=== PATIENT | male | born 1940 | race Caucasian/White ===

== ENCOUNTER → 2019-03-27 | Outpatient (CLI) | payer MEDICARE, SELFPAY ==
[2019-03-06 09:19] VITALS: BMI 30.2
--- NOTE | 2019-03-27 12:40 | STRESSREP_ITS ---
Stress Test Report Exercise myocardial perfusion stress test. 78-year-old man with a history of coronary artery disease and previous pericarditis. Medications: Aspirin, amlodipine, metoprolol, isosorbide. Stress protocol: Resting EKG demonstrates sinus bradycardia with a rate of 48 bpm normal intervals are noted resting blood pressures 142/78mmhg. The patient exercised according to regular Gideon protocol for a total duration of 6 minutes. The maximum heart rate attained was 146 bpm which was 102% of maximum corrected heart rate and maximum workload was 7 metabolic equivalents. The patient maintained sinus rhythm throughout the recording. At rest there were no ST or T wave changes noted suggest ischemia at peak exercise nonspecific ST-T wave c hanges were noted with no meet the criteria for ischemia. The resting blood pressure 142/78 with a peak blood pressure 168/84 mmHg. No clinical angina was noted. Myocardial perfusion protocol. 14.3 mCi of technetium 99m sestamibi was injected at rest. The patient exercised according to regular Gideon protocol peak exercise 44.4 mCi of technetium 99 sestamibi was injected stress images were obtained stress and rest images were reconstructed and compared in the short axis vertical and horizontal long axis. Gated images were also obtained . Perfusion SPECT analysis. Review of the stress images demonstrate normal uptake of tracer noted in all areas of the myocardium ;the rest images similar demonstrate normal uptake of tracer noted in all areas of myocardium. No areas of reversibility no suggest ischemia. Gated SPECT analysis: The gated ejection fraction is 66%. Conclusion: Normal exercise myocardial perfusion stress test at a moderate workload. Normal ejection fraction.
== END | disposition home or self-care (01) ==
PROVIDERS: Family Provider Family Medicine; PCP Family Medicine; Referring Provider Internal Medicine Cardiovascular Disease; Visit Provider Internal Medicine Cardiovascular Disease
DX: I25.10 Atherosclerotic heart disease of native coronary artery without angina pectoris (principal); E78.5 Hyperlipidemia, unspecified
CPT/HCPCS: 78452; 93017; A9500; A4216

== ENCOUNTER → 2019-08-07 08:48 | Outpatient (CLI) | payer MEDICARE, SELFPAY ==
[2019-03-06 09:19] VITALS: BMI 30.2
--- NOTE | 2019-08-07 09:39 | ADU_ITS ---
Reason For Study: Rt groin pain/abnormal ultrasound Right Velocities Left Velocities Ext. Iliac Artery, dist = 108.9 cm./sec. Ext Iliac Artery, dist = 92.3 cm./sec. Common Femoral Artery, dist = 81.4 cm./sec. Common Femoral Artery, mid = 65.8 cm./sec. Supf Femoral Artery, prox = 111 cm./sec. Supf. Femoral Artery, prox = 60.9 cm./sec. Supf Femoral Artery, mid = 79.6 cm./sec. Supf. Femoral Artery, mid = 83 cm./sec. Supf Femoral Artery, dist. = 70.5 cm./sec. Supf. Femoral Artery, dist = 63.4 cm./sec. Profunda Femoral Artery = 88.8 cm./sec. Profunda Femoral Artery = 45 cm./sec. Interpretation Summary Mild calcific plaque with shadowing right common femoral artery. Velocities suggest less than 50% stenosis right common femoral artery Proximal right superficial femoral artery and profundofemoral arteries are patent Minimal calcific plaque left common femoral artery with maintained flow within the common femoral artery and superficial femoral artery. Irregular plaque within the proximal left profundofemoral artery with slightly diminished velocity. Ordering Physician: Richar Dunbar Referring Physician: MD Oliver Mims Performed By: Dori Beltran RVCj
== END ==
PROVIDERS: Family Provider Family Medicine; PCP Family Medicine; Referring Provider Surgery; Visit Provider Surgery
DX: R93.89 Abnormal findings on diagnostic imaging of other specified body structures (principal)
CPT/HCPCS: 93925

== ENCOUNTER 2020-07-16 20:06 | Emergency (ER) | payer MEDICARE, OTHER, SELFPAY ==
[2020-03-05 15:03] VITALS: BMI 30.2
[2020-07-16 20:07] VITALS: BP 132/70; PULSE 54; RESP 15; TEMP 36.4; O2SAT 94; BMI 27.6
[2020-07-16 20:13] VITALS: O2SAT 95
--- NOTE | 2020-07-16 20:20 | CT_ITS ---
STUDY: CT CERVICAL SPINE WITHOUT CONTRAST REASON FOR EXAM: Male, 79 years old. FELL FROM TREADMILL. No LOC. Lt shoulder pain RADIATION DOSAGE (If Supplied By Facility): CTDIvol = ( 23.08 ) mGy, DLP = ( 448.19 ) mGycm TECHNIQUE: High resolution transaxial imaging was performed without contrast material. Sagittal and coronal images were reconstructed. Individualized dose optimization techniques were used for this CT. COMPARISON: None FINDINGS: Normal craniovertebral junction. Normal anterior atlantoaxial articulation. Normal odontoid process. Normal cervical lordosis. Normal vertebral bodies and posterior osseous elements. C2-3: Normal endplates. Normal disc height and morphology. Right degenerative facet hypertrophy. Normal central canal and intervertebral neuroforamina. C3-4: Normal endplates. Normal disc height and morphology. Normal central canal. Facet hypertrophy and uncovertebral spurring narrowing the left intervertebral neural foramen. C4-5: Spurring at the endplates. Normal disc height and morphology. Normal central canal. Facet hypertrophy narrowing the intervertebral neuroforamina. C5-6: Spurring at the endplates. Narrowed disc height. Mild posterior spurring protruding into the central canal. Uncovertebral spurring narrowing the intervertebral neuroforamina, left more than right. C6-7: Mild spurring at the endplates. Narrowed disc height. Normal central canal and intervertebral neuroforamina. C7-T1: Normal endplates. Normal disc height and morphology. Normal central canal and intervertebral neuroforamina. Normal visualized soft tissue structures. CT/Spine Cervical without Contras IMPRESSION: Degenerative changes of the cervical spine. Electronically Signed: Eldon Nichols DO at 21:32 EDT Tel [phone], Service support ,
--- NOTE | 2020-07-16 20:20 | CT_ITS ---
STUDY: CT BRAIN WITHOUT CONTRAST REASON FOR EXAM: Male, 79 years old. FELL FROM TREADMILL. No LOC. Lt shoulder pain RADIATION DOSAGE (If Supplied By Facility): CTDIvol = ( 44.99 ) mGy, DLP = ( 796.11 ) mGycm TECHNIQUE: Transaxial CT imaging of the brain was performed without administration of intravenous contrast material. Individualized dose optimization techniques were used for this CT. COMPARISON: No relevant priors. FINDINGS: Normal soft tissue structures. Normal calvarium. Normal size ventricles and extra-axial spaces for the patient''s age. Normal white matter tracts of the cerebral hemispheres. Normal basal ganglia and thalami. Normal brainstem. Normal cerebellum. There is no intracranial hemorrhage. There are no findings of an acute ischemic infarction. Normal visualized paranasal sinuses. CT/Brain/Head without Contrast IMPRESSION: Normal unenhanced CT scan of the brain. Electronically Signed: Eldon Nichols DO at 21:26 EDT Tel [phone], Service support ,
--- NOTE | 2020-07-16 20:21 | RAD_ITS ---
STUDY: X-RAY - LEFT SHOULDER REASON FOR EXAM: Male, 79 years old. LEFT SHOULDER PAIN AFTER FALLING OFF TREADMILL. TECHNIQUE: 2 view(s) of the shoulder. COMPARISON: None. FINDINGS: Normal glenohumeral articulation. Normal acromioclavicular joint. Degenerative hypertrophy of the acromion. Impacted fracture at the surgical neck of the humerus with avulsion of the greater tuberosity. The soft tissue structures are unremarkable. Normal visualized pulmonary apex. RAD/Shoulder min 2 Views IMPRESSION: Impacted fracture at the surgical neck of the humerus with avulsion of the greater tuberosity. Electronically Signed: Eldon Nichols DO at 21:54 EDT Tel [phone], Service support ,
--- NOTE | 2020-07-16 20:21 | RAD_ITS ---
STUDY: X-RAY - LEFT HUMERUS REASON FOR EXAM: Male, 79 years old. LEFT SHOULDER PAIN AFTER FALLING OFF TREADMILL. TECHNIQUE: 4 view(s) of the humerus. COMPARISON: None. FINDINGS: Impacted fracture at the surgical neck of the humerus with avulsion of the greater tuberosity. There is no demonstrated fracture or osseous destructive process. There is no demonstrated soft tissue abnormality. RAD/Humerus min 2 Views IMPRESSION: Impacted fracture at the surgical neck of the humerus with avulsion of the greater tuberosity. Electronically Signed: Eldon Nichols DO at 21:53 EDT Tel [phone], Service support ,
--- NOTE | 2020-07-16 20:24 | ED.VIS.FALL ---
History of Present Illness Chief Complaint: Fall Informant: Patient Occurred: Today Mechanism/Context: Trip Narrative: Patient is a 79-year-old male presenting after mechanical fall. Patient was walking on his treadmill at home when he look to the side when he was trying to get a piece of candy out of his pocket which caused him to lose his balance and fall. He landed on his left side. He did hit his head. He does not think he lost consciousness. He is complaining of significant pain of his left shoulder. He denies associated numbness or tingling. He does take a daily aspirin but is not on any other anticoagulation. He also has some mild pain of his left hip. Patient received 30 mg of IV Toradol in route via EMS. Patient denies any other complaints at this time. Past Medical History - Allergies and Home Meds Allergies/Adverse Reactions: Allergies morphine Adverse Reaction (Verified 07/16/20 20:06) Other HALLUCINATIONS Primary Care Physician: Oliver Mims MD [Primary Care Provider] - Benjamín Davey MD [STAFF PHYSICIAN] - Past Medical History: - - Hypertension, hyperlipidemia, BPH, gastritis, glaucoma Surgical History: appendectomy, - - eye Smoking Status: Former smoker Review of Systems General: Denies: Chills, Fever, Sweats Eyes: Denies: Visual changes - bilaterally, Diplopia ENT: Denies: Rhinorrhea, Sore throat Cardiovascular: Denies: Chest pain, Palpitations Respiratory: Denies: Dyspnea, Cough, Dyspnea on exertion Gastrointestinal: Denies: Abdominal pain, Nausea, Vomiting, Diarrhea, Melena, Hematochezia Genitourinary: Denies: Dysuria, Hematuria, Frequency Musculoskeletal: Reports: Extremity Pain - Left shoulder, left hip. Denies: Back pain, Swelling Skin: Denies: Rash, Wounds Neurological: Denies: Headache, Weakness, Numbness Physical Exam Vital Signs/Narrative: Vital Signs Temp Pulse Resp BP Pulse Ox 07/16/20 20:13 95 07/16/20 20:07 97.5 F L 54 L 15 132/70 H 94 Inital Vital Signs reviewed: Yes General: Well nourished, Well developed Head: Normocephalic, Atraumatic Eyes: Perrl, EOMI ENT: TM's clear, No hemotympanum or drainage, No trauma. Negative for: Hemotympanum, Nasal trauma, Nasal septal hematoma Neck: Nontender, Full ROM. Negative for: Spinal Tenderness, Paraspinal Tenderness Cardiovascular: Regular rate, Regular rhythm, No murmurs Respiratory: No distress, CTA bilaterally, Chest nontender Abdomen: Soft, Nontender, Nondistended, Normal bowel sounds. Negative for: Guarding, Rebound tenderness Back: Nontender Extremeties: No obvious deformity but tenderness to palpation of the left shoulder and proximal humerus. No pain or deformity of the left elbow. Normal range of motion of the elbow and distal arm. Mild tenderness palpation of the left hip. Pelvis is stable. No pain with range of motion of the left hip. Extremities are equal length with no deformities. Skin: Normal color, No rash, - - 1 cm superficial abrasion to the hypothenar eminence of the right hand, no active bleeding. Neurological: Alert, Oriented x3, Cranial nerves II-XII grossly intact, Normal Strength, Normal Sensation Psychological: Normal affect Diagnostic/Tx/Re-eval Clinical Impression(s) from Imaging Studies Brain CT 07/16/20 20:20 IMPRESSION: Normal unenhanced CT scan of the brain. Electronically Signed: Eldon Nichols DO at 21:26 EDT Tel [phone], Service support , Cervical Spine CT 07/16/20 20:20 IMPRESSION: Degenerative changes of the cervical spine. Electronically Signed: Eldon Nichols DO at 21:32 EDT Tel [phone], Service support , Humerus X-Ray 07/16/20 20:21 IMPRESSION: Impacted fracture at the surgical neck of the humerus with avulsion of the greater tuberosity. Electronically Signed: Eldon Nichols DO at 21:53 EDT Tel [phone], Service support , Shoulder X-Ray 07/16/20 20:21 IMPRESSION: Impacted fracture at the surgical neck of the humerus with avulsion of the greater tuberosity. Electronically Signed: Eldon Nichols DO at 21:54 EDT Tel [phone], Service support , Hip/Pelvis X-Ray 07/16/20 21:10 IMPRESSION: No acute bony injury of the pelvis and hip. Electronically Signed: Eldon Nichols DO at 21:51 EDT Tel [phone], Service support , - Medical Decision Making Patient evaluated for pain injury after mechanical fall. He fell off his treadmill. He appears nontoxic but very uncomfortable secondary to pain. Patient was given Toradol in route and because of the amount of pain he is and he is given IV morphine. Patient states he had confusion associate with morphine but I think given his acute pain he will tolerate it better this time. Patient is amenable to this. Patient is given 4 of IV morphine and does not have any altered mental status. Given that he did hit his head and is on aspirin did obtain a head CT and as he has a distracting injury with his left shoulder I also obtained CT of the C-spine. These do not show any acute process. Patient is found to have an impacted surgical neck fracture of the humerus with avulsion of the greater tuberosity. He is neurovascular intact distally. He does have decreased range of motion of his shoulder but is not clear if this is just due to pain or if there is a deficit in one of his rotator cuff muscles. Patient is discharged home with Percocet and Colace for pain control. He is counseled on the side effects of constipation associated with Percocet which is why he is discharged home with Colace. He is placed in a sling in the ER. He is instructed to follow-up with orthopedics and given referral for on-call, Dr. Davey. I also discussed plan of care with his over the phone who is agreeable. She will come pick him up. Patient is amenable to discharge home and feels that he will be safe at home and has enough assistance with his . Patient is counseled on signs and symptoms requiring return to the emergency room. Patient verbalizes agreement and understand this plan. Patient discharged home in stable and improved condition. ED Disposition - Plan for ED Patient: Disposition: Home or Assisted Living Diagnosis: Fracture of surgical neck of left humerus Instructions: ED Mechanical Fall, ED Fracture Upper Extremity Prescriptions: Docusate Sodium [Colace] 100 mg PO BID #20 cap Prescription Printed Oxycodone HCl/Acetaminophen [Percocet 5/325] 1 tab PO Q6H PRN PRN 3 Days #12 tab PRN Reason: Pain Score 6-10 Prescription Printed Referrals: Oliver Mims MD [Primary Care Provider] - Benjamín Davey MD [STAFF PHYSICIAN] - Additional Instructions: Wear sling for comfort. Please call orthopedist tomorrow to set up a follow-up appointment for early next week. Take a stool softener with the pain medication to prevent constipation. You may also take ibuprofen in addition to the pain medication prescribed today. No other injuries are found today. Your tetanus was updated.
[2020-07-16] MEDS: Morphine 4 MG/ML Syringe IV (20:39)
[2020-07-16] MEDS: Ondansetron 4 MG/2 ML Vial IV (20:39)
--- NOTE | 2020-07-16 21:10 | RAD_ITS ---
STUDY: X-RAY - PELVIS AND LEFT HIP REASON FOR EXAM: Male, 79 years old. FALL OFF TREADMILL. LEFT HIP PAIN. TECHNIQUE: 3 views of the pelvis and hip. COMPARISON: None. FINDINGS: There is a non-specific bowel gas pattern. Normal visualized soft tissue structures. Degenerative vertebral changes about the visualized lumbar levels. Normal bilateral iliac wings, sacroiliac joints and visualized sacrum. Normal bilateral superior and inferior pubic rami. Normal pubic symphysis. Normal bilateral ischial tuberosities. Normal visualized femoral head. Normal acetabulum. Normal hip joint. RAD/HIP, UNI W/ Pelvis 2-3 Views IMPRESSION: No acute bony injury of the pelvis and hip. Electronically Signed: Eldon Nichols DO at 21:51 EDT Tel [phone], Service support ,
[2020-07-16 22:11] VITALS: BP 111/69; PULSE 85; RESP 16; O2SAT 98
[2020-07-16] MEDS: Diphth,Pertuss(Acell),Tet Vac 0.5 ML Vial IM (22:28)
[2020-07-16] MEDS: oxyCODONE 5 MG Tablet PO (22:28)
== END 2020-07-16 23:02 | disposition home or self-care (01) ==
PROVIDERS: Emergency Provider Emergency Medicine; PCP Family Medicine
DX: S42.212A Unspecified displaced fracture of surgical neck of left humerus, initial encounter for closed fracture (principal); E78.5 Hyperlipidemia, unspecified; I10 Essential (primary) hypertension; Z79.82 Long term (current) use of aspirin; Z79.899 Other long term (current) drug therapy; W18.30XA Fall on same level, unspecified, initial encounter; Y93.A1 Activity, exercise machines primarily for cardiorespiratory conditioning; Y92.009 Unspecified place in unspecified non-institutional (private) residence as the place of occurrence of the external cause; Y99.8 Other external cause status
CPT/HCPCS: 70450; 72125; 73030; 73060; 73502; 90471; 90715; 96374; 96375; 99284; J2405

== ENCOUNTER → 2020-07-23 11:16 | Outpatient (CLI) | payer MEDICARE, OTHER, SELFPAY ==
[2020-07-16 20:07] VITALS: BMI 27.6
--- NOTE | 2020-07-23 11:34 | VDUE_ITS ---
Reason For Study: Pain, Edema Left Proximal Left jugular vein is spontaneous, widely patent, phasic, with no intraluminal echogenicity noted. Left subclavian vein is spontaneous, widely patent, phasic, with no intraluminal echogenicity noted. Left Arm Left axillary vein is spontaneous, patent, phasic, competent, compressible and demonstrates augmentation. Left brachial vein is compressible. Left cephalic vein is compressible. Left basilic vein is compressible. Left Lower Arm Left radial vein is compressible. Left ulnar vein is compressible. Patient Safety Prelim to Ceferino. Technically difficult and limited exam due to rotator cuff tear, pt unable to move arm. Interpretation Summary Deep veins of the left upper extremity are patent and compressible segmentally. There is no evidence of deep vein thrombosis. The superficial veins of the left upper extremity, the basilic and cephalic veins, are patent and compressible. There is no evidence of left upper extremity superficial thrombophlebitis involving the veins imaged. Ordering Physician: Dexter De La Vega Referring Physician: MD Felicita Oliver Performed By: Dori Beltran RVT and Student ?
== END ==
PROVIDERS: PCP Family Medicine; Referring Provider Physician Assistant Surgical; Visit Provider Physician Assistant Surgical
DX: M79.622 Pain in left upper arm (principal); R60.0 Localized edema
CPT/HCPCS: 93971

== ENCOUNTER 2020-08-05 09:22 | Inpatient (IN) | payer MEDICARE, OTHER, SELFPAY ==
--- NOTE | 2020-07-31 09:33 | EKG12_ITS ---
Test Reason : PREOP Blood Pressure : / mmHG Vent. Rate : 051 BPM Atrial Rate : 051 BPM P-R Int : 152 ms QRS Dur : 080 ms QT Int : 426 ms P-R-T Axes : 047 050 056 degrees QTc Int : 392 ms Sinus bradycardia Otherwise normal ECG Confirmed by EDGAR FRIEND, WAQAS ([id number]), editor managing newspaper ROCAEL STAFFORD ([id number]) on 08/03/2020 1:26:27 PM Referred By: LIAT Confirmed By:WAQAS HERNÁNDEZ MD
[2020-07-31 10:26] LABS: Absolute Lymphocyte Count 1.55 X10^3/uL (0.83-4.51); Absolute Neutrophil Count 4.4 X10^3/uL (2.0-7.7); Basophil# 0.03 X10^3/uL; Basophil% 0.4 % (0-1); Eosinophil# 0.06 X10^3/uL; Eosinophils% 0.9 % (0-5); Hematocrit 35.9 % (40-54); Hemoglobin 11.5 g/dL (13.0-16.5); Lymphocyte # 1.55 X10^3/ul (4.0); Lymphocyte % 22.7 % (19-41); Mean Corpuscular Hgb 33.3 pg (27.0-32.0); Mean Corpuscular Volume 104.1 fL (80-94); Mean Platelet Vol. 9.2 fl (6.2-12.0); Monocyte# 0.73 X10^3/uL; Monocyte% 10.7 % (0-10); NRBC Flagged by Analyzer 0 % (0-5); Neutrophil # 4.43 X10^3/uL (2.7-7.7); Neutrophil % 64.9 % (47-70); Platelet Count 293 K/mm3 (150-450); RBC Distribution Width CV 13.8 % (11.6-14.6); RBC Distribution Width SD 52.6 fl (35.1-43.9); Red Blood Count 3.45 M/mm3 (4.6-6.2); White Blood Count 6.8 K/mm3 (4.4-11.0)
[2020-07-31 11:00] LABS: AST(SGOT) 16 U/L (15-37); Alanine Aminotransfer ALT/SGPT 22 U/L (16-61); Alkaline Phosphatase 79 U/L (45-117); Bilirubin, Direct 0.23 mg/dL (0.00-0.30); Globulin 3.6 g/dL (2.2-4.2); Magnesium 2.2 mg/dL (1.6-2.6); Protein, Total 6.6 g/dL (6.4-8.2)
[2020-07-31 11:42] LABS: Anion Gap 3 (5-15); BUN 15 mg/dL (7-18); BUN/Creat Ratio 20.7 RATIO (10-20); Calcium,Total 8.6 mg/dL (8.5-10.1); Chloride 104 mmol/L (98-107); Creatinine, Serum 0.73 mg/dL (0.70-1.30); EST Glomerular Filtration Rate 111 mL/min (>60); Est Glom Filt Rate - Afr Amer 134 mL/min (>60); Glucose 102 mg/dL (74-106); Potassium 4.3 mmol/L (3.5-5.1); Sodium Level 137 mmol/L (136-145)
[2020-08-05] VITALS (11 sets, daily range): BP systolic 99–114; BP diastolic 55–67; PULSE 45–73; RESP 16–17; TEMP 35.3–36.5; O2SAT 93–99; BMI 27.3
[2020-08-05] MEDS: Gabapentin 600 MG Tablet PO (09:54)
[2020-08-05] MEDS: Acetaminophen 500 MG Tablet 1000 MG PO ×3 (09:55→22:20)
[2020-08-05] MEDS: Celecoxib 200 MG Capsule 400 MG PO (09:55)
[2020-08-05] MEDS: Lactated Ringers 1,000 ML 999 ML IV ×2 (09:58→13:19)
[2020-08-05 10:26] LABS: Bedside Glucose 133 mg/dL (70-110)
[2020-08-05] MEDS: Cefazolin 2 GM in 0.9% Normal Saline 100 ML IV (10:28)
[2020-08-05] MEDS: dexAMETHasone 10 MG/ML Vial IV (10:45)
--- NOTE | 2020-08-05 12:24 | OP.PCM_ITS ---
Report of Operation Date of Procedure: 08/05/20 Pre-Operative Diagnosis: Left three-part proximal humerus fracture Post-Operative Diagnosis: Left three-part proximal humerus fracture Surgery/Procedure Performed:: Left reverse total shoulder replacement Description of Surgical Findings:: Stable shoulder. Well reduced tuberosities. corporate travel expert: Babatunde Aguiar Type of Anesthesia:: General Anesthesiologist: Armond Abreu Special Medications: 2 g Ancef, 1 g TXA at incision, 1 g TXA closure, 10 mg Decadron, joint cocktail (5 mg Duramorph, 30 mL of 0.5% Ropivicaine, 1000 units of epinephrine, 30 mg of Toradol). IV vancomycin Specimen's removed: Bony cuts Estimated Blood Loss (mL): 250 Fluids Replaced: 1300 mL crystalloid Description of Procedure: Components used 1. [place] reunion glenoid baseplate 2. Teddy reunion 36 mm, 2mm Glenosphere 3. [place] reunion 36mm, 6mm humeral liner 4. Teddy reunion reverse TSA humeral adapter tray 4mm 5. Teddy reunion humeral fracture stem 11 mm size Brief history/Operative indications: 79 yo m with history of l shoulder pain and proximal humerus fracture. Patient failed conservative measures as mentioned in the H&P. After discussion of risk and benefits of reverse total shoulder replacement including but not limited to blood loss, DVTs, PEs, nerve vessel damage, infection, general risk of anesthesia including loss of life, instability and stiffness patient demonstrating understanding wish to proceed was able to sign informed consent. Medical clearance was obtained. Procedure: On the date of the procedure, patient's L upper extremity was marked in the preoperative area. Patient was taken back to the operating room where they were placed on the table in the supine position. Anesthesia assumed control of the C-spine and airway, then administered anesthetic. All bony prominences were identified well-padded, the head was secured and the patient was placed in the beachchair position at about 35? inclination. Anesthesia remained in control of the C-spine airway throughout the remainder of the procedure. Patient was then appropriately fastened to the table and the L upper extremity was prepped in a sterile fashion. The surgeons then scrubbed. Upon reentering the room, the L upper extremity was draped in a sterile fashion and the incision was marked out. Timeout was called, everyone agreed upon the side, the site, the procedure to be performed, patient identity and antibiotics given. Incision was taken down through skin and subcutaneous tissue, fat down to fascia. The stripe of the deltopectoral interval and cephalic vein were identified and blunt dissection was used to retract the deltoid. The cephalic vein was retracted laterally. Clavipectoral fascia was then incised and a cobra retractor was placed in the wound. The proximal one third of the pectoralis major insertion was released. Biceps tendon was released. Proximally we followed the biceps tendon after transecting it into the rotator interval. The rotator interval was split and the arm was externally rotated. A lesser tuberosity fragment was identified and tagged subscapularis tendon was released. We released down the anterior portion of the humeral head and a resendiz elevator was used to release the inferior portion of the humeral head. The arm was externally rotated and the shoulder was dislocated. The humeral head fragment was removed from the wound using a towel clip. The greater tuberosity fragment was also identified and tagged using #2 FiberWire. Once his humeral head was retracted out of the way and the glenoid was exposed. After exposing the glenoid, the labrum and the remaining proximal biceps were debrided. At this time we are able to view the entire outer edge of the glenoid. A central pin was placed we sequentially reamed over this central pin to 28mm. Once this was completed the central screw was measured and found to be. The glenoid baseplate was screwed into place. Wound was closely irrigated out with normal saline we then drilled sequentially for 2 screws. Screws were placed superiorly and inferiorly and tightened down the screws. Once the screws were appropriately tightened into place the glenoid baseplate was compressed against the exposed subchondral bone. A 36mm glenosphere was impacted into place engaging the Lina[place] taper. Attention was then turned towards the humerus. The humerus was again externally rotated exposing the proximal portion of the humerus. Central canal finder was then used to open up the canal. We reamed to a 13mm reamer. We then trialed with an 11 mm fracture stem. We trialed the 6mm liner, with the 4mm humeral baseplate. We obtained an adequate reduction at this time with a nice stable shoulder. Good internal rotation to the gluteus, forward elevation to 140?, external rotation to 20?. The final stem was then cemented into place distally with allowing for proximal ingrowth at the bony contact areas. Once this was done the trunnion was cleaned and the head component was impacted into place. Once the final components were assembled and impacted into place. Shoulder was then reduced and found to be stable with good range of motion. Tuberosities were repaired using #5 FiberWire & #2 FiberWire. These were repaired through the holes in the prosthesis and predrilled holes in the bone.. The wound was with chlorhexidine solution then copiously irrigated out with a 1 L normal saline lavage. The deltopectoral fascia was then closed using #1 Vicryl skin was closed using 2-0 Vicryl interrupted sutures and final skin closure was done with 3-0 Monocryl. Steri-Strips are placed for final skin closure. Sterile dressing was placed patient was then placed in a sling and awakened by anesthesia. Patient was then transferred to the PACU for recovery. Postoperative plan: Patient will be admitted to the hospital overnight. They will get physical therapy starting in 2 weeks with normal postoperative regimen. Patient will be placed on 325 mg aspirin daily for DVT prophylaxis. The first postoperative appointment will be in 2 weeks for wound check and initiation of phase 1 physical therapy. - Complications No intraoperative complications - Admit VTE Documentation VTE Present on Admission: No VTE Mechan Device Prophylaxis: SCD's, Thigh High EMMANUEL Hose VTE Pharm Prophylaxis ordered?: Yes
--- NOTE | 2020-08-05 13:20 | RAD_ITS ---
STUDY: X-RAY - LEFT SHOULDER REASON FOR EXAM: Male, 79 years old. Post op left shoulder TECHNIQUE: 3 view(s) of the shoulder. COMPARISON: Comparison is made with prior examination dated 07/16/2020. FINDINGS: The patient is status post left total shoulder replacement. There is good alignment. RAD/Shoulder min 2 Views IMPRESSION: Status post left total shoulder replacement. There is good alignment. Electronically Signed: Dimitri Anaya, at 13:49 EST , Service support ,
[2020-08-05] MEDS: Lactated Ringers 1,000 ML 125 ML IV ×2 (13:38→18:39)
--- NOTE | 2020-08-05 15:05 | PN_ITS ---
<Paco Webb - Last Filed: 08/05/20 15:05> Reason for Visit: Medical management Subjective: This is a 79 year old male with pmhx of CAD with no prior stents, HTN, HLD, esophagitis, obesity who underwent a left reverse total shoulder per Dr. Davey today. At this time he is still groggy from waking up from sedation. Currently complains of no shortness of breath or cough, fever or chill, nausea or vomiting. He denies any pain. He has numbness from a nerve block in his left hand. He is otherwise doing well. Vitals/I&O's: Vital Signs Temp Pulse Resp BP Pulse Ox 96.8 F L 51 L 16 102/58 L 97 08/05/20 14:13 08/05/20 14:13 08/05/20 14:13 08/05/20 14:13 08/05/20 14:13 Oxygen Delivery Method Room Air Weight: 201 lb 15.095 oz Body Mass Index (BMI) 27.3 Intake and Output for Last 24 Hours 08/03/20 08/04/20 08/05/20 23:59 23:59 23:59 Intake Total 2965.5 / 2965.5 Balance 2965.5 / 2965.5 General: Alert, Oriented x3, Cooperative HEENT: Atraumatic, PERRLA, EOMI, Normocephalic Neck: Supple, No JVD, Negative Carotid Bruits Lungs: Clear to auscultation, Normal air movement Cardiovascular: Regular rate, No murmurs Abdomen: Bowel Sounds Present, Soft, Non Tender Extremities: No edema, Capillary Refill Less than 3 Seconds Skin: No rashes, No breakdown Musculoskeletal: No Tenderness to Palpation of Joints or Extremities, - - Distal pulse and motor function intact, sensation still impaired due to nerve block. Neurological: Cranial nerves II-XII grossly intact Psych/Mental Status: Normal Affect, Appropriate, Alert and oriented to time, place, person, mood and affect Microbiology Past 72 Hours 08/04/20 13:25 Interface Orders SARS-CoV-2 Antigen (Rapid) - Final Laboratory Results 08/05/20 09:46: POC Glucose 133 H Current Medications Acetaminophen (Acetaminophen 500 Mg Tablet) 1,000 mg PO Q8 CHEPE Amlodipine Besylate (Amlodipine 2.5 Mg Tablet) 2.5 mg PO DAILY [facility] Aspirin (Aspirin 325 Mg Tablet) 325 mg PO DAILY@0800 [facility] Atorvastatin Calcium (Atorvastatin Calcium 80 Mg Tablet) 80 mg PO QHS [facility] Docusate Sodium (Docusate Sodium 100 Mg Capsule) 100 mg PO BID PRN PRN Reason: Constipation Dorzolamide/Timolol (Dorzolamide Hcl/Timolol 10 Ml Bottle) 1 drop OPHTHALMIC BID [facility] Doxazosin Mesylate (Doxazosin 4 Mg Tablet) 4 mg PO DAILY [facility] Enteral Nutritional Formula (Ensure Surgery 237 Ml Liquid) 237 ml PO TIDCM [facility] Last Admin: 08/05/20 14:27 Dose: Not Given Documented by: Famotidine (Famotidine 20 Mg Tablet) 20 mg PO DAILY [facility] Finasteride (Finasteride 5 Mg Tablet) 5 mg PO DAILY [facility] Lactated Ringer's () 1,000 mls @ 999 mls/hr IV .Q1H1M [facility] Stop: 08/05/20 15:15 Last Infusion: 08/05/20 13:18 Dose: Infused Documented by: Lactated Ringer's () 1,000 mls @ 999 mls/hr IV .Q1H1M [facility] Stop: 08/05/20 15:15 Last Infusion: 08/05/20 13:38 Dose: Infused Documented by: Vancomycin HCl 1,500 mg/ (Sodium Chloride) 530 mls @ 250 mls/hr IV PREOP ONE Stop: 08/05/20 16:22 Last Infusion: 08/05/20 13:37 Dose: Infused Documented by: Lactated Ringer's () 1,000 mls @ 125 mls/hr IV .Q8H [facility] Last Admin: 08/05/20 13:38 Dose: 125 mls/hr Documented by: Cefazolin Sodium () 1 gm in 50 mls @ 150 mls/hr IV Q8H [facility] Stop: 08/06/20 02:49 Insulin Human Lispro (Insulin Lispro 100 Unit/Ml Insuln.Pen) 1 - 6 unit SC Q4H PRN PRN; Protocol PRN Reason: BG>/= 180, SEE PROTOCOL Stop: 08/05/20 20:15 Isosorbide Mononitrate (Isosorbide Mononitrate 30 Mg Tablet) 30 mg PO DAILY [facility] Ketorolac Tromethamine (Ketorolac 15 Mg/Ml Vial) 15 mg IV Q6H PRN PRN PRN Reason: Pain Score 1-5 Stop: 08/07/20 07:22 Meloxicam (Meloxicam 7.5 Mg Tablet) 7.5 mg PO BID [facility] Metoprolol Succinate (Metoprolol(Xl)Succ 25 Mg Tablet) 25 mg PO DAILY [facility] Nitroglycerin (Nitroglycerin (Inpatient Use) 0.4 Mg Tab.Subl) 0.4 mg SUBLINGUAL .Q5-15M PRN PRN Reason: chest pain Ondansetron HCl (Ondansetron 4 Mg/2 Ml Vial) 4 mg IV Q8H PRN PRN PRN Reason: NAUSEA Oxycodone HCl (Oxycodone 5 Mg Tablet) 5 - 10 mg PO Q4H PRN PRN PRN Reason: Pain Score 4-10 Promethazine HCl (Promethazine 25 Mg/Ml Syringe) 12.5 mg IM Q6H PRN PRN; Protocol PRN Reason: NAUSEA/VOMITING Psyllium Hydrophilic Mucilloid (Psyllium 1 Packet) 1 packet PO DAILY [facility] Senna/Docusate Sodium (Senna/Docusate Sodium 1 Tablet) 2 tablet PO BID CHEPE Sodium Chloride (0.9% Saline Lock 10 Ml Syringe) 10 - 40 ml IV UD PRN PRN Reason: SALINE FLUSH STROKE Vital Signs/Narrative: Vital Signs Temp Pulse Resp BP Pulse Ox 08/05/20 14:13 96.8 F L 51 L 16 102/58 L 97 08/05/20 14:00 56 L 16 101/62 95 08/05/20 13:45 46 L 16 100/60 94 08/05/20 13:30 45 L 16 103/61 93 08/05/20 13:15 50 L 16 99/59 L 95 08/05/20 13:08 95.5 F L 54 L 16 111/63 96 Medical Necessity - Tobacco Use Smoking Status: Former smoker Tobacco Use: Non-smoker Assessment/Plan All Active Problems (Last Reviewed 03/05/20 @ 15:[address] Luther Sanchez MD) Hypotension (Resolved) Near syncope (Resolved) 1. Left reverse total shoulder postop day #0-care [address] Dr[address] Davey. Received perioperative vancomycin and cefazolin. 2. History of CAD-follows Dr. Sanchez -last stress test was March 2019 and was negative for inducible ischemia. Continue Imdur, aspirin, atorvastatin, metoprolol 3. Hypertension-stable continue home meds 4. Hyperlipidemia-continue atorvastatin 5. History of esophagitis-he is not currently on PPI or H2 senia. 6. Recent macrocytic anemia 07/31/20 - check CBC in AM. 7. BPH-Proscar DVT prophylaxis: Per orthopedics. Thank you for the opportunity to participate in the care of this patient. This patient was seen by Paco Webb PA-C under the supervision of Doctor Penny. <Renata Francis - Last Filed: 08/05/20 19:00> Vitals/I&O's: Vital Signs Temp Pulse Resp BP Pulse Ox 97.4 F L 57 L 16 111/57 L 98 08/05/20 16:39 08/05/20 16:39 08/05/20 16:39 08/05/20 16:39 08/05/20 16:39 Oxygen Delivery Method Room Air Weight: 201 lb 15.095 oz Body Mass Index (BMI) 27.3 Intake and Output for Last 24 Hours 08/03/20 08/04/20 08/05/20 23:59 23:59 23:59 Intake Total 2965.5 / 2965.5 Balance 2965.5 / 2965.5 Microbiology Past 72 Hours 08/04/20 13:25 Interface Orders SARS-CoV-2 Antigen (Rapid) - Final Laboratory Results 08/05/20 09:46: POC Glucose 133 H Current Medications Acetaminophen (Acetaminophen 500 Mg Tablet) 1,000 mg PO Q8 [facility] Last Admin: 08/05/20 16:52 Dose: 1,000 mg Documented by: Amlodipine Besylate (Amlodipine 2.5 Mg Tablet) 2.5 mg PO DAILY [facility] Aspirin (Aspirin 325 Mg Tablet) 325 mg PO DAILY@0800 [facility] Atorvastatin Calcium (Atorvastatin Calcium 80 Mg Tablet) 80 mg PO QHS [facility] Docusate Sodium (Docusate Sodium 100 Mg Capsule) 100 mg PO BID PRN PRN Reason: Constipation Dorzolamide/Timolol (Dorzolamide Hcl/Timolol 10 Ml Bottle) 1 drop OPHTHALMIC BID [facility] Last Admin: 08/05/20 15:52 Dose: Not Given Documented by: Doxazosin Mesylate (Doxazosin 4 Mg Tablet) 4 mg PO DAILY [facility] Last Admin: 08/05/20 16:50 Dose: Not Given Documented by: Enteral Nutritional Formula (Ensure Surgery 237 Ml Liquid) 237 ml PO TIDCM [facility] Last Admin: 08/05/20 17:10 Dose: 237 ml Documented by: Famotidine (Famotidine 20 Mg Tablet) 20 mg PO DAILY [facility] Last Admin: 08/05/20 16:52 Dose: 20 mg Documented by: Finasteride (Finasteride 5 Mg Tablet) 5 mg PO DAILY [facility] Last Admin: 08/05/20 16:52 Dose: 5 mg Documented by: Lactated Ringer's () 1,000 mls @ 125 mls/hr IV .Q8H [facility] Last Admin: 08/05/20 13:38 Dose: 125 mls/hr Documented by: Cefazolin Sodium () 1 gm in 50 mls @ 150 mls/hr IV Q8H [facility] Stop: 08/06/20 02:49 Insulin Human Lispro (Insulin Lispro 100 Unit/Ml Insuln.Pen) 1 - 6 unit SC Q4H PRN PRN; Protocol PRN Reason: BG>/= 180, SEE PROTOCOL Stop: 08/05/20 20:15 Isosorbide Mononitrate (Isosorbide Mononitrate 30 Mg Tablet) 30 mg PO DAILY [facility] Ketorolac Tromethamine (Ketorolac 15 Mg/Ml Vial) 15 mg IV Q6H PRN PRN PRN Reason: Pain Score 1-5 Stop: 08/07/20 07:22 Meloxicam (Meloxicam 7.5 Mg Tablet) 7.5 mg PO BID [facility] Metoprolol Succinate (Metoprolol(Xl)Succ 25 Mg Tablet) 25 mg PO DAILY [facility] Nitroglycerin (Nitroglycerin (Inpatient Use) 0.4 Mg Tab.Subl) 0.4 mg SUBLINGUAL .Q5-15M PRN PRN Reason: chest pain Ondansetron HCl (Ondansetron 4 Mg/2 Ml Vial) 4 mg IV Q8H PRN PRN PRN Reason: NAUSEA Oxycodone HCl (Oxycodone 5 Mg Tablet) 5 - 10 mg PO Q4H PRN PRN PRN Reason: Pain Score 4-10 Promethazine HCl (Promethazine 25 Mg/Ml Syringe) 12.5 mg IM Q6H PRN PRN; Protocol PRN Reason: NAUSEA/VOMITING Psyllium Hydrophilic Mucilloid (Psyllium 1 Packet) 1 packet PO DAILY [facility] Last Admin: 08/05/20 15:52 Dose: Not Given Documented by: Senna/Docusate Sodium (Senna/Docusate Sodium 1 Tablet) 2 tablet PO BID [facility] Last Admin: 08/05/20 16:50 Dose: Not Given Documented by: Sodium Chloride (0.9% Saline Lock 10 Ml Syringe) 10 - 40 ml IV UD PRN PRN Reason: SALINE FLUSH Last Admin: 08/05/20 16:52 Dose: 10 ml Documented by: STROKE Vital Signs/Narrative: Vital Signs Temp Pulse Resp BP Pulse Ox 08/05/20 16:39 97.4 F L 57 L 16 111/57 L 98 08/05/20 14:41 97.0 F L 52 L 16 110/58 L 96 Assessment/Plan Patient seen by Paco Webb PA-C under my supervision Patient seen and examined. He was admitted for left reverse total shoulder replacement due to left proximal humeral fracture. He had surgery on 08/05/2020 and hospitalist service was consulted for medical management. He was seen in bed. He had no complaints and felt well. Review of stems otherwise negative. Pain was well controlled. Review of systems was otherwise negative. He had been on 6L of oxygen post op, but was weaned off, and was on room air at time of review. O/E: Vital Signs Temp Pulse Resp BP Pulse Ox 97.7 F L 73 16 103/55 L 97 08/05/20 18:41 08/05/20 18:41 08/05/20 18:41 08/05/20 18:41 08/05/20 18:41 General: Alert, Oriented x3, Cooperative HEENT: Atraumatic, PERRLA, EOMI, Normocephalic Neck: Supple, No JVD, Negative Carotid Bruits Lungs: Clear to auscultation, Normal air movement Cardiovascular: Regular rate, No murmurs Abdomen: Bowel Sounds Present, Soft, Non Tender Extremities: No edema, Capillary Refill Less than 3 Seconds Skin: No rashes, No breakdown Musculoskeletal: No Tenderness to Palpation of Joints or Extremities, LUE in sling. able to wiggle fingers. Neurological: Cranial nerves II-XII grossly intact Psych/Mental Status: Normal Affect, Appropriate, Alert and oriented to time, place, person, mood and affect Plan is to continue pain management as per orthopedics. Incentive spirometry. PT/OT on board. Fall precautions. Continue atorvastatin for hyperlipidemia and amlodipine and metoprolol for hypertension. On Imdur, aspirin as well as statin and metoprolol for CAD. DVT prophylaxis as per orthopedics. Rest as per Paco Webb PA-C's notes which I have reviewed and endorsed. Thank you for the courtesy of the consult. Please do not hesitate to contact hospitalist service with any questions or concerns. Inpatient E&M: 21730 Subs Hosp L2
--- NOTE | 2020-08-05 15:57 | PCM.PN.BLA ---
Progress Note I have re-examined the patient. There are no clinical changes since date of exam. STROKE Vital Signs/Narrative: Vital Signs Temp Pulse Resp BP Pulse Ox 08/05/20 14:41 97.0 F L 52 L 16 110/58 L 96 08/05/20 14:13 96.8 F L 51 L 16 102/58 L 97 08/05/20 14:00 56 L 16 101/62 95 08/05/20 13:45 46 L 16 100/60 94 08/05/20 13:30 45 L 16 103/61 93 08/05/20 13:15 50 L 16 99/59 L 95 08/05/20 13:08 95.5 F L 54 L 16 111/63 96
[2020-08-05] MEDS: Finasteride 5 MG Tablet PO (16:52)
[2020-08-05] MEDS: 0.9% Saline Lock 10 ML Syringe IV (16:52)
[2020-08-05] MEDS: Famotidine 20 MG Tablet PO (16:52)
[2020-08-05] MEDS: Ensure Surgery 237 ML LIQUID PO (17:10)
[2020-08-05] MEDS: Cefazolin 1 GM/50 ML BAG IV (18:39)
[2020-08-05] MEDS: Dorzolamide HCL/Timolol 10 ml Bottle 1 DRP OPHTHALMIC (22:18)
[2020-08-05] MEDS: Atorvastatin Calcium 80 MG Tablet PO (22:20)
[2020-08-05] MEDS: Senna/Docusate Sodium 1 Tablet 2 TABLET PO (22:20)
[2020-08-06] MEDS: Cefazolin 1 GM/50 ML BAG IV (02:09)
[2020-08-06 02:11] VITALS: BP 119/57; PULSE 58; RESP 17; TEMP 36.9; O2SAT 98
[2020-08-06] MEDS: oxyCODONE 5 MG Tablet PO ×2 (02:34→06:46)
[2020-08-06 06:01] VITALS: BP 118/63; PULSE 56; RESP 18; TEMP 37; O2SAT 97
[2020-08-06 06:02] LABS: Hematocrit 32.3 % (40-54); Hemoglobin 10.6 g/dL (13.0-16.5); Mean Corp Hgb Conc 32.8 g/dL (32-36); Mean Corpuscular Hgb 33.8 pg (27.0-32.0); Mean Corpuscular Volume 102.9 fL (80-94); Mean Platelet Vol. 9.4 fl (6.2-12.0); Platelet Count 240 K/mm3 (150-450); RBC Distribution Width CV 13.6 % (11.6-14.6); RBC Distribution Width SD 51.4 fl (35.1-43.9); Red Blood Count 3.14 M/mm3 (4.6-6.2); White Blood Count 10.8 K/mm3 (4.4-11.0)
[2020-08-06] MEDS: Acetaminophen 500 MG Tablet 1000 MG PO (06:08)
[2020-08-06 06:41] LABS: Anion Gap 6 (5-15); BUN 14 mg/dL (7-18); BUN/Creat Ratio 20.6 RATIO (10-20); Calcium,Total 8.3 mg/dL (8.5-10.1); Chloride 104 mmol/L (98-107); Creatinine, Serum 0.68 mg/dL (0.70-1.30); EST Glomerular Filtration Rate 120 mL/min (>60); Est Glom Filt Rate - Afr Amer 145 mL/min (>60); Estimated Creatinine Clearance 66.82 ml/min; Glucose 118 mg/dL (74-106); Potassium 4.4 mmol/L (3.5-5.1); Sodium Level 136 mmol/L (136-145)
--- NOTE | 2020-08-06 07:32 | PCM.PN.HOSP ---
Reason for Visit: Perioperative management. Coronary artery disease, hypertension, dyslipidemia. Heart rate and blood pressure controlled. Physical exam General: Alert, Oriented x3, Cooperative HEENT: Atraumatic, PERRLA, EOMI, Normocephalic Oral: No Gingival or Mucosal Lesions/ Ulcerations Neck: Supple, No JVD, Negative Carotid Bruits Lungs: Air entry diminished in bilateral lung bases. No crepitation/rhonchi Cardiovascular: Regular rate, Regular Rhythm, Normal S1, Normal S2, No murmurs Abdomen: Bowel Sounds Present, Soft, Non Tender, Non-Distended : No renal angle tenderness. No suprapubic tenderness. Extremities: Left upper extremity in sling. Distal pulses brachial and radial and ulnar artery are palpable. Neurovascular intact. No pedal edema. Skin: No rashes, No breakdown Musculoskeletal: Reverse left shoulder replacement. No Tenderness to Palpation of other joints or Extremities Neurological: Cranial nerves II-XII grossly intact, Deep Tendon Reflexes 2+/4 and Symmetrical, Neuro grossly intact Psych/Mental Status: Normal Affect, Appropriate. Vitals/I&O's: Vital Signs Temp Pulse Resp BP Pulse Ox 98.6 F 56 L 18 118/63 97 08/06/20 06:01 08/06/20 06:01 08/06/20 06:01 08/06/20 06:01 08/06/20 06:01 Oxygen Delivery Method Room Air Weight: 201 lb 15.095 oz Body Mass Index (BMI) 27.3 Intake and Output for Last 24 Hours 08/04/20 08/05/20 08/06/20 23:59 23:59 23:59 Intake Total 3892.58 / 4342.58 1695.83 / 1695.83 Output Total 800 / 800 Balance 3892.58 / 4342.58 895.83 / 895.83 Microbiology Past 72 Hours 08/04/20 13:25 Interface Orders SARS-CoV-2 Antigen (Rapid) - Final Laboratory Results 08/05/20 09:46: POC Glucose 133 H 08/06/20 05:50: WBC 10.8, RBC 3.14 L, Hgb 10.6 L, Hct 32.3 L, MCV 102.9 H, MCH 33.8 H, MCHC 32.8, RDW Std Deviation 51.4 H, RDW Coeff of Chele 13.6, Plt Count 240, MPV 9.4 08/06/20 05:50: Sodium 136, Potassium 4.4, Chloride 104, Carbon Dioxide 26.0, Anion Gap 6, BUN 14, Creatinine 0.68 L, Estim Creat Clear Calc 66.82, Est GFR (MDRD) Af Amer 145, Est GFR (MDRD) Non-Af 120, BUN/Creatinine Ratio 20.6 H, Glucose 118 H, Calcium 8.3 L Current Medications Acetaminophen (Acetaminophen 500 Mg Tablet) 1,000 mg PO Q8 [facility] Last Admin: 08/06/20 06:08 Dose: 1,000 mg Documented by: Amlodipine Besylate (Amlodipine 2.5 Mg Tablet) 2.5 mg PO DAILY [facility] Aspirin (Aspirin 325 Mg Tablet) 325 mg PO DAILY@0800 [facility] Atorvastatin Calcium (Atorvastatin Calcium 80 Mg Tablet) 80 mg PO QHS [facility] Last Admin: 08/05/20 22:20 Dose: 80 mg Documented by: Docusate Sodium (Docusate Sodium 100 Mg Capsule) 100 mg PO BID PRN PRN Reason: Constipation Dorzolamide/Timolol (Dorzolamide Hcl/Timolol 10 Ml Bottle) 1 drop OPHTHALMIC BID [facility] Last Admin: 08/05/20 22:18 Dose: 1 drop Documented by: Doxazosin Mesylate (Doxazosin 4 Mg Tablet) 4 mg PO DAILY [facility] Last Admin: 08/05/20 16:50 Dose: Not Given Documented by: Enteral Nutritional Formula (Ensure Surgery 237 Ml Liquid) 237 ml PO TIDCM [facility] Last Admin: 08/05/20 17:10 Dose: 237 ml Documented by: Famotidine (Famotidine 20 Mg Tablet) 20 mg PO DAILY [facility] Last Admin: 08/05/20 16:52 Dose: 20 mg Documented by: Finasteride (Finasteride 5 Mg Tablet) 5 mg PO DAILY [facility] Last Admin: 08/05/20 16:52 Dose: 5 mg Documented by: Isosorbide Mononitrate (Isosorbide Mononitrate 30 Mg Tablet) 30 mg PO DAILY [facility] Ketorolac Tromethamine (Ketorolac 15 Mg/Ml Vial) 15 mg IV Q6H PRN PRN PRN Reason: Pain Score 1-5 Stop: 08/07/20 07:22 Meloxicam (Meloxicam 7.5 Mg Tablet) 7.5 mg PO BID [facility] Metoprolol Succinate (Metoprolol(Xl)Succ 25 Mg Tablet) 25 mg PO DAILY [facility] Nitroglycerin (Nitroglycerin (Inpatient Use) 0.4 Mg Tab.Subl) 0.4 mg SUBLINGUAL .Q5-15M PRN PRN Reason: chest pain Ondansetron HCl (Ondansetron 4 Mg/2 Ml Vial) 4 mg IV Q8H PRN PRN PRN Reason: NAUSEA Oxycodone HCl (Oxycodone 5 Mg Tablet) 5 - 10 mg PO Q4H PRN PRN PRN Reason: Pain Score 4-10 Last Admin: 08/06/20 06:46 Dose: 10 mg Documented by: Promethazine HCl (Promethazine 25 Mg/Ml Syringe) 12.5 mg IM Q6H PRN PRN; Protocol PRN Reason: NAUSEA/VOMITING Psyllium Hydrophilic Mucilloid (Psyllium 1 Packet) 1 packet PO DAILY [facility] Last Admin: 08/05/20 15:52 Dose: Not Given Documented by: Senna/Docusate Sodium (Senna/Docusate Sodium 1 Tablet) 2 tablet PO BID [facility] Last Admin: 08/05/20 22:20 Dose: 2 tablet Documented by: Sodium Chloride (0.9% Saline Lock 10 Ml Syringe) 10 - 40 ml IV UD PRN PRN Reason: SALINE FLUSH Last Admin: 08/05/20 16:52 Dose: 10 ml Documented by: STROKE Vital Signs/Narrative: Vital Signs Temp Pulse Resp BP Pulse Ox 08/06/20 06:01 98.6 F 56 L 18 118/63 97 Medical Necessity - Tobacco Use Smoking Status: Former smoker Tobacco Use: Non-smoker Assessment/Plan All Active Problems (Last Reviewed 03/05/20 @ 15:[address] Luther Sanchez MD) Hypotension (Resolved) Near syncope (Resolved) 71-year-old gentleman with history of hypertension, coronary artery disease, dyslipidemia had left reverse total shoulder replacement on 08/05/2020. 1. Left reverse total shoulder postop day postop day [address] Dr. Davey. Patient had IV cefazolin in the morning. Had intraoperative vancomycin. I 2. History of CAD-follows Dr. Sanchez -last stress test was March 2019 and was negative for inducible ischemia. Continue Imdur, aspirin, atorvastatin, metoprolol 3. Hypertension-stable continue home meds 4. Hyperlipidemia-continue atorvastatin 5. History of esophagitis-he is not currently on PPI or H2 senia. 6. Recent macrocytic anemia 07/31/20 H&H no major drop. . MCV 102.9. Follow-up PCP for further evaluation of macrocytic anemia. 7. BPH-Proscar DVT prophylaxis: Per orthopedics. Patient is medically stable for discharge. Inpatient E&M: 18213 Subs Hosp L2
--- NOTE | 2020-08-06 08:45 | PN.ORTHO_ITS ---
Subjective: The patient was sitting in bed upon examination. Patient denies any chest pain, shortness of breath, dizziness, lightheadedness, nausea or vomiting, or calf pain. Pain is controlled on medications. No adverse overnight events. Overall patient is doing well. He does have some numbness that is improving into the left thumb. His pain is been well controlled. I did have to make adjustments to patient's pain medications as oxycodone in the past has made him very constipated. He has tolerated tramadol better. Meloxicam also cause significa nt stomach irritation and this was discontinued. Objective: Vital signs stable, afebrile Dressing is clean, dry, intact Ultra-sling fitting appropriately Sensation intact to axillary, radial, median, and ulnar distribution Motor intact with patient able to make okay sign, cross fingers, and thumbs up - Physical Exam Vitals/I&O's: Vital Signs Temp Pulse Resp BP Pulse Ox 98.6 F 56 L 18 118/63 97 08/06/20 06:01 08/06/20 06:01 08/06/20 06:01 08/06/20 06:01 08/06/20 06:01 Oxygen Delivery Method Room Air Weight: 91.6 kg Body Mass Index (BMI) 27.3 Intake and Output for Last 24 Hours 08/04/20 08/05/20 08/06/20 23:59 23:59 23:59 Intake Total 3892.58 / 4342.58 1695.83 / 1695.83 Output Total 800 / 800 Balance 3892.58 / 4342.58 895.83 / 895.83 General: Alert, Oriented x3, Cooperative, No apparent distress Microbiology Past 72 Hours 08/04/20 13:25 Interface Orders SARS-CoV-2 Antigen (Rapid) - Final Laboratory Results 08/05/20 09:46: POC Glucose 133 H 08/06/20 05:50: WBC 10.8, RBC 3.14 L, Hgb 10.6 L, Hct 32.3 L, MCV 102.9 H, MCH 33.8 H, MCHC 32.8, RDW Std Deviation 51.4 H, RDW Coeff of Chele 13.6, Plt Count 240, MPV 9.4 08/06/20 05:50: Sodium 136, Potassium 4.4, Chloride 104, Carbon Dioxide 26.0, Anion Gap 6, BUN 14, Creatinine 0.68 L, Estim Creat Clear Calc 66.82, Est GFR (MDRD) Af Amer 145, Est GFR (MDRD) Non-Af 120, BUN/Creatinine Ratio 20.6 H, Glucose 118 H, Calcium 8.3 L Current Medications Acetaminophen (Acetaminophen 500 Mg Tablet) 1,000 mg PO Q8 [facility] Last Admin: 08/06/20 06:08 Dose: 1,000 mg Documented by: Amlodipine Besylate (Amlodipine 2.5 Mg Tablet) 2.5 mg PO DAILY [facility] Aspirin (Aspirin 325 Mg Tablet) 325 mg PO DAILY@0800 [facility] Atorvastatin Calcium (Atorvastatin Calcium 80 Mg Tablet) 80 mg PO QHS [facility] Last Admin: 08/05/20 22:20 Dose: 80 mg Documented by: Docusate Sodium (Docusate Sodium 100 Mg Capsule) 100 mg PO BID PRN PRN Reason: Constipation Dorzolamide/Timolol (Dorzolamide Hcl/Timolol 10 Ml Bottle) 1 drop OPHTHALMIC BID [facility] Last Admin: 08/05/20 22:18 Dose: 1 drop Documented by: Doxazosin Mesylate (Doxazosin 4 Mg Tablet) 4 mg PO DAILY [facility] Last Admin: 08/05/20 16:50 Dose: Not Given Documented by: Enteral Nutritional Formula (Ensure Surgery 237 Ml Liquid) 237 ml PO TIDCM [facility] Last Admin: 08/05/20 17:10 Dose: 237 ml Documented by: Famotidine (Famotidine 20 Mg Tablet) 20 mg PO DAILY [facility] Last Admin: 08/05/20 16:52 Dose: 20 mg Documented by: Finasteride (Finasteride 5 Mg Tablet) 5 mg PO DAILY [facility] Last Admin: 08/05/20 16:52 Dose: 5 mg Documented by: Isosorbide Mononitrate (Isosorbide Mononitrate 30 Mg Tablet) 30 mg PO DAILY [facility] Ketorolac Tromethamine (Ketorolac 15 Mg/Ml Vial) 15 mg IV Q6H PRN PRN PRN Reason: Pain Score 1-5 Stop: 08/07/20 07:22 Meloxicam (Meloxicam 7.5 Mg Tablet) 7.5 mg PO BID [facility] Metoprolol Succinate (Metoprolol(Xl)Succ 25 Mg Tablet) 25 mg PO DAILY [facility] Nitroglycerin (Nitroglycerin (Inpatient Use) 0.4 Mg Tab.Subl) 0.4 mg SUBLINGUAL .Q5-15M PRN PRN Reason: chest pain Ondansetron HCl (Ondansetron 4 Mg/2 Ml Vial) 4 mg IV Q8H PRN PRN PRN Reason: NAUSEA Oxycodone HCl (Oxycodone 5 Mg Tablet) 5 - 10 mg PO Q4H PRN PRN PRN Reason: Pain Score 4-10 Last Admin: 08/06/20 06:46 Dose: 10 mg Documented by: Promethazine HCl (Promethazine 25 Mg/Ml Syringe) 12.5 mg IM Q6H PRN PRN; Protocol PRN Reason: NAUSEA/VOMITING Psyllium Hydrophilic Mucilloid (Psyllium 1 Packet) 1 packet PO DAILY [facility] Last Admin: 08/05/20 15:52 Dose: Not Given Documented by: Senna/Docusate Sodium (Senna/Docusate Sodium 1 Tablet) 2 tablet PO BID [facility] Last Admin: 08/05/20 22:20 Dose: 2 tablet Documented by: Sodium Chloride (0.9% Saline Lock 10 Ml Syringe) 10 - 40 ml IV UD PRN PRN Reason: SALINE FLUSH Last Admin: 08/05/20 16:52 Dose: 10 ml Documented by: Medical Necessity - Tobacco Use Smoking Status: Former smoker Tobacco Use: Non-smoker Assessment/Plan All Active Problems (Last Reviewed 03/05/20 @ 15:[address] Luther Sanchez MD) Hypotension (Resolved) Near syncope (Resolved) 1. S/P left reverse total shoulder arthroplasty POD #1 2. Continue Pain Medications: Tylenol and tramadol. Oxycodone was discontinued as this is caused him to have severe constipation and we did discontinued the me loxicam as this is called to stomach irritation in the past 3. DVT Prophylaxis: Aspirin 325 mg once daily for 2 weeks postoperatively 4. PT/OT: Continue with UltraSling at all times except for range of motion exercises of the hand/wrist/elbow and pendulum exercises 3 times daily. Will begin formal physical therapy after 2-week postoperative visit with x-rays. No range of motion of the left shoulder. 5. H & H: 10.6/32.3, asymptomatic. Postoperative anemia secondary to acute blood loss from surgery without any complications intraoperatively 6. Encouraged Incentive Spirometry 7. Disposition: Orthopedically stable, plan will be for discharge home today. Patient does have outpatient physical therapy established. Prescriptions will be E scribed to [facility] [place] in [facility]. Patient will follow-up per postop instructions. I have reviewed the [place] Automated Rx Reporting System (OARRS) report for this patient for refill pattern and other prescriber involvement as part of the appropriate surveillance for the provision of acute and chronic controlled medications. The report was requested and reviewed on the date of this entry and was considered in the prescribing process.
--- NOTE | 2020-08-06 08:54 | PCM.DC.ORTHO ---
Discharge Diet: No Restrictions Discharge Activity: May Not Drive May shower in (days): 1 - Dressing must be intact to skin. Turn dressing away from water Ice area for (Minutes): 20 - Every 1-2 hours while awake Weight Bearing Status: No weight bearing - Left upper extremity Call your doctor if your incision/area has: Continuous Slow Oozing, Sudden Increased Bleeding, Increased Pain/ Swelling, Increased Redness, Foul Smelling Discharge Call your doctor if you observe: Fever of 101 or Higher, Coldness, Increased Pain, Numbness or Tingling, Change in Color Remove Dressing in (days):: 4 - Okay to remove dressing on August 10, 2020 Additional Instructions: Once dressing has been removed on August 10, 2020, only use gentle soap and water over the incision. As the Steri-Strips fall off that is okay. Do not place any ointments, Neosporin, alcohol pads over the incision for 6 weeks postoperatively. Do not submerge the incision underwater for 6 weeks postoperatively. Follow orthopedic postop instructions Allergies/Adverse Reactions: Allergies morphine Adverse Reaction (Verified 08/05/20 10:02) hallucinations HALLUCINATIONS Medications to take at Discharge Doxazosin Mesylate [Cardura Xl] 4 mg PO DAILY 01/16/15 dorzolamide 22.3 mg-timolol 6.8 mg/mL eye drops 1 drp OPHTHALMIC BID 03/04/19 finasteride 5 mg tablet 5 mg PO DAILY 03/04/19 nitroglycerin 0.4 mg sublingual tablet 0.4 mg SUBLINGUAL Q5-15M PRN #25 tab 03/05/20 Amlodipine Besylate 2.5 mg PO DAILY 07/30/20 Atorvastatin Calcium [Lipitor] 80 mg PO QHS 07/30/20 Docusate Sodium [Colace] 100 mg PO BID PRN 07/30/20 Isosorbide Mononitrate [Isosorbide Mononitrate ER] 30 mg PO DAILY 07/30/20 Metoprolol Succinate [Toprol Xl] 25 mg PO DAILY 07/30/20 Psyllium [Metamucil] 1 packet PO DAILY 07/30/20 Acetaminophen [Tylenol] 1,000 mg PO Q8 #100 tab 08/06/20 Aspirin 325 mg PO DAILY@0800 #14 tab 08/06/20 Famotidine [Pepcid] 20 mg PO DAILY #14 tab 08/06/20 traMADol [Ultram] 50 - 100 mg PO Q6H PRN PRN #48 tablet 08/06/20 The following prescriptions were given: Aspirin 325 mg PO DAILY@0800 #14 tab Transmission Status: Pending to [facility] Famotidine [Pepcid] 20 mg PO DAILY #14 tab Transmission Status: Pending to [facility] Acetaminophen [Tylenol] 1,000 mg PO Q8 #100 tab Transmission Status: Pending to [facility] traMADol [Ultram] 50 - 100 mg PO Q6H PRN PRN #48 tablet PRN Reason: Pain Score 4-10 Transmission Status: Sent to [facility] Primary Care Physician: Oliver Mmis MD [Primary Care Provider] - Test Results: Test results from this visit will be discussed in further detail at your follow-up appointment, if applicable. Please Follow Up With: Dexter De La Vega PA-C When: 08/19/20 @ 9:15 am Please Follow Up With: [facility] When: 08/19/20 @ 10:00 am with Deejay
[2020-08-06] MEDS: amLODIPine 2.5 MG Tablet PO (09:03)
[2020-08-06] MEDS: Isosorbide Mononitrate 30 MG Tablet PO (09:03)
[2020-08-06] MEDS: Senna/Docusate Sodium 1 Tablet 2 TABLET PO (09:03)
[2020-08-06] MEDS: Psyllium 1 PACKET PO (09:03)
[2020-08-06] MEDS: Aspirin 325 MG Tablet PO (09:03)
[2020-08-06] MEDS: Doxazosin 4 MG Tablet PO (09:03)
[2020-08-06 09:04] VITALS: PULSE 62
[2020-08-06] MEDS: Metoprolol(XL)Succ 25 MG Tablet PO (09:04)
[2020-08-06] MEDS: Famotidine 20 MG Tablet PO (09:04)
[2020-08-06] MEDS: Dorzolamide HCL/Timolol 10 ml Bottle 1 DRP OPHTHALMIC (09:04)
[2020-08-06 09:05] VITALS: BP 110/56; PULSE 62; RESP 16; TEMP 36.9; O2SAT 97
[2020-08-06] MEDS: Finasteride 5 MG Tablet PO (09:09)
--- NOTE | 2020-08-06 10:20 | CASEMGMT ---
RN KRISSY Face to Face with patient for initial transition planning/care coordination assessment. RN CM introduced self and role at [facility]. Patient lying in bed, alert and oriented. Patient willing to participate in assessment and is able to answer all questions appropriately. Care providers, pharmacy, and demographics verified. Patient wishes to discharge home, denies need for home health at this time. Patient states he has no further needs or concerns at this time. CM to follow for discharge planning needs that may arise. PCP: Felicita Specialists: Daniel, filer helper; win Davey Preferred Pharmacy: [facility] Insurance: [facility] Prescription Benefit: yes Living Will/HPOA: yes, Delicia Chatman LNOK: Living Arrangements: Patient lives with in a condo with 1 step to enter the home. Patient states he was independent prior to surgery. Transportation: DME/HHC: Patient states he has raised toilet and grab bar at home. Disposition Plan: Patient to discharge home with family support and follow-up plans in place. Dori HAMPTON, RN, CM
== END 2020-08-06 12:43 | disposition home or self-care (01) | DRG 483 ==
LOC: ACINP 09:24 → MS3 09:37
PROVIDERS: Anesthesiology; Admitting Provider Specialist; PCP Family Medicine; Referring Provider Specialist; Visit Provider Specialist
PROC: 0RRK00Z Replacement of Left Shoulder Joint with Reverse Ball and Socket Synthetic Substitute, Open Approach (ICD-10-PCS; CPT 23472; principal; 2020-08-05 11:00)
DX: S42.232A 3-part fracture of surgical neck of left humerus, initial encounter for closed fracture (principal); I25.10 Atherosclerotic heart disease of native coronary artery without angina pectoris; I10 Essential (primary) hypertension; Z87.891 Personal history of nicotine dependence; E66.9 Obesity, unspecified; Z68.27 Body mass index [BMI] 27.0-27.9, adult; E78.5 Hyperlipidemia, unspecified; K20.90 Esophagitis, unspecified without bleeding; D53.9 Nutritional anemia, unspecified; N40.0 Benign prostatic hyperplasia without lower urinary tract symptoms; Z79.899 Other long term (current) drug therapy; W18.30XA Fall on same level, unspecified, initial encounter; Y93.A1 Activity, exercise machines primarily for cardiorespiratory conditioning; Y92.009 Unspecified place in unspecified non-institutional (private) residence as the place of occurrence of the external cause; Y99.8 Other external cause status
CPT/HCPCS: 36415; 73030; 80048; 80076; 82962; 83735; 85025; 85027; 87077; 87081; 87426; 93005; 97166; 99251; C1713; C1776; C9803; J7040; J7120; A4216; G0463; J2405

== ENCOUNTER 2020-08-06 23:07 | Emergency (ER) | payer MEDICARE, OTHER, SELFPAY ==
[2020-08-05 14:41] VITALS: BMI 27.3
[2020-08-06 23:09] VITALS: BP 105/62; PULSE 50; RESP 18; TEMP 36.6; O2SAT 96; BMI 29.2
--- NOTE | 2020-08-06 23:10 | ED.VIS.GEN ---
History of Present Illness Chief Complaint: Lower Extremity Injury Informant: Patient Narrative: 79-year-old male postop day #1 for left total shoulder replacement done by Dr. Davey. He states that he was feeling lightheaded when he was walking around. He states he felt like he was going to fall but his caught him and he sat on the bathroom floor for a while. He states he went to the bathroom and sat on the toilet for about 45 minutes and his legs went numb and he could not stand up. He does not describe vertiginous dizziness. He states it felt like the lightheadedness he had when he initially fell and hurt his shoulder a couple of weeks ago. He states that he was not informed of why he was lightheaded. He denies chest pain, palpitations, shortness of breath. He is not had a fever. - Past Medical History (1) Essential (primary) hypertension Status: Chronic (2) Hyperlipidemia Status: Chronic Past Medical History - Allergies and Home Meds Allergies/Adverse Reactions: Allergies morphine Adverse Reaction (Verified 08/06/20 23:12) hallucinations HALLUCINATIONS Primary Care Physician: Oliver Mims MD [Primary Care Provider] - Prior records reviewed: Yes Past Medical History: - - Reviewed in problem list Surgical History: appendectomy, - - eye Lives: Spouse/ Significant Other Smoking Status: Former smoker Alcohol: None Drugs: None Review of Systems General: Reports: - - Lightheadedness. Denies: Chills, Fever, Sweats Eyes: Denies: Visual changes - bilaterally, Diplopia ENT: Denies: Rhinorrhea, Sore throat Cardiovascular: Denies: Chest pain, Palpitations Respiratory: Denies: Dyspnea, Cough, Dyspnea on exertion Gastrointestinal: Denies: Abdominal pain, Nausea, Vomiting, Diarrhea, Melena, Hematochezia Genitourinary: Denies: Dysuria, Hematuria, Frequency Musculoskeletal: Reports: - - Left shoulder pain status post total shoulder replacement. Skin: Reports: Wounds - Surgical dressing is clean dry and intact Neurological: Reports: Parasthesia - Bilateral lower extremities Psych: Denies: Depression, Anxiety Physical Exam Inital Vital Signs reviewed: Yes General: Well nourished, No Acute Distress Head: Normocephalic, Atraumatic Eyes: Perrl, EOMI. Negative for: Pale conjunctiva ENT: Moist mucous membranes, No rhinorrhea Cardiovascular: Regular rate, Regular rhythm Respiratory: No distress, CTA bilaterally Back: Negative for: Nontender, Normal Inspection Extremities: Tenderness - Tenderness to palpation of left shoulder status post left total shoulder replacement. Dressing is clean, dry, intact. Lower extremities sensation is intact. Motor is 5/5. Brisk lower extremity reflexes. Pedal pulses 2+ Skin: - - Left shoulder surgical dressing is clean, dry, intact. Negative for: No rash, Cyanosis, Diaphoresis Neurological: Alert, Oriented x3, Cranial nerves II-XII grossly intact Psychological: Normal affect, Normal Mood Diagnostic/Tx/Re-eval Clinical Impression(s) from Imaging Studies Chest X-Ray 08/06/20 23:50 IMPRESSION: Subtle bilateral atelectasis versus infiltrate. Electronically Signed: Alexa Allen MD at 0:30 EST , Service support , Laboratory Data 08/06/20 08/06/20 08/06/20 23:30 23:30 23:30 WBC 10.0 RBC 2.95 L Hgb 10.1 L Hct 30.5 L MCV 103.4 H MCH 34.2 H MCHC 33.1 RDW Std Deviation 52.5 H RDW Coeff of Chele 13.9 Plt Count 247 MPV 9.8 Immature Gran % (Auto) 0.300 Neut % (Auto) 65.2 Lymph % (Auto) 21.6 Esmeralda % (Auto) 12.3 H Eos % (Auto) 0.3 Baso % (Auto) 0.3 Absolute Neuts (auto) 6.5 Absolute Lymphs (auto) 2.15 Nucleated RBC % 0 Sodium 135 L Potassium 4.0 Chloride 102 Carbon Dioxide 29.0 Anion Gap 4 L BUN 20 H Creatinine 0.87 Estim Creat Clear Calc 76.81 Est GFR (MDRD) Af Amer 109 Est GFR (MDRD) Non-Af 90 BUN/Creatinine Ratio 23.1 H Glucose 110 H Calcium 7.9 L Magnesium 2.1 Total Bilirubin 0.60 AST 12 L ALT 19 Alkaline Phosphatase 77 Troponin I < 0.015 Total Protein 5.8 L Albumin 2.7 L Globulin 3.1 Albumin/Globulin Ratio 0.9 TSH 4.29 H Free T4 1.34 Free T3 pg/dL 2.5 - Rhythm Strip Rhythm Strip: Sinus Rhythm Rate: 50 - EKG Initial EKG Interpretation: No Acute Injury Pattern, Sinus Bradycardia - Medical Decision Making Patient presents with symptoms of lightheadedness. He is postop day 1 of left total shoulder replacement. His EKG shows sinus bradycardia 51 bpm. Patient's hemoglobin is slightly lower than it was prior to surgery but likely this is due to surgery. He states he has not had any black or bloody stools. He states he has hemorrhoids but they have not been bleeding. Patient's CMP shows that he is slightly dehydrated but his renal function is normal. He did have positive orthostatics at the bedside. He was ordered a liter of fluid. Troponin is negative. Chest x-ray shows infiltrates versus atelectasis however the patient has no respiratory symptoms, his respiratory rate is normal, his oxygen is normal. I do not believe he has pneumonia. Patient's TSH was elevated however his free T3 and T4 were normal. Did attempt to obtain a urinalysis however the patient was unable to give 1 and does not want to give 1. He states he wants to go home at this point. He did receive a half a liter of fluid. Prior to leaving he was ambulated in the man and felt well. I believe that his leg numbness was due to sitting on the toilet for 45 minutes because his reflexes, strength, sensation is all intact now. I feel the patient is safe to go home at this point. He was given return precautions. Impression: 1. Orthostatic hypotension 2. Dehydration 3. Elevated TSH ED Disposition - Plan for ED Patient: Disposition: Home or Assisted Living Instructions: ED Hypotension Orthostatic, Dehydration Referrals: Oliver Mims MD [Primary Care Provider] -
--- NOTE | 2020-08-06 23:20 | EKG12_ITS ---
Test Reason : DYSRHYTHMIA Blood Pressure : / mmHG Vent. Rate : 051 BPM Atrial Rate : 051 BPM P-R Int : 156 ms QRS Dur : 092 ms QT Int : 466 ms P-R-T Axes : 041 016 029 degrees QTc Int : 429 ms Sinus bradycardia Otherwise normal ECG Confirmed by MILLA FRIEND, CHING ([id number]), art editor PATT WILKINS ([id number]) on 08/07/2020 10:56:23 AM Referred By: DOMONIQUE Confirmed By:CHING LOYOLA MD
[2020-08-06 23:42] LABS: Absolute Lymphocyte Count 2.15 X10^3/uL (0.83-4.51); Absolute Neutrophil Count 6.5 X10^3/uL (2.0-7.7); Basophil# 0.03 X10^3/uL; Basophil% 0.3 % (0-1); Eosinophil# 0.03 X10^3/uL; Eosinophils% 0.3 % (0-5); Hematocrit 30.5 % (40-54); Hemoglobin 10.1 g/dL (13.0-16.5); Lymphocyte # 2.15 X10^3/ul (4.0); Lymphocyte % 21.6 % (19-41); Mean Corp Hgb Conc 33.1 g/dL (32-36); Mean Corpuscular Hgb 34.2 pg (27.0-32.0); Mean Corpuscular Volume 103.4 fL (80-94); Mean Platelet Vol. 9.8 fl (6.2-12.0); Monocyte# 1.22 X10^3/uL; Monocyte% 12.3 % (0-10); NRBC Flagged by Analyzer 0 % (0-5); Neutrophil # 6.49 X10^3/uL (2.7-7.7); Neutrophil % 65.2 % (47-70); Platelet Count 247 K/mm3 (150-450); RBC Distribution Width CV 13.9 % (11.6-14.6); RBC Distribution Width SD 52.5 fl (35.1-43.9); Red Blood Count 2.95 M/mm3 (4.6-6.2)
--- NOTE | 2020-08-06 23:50 | RAD_ITS ---
STUDY: X-RAY CHEST REASON FOR EXAM: Male, 79 years old. WEAKNESS TECHNIQUE: Single AP portable view of the chest. COMPARISON: 01/16/2015. FINDINGS: Subtle densities within the lung bases suggestive of atelectasis versus subtle infiltrates. There is no demonstrated pleural abnormality. Normal size heart. Normal mediastinum and parth. Normal visualized pulmonary arteries. Normal visualized aortic arch and descending thoracic aorta. Normal visualized thoracic spine. Postoperative changes with prosthesis of the left shoulder. There is no demonstrated abnormality of the visualized soft tissue structures of the upper abdomen. RAD/Chest 1 View (Portable) IMPRESSION: Subtle bilateral atelectasis versus infiltrate. Electronically Signed: Alexa Allen MD at 0:30 EST , Service support ,
[2020-08-07] VITALS: BP 100/61; BP 106/62; BP 83/54; PULSE 52; PULSE 53; PULSE 62
[2020-08-07 00:07] LABS: ALB/GLOB Ratio 0.9 RATIO (0.9-2.4); AST(SGOT) 12 U/L (15-37); Alanine Aminotransfer ALT/SGPT 19 U/L (16-61); Albumin, Serum 2.7 g/dL (3.2-5.0); Alkaline Phosphatase 77 U/L (45-117); Anion Gap 4 (5-15); BUN 20 mg/dL (7-18); BUN/Creat Ratio 23.1 RATIO (10-20); Calcium,Total 7.9 mg/dL (8.5-10.1); Chloride 102 mmol/L (98-107); Creatinine, Serum 0.87 mg/dL (0.70-1.30); EST Glomerular Filtration Rate 90 mL/min (>60); Est Glom Filt Rate - Afr Amer 109 mL/min (>60); Estimated Creatinine Clearance 76.81 ml/min; Globulin 3.1 g/dL (2.2-4.2); Glucose 110 mg/dL (74-106); Magnesium 2.1 mg/dL (1.6-2.6); Protein, Total 5.8 g/dL (6.4-8.2); Sodium Level 135 mmol/L (136-145); Thyroid Stim Hormone (TSH) 4.29 uIU/mL (0.358-3.74)
[2020-08-07] MEDS: 0.9% Normal Saline 1,000 ML 999 ML IV (00:32)
[2020-08-07 00:57] LABS: Free T3 2.5 pg/mL (2.18-3.98); T4 Free Direct 1.34 ng/dL (0.76-1.46)
[2020-08-07 01:32] VITALS: PULSE 58; RESP 18; O2SAT 96
[2020-08-07 02:00] VITALS: BP 113/63; PULSE 60; RESP 17; O2SAT 97
== END 2020-08-07 02:25 | disposition home or self-care (01) ==
PROVIDERS: Emergency Provider Student in an Organized Health Care Education/Training Program; PCP Family Medicine
DX: I95.1 Orthostatic hypotension (principal); E86.0 Dehydration; R94.6 Abnormal results of thyroid function studies; I10 Essential (primary) hypertension; E78.5 Hyperlipidemia, unspecified; Z79.82 Long term (current) use of aspirin
CPT/HCPCS: 71045; 80053; 83735; 84439; 84443; 84481; 84484; 85025; 93005; 99285; J7030; A4216

== ENCOUNTER 2021-02-15 10:50 | Inpatient (IN) | payer MEDICARE, OTHER, SELFPAY ==
[2021-02-15] VITALS (8 sets, daily range): BP systolic 120–148; BP diastolic 59–77; PULSE 50–61; RESP 16–18; TEMP 36.3–36.8; O2SAT 94–100; BMI 28.0; BMI 27.1
--- NOTE | 2021-02-15 10:57 | RAD_ITS ---
STUDY: X-RAY CHEST REASON FOR EXAM: Male, 80 years old. weakness TECHNIQUE: Single AP portable view of the chest. COMPARISON: 08/06/2020 FINDINGS: The lungs are clear and expanded. There is no demonstrated pleural abnormality. Normal size heart. Normal mediastinum and parth. Normal visualized pulmonary arteries. Normal visualized aortic arch and descending thoracic aorta. There is demineralization of the osseous structures. Normal visualized ribs, clavicles, and shoulders. There is no demonstrated abnormality of the visualized soft tissue structures of the upper abdomen. RAD/Chest 1 View (Portable) IMPRESSION: No evidence of acute cardiopulmonary process. Electronically Signed: Zack Hay DO at 12:24 EDT , Service support ,
--- NOTE | 2021-02-15 10:57 | CT_ITS ---
STUDY: CTA HEAD AND NECK WITH CONTRAST REASON FOR EXAM: Male, 80 years old. headache RADIATION DOSAGE (If Supplied By Facility): CTDIvol = ( 33.67 ) mGy, DLP = ( 1602.41 ) mGycm TECHNIQUE: CT angiography was performed with a multi-detector CT scanner. Data acquisition was obtained from the skull base through the vertex following intravenous administration of 100 ML ISOVUE 370. MIP images were reconstructed from the axial data set. Post-processing of the angiographic images was performed, with multiplanar reformation and 3D reconstruction. Individualized dose optimization techniques were used for this CT. COMPARISON: No relevant priors. FINDINGS: Normal bilateral petrous carotid arteries. There is calcified plaque formation of the right cavernous carotid artery, without a cross-sectional luminal stenosis. There is calcified plaque formation of the left cavernous carotid artery, without a cross-sectional luminal stenosis. Normal right A1 segments of the anterior cerebral artery. Normal left A1 segments of the anterior cerebral artery. Normal intact anterior communicating artery (ACOM). Normal bilateral A2 segments of the anterior cerebral arteries. Normal right M1 and M2 segments of the middle cerebral arteries, with a normal M1 bifurcation. Normal left M1 and M2 segments of the middle cerebral arteries, with a normal M1 bifurcation. Normal right posterior communicating artery (PCOM). Normal left posterior communicating artery (PCOM). Delineated left V4 segment of the vertebral artery is present. O basilar artery is small in appearance without occlusion. The visualized bilateral superior cerebellar (SCA) arteries are normal. Normal bilateral P1, P2 and visualized P3 segments of the posterior cerebral arteries. There is no demonstrated aneurysm of the [place]. There is no demonstrated abnormality of the visualized brain. AORTIC ARCH: Normal visualized aortic arch. Normal origins of the brachiocephalic, left common carotid, and left subclavian arteries. RIGHT CAROTID ARTERIES: Normal right common carotid artery (CCA). There is mild atherosclerotic plaque formation with minimal narrowing of the right carotid bulb. Normal origin of the right internal carotid (ICA) artery without a hemodynamically significant stenosis. Normal visualized cervical portion of the right internal carotid artery. Normal origin of the right external carotid artery (ECA). LEFT CAROTID ARTERIES: Normal left common carotid artery (CCA). Normal left common carotid bulb. Normal origin of the left internal carotid (ICA) artery without a hemodynamically significant stenosis. Normal visualized cervical portion of the left internal carotid artery. Normal origin of the left external carotid artery (ECA). VERTEBRAL ARTERIES: Bilateral vertebral arteries are patent. The left V4 segment is diminutive. IMPRESSION: Mild atherosclerotic changes as above with no evidence of significant steno-occlusive disease or aneurysm. Electronically Signed: Zack Hay DO at 12:17 EDT , Service support , STUDY: CT BRAIN WITHOUT CONTRAST REASON FOR EXAM: Male, 80 years old. headache RADIATION DOSAGE (If Supplied By Facility): CTDIvol = ( 44 ) mGy, DLP = ( 829 ) mGycm TECHNIQUE: Transaxial CT imaging of the brain was performed without administration of intravenous contrast material. Individualized dose optimization techniques were used for this CT. COMPARISON: No relevant priors. FINDINGS: Normal soft tissue structures. Normal calvarium. There is mild cerebral atrophy with widening of the extra-axial spaces and ventricular dilatation. There are areas of decreased attenuation within the white matter tracts of the supratentorial brain, consistent with microvascular disease changes. Normal basal ganglia and thalami. Normal brainstem. Normal cerebellum. There is no intracranial hemorrhage. There are no findings of an acute ischemic infarction. Normal visualized paranasal sinuses. CT/CTA Head AND Neck W/ Contrast IMPRESSION: No evidence of acute intracranial bleed, mass or ischemia. Electronically Signed: Zack Hay DO at 12:16 EDT , Service support ,
--- NOTE | 2021-02-15 10:59 | EKG12_ITS ---
Test Reason : NEURO Blood Pressure : / mmHG Vent. Rate : 052 BPM Atrial Rate : 052 BPM P-R Int : 164 ms QRS Dur : 094 ms QT Int : 444 ms P-R-T Axes : 000 052 049 degrees QTc Int : 412 ms Sinus bradycardia Otherwise normal ECG Confirmed by EDGAR FRIEND, WAQAS ([id number]), editor & co founder PATT WILKINS ([id number]) on 02/17/2021 12:53:03 PM Referred By: CL Confirmed By:WAQAS HERNÁNDEZ MD
--- NOTE | 2021-02-15 11:01 | EDS_ITS ---
HPI History of Present Illness Chief Complaint: Neuro S/Sx Informant: patient Narrative Narrative: 80-year-old male presents with concern for pain in his right occipital scalp. States it radiates down the right side of his neck. States it is aching in nature. States it began approximately 10 days ago. Noticed that he had drooping of his left eyelid at the same time. Patient has no other symptoms including chest pain, shortness of breath, fever, chills, nausea, vomiting, abdominal pain, head injury. Patient spoke with his primary care physician who felt he might be having symptoms of stroke and sent him to the emergency department. [facility] Medical History (Updated 02/15/21 @ 12:[address] Quinton Marcus, DO) BPH (benign prostatic hyperplasia) Esophagitis Essential (primary) hypertension Gastritis Glaucoma Hemorrhoids Hyperlipidemia Obesity Home Medications doxazosin 4 mg PO DAILY 01/16/15 [History Last Taken Unknown] dorzolamide 22.3 mg-timolol 6.8 mg/mL eye drops 1 drp OPHTHALMIC BID 03/04/19 [History Last Taken Unknown] finasteride 5 mg tablet 5 mg PO DAILY 03/04/19 [History Last Taken Unknown] nitroglycerin 0.4 mg sublingual tablet 0.4 mg SUBLINGUAL Q5-15M PRN #25 tab 03/05/20 [Rx Last Taken Unknown] docusate sodium 100 mg PO BID PRN 07/30/20 [History Last Taken Unknown] metoprolol succinate 25 mg PO DAILY 07/30/20 [History Last Taken 08/05/20 06:00] psyllium husk (aspartame) 1 packet PO DAILY 07/30/20 [History Last Taken Unknown] acetaminophen 1,000 mg PO Q8 #100 tab 08/06/20 [Rx Last Taken Unknown] aspirin 325 mg PO DAILY@0800 #14 tab 08/06/20 [Rx Last Taken Unknown] famotidine 20 mg PO DAILY #14 tab 08/06/20 [Rx Last Taken Unknown] tramadol 50 - 100 mg PO Q6H PRN PRN #48 tab 08/06/20 [Rx Last Taken Unknown] atorvastatin 80 mg tablet 80 mg PO QHS #90 tab 09/17/20 [Rx Last Taken Unknown] isosorbide mononitrate 30 mg tablet,extended release 24 hr 30 mg PO DAILY #90 tab 12/03/20 [Rx Last Taken Unknown] amlodipine 2.5 mg PO DAILY 02/15/21 [History Last Taken Unknown] Allergy/AdvReac Type Severity Reaction Status Date / Time morphine AdvReac hallucinati Verified 02/15/21 11:03 ons Surgical History (Updated 02/15/21 @ 11:02 by Randal Ayala) History of appendectomy History of cataract surgery History of eye surgery History of herniorrhaphy Hx of total shoulder replacement Social History Smoking Status: Former smoker ROS ROS ED Constitutional Constitutional ED: Denies chills, fever(s) or sweats Eyes Eyes: Denies blurry vision, change in vision or diplopia ENT ENT ED: Denies rhinorrhea or sore throat Cardiovascular Cardiovascular: Denies chest pain, orthopnea, palpitations or racing heartbeat Respiratory/Chest Respiratory/Chest: Denies cough, dyspnea, dyspnea on exertion, orthopnea or sputum Gastrointestinal Gastrointestinal: Denies abdominal pain, constipation, diarrhea, melena, nausea or vomiting Genitourinary Genitourinary ED: Denies dysuria, hematuria or urinary frequency Musculoskeletal Musculoskeletal: Denies arthralgias, myalgias or neck pain Integumentary Denies rash Neurologic Neurologic: Reports headache(s) and other Details: right eyelid droop ; Denies paresthesias or weakness Psychiatric Psychiatric: Denies anxiety or depression Hematologic/Lymphatic Hematologic/Lymphatic: Denies easy bleeding or easy bruising Allergic/Immunologic Allergic/Immunologic ED: Denies mouth swelling or tongue swelling EXAM Physical Exam Const Vital Signs: 02/15/21 10:51 Temperature 97.6 F L Temperature Source Temporal Pulse Rate 61 Respiratory Rate 16 Blood Pressure 148/77 H Blood Pressure Mean 100 Pulse Ox 94 Oxygen Delivery Method Room Air Positive well nourished and well developed General Appearance ED: well developed HEENT Reports moist mucous membranes HEENT Narrative: Tenderness to palpation of the right occipital scalp radiating into the right posterior scalene. No overlying skin changes. normocephalic and atraumatic Eyes PERRL and EOMs intact bilaterally Neck no lymphadenopathy, supple and no JVD Chest Wall inspection of chest normal Resp normal respiratory effort and clear to auscultation bilaterally Cardio regular rate, S1 normal heart sound, S2 normal heart sound and no murmurs Peripheral Pulses: pulses 2+ throughout GI soft to palpation, non-tender and non-distended Back/Spine no CVA tenderness and no thoracic nor lumbar tenderness Extremity normal to inspection General Extremety ED: Negative for edema or tenderness General Extremity: Negative for edema Neuro oriented x3, CN's II-XII intact bilaterally and no sensory deficits noted Neuro Narrative: Slight drooping of the right eyelid. Otherwise neurologically intact. Sensorium / Orientation: alert Motor Exam: strength 5/5 throughout Psych mental status grossly normal Skin no rashes or lesions noted MDM MDM MDM Narrative Medical decision making narrative: Patient appears well and nontoxic. Vital signs within normal limits. Patient does have slight drooping to the right eyelid. No other focal neurologic deficit. CTA of the head and neck negative for acute pathology. Chest x-ray interpreted by myself shows no acute cardiac abnormality. Radiology concurs. Patient given aspirin and will be admitted for MRI and other neurologic evaluation. Stable at time of admission. Lab Data Attestation: I reviewed the patient's lab results. Labs: Laboratory Results - last 24 hr 02/15/21 02/15/21 02/15/21 10:54 11:00 11:00 WBC 6.0 RBC 4.08 L Hgb 13.8 Hct 41.4 MCV 101.5 H MCH 33.8 H MCHC 33.3 RDW Std Deviation 50.9 H RDW Coeff of Chele 13.5 Plt Count 209 MPV 9.4 Immature Gran % (Auto) 0.200 Neut % (Auto) 47.0 Lymph % (Auto) 36.2 Real % (Auto) 13.7 H Eos % (Auto) 2.2 Baso % (Auto) 0.7 Absolute Neuts (auto) 2.8 Absolute Lymphs (auto) 2.16 Nucleated RBC % 0 Sodium 138 Potassium 4.1 Chloride 104 Carbon Dioxide 29.0 Anion Gap 5 BUN 12 Creatinine 0.76 Estim Creat Clear Calc 65.74 Est GFR (MDRD) Af Amer 126 Est GFR (MDRD) Non-Af 104 BUN/Creatinine Ratio 15.7 Glucose 95 Calcium 8.6 Total Bilirubin 0.70 AST 29 ALT 39 Alkaline Phosphatase 76 Troponin I < 0.015 Total Protein 7.5 Albumin 3.8 Globulin 3.7 Albumin/Globulin Ratio 1.0 Urine Color Urine Clarity Urine pH Ur Specific [place] Urine Protein Urine Glucose (UA) Urine Ketones Urine Occult Blood Urine Nitrite Urine Bilirubin Urine Urobilinogen Ur Leukocyte Esterase Urine RBC Urine WBC Ur Squamous Epith Cells Urine Bacteria Urine Mucus POC Glucose 100 02/15/21 12:07 WBC RBC Hgb Hct MCV MCH MCHC RDW Std Deviation RDW Coeff of Chele Plt Count MPV Immature Gran % (Auto) Neut % (Auto) Lymph % (Auto) Real % (Auto) Eos % (Auto) Baso % (Auto) Absolute Neuts (auto) Absolute Lymphs (auto) Nucleated RBC % Sodium Potassium Chloride Carbon Dioxide Anion Gap BUN Creatinine Estim Creat Clear Calc Est GFR (MDRD) Af Amer Est GFR (MDRD) Non-Af BUN/Creatinine Ratio Glucose Calcium Total Bilirubin AST ALT Alkaline Phosphatase Troponin I Total Protein Albumin Globulin Albumin/Globulin Ratio Urine Color Yellow Urine Clarity Clear Urine pH 7.0 Ur Specific [place] 1.005 Urine Protein Negative Urine Glucose (UA) Normal Urine Ketones Negative Urine Occult Blood Negative Urine Nitrite Negative Urine Bilirubin Negative Urine Urobilinogen Normal Ur Leukocyte Esterase Negative Urine RBC 0 SEEN Urine WBC 0 SEEN Ur Squamous Epith Cells 0 SEEN Urine Bacteria 0 SEEN Urine Mucus 0 SEEN POC Glucose Radiography Chest X-Ray - ED: 1 View, Read by ED Physician, Read by Radiologist and Normal Diagnostic Testing: Radiology Impression Chest X-Ray 02/15/21 10:57 IMPRESSION: No evidence of acute cardiopulmonary process. Electronically Signed: Zack Hay DO at 12:24 EDT , Service support , Head/Neck CTA 02/15/21 10:57 IMPRESSION: No evidence of acute intracranial bleed, mass or ischemia. Electronically Signed: Zack Hay DO at 12:16 EDT , Service support , Discharge Plan Triage Chief Complaint: Neuro S/Sx ED Provider: Quinton Marcus Dx/Rx/DC Orders Clinical Impression: Headache, Drooping eyelid Prescriptions: No Action finasteride [Proscar] 5 mg tablet 5 mg PO DAILY RF: 0 dorzolamide-timolol [Cosopt] 22.3-6.8 mg/mL drops 1 drp OPHTHALMIC BID RF: 0 nitroglycerin 0.4 mg tablet, sublingual 0.4 mg SUBLINGUAL Q5-15M PRN (Reason: chest pain) Qty: 25 RF: 4 doxazosin 4 MG tablet extended release 24hr 4 mg PO DAILY RF: 0 docusate sodium 100 MG capsule 100 mg PO BID PRN (Reason: Constipation) RF: 0 metoprolol succinate 25 MG tablet extended release 24 hr 25 mg PO DAILY RF: 0 psyllium husk (aspartame) 1 PACKET packet 1 packet PO DAILY RF: 0 aspirin 325 MG tablet 325 mg PO DAILY@0800 Qty: 14 RF: 0 tramadol 50 MG tablet 50 - 100 mg PO Q6H PRN PRN (Reason: Pain Score 4-10) Qty: 48 RF: 0 acetaminophen 500 MG tablet 1,000 mg PO Q8 Qty: 100 RF: 0 famotidine 20 MG tablet 20 mg PO DAILY Qty: 14 RF: 0 amlodipine 2.5 mg tablet 2.5 mg PO DAILY RF: 0 atorvastatin 80 mg tablet 80 mg PO QHS Qty: 90 RF: 3 isosorbide mononitrate 30 mg tablet extended release 24 hr 30 mg PO DAILY Qty: 90 RF: 4 Primary Care Provider: Oliver Mims Referrals: Oliver Mims MD [Primary Care Provider] - Disposition Disposition: Acute Care Hospital [facility]
[2021-02-15 11:06] LABS: Absolute Lymphocyte Count 2.16 X10^3/uL (0.83-4.51); Absolute Neutrophil Count 2.8 X10^3/uL (2.0-7.7); Basophil# 0.04 X10^3/uL; Basophil% 0.7 % (0-1); Eosinophil# 0.13 X10^3/uL; Eosinophils% 2.2 % (0-5); Hematocrit 41.4 % (40-54); Hemoglobin 13.8 g/dL (13.0-16.5); Lymphocyte # 2.16 X10^3/ul (0.83-4.51); Lymphocyte % 36.2 % (19-41); Mean Corp Hgb Conc 33.3 g/dL (32-36); Mean Corpuscular Hgb 33.8 pg (27.0-32.0); Mean Corpuscular Volume 101.5 fL (80-94); Mean Platelet Vol. 9.4 fl (6.2-12.0); Monocyte# 0.82 X10^3/uL; Monocyte% 13.7 % (0-10); NRBC Flagged by Analyzer 0 % (0-5); Neutrophil # 2.81 X10^3/uL (2.7-7.7); Platelet Count 209 K/mm3 (150-450); RBC Distribution Width CV 13.5 % (11.6-14.6); RBC Distribution Width SD 50.9 fl (35.1-43.9); Red Blood Count 4.08 M/mm3 (4.6-6.2)
[2021-02-15 11:16] LABS: Bedside Glucose 100 mg/dL (70-110)
[2021-02-15 11:27] LABS: AST(SGOT) 29 U/L (15-37); Alanine Aminotransfer ALT/SGPT 39 U/L (16-61); Albumin, Serum 3.8 g/dL (3.2-5.0); Alkaline Phosphatase 76 U/L (45-117); Anion Gap 5 (5-15); BUN 12 mg/dL (7-18); BUN/Creat Ratio 15.7 RATIO (10-20); Calcium,Total 8.6 mg/dL (8.5-10.1); Chloride 104 mmol/L (98-107); Creatinine, Serum 0.76 mg/dL (0.70-1.30); EST Glomerular Filtration Rate 104 mL/min (>60); Est Glom Filt Rate - Afr Amer 126 mL/min (>60); Estimated Creatinine Clearance 65.74 ml/min; Globulin 3.7 g/dL (2.2-4.2); Glucose 95 mg/dL (74-106); Potassium 4.1 mmol/L (3.5-5.1); Protein, Total 7.5 g/dL (6.4-8.2); Sodium Level 138 mmol/L (136-145)
[2021-02-15 12:12] LABS: Bacteria 0 SEEN /hpf (None Seen); Mucous, Urine 0 SEEN /hpf (<or=2+); Red Blood Cells-Urine 0 SEEN /hpf (0-5); Squamous Epithelial Cells - UA 0 SEEN /hpf (0-5); White Blood Cells 0 SEEN /hpf (0-5)
[2021-02-15 12:14] LABS: Color, Urine Yellow (Yellow); Glucose, Dipstick Normal (Normal); Ketone-Dipstick Negative (Negative); Leukocyte Esterase-Dipstick Negative /ul (Negative); Nitrite-Dipstick Negative (Negative); Occult Blood-Urine Negative /ul (Negative); Protein-Dipstick Negative (Negative); Specific Gravity, Urine 1.005 (1.002-1.030); Urine Bilirubin Dipstick Negative (Negative); Urine Clarity Clear (Clear); Urine Urobilinogen Normal (Normal)
--- NOTE | 2021-02-15 12:42 | HP.PCM.HOS_ITS ---
[facility] - General General Date of Admission: 02/15/21 Date of Service: 02/15/21 Chief Complaint: Right eyelid droop [facility] Narrative ZINA SALDIVAR, is a 80 M with past medical history is again for essential hypertension, dyslipidemia who presents with right eyelid droop. Per patient symptoms started almost a week and half prior to his admission. Patient did not notice any focal weakness nor numbness. He however did experience intermittent dysphagia. Patient spouse were at [place] when friends noticed significant droop involving the right eyelid. Patient subsequently presented to the emergency department. Initial evaluation was unremarkable subsequently admitted to a monitored bed for further management. On further questioning patient denied any diurnal change changes with regards to his right eyelid droop as well as intermittent dysphagia. [facility] Medical History (Updated 02/15/21 @ 12:[address] Quinton Marcus, ) BPH (benign prostatic hyperplasia) Esophagitis Essential (primary) hypertension Gastritis Glaucoma Hemorrhoids Hyperlipidemia Obesity Home Medications doxazosin 4 mg PO DAILY 01/16/15 [History Last Taken Unknown] dorzolamide 22.3 mg-timolol 6.8 mg/mL eye drops 1 drp OPHTHALMIC BID 03/04/19 [History Last Taken Unknown] finasteride 5 mg tablet 5 mg PO DAILY 03/04/19 [History Last Taken Unknown] nitroglycerin 0.4 mg sublingual tablet 0.4 mg SUBLINGUAL Q5-15M PRN #25 tab 03/05/20 [Rx Last Taken Unknown] docusate sodium 100 mg PO BID PRN 07/30/20 [History Last Taken Unknown] metoprolol succinate 25 mg PO DAILY 07/30/20 [History Last Taken 08/05/20 06:00] psyllium husk (aspartame) 1 packet PO DAILY 07/30/20 [History Last Taken Unknown] acetaminophen 1,000 mg PO Q8 #100 tab 08/06/20 [Rx Last Taken Unknown] aspirin 325 mg PO DAILY@0800 #14 tab 08/06/20 [Rx Last Taken Unknown] famotidine 20 mg PO DAILY #14 tab 08/06/20 [Rx Last Taken Unknown] tramadol 50 - 100 mg PO Q6H PRN PRN #48 tab 08/06/20 [Rx Last Taken Unknown] atorvastatin 80 mg tablet 80 mg PO QHS #90 tab 09/17/20 [Rx Last Taken Unknown] isosorbide mononitrate 30 mg tablet,extended release 24 hr 30 mg PO DAILY #90 tab 12/03/20 [Rx Last Taken Unknown] amlodipine 2.5 mg PO DAILY 02/15/21 [History Last Taken Unknown] Allergy/AdvReac Type Severity Reaction Status Date / Time morphine AdvReac hallucinati Verified 02/15/21 11:03 ons Family History Father No problems noted. Surgical History History of appendectomy History of cataract surgery History of eye surgery History of herniorrhaphy Hx of total shoulder replacement Social History Smoking Status: Former smoker ROS ROS Narrative GENERAL: denies fever, chills, night sweats, HEENT: dysphagia RESPIRATORY: denies cough, sputum production, CARDIAC: denies chest pain, palpitations, orthopnea, GASTROINTESTINAL: denies abdominal pain, nausea, GENITOURINARY: denies dysuria, urgency, frequency, EXTREMITY: denies swelling MUSCULOSKELETAL: denies current joint pain or tenderness NEUROLOGIC: denies focal numbness, weakness, tingling HEMATOLOGIC: denies easy bruising and/or hemorrhage INTEGUMENT: denies rashes PSYCHIATRIC: denies suicidal or homicidal ideation Vital Signs Vital Signs Vital Signs: 02/15/21 10:51 Temperature 97.6 F L Temperature Source Temporal Pulse Rate 61 Respiratory Rate 16 Blood Pressure 148/77 H Blood Pressure Mean 100 Pulse Ox 94 Oxygen Delivery Method Room Air Weight Weight: 94 kg Body Mass Index (BMI) 28.0 Lab / Micro Data Result Diagrams: 02/15/21 11:00 02/15/21 11:00 Labs: Laboratory Results - last 24 hr 02/15/21 02/15/21 02/15/21 10:54 11:00 11:00 WBC 6.0 RBC 4.08 L Hgb 13.8 Hct 41.4 MCV 101.5 H MCH 33.8 H MCHC 33.3 RDW Std Deviation 50.9 H RDW Coeff of Chele 13.5 Plt Count 209 MPV 9.4 Immature Gran % (Auto) 0.200 Neut % (Auto) 47.0 Lymph % (Auto) 36.2 [place] % (Auto) 13.7 H Eos % (Auto) 2.2 Baso % (Auto) 0.7 Absolute Neuts (auto) 2.8 Absolute Lymphs (auto) 2.16 Nucleated RBC % 0 Sodium 138 Potassium 4.1 Chloride 104 Carbon Dioxide 29.0 Anion Gap 5 BUN 12 Creatinine 0.76 Estim Creat Clear Calc 65.74 Est GFR (MDRD) Af Amer 126 Est GFR (MDRD) Non-Af 104 BUN/Creatinine Ratio 15.7 Glucose 95 Calcium 8.6 Total Bilirubin 0.70 AST 29 ALT 39 Alkaline Phosphatase 76 Troponin I < 0.015 Total Protein 7.5 Albumin 3.8 Globulin 3.7 Albumin/Globulin Ratio 1.0 Urine Color Urine Clarity Urine pH Ur Specific [place] Urine Protein Urine Glucose (UA) Urine Ketones Urine Occult Blood Urine Nitrite Urine Bilirubin Urine Urobilinogen Ur Leukocyte Esterase Urine RBC Urine WBC Ur Squamous Epith Cells Urine Bacteria Urine Mucus POC Glucose 100 02/15/21 12:07 WBC RBC Hgb Hct MCV MCH MCHC RDW Std Deviation RDW Coeff of Chele Plt Count MPV Immature Gran % (Auto) Neut % (Auto) Lymph % (Auto) [place] % (Auto) Eos % (Auto) Baso % (Auto) Absolute Neuts (auto) Absolute Lymphs (auto) Nucleated RBC % Sodium Potassium Chloride Carbon Dioxide Anion Gap BUN Creatinine Estim Creat Clear Calc Est GFR (MDRD) Af Amer Est GFR (MDRD) Non-Af BUN/Creatinine Ratio Glucose Calcium Total Bilirubin AST ALT Alkaline Phosphatase Troponin I Total Protein Albumin Globulin Albumin/Globulin Ratio Urine Color Yellow Urine Clarity Clear Urine pH 7.0 Ur Specific [place] 1.005 Urine Protein Negative Urine Glucose (UA) Normal Urine Ketones Negative Urine Occult Blood Negative Urine Nitrite Negative Urine Bilirubin Negative Urine Urobilinogen Normal Ur Leukocyte Esterase Negative Urine RBC 0 SEEN Urine WBC 0 SEEN Ur Squamous Epith Cells 0 SEEN Urine Bacteria 0 SEEN Urine Mucus 0 SEEN POC Glucose Radiology Impression Chest X-Ray 02/15/21 10:57 IMPRESSION: No evidence of acute cardiopulmonary process. Electronically Signed: Zack Hay DO at 12:24 EDT , Service support , Head/Neck CTA 02/15/21 10:57 IMPRESSION: No evidence of acute intracranial bleed, mass or ischemia. Electronically Signed: Zack Hay DO at 12:16 EDT , Service support , Assessment & Plan Assessment/Plan (1) Drooping eyelid: (2) Essential (primary) hypertension: (3) Hyperlipidemia: PLAN: Patient is a 80-year-old gentleman presenting with intermittent right eyelid droop and dysphagia 1. Intermittent right eyelid droop and dysphagia ?Patient has been admitted to a monitored bed where he is currently undergoing subsequent evaluation. An MRI has been ordered to rule out CVA however I do suspect patient may be experiencing an underlying neuromuscular problem. Consult has therefore been placed to neurology. Patient symptoms not consistent with myasthenia gravis since his intermittent weakness does not worsen as the d ay progresses 2. Hypertension - Blood pressure controlled, home medications continued with dose adjustment as needed 3. Dyslipidemia -Patient is on statin therapy, continued at home dose 4. BPH ?Patient is on finasteride and continue 5. DVT prophylaxis ?Lovenox Advance planning; did discuss with the patient and family regarding advanced directives as well as CODE STATUS. Did explain the various scenarios involved ( FULL CODE, DNR CCA, DNR CCA with no intubation, and DNR CC and what each meant) patient to remain full code with CPR and intubation if needed. Order was placed. Time spent on discussion 18 minutes. Visit Charges OBSV E&M: 66387 Initial observation care L3 Multi Select Codes Hospitalists' Procedures Procedures: 46960 Advncd Care Plan 30 Min
--- NOTE | 2021-02-15 12:55 | NURSING ---
101 SUSPECTED CVA KITTOE OBS
--- NOTE | 2021-02-15 13:02 | TELEMED_ITS ---
[facility] Tele[facility] has confirmed receipt of a request for visit. This document confirms receipt of the order initiating the consult. To find the results of the consultation, please view the patient's reports for the scanned Telemed Consult.
--- NOTE | 2021-02-15 13:16 | ECHOCS_ITS ---
Reason For Study: TIA/CVA Procedure This was a 2D Doppler, Color Flow transthoracic echocardiogram. The study was technically difficult. Exam performed portable in patient room. Left Ventricle Normal LV size. Left ventricular systolic function is normal. The estimated ejection fraction is 55 %. Normal diastology for age. No regional wall motion abnormalities noted. Right Ventricle Normal RV size. Normal systolic function. Atria Normal left atrium. Normal right atrium. Bubble contrast study negative for right to left interatrial shunt. Mitral Valve Normal mitral valve. Tricuspid Valve Normal tricuspid valve. Aortic Valve Trisinus/trileaflet aortic valve. Pulmonic Valve The pulmonic valve is not well visualized. Great Vessels Normal aortic root. The pulmonary artery is normal size. Inferior vena cava collapse with sniff. Pericardium/Pleural No pericardial effusion. Medication Diluted definity 3ml given slow IV push to enhance endocardial definition. Performed a rapid injection of agitated mix of 9 cc saline and 1cc air to assess for atrial septal defect. MMode/2D Measurements & Calculations LVIDd: 4.8 cm IVSd: 0.92 cm Ao root diam: 3.2 cm LVIDs: 3.4 cm LVPWd: 0.92 cm RVDd: 4.3 cm FS: 29.7 % LAV(MOD-bp): 65.1 ml LVAd ap4: 32.3 cm2 SV(MOD-sp4): 56.4 ml LAV(MOD-bp) Indexed: 30.6 ml/m2 LVLd ap4: 8.2 cm LAV(MOD-sp2): 62.2 ml EDV(MOD-sp4): 105.7 ml LAV(MOD-sp4): 57.6 ml EDV(sp4-el): 108.5 ml LVAs ap4: 20.2 cm2 LVLs ap4: 6.9 cm ESV(MOD-sp4): 49.2 ml ESV(sp4-el): 50.1 ml EF(MOD-sp4): 53.4 % EF(sp4-el): 53.8 % SV(sp4-el): 58.3 ml LA A4 area: 21.3 cm2 LA dimension(2D): 3.5 cm RA A4 area: 20.0 cm2 Time Measurements MV dec time: 0.25 sec Doppler Measurements & Calculations MV E max jamel: 93.9 cm/sec Lat Peak E' Jamel: 17.1 cm/sec Med Peak E' Jamel: 11.3 cm/sec MV A max jamel: 65.5 cm/sec E/E' lat: 5.5 E/E' med: 8.3 MV E/A: 1.4 Ao V2 max: 121.4 cm/sec LV V1 max: 96.5 cm/sec PA V2 max: 94.5 cm/sec Ao max P.9 mmHg LV V1 max P.7 mmHg PI end-d jamel: 79.1 cm/sec ECHO/Echo Complete W/ Contrast Interpretation Summary Normal LV size. Left ventricular systolic function is normal. The estimated ejection fraction is 55 %. Normal diastology for age. Bubble contrast study negative for right to left interatrial shunt. Contrast injection was performed. Ordering Physician: Josiah Johnson Referring Physician: SILVIO JAIN Performed By: Margarita You RDCS
[2021-02-15] MEDS: 0.9% Normal Saline 1,000 ML 125 ML IV ×2 (15:16→23:05)
[2021-02-15] MEDS: Enoxaparin 40 MG/0.4 ML Syringe SC (15:39)
[2021-02-15] MEDS: Aspirin 81 MG TAB.CHEW 324 MG PO (15:46)
[2021-02-15] MEDS: Atorvastatin Calcium 80 MG Tablet PO (21:42)
[2021-02-15] MEDS: Dorzolamide HCL/Timolol 10 ml Bottle 1 DRP LEFT EYE (21:42)
[2021-02-15] MEDS: Doxazosin 1 MG Tablet 2 MG PO (21:44)
[2021-02-15] MEDS: MELATONIN 10 MG TABLET PO (23:04)
[2021-02-16] VITALS (9 sets, daily range): BP systolic 117–131; BP diastolic 54–72; PULSE 47–65; RESP 16–18; TEMP 36.4–36.9; O2SAT 97–98
--- NOTE | 2021-02-16 02:41 | NURSING ---
pt states that his right eye has been droopy for about a week and a half, states he had gone to an eye dr for this, he has a cataract in the right eye and he also has vision loss to the center of his right eye, but sees well peripherally. He is scheduled to have cataract surgery this month on it. He has had glaucoma surgery to the right eye. He is using eye drops in the left eye only for the glaucoma pressures.
[2021-02-16 06:36] LABS: Absolute Lymphocyte Count 2.24 X10^3/uL (0.83-4.51); Absolute Neutrophil Count 2.5 X10^3/uL (2.0-7.7); Basophil# 0.04 X10^3/uL; Basophil% 0.7 % (0-1); Eosinophil# 0.11 X10^3/uL; Hematocrit 36.2 % (40-54); Hemoglobin 11.9 g/dL (13.0-16.5); Lymphocyte # 2.24 X10^3/ul (0.83-4.51); Lymphocyte % 40.4 % (19-41); Mean Corp Hgb Conc 32.9 g/dL (32-36); Mean Corpuscular Hgb 33.7 pg (27.0-32.0); Mean Corpuscular Volume 102.5 fL (80-94); Mean Platelet Vol. 9.9 fl (6.2-12.0); Monocyte# 0.65 X10^3/uL; Monocyte% 11.7 % (0-10); NRBC Flagged by Analyzer 0 % (0-5); Neutrophil # 2.49 X10^3/uL (2.7-7.7); Platelet Count 182 K/mm3 (150-450); RBC Distribution Width CV 13.6 % (11.6-14.6); RBC Distribution Width SD 51.1 fl (35.1-43.9); Red Blood Count 3.53 M/mm3 (4.6-6.2); White Blood Count 5.5 K/mm3 (4.4-11.0)
[2021-02-16] MEDS: 0.9% Normal Saline 1,000 ML 125 ML IV (07:04)
[2021-02-16 07:05] LABS: Anion Gap 5 (5-15); BUN 10 mg/dL (7-18); BUN/Creat Ratio 16.8 RATIO (10-20); Chloride 110 mmol/L (98-107); Cholesterol 87 mg/dL (200); Creatinine, Serum 0.59 mg/dL (0.70-1.30); EST Glomerular Filtration Rate 140 mL/min (>60); Est Glom Filt Rate - Afr Amer 169 mL/min (>60); Estimated Creatinine Clearance 65.74 ml/min; Glucose 88 mg/dL (74-106); High Density Lipoprotein 52 mg/dL; Potassium 3.9 mmol/L (3.5-5.1); Sodium Level 141 mmol/L (136-145); Triglycerides 40 mg/dL; Very Low Density Lipoprotein 8 mg/dL (5-40)
[2021-02-16] MEDS: Acetaminophen 325 MG Tablet 650 MG PO (07:38)
[2021-02-16] MEDS: Aspirin 81 MG TAB.CHEW PO (07:38)
[2021-02-16] MEDS: Dorzolamide HCL/Timolol 10 ml Bottle 1 DRP LEFT EYE (10:00)
[2021-02-16] MEDS: Psyllium 1 PACKET PO (10:00)
[2021-02-16] MEDS: Famotidine 20 MG Tablet PO (10:01)
[2021-02-16] MEDS: Finasteride 5 MG Tablet PO (10:01)
[2021-02-16] MEDS: amLODIPine 2.5 MG Tablet PO (10:01)
[2021-02-16] MEDS: Enoxaparin 40 MG/0.4 ML Syringe SC (10:01)
[2021-02-16] MEDS: 0.9% Saline Lock 10 ML Syringe IV (10:01)
[2021-02-16] MEDS: Doxazosin 1 MG Tablet 2 MG PO (10:01)
[2021-02-16] MEDS: Isosorbide Mononitrate 30 MG Tablet PO (10:01)
[2021-02-16] MEDS: Metoprolol(XL)Succ 25 MG Tablet PO (10:10)
--- NOTE | 2021-02-16 10:27 | PCM.PN.HOSP ---
Subjective Subjective Patient is a 80-year-old gentleman presenting with intermittent right eyelid droop and dysphagia Patient has been admitted to a monitored bed where he is currently undergoing evaluation. An MRI of the brain ordered as part of patient evaluation pending this a.m. Consultation was also placed to neurology via telemedicine awaiting input. Objective Data Objective Data Vital Signs: Vital Signs Temp Pulse Resp BP Pulse Ox 97.5 F L 65 18 131/72 H 97 02/16/21 10:00 02/16/21 10:10 02/16/21 10:00 02/16/21 10:00 02/16/21 10:00 Oxygen Delivery Method Room Air Weight: 90.718 kg Body Mass Index (BMI) 27.1 Intake & Output: Intake and Output for Last 24 Hours 02/14/21 02/15/21 02/16/21 23:59 23:59 23:59 Intake Total 1217.08 / 1217.08 1339.59 / 1339.59 Balance 1217.08 / 1217.08 1339.59 / 1339.59 Lab / Micro Data Result Diagrams: 02/16/21 05:50 02/16/21 05:50 Radiography Diagnostic Testing: Radiology Impression Chest X-Ray 02/15/21 10:57 IMPRESSION: No evidence of acute cardiopulmonary process. Electronically Signed: Zack Hay DO at 12:24 EDT , Service support , Head/Neck CTA 02/15/21 10:57 IMPRESSION: No evidence of acute intracranial bleed, mass or ischemia. Electronically Signed: Zack Hay DO at 12:16 EDT , Service support , Brain MRI 02/16/21 12:41 IMPRESSION: Normal unenhanced MRI of the brain. Electronically Signed: Luis Vegas MD at 10:17 EDT , Service support , Assessment & Plan Assessment/Plan (1) Drooping eyelid: (2) Essential (primary) hypertension: (3) Hyperlipidemia: PLAN: Patient is a 80-year-old gentleman presenting with intermittent right eyelid droop and dysphagia 1. Intermittent right eyelid droop and dysphagia ?Patient has been admitted to a monitored bed where he is currently undergoing subsequent evaluation. An MRI has been ordered to rule out CVA however I do suspect patient may be experiencing an underlying neuromuscular problem. Consult has therefore been placed to neurology. Patient symptoms not consistent with myasthenia gravis since his intermittent weakness does not worsen as the day progresses -02/16/2021; Patient has been admitted to a monitored bed where he is currently undergoing evaluation. An MRI of the brain ordered as part of patient evaluation pending this a.m. Consultation was also placed to neurology via telemedicine awaiting input. 2. Hypertension - Blood pressure controlled, home medications continued with dose adjustment as needed 3. Dyslipidemia -Patient is on statin therapy, continued at home dose 4. BPH ?Patient is on finasteride and continue 5. DVT prophylaxis ?Lovenox Multi Select Codes Visit Charges Observation E&M Codin Subsequent observation care L3
--- NOTE | 2021-02-16 12:25 | CASEMGMT ---
Addendum entered by Dori Mario 02/16/21 14:57: Therapy states no need for any further therapy. Ugo LONG CM Original Note: ETHAN REY assessment: Face to Face with patient for initial transition planning/care coordination assessment. ETHAN REY introduced self and role at [facility], pt voices understanding and consents to assessment. Pt is sitting up in bed in no distress on room air. Pt is A/Ox4 and answers all questions appropriately. Pt's is at bedside during assessment. Care providers, pharmacy, and demographics verified. Presentation: Right neck pain and eye droop for about a week, occasional slurred speech Admitting dx: Possible CVA PCP: [facility] Specialists: Daniel, cardio; Mike, eye in [place]; win Davey Preferred Pharmacy: [facility] Insurance: [employer]r Prescription Benefit: [facility] Living Will/HPOA: Pt has LW/HPOA and is aware that they are not on file at [facility]. Pt states his , Delicia Chatman, is HPOA. LNOK: Delicia Chatman, ; Jorge Chatman, son Living Arrangements: Pt states lives with in [address] [facility] and states no concerns at home. Pt states is independent with ADL's. Transportation: Pt states drives self and states no transportation concerns. DME/HHC: Pt states no current DME or need for any at this time. Pt states no hx of HHC or SNF. Pt states no concerns with going home at time of discharge. Pt is retired. Pt states does not smoke cigarettes or drink ETOH. Pt states no further concerns/needs. CM to follow for PT/OT evals and any further discharge planning/needs. Advised pt/ to ask for CM if any further questions/concerns/needs arise, voices understanding. Pt Goal: Home Plan: Home Ugo LONG CM
--- NOTE | 2021-02-16 12:41 | MRI_ITS ---
STUDY: MRI BRAIN WITHOUT CONTRAST REASON FOR EXAM: Male, 80 years old. CVA TECHNIQUE: Standardized multiplanar fat and water weighted pulse sequences were obtained. COMPARISON: CTA head and neck with contrast 02/15/2021. FINDINGS: Normal size of the ventricles and extra-axial spaces for the patient''s age. Normal white matter tracts of the supratentorial brain. Normal bilateral basal ganglia. Normal thalami. There is no extra-axial fluid accumulation. Normal flow voids within the major intracranial circulation suggesting patency by spin echo criteria. Normal sella turcica, pituitary gland, infundibular stalk, optic chiasm and hypothalamus. Normal tectal plate and pineal gland. Normal midbrain, jonny and medulla. Normal cerebellum. Normal basal cisterns. Normal bilateral temporal bones. Normal bilateral internal auditory canals. No demonstrated orbital abnormality, within the constraints of a routine brain study. Normal visualized paranasal sinuses. Normal calvarium and skull base. Normal visualized soft tissue structures. Normal visualized upper cervical spine. MRI/Brain without Contrast IMPRESSION: Normal unenhanced MRI of the brain. Electronically Signed: Luis Vegas MD at 10:17 EDT , Service support ,
--- NOTE | 2021-02-16 14:38 | PCM.DC.SUM ---
Providers Date of Admission: 02/15/21 Primary Care Physician: Dr. Oliver Jain MD Reason For Visit: SUSPECTED CVA Diagnosis Discharge Diagnosis (1) Drooping eyelid: Status: Acute Code(s): H02.409 - Unspecified ptosis of unspecified eyelid (2) Essential (primary) hypertension: Status: Chronic Code(s): I10 - Essential (primary) hypertension (3) Hyperlipidemia: Status: Chronic Code(s): E78.5 - Hyperlipidemia, unspecified Medications at Discharge Home Medications doxazosin 4 mg PO DAILY 01/16/15 dorzolamide 22.3 mg-timolol 6.8 mg/mL eye drops 1 drp OPHTHALMIC BID 03/04/19 finasteride 5 mg tablet 5 mg PO DAILY 03/04/19 nitroglycerin 0.4 mg sublingual tablet 0.4 mg SUBLINGUAL Q5-15M PRN #25 tab 03/05/20 metoprolol succinate 25 mg PO DAILY 07/30/20 psyllium husk (aspartame) 1 packet PO DAILY 07/30/20 acetaminophen 1,000 mg PO Q8 #100 tab 08/06/20 atorvastatin 80 mg tablet 80 mg PO QHS #90 tab 09/17/20 isosorbide mononitrate 30 mg tablet,extended release 24 hr 30 mg PO DAILY #90 tab 12/03/20 amlodipine 2.5 mg PO DAILY 02/15/21 aspirin 81 mg PO DAILY 02/15/21 melatonin 10 mg PO QHS 02/15/21 Hospital Course Summary of Care Provided Minutes Spent on Discharge: 35 Hospital Course: 1. Intermittent right eyelid droop and dysphagia ?Patient has been admitted to a monitored bed where he is currently undergoing subsequent evaluation. An MRI has been ordered to rule out CVA however I do suspect patient may be experiencing an underlying neuromuscular problem. Consult has therefore been placed to neurology. Patient symptoms not consistent with myasthenia gravis since his intermittent weakness does not worsen as the day progresses -02/16/2021; Patient has been admitted to a monitored bed where he is currently undergoing evaluation. An MRI of the brain ordered as part of patient evaluation pending this a.m. Consultation was also placed to neurology via telemedicine awaiting input. -Case was discussed with teleneurology differential diagnosis included possible 3rd nerve palsy versus myasthenia gravis. As part of patient's evaluation ordered acetylcholine receptor binding as well as acetylcholine antibody modulating antibodies. Results of these were pending at the time of discharge. Patient was informed of this test and instructed to follow-up with PCP for subsequent result. He was also instructed to follow-up with PCP to be referred to be evaluated by an financial accounting analyst and neurologist within 2 to 3 days 2. Hypertension - Blood pressure controlled, home medications continued with dose adjustment as needed 3. Dyslipidemia -Patient is on statin therapy, continued at home dose 4. BPH ?Patient is on finasteride and continue 5. DVT prophylaxis ?Lovenox Physical Exam Narrative GENERAL: cooperative HEENT: Atraumatic; EYES; partial ptosis involving the right eye NECK; supple, normal thyroid, RESPIRATORY: Diminished to auscultation CARDIOVASCULAR: Regular S1 S2, GI: soft, normoactive bowel sounds, : No Renal angle tenderness; EXTREMITIES: No edema, no clubbing, MUSCULOSKELETAL: no muscle waisting NEURO: Awake; no lateralizing signs. SKIN: No Rash PSYCH; Flat affect ABG / Lab / Microbiology Data Result Diagrams: 02/16/21 05:50 02/16/21 05:50 Laboratory: Laboratory Results - last 24 hr 02/16/21 02/16/21 05:50 05:50 WBC 5.5 RBC 3.53 L Hgb 11.9 L Hct 36.2 L MCV 102.5 H MCH 33.7 H MCHC 32.9 RDW Std Deviation 51.1 H RDW Coeff of Chele 13.6 Plt Count 182 MPV 9.9 Immature Gran % (Auto) 0.200 Neut % (Auto) 45.0 L Lymph % (Auto) 40.4 Pershing % (Auto) 11.7 H Eos % (Auto) 2.0 Baso % (Auto) 0.7 Absolute Neuts (auto) 2.5 Absolute Lymphs (auto) 2.24 Nucleated RBC % 0 Sodium 141 Potassium 3.9 Chloride 110 H Carbon Dioxide 26.0 Anion Gap 5 BUN 10 Creatinine 0.59 L Estim Creat Clear Calc 65.74 Est GFR (MDRD) Af Amer 169 Est GFR (MDRD) Non-Af 140 BUN/Creatinine Ratio 16.8 Glucose 88 Calcium 8.0 L Triglycerides 40 Cholesterol 87 LDL Cholesterol 27 VLDL Cholesterol 8 HDL Cholesterol 52 Radiography Diagnostic Testing: Radiology Impression Echocardiogram 02/15/21 13:16 Interpretation Summary Normal LV size. Left ventricular systolic function is normal. The estimated ejection fraction is 55 %. Normal diastology for age. Bubble contrast study negative for right to left interatrial shunt. Contrast injection was performed. Ordering Physician: Josiah Johnson Referring Physician: SILVIO JAIN Performed By: Margarita You RDCS Brain MRI 02/16/21 12:41 IMPRESSION: Normal unenhanced MRI of the brain. Electronically Signed: Luis Vegas MD at 10:17 EDT , Service support , D/C Instructions Discharge Diet: No restrictions Discharge Activity: Return to Normal Activity Call your doctor if you observe: Fever of 101 or Higher, Numbness or Tingling, Shortness of breath, Fainting spells and Chest pain Meaningful Use Info Meaningful Use Diagnoses (Choose all that apply): None applicable Discharge Plan Admission Admit Date/Time: 02/15/21 12:41 Attending Provider: Josiah Johnson Primary Care Provider: Oliver Jain Discharge Orders/Prescriptions Prescriptions: Continued finasteride [Proscar] 5 mg tablet 5 mg PO DAILY RF: 0 dorzolamide-timolol [Cosopt] 22.3-6.8 mg/mL drops 1 drp OPHTHALMIC BID RF: 0 nitroglycerin 0.4 mg tablet, sublingual 0.4 mg SUBLINGUAL Q5-15M PRN (Reason: chest pain) Qty: 25 RF: 4 doxazosin 4 MG tablet extended release 24hr 4 mg PO DAILY RF: 0 metoprolol succinate 25 MG tablet extended release 24 hr 25 mg PO DAILY RF: 0 psyllium husk (aspartame) 1 PACKET packet 1 packet PO DAILY RF: 0 acetaminophen 500 MG tablet 1,000 mg PO Q8 Qty: 100 RF: 0 amlodipine 2.5 mg tablet 2.5 mg PO DAILY RF: 0 aspirin 81 mg Tablet 81 mg PO DAILY RF: 0 melatonin 10 mg Tablet 10 mg PO QHS RF: 0 atorvastatin 80 mg tablet 80 mg PO QHS Qty: 90 RF: 3 isosorbide mononitrate 30 mg tablet extended release 24 hr 30 mg PO DAILY Qty: 90 RF: 4 Referrals / Follow Up: Oliver Jain MD [Primary Care Provider] - Within 1 Week (Be referred to ophthalmology and neurology for work-up of possible myasthenia gravis or 3rd nerve palsy) Disposition Disposition (needs filled in before D/C Order can be placed): Home, self care Visit Charges OBSV E&M: 77578 Observation care discharge
--- NOTE | 2021-02-16 15:21 | PHA.DC.MR ---
Pharmacy Service has performed discharge medication reconciliation for this patient. The patient's discharge medication list was reviewed for discrepancies and discrepancies were resolved. Home Medications doxazosin 4 mg PO DAILY 01/16/15 dorzolamide 22.3 mg-timolol 6.8 mg/mL eye drops 1 drp OPHTHALMIC BID 03/04/19 finasteride 5 mg tablet 5 mg PO DAILY 03/04/19 nitroglycerin 0.4 mg sublingual tablet 0.4 mg SUBLINGUAL Q5-15M PRN #25 tab 03/05/20 metoprolol succinate 25 mg PO DAILY 07/30/20 psyllium husk (aspartame) 1 packet PO DAILY 07/30/20 acetaminophen 1,000 mg PO Q8 #100 tab 08/06/20 atorvastatin 80 mg tablet 80 mg PO QHS #90 tab 09/17/20 isosorbide mononitrate 30 mg tablet,extended release 24 hr 30 mg PO DAILY #90 tab 12/03/20 amlodipine 2.5 mg PO DAILY 02/15/21 aspirin 81 mg PO DAILY 02/15/21 melatonin 10 mg PO QHS 02/15/21
[2021-02-23 13:26] LABS: ACHR AB Modulating 45 % (0-20)
== END 2021-02-16 16:15 | disposition home or self-care (01) | DRG 123 ==
LOC: ED 12:38 → PCU 13:17
PROVIDERS: Admitting Provider Internal Medicine; Emergency Provider Emergency Medicine; PCP Family Medicine; Visit Provider Internal Medicine
DX: H02.401 Unspecified ptosis of right eyelid (principal); R13.10 Dysphagia, unspecified; I10 Essential (primary) hypertension; E78.5 Hyperlipidemia, unspecified; N40.0 Benign prostatic hyperplasia without lower urinary tract symptoms; Z79.899 Other long term (current) drug therapy; Z87.891 Personal history of nicotine dependence
CPT/HCPCS: 36415; 70496; 70498; 70551; 71045; 80048; 80053; 80061; 81001; 82962; 83519; 84238; 84484; 85025; 92523; 92610; 93005; 93306; 97161; 97166; 97802; 99285; J7030; Q9957; Q9967; A4216; C8929; J3490

== ENCOUNTER → 2021-06-23 08:11 | Outpatient (CLI) | payer MEDICARE, OTHER, SELFPAY ==
--- NOTE | 2021-06-23 08:24 | RAD_ITS ---
INDICATION: DYSPHAGIA EXAMINATION/TECHNIQUE: Barium pill was administered to the patient. Thick and thin oral contrast and effervescent granules were administered to the patient. Total Fluoroscopic Time: 4:50 minutes Number of Fluoroscopic Images: 36 COMPARISON: None. FINDINGS: Difficulty in ingestion of the barium pill, delayed transit of the barium pill seen most prominent at the upper/cervical esophagus and at the level of the gastroesophageal junction. Unremarkable oropharyngeal phase of swallowing, no evidence of laryngeal penetration or aspiration. No evidence of esophageal strictures or diverticula, no evidence of esophageal masses, no evidence of external compression is seen. Markedly irregular contractility of the esophagus is visualized. Small type I hiatus hernia is visualized. No evidence of gastroesophageal reflux was demonstrated. RAD/Esophagus Dual Contrast IMPRESSION: Difficulty in ingestion of the barium pill, delayed transit of the barium pill seen most prominent at the upper/cervical esophagus and at the level of the gastroesophageal junction. Irregular esophageal contractility. Electronically Signed: Filippo Springer MD at 11:34 EDT Tel , Service support ,
== END ==
PROVIDERS: PCP Family Medicine; Referring Provider Nurse Practitioner; Visit Provider Nurse Practitioner
DX: R13.19 Other dysphagia (principal)
CPT/HCPCS: 74221

== ENCOUNTER 2023-01-22 01:22 | Emergency (ER) | payer MEDICARE, OTHER, SELFPAY ==
[2023-01-22 01:24] VITALS: BP 155/83; PULSE 60; RESP 18; TEMP 36.7; O2SAT 98; BMI 29.0
--- NOTE | 2023-01-22 01:34 | EDS_ITS ---
HPI History of Present Illness Chief Complaint: Back [facility] Medical History BPH (benign prostatic hyperplasia) Esophagitis Essential (primary) hypertension Gastritis Glaucoma Hemorrhoids Hyperlipidemia Myasthenia gravis (06/11/21) Obesity Home Medications doxazosin 4 mg tablet,extended release 24 hr 8 mg PO DAILY prostate 01/16/15 [History Last Taken 02/14/21 14:00] dorzolamide 22.3 mg-timolol 6.8 mg/mL eye drops (Cosopt) 1 drp ophthalmic (eye) BID left eye 03/04/19 [History Last Taken 02/15/21 09:00] finasteride 5 mg tablet (Proscar) 5 mg PO DAILY cholesterol 03/04/19 [History [place] st Taken 02/15/21 07:30] psyllium husk (aspartame) 3.4 gram oral powder packet 1 packet PO DAILY fiber 07/30/20 [History Last Taken 02/15/21 07:30] aspirin 81 mg tablet 81 mg PO DAILY heart health 02/15/21 [History Last Taken 02/15/21 07:30] melatonin 10 mg tablet 10 mg PO QHS sleep 02/15/21 [History Last Taken 02/14/21 21:00] nitroglycerin 0.4 mg sublingual tablet 0.4 mg sublingual Q5-15M PRN chest pain #25 tabs 03/26/21 [Rx Last Taken Unknown] calcium citrate 200 mg calcium-vitamin D3 6.25 mcg (250 unit) tablet (Merwin Calcium-Vitamin D3) 1 tab PO BID 03/28/22 [History Last Taken Unknown] omeprazole 40 mg capsule,delayed release 40 mg PO DAILY 03/28/22 [History Last Taken Unknown] prednisone 10 mg tablet 10 mg PO DAILY 03/28/22 [History Last Taken Unknown] pyridostigmine bromide 60 mg tablet (Mestinon) 60 mg PO TID 03/28/22 [History Last Taken Unknown] atorvastatin 80 mg tablet See Rx Instructions .Route .COMPLEX #90 tabs 08/15/22 [Rx Last Taken Unknown] amlodipine 2.5 mg tablet 2.5 mg PO DAILY blood pressure #90 tabs 08/17/22 [Rx Last Taken Unknown] cyclobenzaprine 10 mg tablet 10 mg PO TID PRN Muscle Spasm 01/22/23 [History Last Taken Unknown] diazepam 2 mg tablet (Valium) 2 mg PO QHS PRN muscle spasm #5 tabs 01/22/23 [Rx Last Taken Unknown] isosorbide mononitrate 30 mg tablet,extended release 24 hr 30 mg PO DAILY 01/22/23 [History Last Taken Unknown] metoprolol succinate 25 mg tablet,extended release 24 hr 25 mg PO DAILY 01/22/23 [History Last Taken Unknown] Allergy/AdvReac Type Severity Reaction Status Date / Time morphine AdvReac hallucinati Verified 01/22/23 01:28 ons Family History Father No problems noted. Surgical History History of appendectomy History of cataract surgery History of eye surgery History of herniorrhaphy Hx of total shoulder replacement Social History Smoking Status: Former smoker how long ago did patient quit smokin years ago alcohol intake: current alcohol intake frequency: holidays/special occasions only substance use type: does not use caffeine: No EXAM Physical Exam Const Vital Signs: 01/22/23 01:24 Temperature 98.0 F Temperature Source Temporal Pulse Rate 60 Respiratory Rate 18 Blood Pressure 155/83 H Blood Pressure Mean 107 Pulse Ox 98 Oxygen Delivery Method Room Air [facility] MDM MDM Narrative Medical decision making narrative: HISTORY OF PRESENT ILLNESS: 82-year-old male here for back pain. The patient states he has had 2 weeks of lower back pain radiating to the left leg after shoveling and gardening. He states symptoms are worse with movement, palpation. Denies any urinary complaint such as frequency, urgency or dysuria. Denies any abdominal pain, nausea or vomiting. Denies any constipation or diarrhea. Patient denies any saddle anesthesia, urinary tension, bowel or bladder incontinence, lower extremity weakness, fever or IV drug use, no recent spinal manipulation or surgery, no recent urinary catheterization. REVIEW OF SYMPTOMS: Pertinent positives: Back pain Pertinent negatives: Bowel or bladder incontinence, loss of movement, loss of sensation, weakness in the legs, urinary retention PHYSICAL EXAM: Nursing triage notes reviewed, Vital signs reviewed Constitutional: please see mdm HENT: MMM Eyes: Pupils equal round and reactive to light, Extraocular muscles intact Neck: No stridor, no JVD, full neck ROM Lungs: Clear to auscultation, No wheezing or rales. No increased work of breathing, no conversational dyspnea, no accessory muscle use, no nasal flaring. No respiratory distress noted Heart: Regular rate and rhythm, No murmurs, No rubs and No gallops, 2+ distal pulses (radial, femoral, posterior tibial) in all extremities Abdomen: Soft, there is no tenderness, rigidity, rebound or guarding, no obvious peritoneal signs, no palpable pulsatile abdominal masses, no auscultated abdominal bruit : No CVAT Extremities: No edema Neuro: Intact sensation L1-S1 dermatomal distributions. Intact 5/5 strength in hip flexion (T12-L3). Knee extension (L2-L4). Ankle dorsiflexion (L4-L5). Ankle plantar flexion (S1). Great toe extension (L5). 2+ patellar and Achilles DTRs. Skin: No rash or lesions noted MEDICAL DECISION MAKING: Chief Complaint: Back pain External records reviewed: No recent advanced imaging of the axial skeleton or lumbar spine MDM Narrative: Patient was hemodynamically stable, afebrile, nontoxic-appearing. Exam without midline step-offs deformities. There is no focal neurologic deficits. Patient had no back pain red flags. A low suspicion for space-occupying lesion at this time. No urinary complaints to suggest UTI. Etiology likely musculoskeletal back pain. Give the patient evidence-based back pain treatments including narcotic, anti-inflammatory, lidocaine patches. Is already on prednisone. Upon reassessment patient states he felt no better with oxycodone. I offered the patient a benzodiazepine as these have shown to improve muscle spasticity and rigidity in the setting of musculoskeletal back pain. I did discuss risk of multiple narcotic doses, risk of respiratory depression in light of the patient's history of myasthenia gravis. Shared decision-making was undertaken with patient and who agreed to undergo a small dose of Valium as a trial in the emergency department being observed to return the patient any untoward side effects. Patient report significant relief after Valium. I had a shared decision-making discussion about the side effects of benzodiazepines in the setting of myasthenia gravis. Given the patient did well here with Valium while being monitored on telemetry without significant side effects. I feel safe with discharging Mr. Chatman with only a few doses of Valium to take 1 time a day as needed for severe pain. The patient presented complaining of back pain. There was no history of recent fall or trauma. There was no evidence to support genitourinary etiology. There is also no evidence to suggest vascular pathology such as AAA dissection. No fevers or other evidence to suspect infectious processes, abscess, osteomyelitis etc. The patient?s neurological exam is normal with normal motor and sensory. There is no saddle paresthesias reported and no bowel or bladder incontinence or retention. I suspect the pain is mechanical in nature. Clinical suspicion, plan of care and management was discussed with the patient. The patient was instructed to follow up with their health care provider. The patient was also instructed to return if the pain worsened, changed, or developed weakness or bowel or bladder trouble. The patient agreed with plan. I completed a structured, evidence-based clinical evaluation to screen for acute non-traumatic spinal emergencies. The patient has a normal detailed neurologic exam and red flag historical factors were negative. The evidence indicates that the patient is very low risk for an acute spinal emergency and this is consistent with my clinical intuition. The risk of further workup is higher than the likelihood of the patient having a spinal epidural abscess or other dangerous emergency spinal condition. It is, therefore, in the patient?s best interest not to do additional emergent testing at this time. Factors affecting care: History of hypertension, hyperlipidemia, myasthenia gravis, BPH, obesity Social determinants of health: Former smoker History obtained from others: The patient's Shared decision making: I will have a discussion with the patient and or visitors regarding risk/benefits of further testing or admission. They will be made aware of of the risk/benefits inherent in this decision they will be given the opportunity to voice understanding. Consults: none Discharge Plan Triage Chief Complaint: Back ED Provider: James Peralta Dx/Rx/DC Orders Clinical Impression: Acute left lumbar radiculopathy Instructions: ED Back Pain (Acute or Chronic) Prescriptions: New diazepam [Valium] 2 mg tablet 2 mg PO QHS MDD 2 mg PRN (Reason: muscle spasm) Qty: 5 0RF No Action finasteride [Proscar] 5 mg tablet 5 mg PO DAILY dorzolamide-timolol [Cosopt] 22.3-6.8 mg/mL drops 1 drp OPHTHALMIC BID nitroglycerin 0.4 mg tablet, sublingual 0.4 mg SUBLINGUAL Q5-15M PRN (Reason: chest pain) Qty: 25 4RF Rx Instructions: do not exceed 3 doses per episode omeprazole 40 mg capsule,delayed release(DR/EC) 40 mg PO DAILY calcium citrate-vitamin D3 [Merwin Calcium-Vitamin D3] 200 mg-6.25 mcg (250 unit) tablet 1 tab PO BID Label Comments: TAKE 1 TABLET BY MOUTH TWICE DAILY WITH FOOD prednisone 10 mg tablet 10 mg PO DAILY doxazosin 4 MG tablet extended release 24hr 8 mg PO DAILY psyllium husk (aspartame) 1 PACKET packet 1 packet PO DAILY aspirin 81 mg Tablet 81 mg PO DAILY melatonin 10 mg Tablet 10 mg PO QHS cyclobenzaprine [Flexeril] 10 mg Tablet 10 mg PO TID PRN (Reason: Muscle Spasm) isosorbide mononitrate 30 mg tablet extended release 24 hr 30 mg PO DAILY metoprolol succinate 25 mg tablet extended release 24 hr 25 mg PO DAILY pyridostigmine bromide [Mestinon] 60 mg tablet 60 mg PO TID atorvastatin 80 mg tablet See Rx Instructions .ROUTE .COMPLEX Qty: 90 3RF Dose Instruction: TAKE 1 TABLET AT BEDTIME FOR CHOLESTEROL Rx Instructions: TAKE 1 TABLET AT BEDTIME FOR CHOLESTEROL amlodipine 2.5 mg tablet 2.5 mg PO DAILY Qty: 90 3RF Primary Care Provider: Oliver Mims Referrals: Oliver Mims MD [Primary Care Provider] - Activity Restrictions/Additional Instructions: Thank you for trusting us with your care today! Please take Tylenol (2 pills, 650 mg), ibuprofen (2 pills, 400 mg) every 6 hours as needed for pain and fever control. Please take Valium 2 mg as needed only 1 time per day. I have only given you 5 pills to take for very severe pain. I recommend taking it before bedtime. Side effects of Valium include drowsiness, fatigue and difficulty breathing. If any of the symptoms develop please stop taking Valium and report to emergency department immediately. Please go to your local pharmacy or drugstore and obtain Salonpas lidocaine patches apply these to the painful area. Please discontinue taking Flexeril. Please return to the emergency department if your symptoms change or worsen. Specifically if you develop bowel or bladder incontinence, difficulty feeling your private area, weakness, numbness, loss sensation in your legs. I would refrain from spinal manipulation until the acute inflammatory phase of your condition has passed. This means I do not recommend seeing a chiropractor at this time Please follow with your primary care physician for further outpatient evaluation and management. Disposition Disposition: Home, Self Care
[2023-01-22] MEDS: Lidocaine 5% Patch 1 PATCH TOPICAL (02:15)
[2023-01-22] MEDS: Acetaminophen 325 MG Tablet 650 MG PO (02:16)
[2023-01-22] MEDS: Ketorolac 30 MG/ML Syringe IM (02:16)
[2023-01-22] MEDS: oxyCODONE 5 MG Tablet PO (02:16)
[2023-01-22] MEDS: diazePAM 2 MG Tablet PO (03:34)
[2023-01-22 05:14] VITALS: BP 145/79; PULSE 50; RESP 18; O2SAT 97
== END 2023-01-22 05:15 | disposition home or self-care (01) ==
PROVIDERS: Emergency Provider Emergency Medicine; PCP Family Medicine; Visit Provider Emergency Medicine
DX: M54.16 Radiculopathy, lumbar region (principal); E78.5 Hyperlipidemia, unspecified; I10 Essential (primary) hypertension; Z87.891 Personal history of nicotine dependence
CPT/HCPCS: 96372; 99284

== ENCOUNTER 2023-01-23 09:01 | Emergency (ER) | payer MEDICARE, OTHER, SELFPAY ==
[2023-01-23 09:03] VITALS: BP 140/78; PULSE 58; RESP 16; TEMP 35.9; O2SAT 98
[2023-01-23 09:20] VITALS: BMI 28.8
[2023-01-23] MEDS: fentaNYL 100 MCG/2 ML Ampul 25 MCG IM (10:52)
[2023-01-23] MEDS: oxyCODONE 5 MG Tablet PO (10:53)
--- NOTE | 2023-01-23 11:00 | RAD_ITS ---
STUDY: X-RAY - LUMBAR SPINE REASON FOR EXAM: Male, 82 years old. Injury/Pain TECHNIQUE: 3 view(s) of the lumbar spine were obtained. COMPARISON: None FINDINGS: There is straightening of the normal lumbar lordosis. There is no substantial scoliosis. There is a normal alignment of the vertebrae. There is multilevel endplate spondylosis of the lumbar vertebrae. Approximately 40% loss of height of the superior endplate of the L2 vertebrae. There is multi-level degenerative disc disease with multi-level disc space narrowing. There is atherosclerotic calcification of the abdominal aorta without a demonstrated aneurysm. Large amount of fecal material in the colon. Prior bilateral inguinal hernia repair. RAD/Lumbar Spine 2 or 3 Views IMPRESSION: Degenerative changes of the spine, as detailed above. 40% loss of height of the superior endplate of the L2 vertebrae. Electronically Signed: Dimitri Anaya MD at 11:20 EDT ,
--- NOTE | 2023-01-23 11:19 | ED.VIS.BACK ---
HPI History of Present Illness Chief Complaint: Back Onset/Context/Timing Onset: Weeks (2.5) Context: Gradual Onset Timing: Continuous Quality: Sharp Location: Lumbar Worsened by: improves with - (Sitting) Relieved by: Nothing Associated Symptoms Associated Symptoms: Negative for Numbness, Tingling, Radiation to Right Leg, Radiation to Left Leg, Fever, Abdominal Pain, Dysuria, Urinary Retention, Urinary Incontinence, Constipation or Fecal Incontinence Narrative Narrative: With low back pain that has been constant for the past 2-1/2 weeks. Patient states it is getting worse. Patient was seen here yesterday morning. Patient was given a prescription for Valium. Patient states he took it last night and when he woke up today his pain was worse. Patient states it is worse with sitting up. Patient denies any radiation of the pain to his legs. Patient denies any radiation of pain to his abdomen. Patient denies any paresthesias or weakness. Patient denies any saddle anesthesia. Patient denies any bowel or bladder changes. Patient has a history of myasthenia gravis. [facility] Medical History BPH (benign prostatic hyperplasia) Esophagitis Essential (primary) hypertension Gastritis Glaucoma Hemorrhoids Hyperlipidemia Myasthenia gravis (06/11/21) Obesity Home Medications doxazosin 4 mg tablet,extended release 24 hr 8 mg PO DAILY prostate 01/16/15 [History Last Taken 02/14/21 14:00] dorzolamide 22.3 mg-timolol 6.8 mg/mL eye drops (Cosopt) 1 drp ophthalmic (eye) BID left eye 03/04/19 [History Last Taken 02/15/21 09:00] finasteride 5 mg tablet (Proscar) 5 mg PO DAILY cholesterol 03/04/19 [History Last Taken 02/15/21 07:30] psyllium husk (aspartame) 3.4 gram oral powder packet 1 packet PO DAILY fiber 07/30/20 [History Last Taken 02/15/21 07:30] aspirin 81 mg tablet 81 mg PO DAILY heart health 02/15/21 [History Last Taken 02/15/21 07:30] melatonin 10 mg tablet 10 mg PO QHS sleep 02/15/21 [History Last Taken 02/14/21 21:00] nitroglycerin 0.4 mg sublingual tablet 0.4 mg sublingual Q5-15M PRN chest pain #25 tabs 03/26/21 [Rx Last Taken Unknown] calcium citrate 200 mg calcium-vitamin D3 6.25 mcg (250 unit) tablet (Bend Calcium-Vitamin D3) 1 tab PO BID 03/28/22 [History Last Taken Unknown] omeprazole 40 mg capsule,delayed release 40 mg PO DAILY 03/28/22 [History Last Taken Unknown] prednisone 10 mg tablet 10 mg PO DAILY 03/28/22 [History Last Taken Unknown] pyridostigmine bromide 60 mg tablet (Mestinon) 60 mg PO TID 03/28/22 [History Last Taken Unknown] atorvastatin 80 mg tablet See Rx Instructions .Route .COMPLEX #90 tabs 08/15/22 [Rx Last Taken Unknown] amlodipine 2.5 mg tablet 2.5 mg PO DAILY blood pressure #90 tabs 08/17/22 [Rx Last Taken Unknown] cyclobenzaprine 10 mg tablet 10 mg PO TID PRN Muscle Spasm 01/22/23 [History Last Taken Unknown] diazepam 2 mg tablet (Valium) 2 mg PO QHS PRN muscle spasm #5 tabs 01/22/23 [Rx Last Taken Unknown] isosorbide mononitrate 30 mg tablet,extended release 24 hr 30 mg PO DAILY 01/22/23 [History Last Taken Unknown] metoprolol succinate 25 mg tablet,extended release 24 hr 25 mg PO DAILY 01/22/23 [History Last Taken Unknown] hydrocodone-acetaminophen 5-325mg 5mg-325mg 1 tab PO Q6H PRN PRN Pain 3 days #10 TABLETS 01/23/23 [Rx Last Taken Unknown] Allergy/AdvReac Type Severity Reaction Status Date / Time morphine AdvReac hallucinati Verified 01/22/23 01:28 ons Family History Father No problems noted. Surgical History History of appendectomy History of cataract surgery History of eye surgery History of herniorrhaphy Hx of total shoulder replacement Social History Smoking Status: Former smoker how long ago did patient quit smokin years ago alcohol intake: current alcohol intake frequency: holidays/special occasions only substance use type: does not use caffeine: No ROS ROS ED Constitutional Constitutional ED: Denies chills or fever(s) Eyes Eyes: Denies blurry vision or change in vision ENT ENT ED: Denies rhinorrhea or sore throat Cardiovascular Cardiovascular: Denies chest pain or palpitations Respiratory/Chest Respiratory/Chest: Denies cough or dyspnea Gastrointestinal Gastrointestinal: Denies nausea or vomiting Genitourinary Genitourinary ED: Denies dysuria or hematuria Musculoskeletal Musculoskeletal: Reports back pain; Denies neck pain Integumentary Denies abscess or rash Neurologic Neurologic: Denies headache(s) or weakness Allergic/Immunologic Allergic/Immunologic ED: Denies mouth swelling or urticaria EXAM Physical Exam Const Vital Signs: 01/23/23 09:03 Temperature 96.6 F L Temperature Source Temporal Pulse Rate 58 L Respiratory Rate 16 Blood Pressure 140/78 H Blood Pressure Mean 98 Pulse Ox 98 Oxygen Delivery Method Room Air Positive well nourished and well developed General Appearance ED: well developed and NAD HEENT Reports moist mucous membranes Back/Spine Back/Spine Narrative: There is tenderness over the lumbar paraspinal muscles bilaterally. There is mild midline tenderness. There is no bony crepitance or step-off. Range of motion was limited in all motions of the lumbar spine secondary to pain. Straight leg raises were negative bilaterally. Strength is 5/5 bilaterally in the lower extremities. There are no sensory deficits noted. Deep tendon reflexes are 2/4 bilaterally in the lower extremities. Lumbar Spine / Lower Back: ROM limited and straight leg raise negative bilaterally Neuro oriented x3 and no sensory deficits noted Sensorium / Orientation: alert Motor Exam: strength 5/5 throughout Deep Tendon Reflexes: Rt Patellar (L4): 2+, Lt Patellar (L4): 2+, Rt Ankle (S1): 2+ and Lt Ankle (S1): 2+ Deep Tendon Reflexes Back: Rt Patellar (L4): 2+, Lt Patellar (L4): 2+, Rt Ankle (S1): 2+ and Lt Ankle (S1): 2+ MDM MDM MDM Narrative Medical decision making narrative: Differential diagnosis includes lumbosacral strain, lumbar radiculopathy, myasthenia gravis exacerbation, degenerative arthritis, and occult compression fracture. X-rays of the lumbar spine will be obtained to assess for occult fracture. Radiography Diagnostic Testing: Clinical Impression(s) from Imaging Studies Lumbar Spine X-Ray 01/23/23 11:00 IMPRESSION: Degenerative changes of the spine, as detailed above. 40% loss of height of the superior endplate of the L2 vertebrae. Electronically Signed: Dimitri Anaya MD at 11:20 EDT , X-rays of the lumbar spine were obtained. There are 3 views. On my independent interpretation, there is a compression fracture of L2. There are some degenerative changes noted. Radiologist also interpreted the x-rays and noted a 40% loss of height of the superior endplate of the L2 vertebrae. Treatment and Re-Evaluation Narrative: Due to the patient's allergy to morphine, patient was given a dose of fentanyl here. Patient was also given a dose of oxycodone. Patient is feeling better on reevaluation. Patient was instructed to use ice to his back. Patient was instructed to continue the Valium as needed. Patient was instructed to continue his prednisone as previously prescribed by his primary care physician. Patient was given a prescription for a short course of [place]. Patient was instructed to follow-up with his primary care physician in 5 to 7 days. Patient was instructed return if worse in any way. Patient understood and was agreeable with the plan. All questions were answered. Discharge Plan Triage Chief Complaint: Back ED Provider: Mason Eaton Dx/Rx/DC Orders Clinical Impression: Compression fracture of L2 lumbar vertebra, Myasthenia gravis, Essential (primary) hypertension Instructions: ED Fracture, Vertebral Compression Prescriptions: New hydrocodone-acetaminophen [hydrocodone-acetaminophen] 5-325 mg tablet 1 tab PO Q6H PRN PRN (Reason: Pain) 3 Days Qty: 10 0RF No Action finasteride [Proscar] 5 mg tablet 5 mg PO DAILY dorzolamide-timolol [Cosopt] 22.3-6.8 mg/mL drops 1 drp OPHTHALMIC BID nitroglycerin 0.4 mg tablet, sublingual 0.4 mg SUBLINGUAL Q5-15M PRN (Reason: chest pain) Qty: 25 4RF Rx Instructions: do not exceed 3 doses per episode omeprazole 40 mg capsule,delayed release(DR/EC) 40 mg PO DAILY calcium citrate-vitamin D3 [Bend Calcium-Vitamin D3] 200 mg-6.25 mcg (250 unit) tablet 1 tab PO BID Label Comments: TAKE 1 TABLET BY MOUTH TWICE DAILY WITH FOOD prednisone 10 mg tablet 10 mg PO DAILY doxazosin 4 MG tablet extended release 24hr 8 mg PO DAILY psyllium husk (aspartame) 1 PACKET packet 1 packet PO DAILY aspirin 81 mg Tablet 81 mg PO DAILY melatonin 10 mg Tablet 10 mg PO QHS cyclobenzaprine [Flexeril] 10 mg Tablet 10 mg PO TID PRN (Reason: Muscle Spasm) isosorbide mononitrate 30 mg tablet extended release 24 hr 30 mg PO DAILY metoprolol succinate 25 mg tablet extended release 24 hr 25 mg PO DAILY diazepam [Valium] 2 mg tablet 2 mg PO QHS MDD 2 mg PRN (Reason: muscle spasm) Qty: 5 0RF pyridostigmine bromide [Mestinon] 60 mg tablet 60 mg PO TID atorvastatin 80 mg tablet See Rx Instructions .ROUTE .COMPLEX Qty: 90 3RF Dose Instruction: TAKE 1 TABLET AT BEDTIME FOR CHOLESTEROL Rx Instructions: TAKE 1 TABLET AT BEDTIME FOR CHOLESTEROL amlodipine 2.5 mg tablet 2.5 mg PO DAILY Qty: 90 3RF Primary Care Provider: Oliver Mims Referrals: Oliver Mims MD [Primary Care Provider] - 5-7 Days Disposition Disposition: Home, Self Care
== END 2023-01-23 12:25 | disposition home or self-care (01) ==
PROVIDERS: Emergency Provider Emergency Medicine; PCP Family Medicine; Visit Provider Emergency Medicine
DX: M48.56XA Collapsed vertebra, not elsewhere classified, lumbar region, initial encounter for fracture (principal); G70.00 Myasthenia gravis without (acute) exacerbation; I10 Essential (primary) hypertension; E78.5 Hyperlipidemia, unspecified; Z87.891 Personal history of nicotine dependence; X58.XXXA Exposure to other specified factors, initial encounter
CPT/HCPCS: 72100; 96372; 99283

== ENCOUNTER 2023-02-01 17:54 | Observation (INO) | payer MEDICARE, OTHER, SELFPAY ==
[2023-02-01 17:55] VITALS: BP 133/65; PULSE 69; RESP 18; TEMP 36.5; O2SAT 98; BMI 27.9
--- NOTE | 2023-02-01 18:59 | ED.VIS.BACK ---
HPI History of Present Illness Chief Complaint: Back Informant: patient and spouse/S.O. Narrative Narrative: Patient represents with back pain. Patient has been seen here a couple times, couple times at his primary physician's office, and by Dr. Macias 2 days ago. He is not getting any relief with any outpatient therapy. His physician referred him in here for admission and pain management. Patient states he has been having some back pain for some months. But it was well controlled. About a month ago he did some shoveling in the garden and strained his back. Since then he has had exacerbation. It is across his lower back. It also radiates down the right buttock and occasionally down the right leg to just above the knee. It does not radiate down the left. He does not have weakness. He does not have bowel or bladder dysfunction. No recent fevers or chills. Patient is on long-term prednisone for myasthenia gravis at 10 mg a day. But he was bumped up to 40 mg a day for several days once. He is also been given 2 shots of cortisone. He has been on Percocet and is still taking that every 6 hours. He has been tried on Valium and Flexeril. He is not getting relief with any of these therapies. He still has pain. He states it is getting hard to walk around just because its painful for him. He had x-rays at his last visit. There is questions of a compression of L2 but his pain is really down lower. He has an MRI scheduled for a week from tomorrow. But he was having pain so he contacted his primary physician who referred him in here. [facility] Medical History BPH (benign prostatic hyperplasia) Esophagitis Essential (primary) hypertension Gastritis Glaucoma Hemorrhoids Hyperlipidemia Myasthenia gravis (06/11/21) Obesity Home Medications doxazosin 4 mg tablet,extended release 24 hr 8 mg PO DAILY prostate 01/16/15 [History Last Taken 02/14/21 14:00] dorzolamide 22.3 mg-timolol 6.8 mg/mL eye drops (Cosopt) 1 drp ophthalmic (eye) BID left eye 03/04/19 [History Last Taken 02/15/21 09:00] finasteride 5 mg tablet (Proscar) 5 mg PO DAILY cholesterol 03/04/19 [History Last Taken 02/15/21 07:30] psyllium husk (aspartame) 3.4 gram oral powder packet 1 packet PO DAILY fiber 07/30/20 [History Last Taken 02/15/21 07:30] aspirin 81 mg tablet 81 mg PO DAILY heart health 02/15/21 [History Last Taken 02/15/21 07:30] melatonin 10 mg tablet 10 mg PO QHS sleep 02/15/21 [History Last Taken 02/14/21 21:00] nitroglycerin 0.4 mg sublingual tablet 0.4 mg sublingual Q5-15M PRN chest pain #25 tabs 03/26/21 [Rx Last Taken Unknown] calcium citrate 200 mg calcium-vitamin D3 6.25 mcg (250 unit) tablet ([place] Calcium-Vitamin D3) 1 tab PO BID 03/28/22 [History Last Taken Unknown] omeprazole 40 mg capsule,delayed release 40 mg PO DAILY 03/28/22 [History Last Taken Unknown] prednisone 10 mg tablet 10 mg PO DAILY 03/28/22 [History Last Taken Unknown] pyridostigmine bromide 60 mg tablet (Mestinon) 60 mg PO TID 03/28/22 [History Last Taken Unknown] atorvastatin 80 mg tablet See Rx Instructions .Route .COMPLEX #90 tabs 08/15/22 [Rx Last Taken Unknown] amlodipine 2.5 mg tablet 2.5 mg PO DAILY blood pressure #90 tabs 08/17/22 [Rx Last Taken Unknown] cyclobenzaprine 10 mg tablet 10 mg PO TID PRN Muscle Spasm 01/22/23 [History Last Taken Unknown] diazepam 2 mg tablet (Valium) 2 mg PO QHS PRN muscle spasm #5 tabs 01/22/23 [Rx Last Taken Unknown] isosorbide mononitrate 30 mg tablet,extended release 24 hr 30 mg PO DAILY 01/22/23 [History Last Taken Unknown] metoprolol succinate 25 mg tablet,extended release 24 hr 25 mg PO DAILY 01/22/23 [History Last Taken Unknown] hydrocodone-acetaminophen 5-325mg 5mg-325mg 1 tab PO Q6H PRN PRN Pain 3 days #10 TABLETS 01/23/23 [Rx Last Taken Unknown] Allergy/AdvReac Type Severity Reaction Status Date / Time morphine AdvReac hallucinati Verified 02/01/23 17:54 ons Family History Father No problems noted. Surgical History History of appendectomy History of cataract surgery History of eye surgery History of herniorrhaphy Hx of total shoulder replacement Social History (Updated 02/01/23 @ 22:[address] Daiana Caro MD) household members: spouse Smoking Status: Former smoker how long ago did patient quit smokin years ago alcohol intake: current alcohol intake frequency: holidays/special occasions only substance use type: does not use caffeine: No ROS ROS ED Constitutional Constitutional ED: Denies chills, fever(s), subjective or sweats ENT ENT ED: Denies rhinorrhea or sore throat Cardiovascular Cardiovascular: Denies chest pain or palpitations Respiratory/Chest Respiratory/Chest: Denies dyspnea or dyspnea on exertion Gastrointestinal Gastrointestinal: Denies abdominal pain, constipation, diarrhea, melena, nausea or vomiting Genitourinary Genitourinary ED: Denies dysuria, hematuria or urinary frequency Musculoskeletal Musculoskeletal: Reports back pain; Denies arthralgias, myalgias or neck pain Integumentary Denies rash Neurologic Neurologic: Denies headache(s), paresthesias or weakness Hematologic/Lymphatic Hematologic/Lymphatic: Reports other Details: Patient is on baby aspirin but no other anticoagulation. ; Denies easy bleeding or easy bruising Allergic/Immunologic Allergic/Immunologic ED: Denies urticaria EXAM Physical Exam Narrative Exam Narrative: CONSTITUTIONAL: Patient is nontoxic in appearance. The patient looks comfortable. Work of breathing looks normal. HEENT: No notable trauma. Mucous membranes moist. No sinus tenderness. No sign of dental infection. EYES: No conjunctival injection. No pallor. NECK: No meningismus. No JVD. CARDIOVASCULAR: Regular rate. Regular rhythm. No notable murmur. No JVD. RESPIRATORY: No respiratory distress. Breathing is unlabored. No wheezes. No rhonchi. No rales. No pain with a deep breath. GASTROINTESTINAL: Not distended. Bowel sounds are normal. No tenderness. No guarding. No rebound. No palpable mass. No bruit. GENITOURINARY: No tenderness over the bladder. No CVA tenderness. MUSCULOSKELETAL: Atraumatic. Trace bilateral equal peripheral edema. No cord. No tenderness along the deep venous system. No asymmetry. Distal pulses are intact. Patient is somewhat slow to move. I did help him sit up. He was able to stand up on the edge of the bed. He is able to walk very slowly. He is in a lot of discomfort with this. He has mild nonfocal tenderness across his lower back but mostly he has a lot of pain but palpation does not markedly increase it. He does have a little bit of tenderness sciatic notch in the right buttock. There is no swelling of the legs proximally. There is no rash or vesicles that I see on his back buttock or leg. He can lift up both legs independently off the bed. When he lifts his right it causes a moderate amount of back pain though. But it does not cause radiculopathy. He can pull up and press down on his toes and feet. He has good quadricep strength. He has no indication of sensory deficit. NEUROLOGICAL: Patient is alert and oriented. No focal deficit noted. d rashes. No diaphoresis. No vesicles noted. No notable pallor. PSYCHIATRIC: Patient is calm. Mood is appropriate. Const Vital Signs: 02/01/23 17:55 02/01/23 19:08 02/01/23 21:08 Temperature 97.7 F L Temperature Source Temporal Pulse Rate 69 52 L Respiratory Rate 18 16 16 Blood Pressure 133/65 H 126/57 H Blood Pressure Mean 87 80 Pulse Ox 98 96 Oxygen Delivery Method Room Air MDM MDM MDM Narrative Medical decision making narrative: I did review the lumbar films that were done approximately 9 days ago. They show an L2 compression or loss of height but is not clear if this is acute and that is not where his pain is. Patient CBC is overall normal. Patient's electrolytes are normal other than minimal elevation in the BUN to creatinine ratio. Patient's urinalysis is normal and does not show sign of infection. Patient has been treated with couple dose of pain meds here. He is still having discomfort. Although this patient has no sign of neurologic deficit he does have back pain radiating a little down his right leg that is worse with weightbearing. This is making it harder for him to walk and he and his feel that he is a little unsafe at home. He has been managed as an outpatient with multiple visits to us his [place] physician and spine surgeon and nothing is relieving his pain. I think with this is significant pain, some weakness likely due to his other illness of myasthenia gravis, and failure of outpatient treatment hospitalization is appropriate and I discussed the case with the hospitalist. Lab Data Attestation: I reviewed the patient's lab results. Labs: Laboratory Results - last 24 hr 02/01/23 02/01/23 02/01/23 19:05 19:09 19:09 WBC 7.7 RBC 3.97 L Hgb 13.3 Hct 41.1 MCV 103.5 H MCH 33.5 H MCHC 32.4 RDW Std Deviation 50.6 H RDW Coeff of [place] 13.2 Plt Count 232 MPV 9.2 Immature Gran % (Auto) 0.800 Neut % (Auto) 63.0 Lymph % (Auto) 25.4 [place] % (Auto) 10.1 H Eos % (Auto) 0.3 Baso % (Auto) 0.4 Absolute Neuts (auto) 4.9 Absolute Lymphs (auto) 1.96 Nucleated RBC % 0 Sodium 137 Potassium 4.8 Chloride 103 Carbon Dioxide 31.0 Anion Gap 3 L BUN 17 Creatinine 0.79 Estim Creat Clear Calc 63.59 Est GFR (MDRD) Af Amer 120 Est GFR (MDRD) Non-Af 100 BUN/Creatinine Ratio 21.4 H Glucose 108 H Calcium 8.6 Urine Color Yellow Urine Clarity Clear Urine pH 7.0 Ur Specific Egan 1.010 Urine Protein Negative Urine Glucose (UA) Normal Urine Ketones Negative Urine Occult Blood Negative Urine Nitrite Negative Urine Bilirubin Negative Urine Urobilinogen Normal Ur Leukocyte Esterase Negative Urine RBC 0 SEEN Urine WBC 0 SEEN Ur Squamous Epith Cells 0-5 SEEN Urine Bacteria RARE Urine Mucus 0 SEEN Management Discussion w/another healthcare provider: Hospitalist Discharge Plan Triage Chief Complaint: Back ED Provider: Bentley Edwards Dx/Rx/DC Orders Prescriptions: No Action finasteride [Proscar] 5 mg tablet 5 mg PO DAILY dorzolamide-timolol [Cosopt] 22.3-6.8 mg/mL drops 1 drp OPHTHALMIC BID nitroglycerin 0.4 mg tablet, sublingual 0.4 mg SUBLINGUAL Q5-15M PRN (Reason: chest pain) Qty: 25 4RF Rx Instructions: do not exceed 3 doses per episode omeprazole 40 mg capsule,delayed release(DR/EC) 40 mg PO DAILY calcium citrate-vitamin D3 [[place] Calcium-Vitamin D3] 200 mg-6.25 mcg (250 unit) tablet 1 tab PO BID Label Comments: TAKE 1 TABLET BY MOUTH TWICE DAILY WITH FOOD prednisone 10 mg tablet 10 mg PO DAILY doxazosin 4 MG tablet extended release 24hr 8 mg PO DAILY psyllium husk ([place]partame) 1 PACKET packet 1 packet PO DAILY aspirin 81 mg Tablet 81 mg PO DAILY melatonin 10 mg Tablet 10 mg PO QHS cyclobenzaprine [Flexeril] 10 mg Tablet 10 mg PO TID PRN (Reason: Muscle Spasm) isosorbide mononitrate 30 mg tablet extended release 24 hr 30 mg PO DAILY metoprolol succinate 25 mg tablet extended release 24 hr 25 mg PO DAILY diazepam [Valium] 2 mg tablet 2 mg PO QHS MDD 2 mg PRN (Reason: muscle spasm) Qty: 5 0RF hydrocodone-acetaminophen [hydrocodone-acetaminophen] 5-325 mg tablet 1 tab PO Q6H PRN PRN (Reason: Pain) 3 Days Qty: 10 0RF pyridostigmine bromide [Mestinon] 60 mg tablet 60 mg PO TID atorvastatin 80 mg tablet See Rx Instructions .ROUTE .COMPLEX Qty: 90 3RF Dose Instruction: TAKE 1 TABLET AT BEDTIME FOR CHOLESTEROL Rx Instructions: TAKE 1 TABLET AT BEDTIME FOR CHOLESTEROL amlodipine 2.5 mg tablet 2.5 mg PO DAILY Qty: 90 3RF Primary Care Provider: Oliver Mims Referrals: Oliver Mims MD [Primary Care Provider] - Disposition Disposition: Acute Care Hospital [facility]
[2023-02-01 19:08] VITALS: RESP 16
[2023-02-01] MEDS: fentaNYL 100 MCG/2 ML Ampul 25 MCG IV ×2 (19:09→19:57)
[2023-02-01 19:26] LABS: Mucous, Urine 0 SEEN /hpf (<or=2+); Red Blood Cells-Urine 0 SEEN /hpf (0-5); White Blood Cells 0 SEEN /hpf (0-5)
[2023-02-01 19:27] LABS: Absolute Lymphocyte Count 1.96 X10^3/uL (0.83-4.51); Absolute Neutrophil Count 4.9 X10^3/uL (2.0-7.7); Basophil# 0.03 X10^3/uL; Basophil% 0.4 % (0-1); Eosinophil# 0.02 X10^3/uL; Eosinophils% 0.3 % (0-5); Hematocrit 41.1 % (40-54); Hemoglobin 13.3 g/dL (13.0-16.5); Lymphocyte # 1.96 X10^3/ul (0.83-4.51); Lymphocyte % 25.4 % (19-41); Mean Corp Hgb Conc 32.4 g/dL (32-36); Mean Corpuscular Hgb 33.5 pg (27.0-32.0); Mean Corpuscular Volume 103.5 fL (80-94); Mean Platelet Vol. 9.2 fl (6.2-12.0); Monocyte# 0.78 X10^3/uL; Monocyte% 10.1 % (0-10); NRBC Flagged by Analyzer 0 % (0-5); Neutrophil # 4.87 X10^3/uL (2.7-7.7); Platelet Count 232 K/mm3 (150-450); RBC Distribution Width CV 13.2 % (11.6-14.6); RBC Distribution Width SD 50.6 fl (35.1-43.9); Red Blood Count 3.97 M/mm3 (4.6-6.2); White Blood Count 7.7 K/mm3 (4.4-11.0)
[2023-02-01 19:28] LABS: Color, Urine Yellow (Yellow); Glucose, Dipstick Normal (Normal); Ketone-Dipstick Negative (Negative); Leukocyte Esterase-Dipstick Negative /ul (Negative); Nitrite-Dipstick Negative (Negative); Occult Blood-Urine Negative /ul (Negative); Protein-Dipstick Negative (Negative); Urine Bilirubin Dipstick Negative (Negative); Urine Clarity Clear (Clear); Urine Urobilinogen Normal (Normal)
[2023-02-01 19:34] LABS: Bacteria RARE /hpf (None Seen); Squamous Epithelial Cells - UA 0-5 SEEN /hpf (0-5)
[2023-02-01 19:39] LABS: Anion Gap 3 (5-15); BUN 17 mg/dL (7-18); BUN/Creat Ratio 21.4 RATIO (10-20); Calcium,Total 8.6 mg/dL (8.5-10.1); Chloride 103 mmol/L (98-107); Creatinine, Serum 0.79 mg/dL (0.70-1.30); EST Glomerular Filtration Rate 100 mL/min (>60); Est Glom Filt Rate - Afr Amer 120 mL/min (>60); Estimated Creatinine Clearance 63.59 ml/min; Glucose 108 mg/dL (74-106); Potassium 4.8 mmol/L (3.5-5.1); Sodium Level 137 mmol/L (136-145)
[2023-02-01 21:08] VITALS: BP 126/57; PULSE 52; RESP 16; O2SAT 96
--- NOTE | 2023-02-01 22:52 | PCM.HP.STD ---
HPI - General General Date of Admission: 02/01/23 Date of Service: 02/01/23 Chief Complaint: Intractable back pain HPI Narrative The patient is an 82 y/o M w/ PMHx: HTN, HLD, Myasthenia gravis, Overweight, GERD/gastritis/esophagitis, BPH, Former tobacco use, recent ED evaluation on 01/22/23 as well as on 01/23/2023 with history of 2.5-week at that time lumbar continuous sharp back discomfort initially following working in his garden progressively worsening prescribed Valium at that time with the pain worse with seated position with associated right lower extremity radiculopathy without any paresthesias or specific focal weaknesses nor change in bowel or bladder with improvement in the ED with recent PCP prescription with prednisone, continued Valium and a short course of [place] with outpatient follow-up and evaluation by orthospine Dr. Macias; however, patient now represents to the [facility] ED on 02/01/23 with history of however despite his recent outpatient course for recently increased prednisone therapy and cortisone shots as well as Percocet, Valium and Flexeril he has not had marked relief prompting referral to ED for evaluation. Patient does report having a follow-up MRI scheduled but this is not for another week. Able to still ambulate however he has significant discomfort especially when going from a standing to a seated position. He reports in the emergency room pain 8-10 out of 10 in severity with ongoing persistent right lower extremity radicular pain primarily confined to the more proximal right leg region. Work-up in the ED included T97.7, heart initially 69 with most recent repeat 52, BP 133/65 with most recent repeat 126/57, respiratory rate 18, 98% room air, CBC with WBC 7.7, he 113.3, platelet 232 without marked shift, BMP unremarkable aside glucose 108, urinalysis unremarkable with no evidence of marked dehydration or UTI. In the ED patient administered fentanyl 25 mcg IV x2. From review of most recent records ED evaluation 01/24/2020 3 plain film of the lumbar spine performed with degenerative changes of the spine with a 40% loss of height of the superior endplate of the L2 vertebrae. [facility] Medical History BPH (benign prostatic hyperplasia) Esophagitis Essential (primary) hypertension Gastritis Glaucoma Hemorrhoids Hyperlipidemia Myasthenia gravis (06/11/21) Obesity Home Medications doxazosin 4 mg tablet,extended release 24 hr 8 mg PO DAILY prostate 01/16/15 [History Last Taken 02/01/23] dorzolamide 22.3 mg-timolol 6.8 mg/mL eye drops (Cosopt) 1 drp ophthalmic (eye) BID left eye 03/04/19 [History Last Taken 02/01/23] finasteride 5 mg tablet (Proscar) 5 mg PO DAILY cholesterol 03/04/19 [History Last Taken 02/01/23] psyllium husk (aspartame) 3.4 gram oral powder packet 1 packet PO DAILY fiber 07/30/20 [History Last Taken 02/01/23] aspirin 81 mg tablet 81 mg PO DAILY heart health 02/15/21 [History Last Taken 02/01/23] melatonin 10 mg tablet 10 mg PO QHS sleep 02/15/21 [History Last Taken 01/31/23] nitroglycerin 0.4 mg sublingual tablet 0.4 mg sublingual Q5-15M PRN chest pain #25 tabs 03/26/21 [Rx Last Taken Unknown] calcium citrate 200 mg calcium-vitamin D3 6.25 mcg (250 unit) tablet ([place] Calcium-Vitamin D3) 1 tab PO BID 03/28/22 [History Last Taken 02/01/23] omeprazole 40 mg capsule,delayed release 40 mg PO DAILY 03/28/22 [History Last Taken 02/01/23] prednisone 10 mg tablet 10 mg PO DAILY 03/28/22 [History Last Taken 02/01/23] pyridostigmine bromide 60 mg tablet (Mestinon) 60 mg PO TID 03/28/22 [History Last Taken 02/01/23] atorvastatin 80 mg tablet See Rx Instructions .Route .COMPLEX #90 tabs 08/15/22 [Rx Last Taken 02/01/23] amlodipine 2.5 mg tablet 2.5 mg PO DAILY blood pressure #90 tabs 08/17/22 [Rx Last Taken 02/01/23] isosorbide mononitrate 30 mg tablet,extended release 24 hr 30 mg PO DAILY 01/22/23 [History Last Taken 02/01/23] metoprolol succinate 25 mg tablet,extended release 24 hr 25 mg PO DAILY 01/22/23 [History Last Taken 02/01/23] hydrocodone-acetaminophen 5-325mg 5mg-325mg 1 tab PO Q6H PRN PRN Pain 3 days #10 TABLETS 01/23/23 [Rx Last Taken 02/01/23] Allergy/AdvReac Type Severity Reaction Status Date / Time morphine AdvReac hallucinati Verified 02/01/23 17:54 ons Family History Father Pancreatitis Cancer Mother Dementia Surgical History History of appendectomy History of cataract surgery History of eye surgery History of herniorrhaphy Hx of total shoulder replacement Social History household members: spouse Smoking Status: Former smoker how long ago did patient quit smokin years ago alcohol intake: current alcohol intake frequency: holidays/special occasions only substance use type: does not use caffeine: No ROS ROS Narrative Admission Review of Systems: CONSTITUTIONAL: No weight loss, fever, chills, + weakness or fatigue. HEENT: Eyes: No visual loss, blurred vision, double vision or yellow sclerae. Ears, Nose, Throat: No hearing loss, sneezing, congestion, runny nose or sore throat. SKIN: No rash or itching, lesions, wounds. CARDIOVASCULAR: No chest pain, chest pressure or chest discomfort, palpitations, edema, orthopnea, syncopal events. RESPIRATORY: No shortness of breath, cough or sputum, wheezing, hemoptysis. GASTROINTESTINAL: No anorexia, nausea, vomiting or diarrhea, abdominal pain, melena, BRBPR. GENITOURINARY: + Chronic urinary frequency with BPH. No dysuria, urgency or retention. NEUROLOGICAL: + RLE radicular pain. No headache, dizziness, syncope, paralysis, ataxia, numbness or tingling in the extremities, focal weakness, change in bowel or bladder control, seizure. MUSCULOSKELETAL: + muscle, back pain, joint pain or stiffness. HEMATOLOGIC: + Easy bleeding or bruising. LYMPHATICS: No enlarged nodes. No history of splenectomy. PSYCHIATRIC: No history of depression or anxiety. ENDOCRINOLOGIC: No reports of sweating, cold or heat intolerance. No polyuria or polydipsia. ALLERGIES: No history of asthma, hives, eczema or rhinitis. Vital Signs Vital Signs Vital Signs: 02/01/23 17:55 02/01/23 19:08 02/01/23 21:08 Temperature 97.7 F L Temperature Source Temporal Pulse Rate 69 52 L Respiratory Rate 18 16 16 Blood Pressure 133/65 H 126/57 H Blood Pressure Mean 87 80 Pulse Ox 98 96 Oxygen Delivery Method Room Air Weight Weight: 206 lb 4.8 oz Body Mass Index (BMI) 27.9 Physical Exam Narrative Physical Examination: General: Awake, alert, oriented x 3 and cooperative, seated upright in the ED bed, fatigued and uncomfortable, recently walked from the bathroom back to the bed which was witnessed with a slow appropriate gait given his back discomfort. Skin: Normal color, normal turgor, no icterus, no cyanosis except occasional staged ecchymoses. HEENT: AT/NC, EOMI, PERRLA, mildly dry MM, no carotid bruits or JVD noted. Lungs: Mildly diminished, greater bases, appropriate effort, difficult posterior evaluation given discomfort with any positional changes while seated, no rales, ronchi or wheezing. Heart: Currently regular rate and rhythm; no gallop, rub audible. Abdomen: Soft, NTTP, ND, normal BS, no HSM. Extremities: No cyanosis, clubbing, or edema. Discomfort elicited with palpation of the lumbar spine on the spinal processes whereas paraspinous more so to the right. Neurological: Patient awake, alert, oriented as noted, cognitive function intact; pupils equally reactive to light and accommodation, cranial nerves II-XII grossly normal, moving all 4 extremities although limited given lumbar back discomfort and right lower extremity radiculopathy, strength accordingly moderately to severely globally decreased. Psychiatric: Affect appears uncomfortable, no acute evidence of depressive or anxiety feelings. Results Lab / Micro Data Result Diagrams: 02/01/23 19:09 02/01/23 19:09 Labs: Laboratory Results - last 24 hr 02/01/23 19:05: Urine Color Yellow, Urine Clarity Clear, Urine pH 7.0, Ur Specific [place] 1.010, Urine Protein Negative, Urine Glucose (UA) Normal, Urine Ketones Negative, Urine Occult Blood Negative, Urine Nitrite Negative, Urine Bilirubin Negative, Urine Urobilinogen Normal, Ur Leukocyte Esterase Negative, Urine RBC 0 SEEN, Urine WBC 0 SEEN, Ur Squamous Epith Cells 0-5 SEEN, Urine Bacteria RARE, Urine Mucus 0 SEEN 02/01/23 19:09: WBC 7.7, RBC 3.97 L, Hgb 13.3, Hct 41.1, MCV 103.5 H, MCH 33.5 H, MCHC 32.4, RDW Std Deviation 50.6 H, RDW Coeff of [place] 13.2, Plt Count 232, MPV 9.2, Immature Gran % (Auto) 0.800, Neut % (Auto) 63.0, Lymph % (Auto) 25.4, [place] % (Auto) 10.1 H, Eos % (Auto) 0.3, Baso % (Auto) 0.4, Absolute Neuts (auto) 4.9, Absolute Lymphs (auto) 1.96, Nucleated RBC % 0 02/01/23 19:09: Sodium 137, Potassium 4.8, Chloride 103, Carbon Dioxide 31.0, Anion Gap 3 L, BUN 17, Creatinine 0.79, Estim Creat Clear Calc 63.59, Est GFR (MDRD) Af Amer 120, Est GFR (MDRD) Non-Af 100, BUN/Creatinine Ratio 21.4 H, Glucose 108 H, Calcium 8.6 Assessment & Plan Assessment/Plan (1) Intractable back pain: PLAN: Plan The patient is an 82 y/o M w/ PMHx: HTN, HLD, Myasthenia gravis, Overweight, GERD/gastritis/esophagitis, BPH, Former tobacco use, recent ED evaluation on 01/22/23 as well as on 01/23/2023 with history of 2.5-week at that time lumbar continuous sharp back discomfort initially following working in his garden with 2 prior ED visits as well as evaluation outpatient by PCP and orthospine Dr. Macias with persistent ongoing discomfort, intractable lumbar pain with radiculopathy prompting eventual ED evaluation. #1. Acute Intractable Lumbar Back Pain w/ RLE Radiculopathy w/ Questionable L2 Compression Fx, uncertain: Will admit to MS, maintain on fall precautions, frequent positioning, initiate IV toradol, initiate low dose gabapentin, lidoacine patches, continue tizanidine, continue recently increased prednisone therapy, po/IV narcotic pain regimen, anti-emetics, bowel regimen. Will request lumbar spine MRI. Will request involvement of Dr. Macias. Will consult PT and OT for evaluation as well as Case management for discharge planning. To be cautious ESR and CRP also requested. #2. Myasthenia gravis: Complicates presentation, will continue pyridostigmine, Valium for muscle spasms, maintain on fall precautions, therapies consulted as noted as well as case management for discharge planning. Patient normally on chronic 10 mg prednisone daily however this was recently bumped up to 40 mg with his acute presentation. #3. Hypertension: Continue home regimen including metoprolol, isosorbide, amlodipine, PRN hydralazine. #4. Hyperlipidemia: We will continue patient on statin therapy. #5. Overweight: Weight loss and lifestyle changes encouraged. #6. GERD: Chart reported history of previous gastritis/esophagitis, will continue patient home omeprazole regimen. #7. Former tobacco use: Encourage continued tobacco cessation. #8. BPH: We will continue patient home doxazosin, finasteride home regimen. #9. DVT prophylaxis: Lovenox. #10. CODE status: Patient ROSAMARIA is his who is present and living will is currently in place. Discussed CODE status at length including difference between FULL code, DNR-CCA and DNR-CC status. Following discussions about the differences in these status, requested Full code status. Advanced Care Planning Face to Face Time: 16 minutes. Admission Evaluation Time spent evaluating chart, patient history, patient evaluation, care planning and discussion with specialists: 55 minutes. Charges/Coding Visit Charges Inpatient E&M: 59065 Init Hosp L2 Procedures Hospitalists Procedures: 57231 Advncd Care Plan 30 Min
[2023-02-01 22:56] VITALS: BP 126/57; PULSE 49; RESP 18; TEMP 36.3; O2SAT 97
--- NOTE | 2023-02-01 22:58 | ED.RN ---
PT REPORTS MEDICATION LIST WAS COMPLETED AT LAST 2 ER VISITS, VOICED HE FELT MEDICATIONS ARE CORRECT.
[2023-02-01 23:00] VITALS: RESP 16
[2023-02-01 23:23] LABS: Erythrocyte Sedimentation Rate 21 mm/hr (0-20)
[2023-02-01 23:36] VITALS: BMI 28.1
[2023-02-01 23:40] LABS: CRP < 2.90 mg/L (0.0-3.0)
[2023-02-01 23:49] VITALS: BP 131/74; PULSE 59; RESP 18; TEMP 36.6; O2SAT 98
[2023-02-02] VITALS (9 sets, daily range): BP systolic 114–151; BP diastolic 61–81; PULSE 52–61; RESP 10–18; TEMP 36.5–36.9; O2SAT 94–98; BMI 27.9
[2023-02-02] MEDS: 0.9% Saline Lock 10 ML Syringe IV ×4 (00:19→21:37)
[2023-02-02] MEDS: 0.9% Normal Saline 1,000 ML 100 ML IV (00:19)
[2023-02-02] MEDS: Ketorolac 15 MG/ML Vial IV ×4 (00:30→21:35)
[2023-02-02] MEDS: Gabapentin 100 MG Capsule PO ×4 (00:32→17:01)
[2023-02-02] MEDS: oxyCODONE 5 MG Tablet PO ×3 (00:33→12:15)
[2023-02-02] MEDS: tiZANidine HCl 2 MG Tablet PO (00:34)
[2023-02-02] MEDS: Acetaminophen 325 MG Tablet 650 MG PO ×4 (00:34→21:33)
[2023-02-02] MEDS: MELATONIN 10 MG TABLET PO ×2 (00:55→21:34)
--- NOTE | 2023-02-02 05:55 | MRI_ITS ---
STUDY: MRI LUMBAR SPINE WITHOUT CONTRAST REASON FOR EXAM: Male, 82 years old. Intractable back pain, right leg pain TECHNIQUE: Standardized fat and water weighted pulse sequences were obtained in the sagittal and axial planes. COMPARISON: Lumbar spine radiographs 01/23/2023. FINDINGS: T11-T12: (Sagittal only). Normal endplates. Normal disc height, hydration and morphology. Normal central canal and bilateral intervertebral neural foramina. T12-L1: Normal endplates. Normal disc height, hydration and morphology. Normal bilateral facet joints. Normal central canal and bilateral lateral recesses. Normal bilateral intervertebral neural foramina. Prominent perineural cyst in the left intervertebral neural foramen. Normal lumbar lordosis. There is no substantial scoliosis. Normal conus medullaris that terminates at the T12-L1 interspace level. L1-2: Normal L1 inferior endplate. Moderate central compression fracture of the L2 vertebral body, greater in the lower body than the upper L2 vertebral body. There is greater than 50% loss in the central L2 vertebral body. There is extensive vertebral marrow edema of the L2 body. There is retropulsion in the posterior lower half of the L2 compression fracture causing mild central canal stenosis with an AP canal diameter of 9 mm. Mild dorsal epidural lipomatosis. Normal bilateral lateral recesses. Normal bilateral intervertebral neural foramina. L2-3: Normal L3 inferior endplate. Moderate recent central compression fracture of the L2 vertebral body causing two thirds loss of the central vertebral body height. This also accounts for the increased central disc space height. Mild retropulsion of the lower L2 compression fracture causing mild central canal stenosis with an AP canal diameter of 9 mm. Additionally, there is prominent dorsal epidural lipomatosis. Normal bilateral lateral recesses. Mild stenosis of the right intervertebral neural foramen. Normal left intervertebral neural foramen. L3-4: Modic type II degenerative vertebral marrow fat infiltration underneath the vertebral endplates. Pronounced disc space height narrowing. No significant facet arthropathy. Normal central canal and bilateral lateral recesses. Normal bilateral intervertebral neural foramina. L4-5: Mild Modic type II degenerative vertebral marrow fat infiltration underneath the vertebral endplates. Pronounced disc space height narrowing. Mild ventral extradural defect due to bone spur. Mild asymmetric degenerative facet arthropathy. Normal central canal and bilateral lateral recesses. Mild stenosis of the bilateral intervertebral neural foramina. L5-S1: Minimal Modic type I degenerative vertebral marrow edema underneath the vertebral endplates. Pronounced right-sided disc space height narrowing. Mild left ventral extradural defect is possible small posterior caudal disc protrusion (series 2, image 6; series 5, images 2-3). Mild right degenerative facet arthropathy. Normal left facet joint. Normal central canal and bilateral lateral recesses. Mild stenosis of the right intervertebral neural foramen. Normal left intervertebral neural foramen. Normal visualized sacral ala. Normal visualized paraspinous soft tissue structures. MRI/Spine Lumbar (Routine) IMPRESSION: 1. Moderate recent central compression fracture across the upper and lower L2 vertebral body, greater in the lower central L2 vertebral body. This is causing two thirds loss of the lower central L2 vertebral body height. There is also retropulsion in the posterior caudal aspect of the L2 compression fracture causing mild central canal stenosis at L2-L3 disc space level with an AP canal diameter of 9 mm. If patient has debilitating back pain referrable to this site, this is feasible for kyphoplasty. 2. Possible small left L5-S1 posterior caudal disc protrusion but no definite displacement of the left S1 nerve root sleeve (series 2, image 6; series 5, images 2-3). Electronically Signed: Luis Vegas MD at 10:57 EDT ,
[2023-02-02 06:29] LABS: Absolute Lymphocyte Count 3.27 X10^3/uL (0.83-4.51); Absolute Neutrophil Count 3.7 X10^3/uL (2.0-7.7); Basophil# 0.04 X10^3/uL; Basophil% 0.5 % (0-1); Eosinophil# 0.08 X10^3/uL; Hematocrit 34.6 % (40-54); Hemoglobin 11.2 g/dL (13.0-16.5); Lymphocyte # 3.27 X10^3/ul (0.83-4.51); Lymphocyte % 40.7 % (19-41); Mean Corp Hgb Conc 32.4 g/dL (32-36); Mean Corpuscular Hgb 33.3 pg (27.0-32.0); Mean Platelet Vol. 9.2 fl (6.2-12.0); Monocyte# 0.88 X10^3/uL; Monocyte% 10.9 % (0-10); NRBC Flagged by Analyzer 0 % (0-5); Neutrophil # 3.67 X10^3/uL (2.7-7.7); Neutrophil % 45.7 % (47-70); Platelet Count 190 K/mm3 (150-450); RBC Distribution Width CV 13.5 % (11.6-14.6); RBC Distribution Width SD 51.3 fl (35.1-43.9); Red Blood Count 3.36 M/mm3 (4.6-6.2)
[2023-02-02 07:09] LABS: AST(SGOT) 13 U/L (15-37); Alanine Aminotransfer ALT/SGPT 20 U/L (16-61); Albumin, Serum 2.6 g/dL (3.2-5.0); Alkaline Phosphatase 70 U/L (45-117); Anion Gap 5 (5-15); BUN 18 mg/dL (7-18); Calcium,Total 7.9 mg/dL (8.5-10.1); Chloride 107 mmol/L (98-107); Creatinine, Serum 0.72 mg/dL (0.70-1.30); EST Glomerular Filtration Rate 111 mL/min (>60); Est Glom Filt Rate - Afr Amer 134 mL/min (>60); Globulin 2.7 g/dL (2.2-4.2); Glucose 91 mg/dL (74-106); Potassium 3.9 mmol/L (3.5-5.1); Protein, Total 5.3 g/dL (6.4-8.2); Sodium Level 140 mmol/L (136-145)
--- NOTE | 2023-02-02 07:56 | PN.HOSP_ITS ---
Reason for Visit Reason for Visit: Diagnoses Dorsalgia, unspecified (02/01/23) Subjective Subjective Still with pain on her right lateral leg that is progressed over the past few weeks. Also complains of pain in his right groin. Objective Data Objective Data Vital Signs: Vital Signs Temp Pulse Resp BP Pulse Ox O2 Del Method 36.5 C L 52 L 18 148/71 H 98 Room Air 02/02/23 06:50 02/02/23 06:50 02/02/23 06:50 02/02/23 06:50 02/02/23 06:50 02/02/23 06:50 Oxygen Delivery Method Room Air Weight: 90.5 kg Body Mass Index (BMI) 27.9 Intake & Output: Intake and Output for Last 24 Hours 01/31/23 02/01/23 02/02/23 23:59 23:59 23:59 Intake Total 300 / 300 Balance 300 / 300 Lab / Micro Data Result Diagrams: 02/02/23 06:20 02/02/23 06:20 Labs: Laboratory Results - last 24 hr 02/01/23 19:05: Urine Color Yellow, Urine Clarity Clear, Urine pH 7.0, Ur Specific [place] 1.010, Urine Protein Negative, Urine Glucose (UA) Normal, Urine Ketones Negative, Urine Occult Blood Negative, Urine Nitrite Negative, Urine Bilirubin Negative, Urine Urobilinogen Normal, Ur Leukocyte Esterase Negative, Urine RBC 0 SEEN, Urine WBC 0 SEEN, Ur Squamous Epith Cells 0-5 SEEN, Urine Bacteria RARE, Urine Mucus 0 SEEN 02/01/23 19:09: WBC 7.7, RBC 3.97 L, Hgb 13.3, Hct 41.1, MCV 103.5 H, MCH 33.5 H , MCHC 32.4, RDW Std Deviation 50.6 H, RDW Coeff of Hcele 13.2, Plt Count 232, MPV 9.2, Immature Gran % (Auto) 0.800, Neut % (Auto) 63.0, Lymph % (Auto) 25.4, [place] % (Auto) 10.1 H, Eos % (Auto) 0.3, Baso % (Auto) 0.4, Absolute Neuts (auto) 4.9, Absolute Lymphs (auto) 1.96, Nucleated RBC % 0 02/01/23 19:09: Sodium 137, Potassium 4.8, Chloride 103, Carbon Dioxide 31.0, Anion Gap 3 L, BUN 17, Creatinine 0.79, Estim Creat Clear Calc 63.59, Est GFR (MDRD) Af Amer 120, Est GFR (MDRD) Non-Af 100, BUN/Creatinine Ratio 21.4 H, Glucose 108 H, Calcium 8.6 02/01/23 19:09: ESR 21 H 02/01/23 19:09: C-React Prot Ext Range < 2.90 02/02/23 06:20: WBC 8.0, RBC 3.36 L, Hgb 11.2 L, Hct 34.6 L, MCV 103.0 H, MCH 33.3 H, MCHC 32.4, RDW Std Deviation 51.3 H, RDW Coeff of [place] 13.5, Plt Count 190, MPV 9.2, Immature Gran % (Auto) 1.200 H, Neut % (Auto) 45.7 L, Lymph % (Auto) 40.7, [place] % (Auto) 10.9 H, Eos % (Auto) 1.0, Baso % (Auto) 0.5, Absolute Neuts (auto) 3.7, Absolute Lymphs (auto) 3.27, Nucleated RBC % 0 02/02/23 06:20: Sodium 140, Potassium 3.9, Chloride 107, Carbon Dioxide 28.0, Anion Gap 5, BUN 18, Creatinine 0.72, Estim Creat Clear Calc 61.70, Est GFR (MDRD) Af Amer 134, Est GFR (MDRD) Non-Af 111, BUN/Creatinine Ratio 25.0 H, Glucose 91, Calcium 7.9 L, Total Bilirubin 0.70, AST 13 L, ALT 20, Alkaline Phosphatase 70, Total Protein 5.3 L, Albumin 2.6 L, Globulin 2.7, Albumin/Globulin Ratio 1.0 Physical Exam Const alert and no apparent distress HEENT head/scalp atraumatic and moist oral mucous membranes Extremity normal to inspection and full ROM Neuro oriented x3, moves all extremities, no focal motor deficits and no sensory deficits noted Sensorium / Orientation: awake and alert Psych affect normal Assessment & Plan Assessment/Plan (1) Intractable back pain: PLAN: Acute Intractable Lumbar Back Pain w/ RLE Radiculopathy w/ L2 Compression Fx: acute v chronic Pain control: IV toradol, initiate low dose gabapentin, lidoacine patches, cont inue tizanidine, continue recently increased prednisone therapy, po/IV narcotic pain regimen, lumbar spine MRI. Consult Dr. Macias. PT and OT for evaluation as well as Case management for discharge planning. ESR 21, CRP <2.9. Check 25-OH d level. PLAN: Plan Chronic conditions: * Myasthenia gravis: Complicates presentation, will continue pyridostigmine, Valium for muscle spasms, maintain on fall precautions, therapies consulted as noted as well as case management for discharge planning. Patient normally on chronic 10 mg prednisone daily however this was recently bumped up to 40 mg with his acute presentation. * Hypertension: Continue home regimen including metoprolol, isosorbide, amlodipine, PRN hydralazine. * Hyperlipidemia: We will continue patient on statin therapy. * Overweight: Weight loss and lifestyle changes encouraged. * GERD: Chart reported history of previous gastritis/esophagitis, will continue patient home omeprazole regimen. * Former tobacco use: Encourage continued tobacco cessation. * BPH: We will continue patient home doxazosin, finasteride home regimen. DVT prophylaxis: Lovenox. CODE status: Full Code Charges/Coding Visit Charges Inpatient E&M: 22049 Subs Hosp L2
[2023-02-02] MEDS: Dorzolamide HCL/Timolol 10 ml Bottle 1 DRP OPHTHALMIC ×2 (07:57→21:37)
[2023-02-02] MEDS: predniSONE 20 MG Tablet 40 MG PO (07:57)
[2023-02-02] MEDS: Enoxaparin 40 MG/0.4 ML Syringe SC (07:57)
[2023-02-02] MEDS: Aspirin 81 MG TAB.CHEW PO (07:57)
[2023-02-02] MEDS: Finasteride 5 MG Tablet PO (07:58)
[2023-02-02] MEDS: LORazepam 2 MG/ML Syringe IV (08:43)
--- NOTE | 2023-02-02 09:05 | NURSING ---
Pt had x1 order of ativan 0.5mg to be given prior to MRI. When pulling dose out of accudose, it did not trigger waste notification. This RN went on accudose and wasted 1.5mg of ativan with Arielle Beard RN.
[2023-02-02] MEDS: Lidocaine 5% Patch 2 PATCH TOPICAL (10:42)
[2023-02-02] MEDS: Doxazosin 4 MG Tablet 8 MG PO (10:43)
[2023-02-02] MEDS: Isosorbide Mononitrate 30 MG Tablet PO (10:43)
[2023-02-02] MEDS: Metoprolol(XL)Succ 25 MG Tablet PO (10:43)
[2023-02-02] MEDS: amLODIPine 2.5 MG Tablet PO (10:43)
[2023-02-02] MEDS: Pantoprazole Sodium 40 MG Tablet PO (10:43)
[2023-02-02] MEDS: Psyllium 1 PACKET PO (10:43)
[2023-02-02] MEDS: Pyridostigmine Bromide 60 MG Tablet PO ×2 (14:56→21:32)
--- NOTE | 2023-02-02 16:28 | CASEMGMT ---
ETHAN CM in to discuss LANDERS form with patient. RN CM explained LANDERS form, patient voiced understanding. Pt signed form and filed in chart. Pt provided with a copy of signed LANDERS form. Patient had no further questions or concerns at this time.
[2023-02-02] MEDS: Atorvastatin Calcium 80 MG Tablet PO (21:34)
[2023-02-02] MEDS: Menthol/Lanolin/Calamine/Znox 113 GM Tube 1 APPLIC TOPICAL (21:42)
[2023-02-03] VITALS (7 sets, daily range): BP systolic 106–152; BP diastolic 59–77; PULSE 51–75; RESP 16–18; TEMP 36.4–36.9; O2SAT 93–99; BMI 28.0
[2023-02-03] MEDS: Acetaminophen 325 MG Tablet 650 MG PO (04:07)
[2023-02-03 05:44] LABS: Vitamin D,25 Hydroxy 33.3 ng/mL
[2023-02-03] MEDS: Pyridostigmine Bromide 60 MG Tablet PO ×3 (06:48→21:09)
[2023-02-03] MEDS: Ketorolac 15 MG/ML Vial IV (06:48)
[2023-02-03] MEDS: 0.9% Saline Lock 10 ML Syringe IV (06:49)
--- NOTE | 2023-02-03 07:42 | PN.HOSP_ITS ---
Reason for Visit Reason for Visit: Diagnoses Dorsalgia, unspecified (02/01/23) Subjective Subjective Pain in right leg still ongoing. Objective Data Objective Data Vital Signs: Vital Signs Temp Pulse Resp BP Pulse Ox O2 Del Method 36.4 C L 56 L 16 152/77 H 93 Room Air 02/03/23 04:07 02/03/23 04:07 02/03/23 04:07 02/03/23 04:07 02/03/23 07:07 02/03/23 07:07 Oxygen Delivery Method Room Air Weight: 91.1 kg Body Mass Index (BMI) 28.0 Intake & Output: Intake and Output for Last 24 Hours 02/01/23 02/02/23 02/03/23 23:59 23:59 23:59 Intake Total 1173.33 / 1173.33 Balance 1173.33 / 1173.33 Lab / Micro Data Result Diagrams: 02/02/23 06:20 02/02/23 06:20 Labs: Laboratory Results - last 24 hr 02/03/23 05:05: Vitamin D 25-Hydroxy 33.3 Radiography Diagnostic Testing: Radiology Impression Lumbar Spine MRI 02/02/23 05:55 IMPRESSION: 1. Moderate recent central compression fracture across the upper and lower L2 vertebral body, greater in the lower central L2 vertebral body. This is causing two thirds loss of the lower central L2 vertebral body height. There is also retropulsion in the posterior caudal aspect of the L2 compression fracture causing mild central canal stenosis at L2-L3 disc space level with an AP canal diameter of 9 mm. If patient has debilitating back pain referrable to this site, this is feasible for kyphoplasty. 2. Possible small left L5-S1 posterior caudal disc protrusion but no definite displacement of the left S1 nerve root sleeve (series 2, image 6; series 5, images 2-3). Electronically Signed: Luis Vegas MD at 10:57 EDT , Physical Exam Const alert HEENT head/scalp atraumatic and moist oral mucous membranes Neuro oriented x3, moves all extremities, no focal motor deficits and no sensory deficits noted Neuro Narrative: Muscle strength 5-5 in bilateral lower extremities with good plantarflexion as well as dorsiflexion of the bilateral great toes. Sensation grossly intact in lower extremities. DTRs are 2 out of 4 in lower extremities. Assessment & Plan Assessment/Plan (1) Intractable back pain: PLAN: Acute Intractable Lumbar Back Pain w/ RLE Radiculopathy w/ L2 Compression Fx: acute v chronic Pain control: IV toradol, initiate low dose gabapentin, lidocaine patches, continue tizanidine, continue recently increased prednisone therapy, po/IV narcotic pain regimen, lumbar spine MRI. Consult Dr. Macias. PT and OT for evaluation as well as Case management for discharge planning. ESR 21, CRP <2.9. Check 25-OH 33. Goal is 50. Will start ergocalciferol Seen by Dr. Macias and is planned for kyphoplasty sometime next week. As patient is still having a lot of pain, though better, the plan is to keep him in the h [facility]spital until he can have the procedure. He may require retirement facility upon discharge. PLAN: Plan Chronic conditions: * Myasthenia gravis: continue pyridostigmine, Valium for muscle spasms, maintain on fall precautions, therapies consulted as noted as well as case management for discharge planning. Patient normally on chronic 10 mg prednisone daily however this was recently bumped up to 40 mg with his acute presentation. Patient not in crisis and we will start to taper his prednisone down. * Hypertension: Continue home regimen including metoprolol, isosorbide, amlodipine, PRN hydralazine. * Hyperlipidemia: We will continue patient on statin therapy. * Overweight: Weight loss and lifestyle changes encouraged. * GERD: Chart reported history of previous gastritis/esophagitis, will continue patient home omeprazole regimen. * Former tobacco use: Encourage continued tobacco cessation. * BPH: We will continue patient home doxazosin, finasteride home regimen. DVT prophylaxis: Lovenox. CODE status: Full Code Explained to the patient and his that he is currently observation status and told him that that may potentially result in a higher co-pay for him upon discharge. I told him that I have discussed this with case management and they will address this with quality (Dr. Hooker) and to see if that could be changed over to admission status. Charges/Coding Visit Charges Inpatient E&M: 71423 Subs Hosp L2
--- NOTE | 2023-02-03 07:45 | CON.PCM.OR_ITS ---
HPI Consult Data Date of Consult: 02/03/23 HPI Narrative Reason for Consultation: Acute back pain HPI Narrative: The patient is an 82-year-old male who I did see in the office a week ago for acute back pain. I did send him for an MRI. However his pain was not manageable and he presented to the ER and was subsequently admitted for pain c ontrol. A lumbar MRI was performed. This shows acute compression fracture at L2. The patient is currently lying in bed resting comfortably. Accompanied by his who contributed to the medical history. His pain is controlled at this time. He does complain of pain in the thoracolumbar region that is worse with activity and frequently radiating to the right lower extremity. He denies any acute numbness tingling weakness or changes in bowel or bladder function [facility] Medical History BPH (benign prostatic hyperplasia) Esophagitis Essential (primary) hypertension Gastritis Glaucoma Hemorrhoids Hyperlipidemia Myasthenia gravis (06/11/21) Obesity Home Medications doxazosin 4 mg tablet,extended release 24 hr 8 mg PO DAILY prostate 01/16/15 [History Last Taken 02/01/23] dorzolamide 22.3 mg-timolol 6.8 mg/mL eye drops (Cosopt) 1 drp ophthalmic (eye) BID left eye 03/04/19 [History Last Taken 02/01/23] finasteride 5 mg tablet (Proscar) 5 mg PO DAILY cholesterol 03/04/19 [History Last Taken 02/01/23] psyllium husk (aspartame) 3.4 gram oral powder packet 1 packet PO DAILY fiber 07/30/20 [History Last Taken 02/01/23] aspirin 81 mg tablet 81 mg PO DAILY heart health 02/15/21 [History Last Taken 02/01/23] melatonin 10 mg tablet 10 mg PO QHS sleep 02/15/21 [History Last Taken 01/31/23] nitroglycerin 0.4 mg sublingual tablet 0.4 mg sublingual Q5-15M PRN chest pain #25 tabs 03/26/21 [Rx Last Taken Unknown] calcium citrate 200 mg calcium-vitamin D3 6.25 mcg (250 unit) tablet ([place] Calcium-Vitamin D3) 1 tab PO BID 03/28/22 [History Last Taken 02/01/23] omeprazole 40 mg capsule,delayed release 40 mg PO DAILY 03/28/22 [History Last Taken 02/01/23] prednisone 10 mg tablet 10 mg PO DAILY 03/28/22 [History Last Taken 02/01/23] pyridostigmine bromide 60 mg tablet (Mestinon) 60 mg PO TID 03/28/22 [History Last Taken 02/01/23] atorvastatin 80 mg tablet See Rx Instructions .Route .COMPLEX #90 tabs 08/15/22 [Rx Last Taken 02/01/23] amlodipine 2.5 mg tablet 2.5 mg PO DAILY blood pressure #90 tabs 08/17/22 [Rx Last Taken 02/01/23] isosorbide mononitrate 30 mg tablet,extended release 24 hr 30 mg PO DAILY 01/22/23 [History Last Taken 02/01/23] metoprolol succinate 25 mg tablet,extended release 24 hr 25 mg PO DAILY 01/22/23 [History Last Taken 02/01/23] hydrocodone-acetaminophen 5-325mg 5mg-325mg 1 tab PO Q6H PRN PRN Pain 3 days #10 TABLETS 01/23/23 [Rx Last Taken 02/01/23] Allergy/AdvReac Type Severity Reaction Status Date / Time morphine AdvReac hallucinati Verified 02/01/23 17:54 ons Family History Father Pancreatitis Cancer Mother Dementia Surgical History History of appendectomy History of cataract surgery History of eye surgery History of herniorrhaphy Hx of total shoulder replacement Social History household members: spouse Smoking Status: Former smoker how long ago did patient quit smokin years ago alcohol intake: current alcohol intake frequency: holidays/special occasions only substance use type: does not use caffeine: No Vital Signs Vital Signs Vital Signs: 02/02/23 08:15 02/02/23 08:50 02/02/23 08:00 Temperature 98.2 F Temperature Source Temporal Pulse Rate 61 Pulse Strength Normal (2+) Respiratory Rate 18 Respiratory Effort Respiratory Depth Respiratory Pattern Blood Pressure 144/81 H Blood Pressure Mean 102 Blood Pressure Source Monitor Blood Pressure Position Semi-Fowlers Blood Pressure Location Right Arm Pulse Ox 95 97 Oxygen Delivery Method Room Air Room Air 02/02/23 08:00 02/02/23 09:13 02/02/23 09:24 Temperature Temperature Source Pulse Rate 61 58 L Pulse Strength Respiratory Rate 11 L 11 L Respiratory Effort Normal Non-Labored Respiratory Depth Normal Respiratory Pattern Normal Blood Pressure 151/80 H 114/69 Blood Pressure Mean 103 84 Blood Pressure Source Monitor Monitor Blood Pressure Position Semi-Fowlers Semi-Fowlers Blood Pressure Location Right Arm Right Arm Pulse Ox 94 95 Oxygen Delivery Method Room Air Room Air Room Air 02/02/23 09:37 02/02/23 10:43 02/02/23 15:08 Temperature 98.4 F Temperature Source Temporal Pulse Rate 59 L 59 L 54 L Pulse Strength Respiratory Rate 10 L 18 Respiratory Effort Respiratory Depth Respiratory Pattern Blood Pressure 132/66 H 118/70 Blood Pressure Mean 88 86 Blood Pressure Source Monitor Monitor Blood Pressure Position Semi-Fowlers Semi-Fowlers Blood Pressure Location Right Arm Right Arm Pulse Ox 95 96 Oxygen Delivery Method Room Air Room Air 02/02/23 21:08 02/02/23 21:43 02/02/23 21:45 Temperature 98.2 F Temperature Source Oral Pulse Rate 55 L Pulse Strength Normal (2+) Respiratory Rate 18 Respiratory Effort Normal Non-Labored Respiratory Depth Respiratory Pattern Blood Pressure 116/61 Blood Pressure Mean 79 Blood Pressure Source Monitor Blood Pressure Position Semi-Fowlers Blood Pressure Location Right Arm Pulse Ox 94 Oxygen Delivery Method Room Air Room Air 02/03/23 04:07 02/03/23 07:07 Temperature 97.6 F L Temperature Source Oral Pulse Rate 56 L Pulse Strength Respiratory Rate 16 Respiratory Effort Respiratory Depth Respiratory Pattern Blood Pressure 152/77 H Blood Pressure Mean 102 Blood Pressure Source Monitor Blood Pressure Position Semi-Fowlers Blood Pressure Location Right Arm Pulse Ox 99 93 Oxygen Delivery Method Room Air Room Air Weight Weight: 200 lb 13.458 oz Body Mass Index (BMI) 28.0 Physical Exam Const alert, oriented x3 and no apparent distress General Appearance: cooperative, comfortable and well kempt HEENT normocephalic and head/scalp atraumatic Eyes EOMs intact bilaterally and conjunctivae normal Neck full ROM General: normal visual inspection Chest inspection of chest normal and palpation of chest normal Resp normal respiratory effort and normal air movement Effort and Inspection: able to speak in complete sentences Cardio regular rate, regular rhythm and peripheral pulses 2+ throughout GI soft to palpation, non-tender and non-distended Back/Spine Back/Spine Narrative: Mild tenderness around the thoracolumbar junction. Mild pain with thoracolumbar range of motion Cervical Spine: cervical ROM normal Thoracic Spine / Upper Back: normal to inspection Lumbar Spine / Lower Back: normal to inspection Extremity normal to inspection, full ROM, normal capillary refill, no clubbing, cyanosis or edema and no calf tenderness Skin no rashes or lesions noted General Skin Exam: no breakdown Neuro oriented x3, CN's II-XII intact bilaterally, moves all extremities, no focal motor deficits, no sensory deficits noted and deep tendon reflexes 2+ bilaterally Motor Exam: strength 5/5 throughout and muscle tone normal throughout Lab / Micro Data Result Diagrams: 02/02/23 06:20 02/02/23 06:20 Labs: Laboratory Results - last 24 hr 02/03/23 05:05: Vitamin D 25-Hydroxy 33.3 Radiology Impression Lumbar Spine MRI 02/02/23 05:55 IMPRESSION: 1. Moderate recent central compression fracture across the upper and lower L2 vertebral body, greater in the lower central L2 vertebral body. This is causing two thirds loss of the lower central L2 vertebral body height. There is also retropulsion in the posterior caudal aspect of the L2 compression fracture causing mild central canal stenosis at L2-L3 disc space level with an AP canal diameter of 9 mm. If patient has debilitating back pain referrable to this site, this is feasible for kyphoplasty. 2. Possible small left L5-S1 posterior caudal disc protrusion but no definite displacement of the left S1 nerve root sleeve (series 2, image 6; series 5, images 2-3). Electronically Signed: Luis Vegas MD at 10:57 EDT , Assessment & Plan Assessment/Plan (1) Compression fracture of L2: PLAN: I had a lengthy discussion with the patient. I reviewed his imaging with him. Lumbar MRI dated 02/02/2023 shows acute compression fracture of L2 with loss of about 50% vertebral body height and mild retropulsion. We discussed treatment options including nonoperative treatment with bracing and activity restrictions as well as kyphoplasty. After discussing the risk benefits and alternatives and answering all of his questions I recommend an L2 kyphoplasty. We discussed the procedure in detail along with expected outcome and recovery and he agrees to proceed. We will get him scheduled for this procedure. In the meantime I recommend continuing pain control and mobilization as tolerated. He understands and agrees with the treatment plan.
[2023-02-03] MEDS: Metoprolol(XL)Succ 25 MG Tablet PO (09:09)
[2023-02-03] MEDS: Aspirin 81 MG TAB.CHEW PO (09:09)
[2023-02-03] MEDS: predniSONE 20 MG Tablet 40 MG PO (09:09)
[2023-02-03] MEDS: Doxazosin 4 MG Tablet 8 MG PO (09:09)
[2023-02-03] MEDS: amLODIPine 2.5 MG Tablet PO (09:09)
[2023-02-03] MEDS: Pantoprazole Sodium 40 MG Tablet PO (09:09)
[2023-02-03] MEDS: Isosorbide Mononitrate 30 MG Tablet PO (09:09)
[2023-02-03] MEDS: Lidocaine 5% Patch 2 PATCH TOPICAL (09:10)
[2023-02-03] MEDS: Enoxaparin 40 MG/0.4 ML Syringe SC (09:10)
[2023-02-03] MEDS: Dorzolamide HCL/Timolol 10 ml Bottle 1 DRP OPHTHALMIC ×2 (09:10→21:10)
[2023-02-03] MEDS: Psyllium 1 PACKET PO (09:10)
[2023-02-03] MEDS: Ergocalciferol 1.25 MG (50, 000 UNIT) Capsule PO (09:13)
[2023-02-03] MEDS: Gabapentin 100 MG Capsule PO ×3 (09:13→16:58)
[2023-02-03] MEDS: Finasteride 5 MG Tablet PO (09:15)
[2023-02-03] MEDS: oxyCODONE 5 MG Tablet PO (15:46)
[2023-02-03] MEDS: MELATONIN 10 MG TABLET PO (21:09)
[2023-02-03] MEDS: Atorvastatin Calcium 80 MG Tablet PO (21:09)
[2023-02-04 03:19] VITALS: BMI 27.9
[2023-02-04] MEDS: Pyridostigmine Bromide 60 MG Tablet PO ×3 (05:32→22:22)
[2023-02-04 05:34] VITALS: BP 118/62; PULSE 58; RESP 16; TEMP 36.8; O2SAT 97
[2023-02-04 07:57] VITALS: O2SAT 93
--- NOTE | 2023-02-04 08:08 | PN.HOSP_ITS ---
Reason for Visit Reason for Visit: Diagnoses Dorsalgia, unspecified (02/01/23) Wedge compression fracture of second lumbar vertebra, initial encounter for closed fracture (02/01/23) Subjective Subjective worsening pain in right hip. Objective Data Objective Data Vital Signs: Vital Signs Temp Pulse Resp BP Pulse Ox O2 Del Method 36.8 C 58 L 16 118/62 93 Room Air 02/04/23 05:34 02/04/23 05:34 02/04/23 05:34 02/04/23 05:34 02/04/23 07:57 02/04/23 07:57 Oxygen Delivery Method Room Air Weight: 90.6 kg Body Mass Index (BMI) 27.9 Intake & Output: Intake and Output for Last 24 Hours 02/02/23 02/03/23 02/04/23 23:59 23:59 23:59 Intake Total 1173.33 / 1173.33 750 / 750 Balance 1173.33 / 1173.33 750 / 750 Lab / Micro Data Result Diagrams: 02/02/23 06:20 02/02/23 06:20 Physical Exam Const alert and no apparent distress HEENT head/scalp atraumatic and moist oral mucous membranes Neuro oriented x3, moves all extremities, no focal motor deficits and no sensory deficits noted Neuro Narrative: MS 5/5 in LE bilaterally. Assessment & Plan Assessment/Plan (1) Intractable back pain: PLAN: Acute Intractable Lumbar Back Pain w/ RLE Radiculopathy w/ L2 Compression Fx: acute v chronic Pain control: IV toradol, initiate low dose gabapentin, lidocaine patches, continue tizanidine, continue recently increased prednisone therapy, po/IV narcotic pain regimen, ESR 21, CRP <2.9. Seen by Dr. Macias and is planned for kyphoplasty sometime next week. As patient is still having a lot of pain, though better, the plan is to keep him in the hospital until he can have the procedure. He may require custodial facility upon discharge. (2) Vitamin D deficiency: PLAN: Check 25-OH 33. Goal is 50. Started ergocalciferol PLAN: Plan Chronic conditions: * Myasthenia gravis: continue pyridostigmine, Valium for muscle spasms, maintain on fall precautions, therapies consulted as noted as well as case management for discharge planning. Patient normally on chronic 10 mg prednisone daily however this was recently bumped up to 40 mg with his acute presentation. Patient not in crisis and we will start to taper his prednisone down. * Hypertension: Continue home regimen including metoprolol, isosorbide, amlodipine, PRN hydralazine. * Hyperlipidemia: We will continue patient on statin therapy. * Overweight: Weight loss and lifestyle changes encouraged. * GERD: Chart reported history of previous gastritis/esophagitis, will continue patient home omeprazole regimen. * Former tobacco use: Encourage continued tobacco cessation. * BPH: We will continue patient home doxazosin, finasteride home regimen. DVT prophylaxis: Lovenox. CODE status: Full Code 02/03: Explained to the patient and his that he is currently observation status and told him that that may potentially result in a higher co-pay for him upon discharge. I told him that I have discussed this with case management and they will address this with quality (Dr. Hooker) and to see if that could be changed over to admission status. Charges/Coding Visit Charges Inpatient E&M: 15780 Subs Hosp L2
[2023-02-04 08:24] VITALS: BP 129/70; PULSE 60; RESP 16; TEMP 36.6; O2SAT 97
[2023-02-04] MEDS: Gabapentin 100 MG Capsule PO ×3 (08:39→17:29)
[2023-02-04] MEDS: Aspirin 81 MG TAB.CHEW PO (08:39)
[2023-02-04] MEDS: oxyCODONE 5 MG Tablet PO ×3 (08:40→20:31)
[2023-02-04] MEDS: predniSONE 10 MG Tablet 30 MG PO (08:42)
[2023-02-04] MEDS: Doxazosin 4 MG Tablet 8 MG PO (10:19)
[2023-02-04] MEDS: Dorzolamide HCL/Timolol 10 ml Bottle 1 DRP OPHTHALMIC ×2 (10:20→20:32)
[2023-02-04] MEDS: Enoxaparin 40 MG/0.4 ML Syringe SC (10:21)
[2023-02-04] MEDS: amLODIPine 2.5 MG Tablet PO (10:21)
[2023-02-04] MEDS: Lidocaine 5% Patch 2 PATCH TOPICAL (10:22)
[2023-02-04] MEDS: Psyllium 1 PACKET PO (10:22)
[2023-02-04] MEDS: Finasteride 5 MG Tablet PO (10:22)
[2023-02-04] MEDS: Pantoprazole Sodium 40 MG Tablet PO (10:23)
[2023-02-04 10:24] VITALS: PULSE 60
[2023-02-04] MEDS: Metoprolol(XL)Succ 25 MG Tablet PO (10:24)
[2023-02-04] MEDS: Isosorbide Mononitrate 30 MG Tablet PO (10:30)
[2023-02-04 14:14] VITALS: BP 109/71; PULSE 59; RESP 16; TEMP 36.6; O2SAT 98
[2023-02-04] MEDS: Acetaminophen 325 MG Tablet 650 MG PO ×2 (15:56→20:31)
[2023-02-04 20:23] VITALS: BP 119/68; PULSE 55; RESP 16; TEMP 36.7; O2SAT 96
[2023-02-04] MEDS: Menthol/Lanolin/Calamine/Znox 113 GM Tube 1 APPLIC TOPICAL (22:22)
[2023-02-04] MEDS: Atorvastatin Calcium 80 MG Tablet PO (22:22)
[2023-02-04] MEDS: MELATONIN 10 MG TABLET PO (22:22)
[2023-02-05 03:12] VITALS: BP 131/67; PULSE 55; RESP 16; TEMP 36.6; O2SAT 96
[2023-02-05] MEDS: Acetaminophen 325 MG Tablet 650 MG PO (03:18)
[2023-02-05] MEDS: oxyCODONE 5 MG Tablet PO (03:19)
[2023-02-05 06:00] VITALS: BMI 28.3
[2023-02-05] MEDS: Pyridostigmine Bromide 60 MG Tablet PO ×3 (06:13→22:14)
--- NOTE | 2023-02-05 08:03 | PN.HOSP_ITS ---
Reason for Visit Reason for Visit: Diagnoses Vitamin D deficiency, unspecified (02/01/23) Dorsalgia, unspecified (02/01/23) Wedge compression fracture of second lumbar vertebra, initial encounter for closed fracture (02/01/23) Subjective Subjective Still with pain in his leg but overall better. He is complaining of pain in his back. States the pain medication is not helping much. Nursing tells me that he has not been taking the oxycodone frequently. Objective Data Objective Data Vital Signs: Vital Signs Temp Pulse Resp BP Pulse Ox O2 Del Method 36.6 C 55 L 16 131/67 H 96 Room Air 02/05/23 03:12 02/05/23 03:12 02/05/23 03:12 02/05/23 03:12 02/05/23 03:12 02/05/23 03:12 Oxygen Delivery Method Room Air Weight: 91.9 kg Body Mass Index (BMI) 28.3 Intake & Output: Intake and Output for Last 24 Hours 02/03/23 02/04/23 02/05/23 23:59 23:59 23:59 Intake Total 750 / 750 350 / 650 400 / 400 Balance 750 / 750 350 / 650 400 / 400 Lab / Micro Data Result Diagrams: 02/02/23 06:20 02/02/23 06:20 Physical Exam Const alert and no apparent distress HEENT head/scalp atraumatic Extremity normal to inspection and no clubbing, cyanosis or edema Neuro moves all extremities, no focal motor deficits and no sensory deficits noted Sensorium / Orientation: awake and alert Assessment & Plan Assessment/Plan (1) Intractable back pain: PLAN: Acute Intractable Lumbar Back Pain w/ RLE Radiculopathy w/ L2 Compression Fx: acute v chronic Pain control: IV toradol, initiate low dose gabapentin, lidocaine patches, continue tizanidine, continue recently increased prednisone therapy, po/IV narcotic pain regimen, ESR 21, CRP <2.9. Seen by Dr. Macias and is planned for kyphoplasty sometime next week. As patient is still having a lot of pain, though better, the plan is to keep him in the hospital until he can have the procedure. He may require detention facility upon discharge. (2) Vitamin D deficiency: PLAN: Check 25-OH 33. Goal is 50. Started ergocalciferol PLAN: Plan Chronic conditions: * Myasthenia gravis: continue pyridostigmine, Valium for muscle spasms, maintain on fall precautions, therapies consulted as noted as well as case management for discharge planning. Patient normally on chronic 10 mg prednisone daily however this was recently bumped up to 40 mg with his acute presentation. Patient not in crisis and we will start to taper his prednisone down. * Hypertension: Continue home regimen including metoprolol, isosorbide, amlodipine, PRN hydralazine. * Hyperlipidemia: We will continue patient on statin therapy. * Overweight: Weight loss and lifestyle changes encouraged. * GERD: Chart reported history of previous gastritis/esophagitis, will continue patient home omeprazole regimen. * Former tobacco use: Encourage continued tobacco cessation. * BPH: We will continue patient home doxazosin, finasteride home regimen. DVT prophylaxis: Lovenox. CODE status: Full Code 02/03: Explained to the patient and his that he is currently observation status and told him that that may potentially result in a higher co-pay for him upon discharge. I told him that I have discussed this with case management and they will address this with quality (Dr. Hooker) and to see if that could be changed over to admission status. Charges/Coding Visit Charges Inpatient E&M: 85589 Subs Hosp L1
[2023-02-05 08:46] VITALS: BP 122/58; PULSE 54; RESP 16; TEMP 36.6; O2SAT 100
[2023-02-05] MEDS: Gabapentin 100 MG Capsule PO ×3 (09:01→16:31)
[2023-02-05] MEDS: Aspirin 81 MG TAB.CHEW PO (09:01)
[2023-02-05] MEDS: predniSONE 10 MG Tablet 30 MG PO (09:02)
[2023-02-05] MEDS: Doxazosin 4 MG Tablet 8 MG PO (10:47)
[2023-02-05] MEDS: Lidocaine 5% Patch 2 PATCH TOPICAL (10:48)
[2023-02-05] MEDS: Dorzolamide HCL/Timolol 10 ml Bottle 1 DRP OPHTHALMIC ×2 (10:48→22:14)
[2023-02-05] MEDS: Psyllium 1 PACKET PO (10:49)
[2023-02-05] MEDS: Enoxaparin 40 MG/0.4 ML Syringe SC (10:49)
[2023-02-05] MEDS: amLODIPine 2.5 MG Tablet PO (10:50)
[2023-02-05] MEDS: Pantoprazole Sodium 40 MG Tablet PO (10:50)
[2023-02-05] MEDS: Finasteride 5 MG Tablet PO (10:50)
[2023-02-05 10:52] VITALS: PULSE 54
[2023-02-05] MEDS: Isosorbide Mononitrate 30 MG Tablet PO (11:00)
[2023-02-05 13:31] VITALS: O2SAT 100
[2023-02-05 14:21] VITALS: BP 106/63; PULSE 58; RESP 16; TEMP 37; O2SAT 98
[2023-02-05] MEDS: Acetaminophen 500 MG Tablet 1000 MG PO ×2 (14:28→22:15)
[2023-02-05 21:33] VITALS: BP 140/87; PULSE 57; RESP 16; TEMP 36.8; O2SAT 97
[2023-02-05] MEDS: MELATONIN 10 MG TABLET PO (22:13)
[2023-02-05] MEDS: Atorvastatin Calcium 80 MG Tablet PO (22:14)
[2023-02-06] VITALS (7 sets, daily range): BP systolic 114–146; BP diastolic 64–82; PULSE 55–70; RESP 16; TEMP 36.4–36.7; O2SAT 96–98; BMI 28.4
[2023-02-06] MEDS: Pyridostigmine Bromide 60 MG Tablet PO ×3 (06:39→21:11)
[2023-02-06] MEDS: Acetaminophen 500 MG Tablet 1000 MG PO ×3 (06:39→21:11)
--- NOTE | 2023-02-06 07:26 | PN.HOSP_ITS ---
Reason for Visit Reason for Visit: Diagnoses Vitamin D deficiency, unspecified (02/01/23) Dorsalgia, unspecified (02/01/23) Wedge compression fracture of second lumbar vertebra, initial encounter for closed fracture (02/01/23) Subjective Subjective Feeling better overall. Objective Data Objective Data Vital Signs: Vital Signs Temp Pulse Resp BP Pulse Ox O2 Del Method 36.7 C 57 L 16 146/82 H 98 Room Air 02/06/23 06:00 02/06/23 06:00 02/06/23 06:00 02/06/23 06:00 02/06/23 06:00 02/06/23 06:00 Oxygen Delivery Method Room Air Weight: 92.079 kg Body Mass Index (BMI) 28.4 Intake & Output: Intake and Output for Last 24 Hours 02/04/23 02/05/23 02/06/23 23:59 23:59 23:59 Intake Total 350 / 650 400 / 400 Balance 350 / 650 400 / 400 Lab / Micro Data Result Diagrams: 02/02/23 06:20 02/02/23 06:20 Physical Exam Const alert and no apparent distress HEENT head/scalp atraumatic and moist oral mucous membranes Neuro Sensorium / Orientation: awake Psych affect normal Assessment & Plan Assessment/Plan (1) Intractable back pain: PLAN: Acute Intractable Lumbar Back Pain w/ RLE Radiculopathy w/ L2 Compression Fx: acute v chronic Pain control: IV toradol, initiate low dose gabapentin, lidocaine patches, continue tizanidine, continue recently increased prednisone therapy, po/IV narcotic pain regimen, ESR 21, CRP <2.9. Seen by Dr. Macias and is planned for kyphoplasty February 07 at 1400. As patient is still having a lot of pain, though better, the plan is to keep him in the hospital until he can have the procedure. He may require care home facility upon discharge. (2) Vitamin D deficiency: PLAN: Check 25-OH 33. Goal is 50. Started ergocalciferol PLAN: Plan Chronic conditions: * Myasthenia gravis: continue pyridostigmine, Valium for muscle spasms, maintain on fall precautions, therapies consulted as noted as well as case management for discharge planning. Patient normally on chronic 10 mg prednisone daily however this was recently bumped up to 40 mg with his acute presentation. Patient not in crisis and we will start to taper his prednisone down. * Hypertension: Continue home regimen including metoprolol, isosorbide, amlodipine, PRN hydralazine. * Hyperlipidemia: We will continue patient on statin therapy. * Overweight: Weight loss and lifestyle changes encouraged. * GERD: Chart reported history of previous gastritis/esophagitis, will continue patient home omeprazole regimen. * Former tobacco use: Encourage continued tobacco cessation. * BPH: We will continue patient home doxazosin, finasteride home regimen. DVT prophylaxis: Lovenox. CODE status: Full Code 02/03: Explained to the patient and his that he is currently observation status and told him that that may potentially result in a higher co-pay for him upon discharge. I told him that I have discussed this with case management and they will address this with quality (Dr. Hooker) and to see if that could be changed over to admission status. Charges/Coding Visit Charges Inpatient E&M: 44405 Subs Hosp L1
[2023-02-06] MEDS: Aspirin 81 MG TAB.CHEW PO (08:26)
[2023-02-06] MEDS: predniSONE 10 MG Tablet 30 MG PO (08:26)
[2023-02-06] MEDS: Pantoprazole Sodium 40 MG Tablet PO (09:08)
[2023-02-06] MEDS: Gabapentin 100 MG Capsule PO ×3 (09:08→17:07)
[2023-02-06] MEDS: amLODIPine 2.5 MG Tablet PO (09:09)
[2023-02-06] MEDS: Metoprolol(XL)Succ 25 MG Tablet PO (09:09)
[2023-02-06] MEDS: Psyllium 1 PACKET PO (09:10)
[2023-02-06] MEDS: Lidocaine 5% Patch 2 PATCH TOPICAL (09:10)
[2023-02-06] MEDS: Enoxaparin 40 MG/0.4 ML Syringe SC (09:10)
[2023-02-06] MEDS: Dorzolamide HCL/Timolol 10 ml Bottle 1 DRP OPHTHALMIC ×2 (09:10→21:08)
[2023-02-06] MEDS: Finasteride 5 MG Tablet PO (10:25)
[2023-02-06] MEDS: Doxazosin 4 MG Tablet 8 MG PO (10:25)
[2023-02-06] MEDS: Isosorbide Mononitrate 30 MG Tablet PO (10:25)
--- NOTE | 2023-02-06 15:07 | CASEMGMT ---
ETHAN REY into pt room, at bedside. Pt sitting up in chair. Noted pt ambulated 400 feet SBA with therapy without AD this date. Pt states he lives in a mobile home with no steps to enter as he has a ramp. At this time, pt declines any therapy needs and hopes to feel better after his surgery. ETHAN REY to check back post surgery for any needs. Pt and agreeable to this.
--- NOTE | 2023-02-06 16:50 | EKG12_ITS ---
Test Reason : PRE-OP Blood Pressure : / mmHG Vent. Rate : 053 BPM Atrial Rate : 053 BPM P-R Int : 146 ms QRS Dur : 096 ms QT Int : 448 ms P-R-T Axes : 062 072 074 degrees QTc Int : 420 ms Sinus bradycardia Otherwise normal ECG When compared with ECG of 15-FEB-2021 11:11, No significant change was found Confirmed by MILLA FRIEND, CHING ([id number]), associate entertainment editor PATT WILKINS ([id number]) on 02/07/2023 11:23:45 AM Referred By: DALIA Confirmed By:CHING LOYOLA MD
[2023-02-06] MEDS: Atorvastatin Calcium 80 MG Tablet PO (21:12)
[2023-02-06] MEDS: MELATONIN 10 MG TABLET PO (21:12)
[2023-02-07] VITALS (14 sets, daily range): BP systolic 110–151; BP diastolic 58–98; PULSE 51–65; RESP 16–18; TEMP 36.4–36.8; O2SAT 94–99; BMI 28.4
[2023-02-07 06:08] LABS: Absolute Lymphocyte Count 3.38 X10^3/uL (0.83-4.51); Absolute Neutrophil Count 5.4 X10^3/uL (2.0-7.7); Basophil# 0.03 X10^3/uL; Basophil% 0.3 % (0-1); Eosinophil# 0.02 X10^3/uL; Eosinophils% 0.2 % (0-5); Hematocrit 37.3 % (40-54); Hemoglobin 12.5 g/dL (13.0-16.5); Lymphocyte # 3.38 X10^3/ul (0.83-4.51); Lymphocyte % 34.2 % (19-41); Mean Corp Hgb Conc 33.5 g/dL (32-36); Mean Corpuscular Hgb 34.2 pg (27.0-32.0); Mean Corpuscular Volume 101.9 fL (80-94); Mean Platelet Vol. 8.9 fl (6.2-12.0); Monocyte# 0.96 X10^3/uL; Monocyte% 9.7 % (0-10); NRBC Flagged by Analyzer 0 % (0-5); Neutrophil # 5.42 X10^3/uL (2.7-7.7); Platelet Count 210 K/mm3 (150-450); RBC Distribution Width CV 13.4 % (11.6-14.6); RBC Distribution Width SD 50.9 fl (35.1-43.9); Red Blood Count 3.66 M/mm3 (4.6-6.2); White Blood Count 9.9 K/mm3 (4.4-11.0)
[2023-02-07] MEDS: Pyridostigmine Bromide 60 MG Tablet PO ×2 (06:15→16:32)
[2023-02-07] MEDS: Acetaminophen 500 MG Tablet 1000 MG PO ×2 (06:16→16:32)
[2023-02-07 06:36] LABS: Anion Gap 4 (5-15); BUN 16 mg/dL (7-18); BUN/Creat Ratio 21.8 RATIO (10-20); Calcium,Total 8.1 mg/dL (8.5-10.1); Chloride 107 mmol/L (98-107); Creatinine, Serum 0.73 mg/dL (0.70-1.30); EST Glomerular Filtration Rate 109 mL/min (>60); Est Glom Filt Rate - Afr Amer 132 mL/min (>60); Glucose 87 mg/dL (74-106); Potassium 3.9 mmol/L (3.5-5.1); Sodium Level 138 mmol/L (136-145)
--- NOTE | 2023-02-07 07:39 | PN.HOSP_ITS ---
Reason for Visit Reason for Visit: Diagnoses Vitamin D deficiency, unspecified (02/01/23) Dorsalgia, unspecified (02/01/23) Wedge compression fracture of second lumbar vertebra, initial encounter for closed fracture (02/01/23) Subjective Subjective Seen in the PACU. Patient still having significant pain. Does not understand why his pain is not completely gone. Objective Data Objective Data Vital Signs: Vital Signs Temp Pulse Resp BP Pulse Ox O2 Del Method 36.8 C 54 L 16 124/76 H 97 Room Air 02/07/23 04:40 02/07/23 04:40 02/07/23 04:40 02/07/23 04:40 02/07/23 04:40 02/07/23 04:40 Oxygen Delivery Method Room Air Weight: 92.1 kg Body Mass Index (BMI) 28.4 Intake & Output: Intake and Output for Last 24 Hours 02/05/23 02/06/23 02/07/23 23:59 23:59 23:59 Intake Total 400 / 400 1000 / 1000 Balance 400 / 400 1000 / 1000 Lab / Micro Data Result Diagrams: 02/07/23 05:55 02/07/23 05:55 Labs: Laboratory Results - last 24 hr 02/07/23 05:55: WBC 9.9, RBC 3.66 L, Hgb 12.5 L, Hct 37.3 L, MCV 101.9 H, MCH 34.2 H, MCHC 33.5, RDW Std Deviation 50.9 H, RDW Coeff of Chele 13.4, Plt Count 210, MPV 8.9, Immature Gran % (Auto) 0.600, Neut % (Auto) 55.0, Lymph % (Auto) 34.2, [place] % (Auto) 9.7, Eos % (Auto) 0.2, Baso % (Auto) 0.3, Absolute Neuts (auto) 5.4, Absolute Lymphs (auto) 3.38, Nucleated RBC % 0 02/07/23 05:55: Sodium 138, Potassium 3.9, Chloride 107, Carbon Dioxide 27.0, Anion Gap 4 L, BUN 16, Creatinine 0.73, Estim Creat Clear Calc 61.70, Est GFR (MDRD) Af Amer 132, Est GFR (MDRD) Non-Af 109, BUN/Creatinine Ratio 21.8 H, Glucose 87, Calcium 8.1 L Physical Exam Const Constitutional Narrative: Lying in bed in the PACU. Alert. Nontoxic. HEENT head/scalp atraumatic and moist oral mucous membranes Assessment & Plan Assessment/Plan (1) Intractable back pain: PLAN: Acute Intractable Lumbar Back Pain w/ RLE Radiculopathy w/ L2 Compression Fx: acute v chronic Pain control: IV toradol, initiate low dose gabapentin, lidocaine patches, continue tizanidine, continue recently increased prednisone therapy, po/IV narcotic pain regimen, ESR 21, CRP <2.9. Patient underwent kyphoplasty today. Still having pain. He was under the expectation that he would be pain-free because he knew someone that had k yphoplasty and they had complete resolution of his pain. I told him that the pain will get better with time but regards to him being discharged depends on what he is able to tolerate. I told him that he may have to really set his expectations regards to being pain-free. (2) Vitamin D deficiency: PLAN: Check 25-OH 33. Goal is 50. Started ergocalciferol PLAN: Plan Chronic conditions: * Myasthenia gravis: continue pyridostigmine, Valium for muscle spasms, maintain on fall precautions, therapies consulted as noted as well as case management for discharge planning. Patient normally on chronic 10 mg prednisone daily however this was recently bumped up to 40 mg with his acute presentation. Patient not in crisis and we will start to taper his prednisone down. * Hypertension: Continue home regimen including metoprolol, isosorbide, amlodipine, PRN hydralazine. * Hyperlipidemia: We will continue patient on statin therapy. * Overweight: Weight loss and lifestyle changes encouraged. * GERD: Chart reported history of previous gastritis/esophagitis, will continue patient home omeprazole regimen. * Former tobacco use: Encourage continued tobacco cessation. * BPH: We will continue patient home doxazosin, finasteride home regimen. DVT prophylaxis: Lovenox. CODE status: Full Code 02/03: Explained to the patient and his that he is currently observation status and told him that that may potentially result in a higher co-pay for him upon discharge. I told him that I have discussed this with case management and they will address this with quality (Dr. Hooker) and to see if that could be changed over to admission status. Disposition: To be determined. Dr. Macias states the patient is good from orthopedic standpoint for discharge. Patient medically is ready for discharge. Patient has been in the hospital with as needed fentanyl and oxycodone which she really is not taking very often. I will place discharge orders. Patient has done well with therapy there is no medical necessity for the patient stay in the hospital unless he has new complaints. Patient does not do well with pain, however he has pain medication ordered which he is not taking.
[2023-02-07] MEDS: Dorzolamide HCL/Timolol 10 ml Bottle 1 DRP OPHTHALMIC (09:27)
--- NOTE | 2023-02-07 13:24 | NURSING ---
pt to surgery
--- NOTE | 2023-02-07 14:00 | BONBX_PTH ---
PATIENT: ZINA SALDIVAR LOC: [facility] U#:[id number] AGE/SX: 82/M ROOM: [facility] [place] RE02/01/[address]: Dr. Mason Gonsalez DO : 1940 BED: 1 DIS: 02/07/2023 SPEC #: [id number] RECD: 02/07/23 17:05 STATUS: BEATRIZ VAZQUEZ #: [id number] ROBIN: 02/07/23 14:[address]: Yimi Macias DEPT: SURGICAL PATHOLOGY RECD BY: Deandre Le ENTERED: 02/08/23 09:24 SP TYPE: Bone OTHR DR: MD Dr. Mason Cooper DO Dr. Mark Elderbrock, MD Tissues: Vertebra, NOS Procedures: Decalcification bone/plaque Surgery Specimen Level V HEADER OPERATION: Kyphoplasty L2 PRE-OP DIAGNOSIS: Compression fracture of L2 TISSUE SUBMITTED: Vertebral bone biopsy MICROSCOPIC DIAGNOSIS L2 vertebral body, bone biopsy: Reactive and reparative change consistent with fracture site. Trilineage hematopoiesis. No evidence of malignancy. AM:juan luis 02/09/2023 MICROSCOPIC DESCRIPTION Slides are reviewed. GROSS DESCRIPTION Received in fixative is one container labeled with the patient's name and designated vertebral bone biopsy. The specimen consists of an elongated piece of bone measuring 1.5 cm in length and 0.2 cm in diameter. The specimen is totally submitted in one cassette after decalcification. / MARICARMEN:juan luis 02/08/2023 TC:5 CPT: 38040, 61011
--- NOTE | 2023-02-07 14:30 | RAD_ITS ---
EXAMINATION: Intraoperative fluoroscopy kyphoplasty. INDICATION: KYPHO L2 TECHNIQUE: 2 spot intraoperative films were provided for interpretation. Total Fluoroscopic Time: 1 minute 2 seconds AND number of Fluoroscopic Images: 2 COMPARISON: Lumbar spine MRI from 02/02/2023, lumbar spine radiograph from 01/23/2023. FINDINGS: Limited fluoroscopic AP and lateral intraoperative images of the lumbar spine were submitted for assessment. There is kyphoplasty cement within the L2 vertebral body. RAD/Lumbar Spine 2 or 3 Views IMPRESSION: Intraoperative fluoroscopy demonstrates kyphoplasty cement within the L2 vertebral body. Please see operative report for detailed findings. Electronically Signed: Shreyas Samaniego MD at 15:58 EDT ,
[2023-02-07] MEDS: Cefazolin 2 GM in 0.9% Normal Saline 100 ML IV (14:31)
--- NOTE | 2023-02-07 14:34 | PN.ORTHO_ITS ---
Subjective Subjective Status post L2 kyphoplasty. The patient was seen and examined postoperatively. He is doing well. He is resting comfortably. His pain is controlled. He denies any other complaints including numbness tingling or weakness Objective Data Objective Data Vital Signs: Vital Signs Temp Pulse Resp BP Pulse Ox O2 Del Method 98.2 F 54 L 16 146/79 H 98 Room Air 02/07/23 11:24 02/07/23 11:24 02/07/23 11:24 02/07/23 11:24 02/07/23 11:24 02/07/23 11:24 Oxygen Delivery Method Room Air Weight: 203 lb 0.732 oz Body Mass Index (BMI) 28.4 Intake & Output: Intake and Output for Last 24 Hours 02/05/23 02/06/23 02/07/23 23:59 23:59 23:59 Intake Total 400 / 400 1000 / 1000 Balance 400 / 400 1000 / 1000 Lab / Micro Data Result Diagrams: 02/07/23 05:55 02/07/23 05:55 Labs: Laboratory Results - last 24 hr 02/07/23 05:55: WBC 9.9, RBC 3.66 L, Hgb 12.5 L, Hct 37.3 L, MCV 101.9 H, MCH 34.2 H, MCHC 33.5, RDW Std Deviation 50.9 H, RDW Coeff of [place]le 13.4, Plt Count 210, MPV 8.9, Immature Gran % (Auto) 0.600, Neut % (Auto) 55.0, Lymph % (Auto) 34.2, [place] % (Auto) 9.7, Eos % (Auto) 0.2, Baso % (Auto) 0.3, Absolute Neuts (auto) 5.4, Absolute Lymphs (auto) 3.38, Nucleated RBC % 0 02/07/23 05:55: Sodium 138, Potassium 3.9, Chloride 107, Carbon Dioxide 27.0, Anion Gap 4 L, BUN 16, Creatinine 0.73, Estim Creat Clear Calc 61.70, Est GFR (MDRD) Af Amer 132, Est GFR (MDRD) Non-Af 109, BUN/Creatinine Ratio 21.8 H, Glucose 87, Calcium 8.1 L Physical Exam Const alert, oriented x3 and no apparent distress General Appearance: cooperative, comfortable and well kempt HEENT normocephalic and head/scalp atraumatic Eyes EOMs intact bilaterally and conjunctivae normal Neck full ROM General: normal visual inspection Chest inspection of chest normal and palpation of chest normal Resp normal respiratory effort and normal air movement Cardio regular rate, regular rhythm and peripheral pulses 2+ throughout GI soft to palpation, non-tender and non-distended Back/Spine Back/Spine Narrative: Dressing clean dry and intact Extremity normal to inspection, full ROM, normal capillary refill, no clubbing, cyanosis or edema and no calf tenderness Skin no rashes or lesions noted General Skin Exam: no breakdown Neuro oriented x3, CN's II-XII intact bilaterally, moves all extremities, no focal motor deficits, no sensory deficits noted and deep tendon reflexes 2+ bilaterally Motor Exam: muscle tone normal throughout Assessment & Plan Assessment/Plan (1) Compression fracture of L2: PLAN: Plan Okay to discharge from orthopedic spine standpoint Pain control per medicine service Activity as tolerated Follow-up with Dr. Macias in clinic in 3 weeks
--- NOTE | 2023-02-07 14:34 | PCM.OPRPT ---
Problems Associated Problem List Diagnoses (1) Compression fracture of L2: Report of Operation Date of Procedure: 02/07/23 Pre-Operative Diagnosis: Vertebral body compression fracture L2 Post-Operative Diagnosis: Vertebral body compression fracture L2 Surgery/Procedure Performed:: L2 kyphoplasty with biopsy Description of Surgical Findings:: The patient was seen in the preop holding area. Risks and benefits of the procedure were explained to the patient and informed consent was obtained. The patient was transported to the procedure room and positioned prone. The back was prepped and draped in a sterile fashion. Under fluoroscopic guidance the L2 vertebral body was identified. Using cephalocaudad tilt the pedicles of the L2 vertebral body were brought into appropriate alignment for placement of trocars. A transpedicular approach was selected with slight oblique and to optimize the view of the L2 pedicles medial border. Subsequently skin and subcutaneous tissues were anesthetized with a 22-gauge needle using 1% lidocaine. A small skin joe was made with a 15 blade. Subsequently a 13-gauge trocar was inserted and advanced using an orthopedic camera till the tip of the needle was in the upper outer quadrant of the pedicle. At no time was there any violation of the medial cortex of the pedicle noted. Incision was confirmed in AP and lateral views. Once the tip of the needle had advanced beyond the posterior margin of the vertebral body further advancement was conducted in a lateral view. The trocar was advanced until the tip was at the junction of the anterior one third and middle one third of the vertebral body. The obturator was removed. A biopsy was taken. A small drill was then used to drill a guide path for placement of the balloon system. Drilling was performed under active fluoroscopy. The tip of the drill read to the anterior one third of the vertebral body and was then removed. The balloon system was inserted until the radiologic markers were located at the midpoint of the vertebral body. The balloons were then inflated under active fluoroscopy in the lateral position with inflation pressure never exceeding 300 PSI. A void of 4 to 5 cc was created. The balloon was then collapsed and removed. PMMA cement was then mixed and delivered using a cannula. The cement was injected under active fluoroscopy. The cement injection continued until cement had reached the posterior one third of vertebral body and was then stopped. The cannulae were removed as well as the trocars under fluoroscopy ensuring there was no retrograde spread of the cement. Once the trocars were removed pressure was held over the injection site until all bleeding was stopped. Approximately 3.2 cc of cement was placed. No extravasation of cement or leakage of cement posteriorly was noted. In the AP view good cement spread was noted to be across both sides of the vertebral body. The patient tolerated the procedure well was transported to the PACU in stable condition. Surgeon: Yimi Macias Type of Anesthesia: MAC Specimen's removed: L2 vertebral body bone Estimated Blood Loss (mL): 2 cc Fluids Replaced: 200 cc Grafts/Implants Used: Teddy Complications None Admit VTE Documentation VTE Present on Admission: No
[2023-02-07] MEDS: Lidocaine 1% (20 ml mdv) 20 ML Vial (15:04)
--- NOTE | 2023-02-07 16:13 | PCM.DC ---
Discharge Instructions Diet Discharge Diet: No restrictions Activity Discharge Activity: Return to Normal Activity (activity as tolerated) Follow Up Care Test Results: Test results from this visit will be discussed in further detail at your follow-up appointment, if applicable. Discharge Plan Admission Admit Date/Time: 02/01/23 22:44 Primary Reason for Your Visit: L2 compression fracture Attending Provider: Mason Gonsalez Primary Care Provider: Oliver Mims Consulting Providers: Yimi Macias ; Daiana Caro Instructions Additional Instructions / Restrictions: You had a second lumbar compression fracture. You underwent kyphoplasty with Dr. Macias today. You have pain medications ordered which she had ordered in the hospital which she did not take that often. He will have that upon discharge. It will be a short course so the risk of opiate addiction will be very low. Please follow-up with Dr. Macias for further follow-up. Given your fracture I did check a vitamin D level which was low and I have ordered you to take weekly vitamin D tablets for 7 more weeks. Discharge Orders/Prescriptions Prescriptions: New acetaminophen 500 mg Tablet 1,000 mg PO Q8 Qty: 30 0RF Rx Instructions: [id number], no prescription required. ergocalciferol (vitamin D2) [Vitamin D2] 1,250 mcg (50,000 unit) Capsule 1,250 mcg PO Q7D Qty: 7 0RF gabapentin 100 mg Capsule 100 mg PO TIDCM Qty: 30 0RF oxycodone 5 mg Tablet 5 mg PO Q6H PRN (Reason: pain) 3 Days Qty: 12 0RF tizanidine 2 mg Tablet 2 mg PO Q8H PRN PRN (Reason: muscle spasms, strain) Qty: 10 0RF lidocaine 4 % adhesive patch,medicated 1 patch topical DAILY Qty: 30 0RF Rx Instructions: may leave on for up to 12 hrs. apply to low-back [id number], no prescription required. ibuprofen 200 mg capsule 600 mg PO Q6H PRN (Reason: pain) Qty: 30 0RF Continued finasteride [Proscar] 5 mg tablet 5 mg PO DAILY dorzolamide-timolol [Cosopt] 22.3-6.8 mg/mL drops 1 drp OPHTHALMIC BID nitroglycerin 0.4 mg tablet, sublingual 0.4 mg SUBLINGUAL Q5-15M PRN (Reason: chest pain) Qty: 25 4RF Rx Instructions: do not exceed 3 doses per episode omeprazole 40 mg capsule,delayed release(DR/EC) 40 mg PO DAILY calcium citrate-vitamin D3 [[place] Calcium-Vitamin D3] 200 mg-6.25 mcg (250 unit) tablet 1 tab PO BID Label Comments: TAKE 1 TABLET BY MOUTH TWICE DAILY WITH FOOD doxazosin 4 MG tablet extended release 24hr 8 mg PO DAILY psyllium husk (aspartame) 1 PACKET packet 1 packet PO DAILY aspirin 81 mg Tablet 81 mg PO DAILY melatonin 10 mg Tablet 10 mg PO QHS isosorbide mononitrate 30 mg tablet extended release 24 hr 30 mg PO DAILY metoprolol succinate 25 mg tablet extended release 24 hr 25 mg PO DAILY prednisone 10 mg tablet 10 mg PO DAILY Qty: 30 0RF Rx Instructions: take 2 tablets daily on 02/08 and 02/09, then resume 1 tablet daily. pyridostigmine bromide [Mestinon] 60 mg tablet 60 mg PO TID atorvastatin 80 mg tablet See Rx Instructions .ROUTE .COMPLEX Qty: 90 3RF Dose Instruction: TAKE 1 TABLET AT BEDTIME FOR CHOLESTEROL Rx Instructions: TAKE 1 TABLET AT BEDTIME FOR CHOLESTEROL amlodipine 2.5 mg tablet 2.5 mg PO DAILY Qty: 90 3RF Discontinued hydrocodone-acetaminophen [hydrocodone-acetaminophen] 5-325 mg tablet 1 tab PO Q6H PRN PRN (Reason: Pain) 3 Days Qty: 10 0RF Referrals / Follow Up: Yimi Macias DO [Med Staff - Active Staff] - Within 2 Weeks Oliver Mims MD [Primary Care Provider] - Within 2 Weeks Disposition Disposition (needs filled in before D/C Order can be placed): Home, Self Care
--- NOTE | 2023-02-07 16:28 | DS.PCM_ITS ---
Providers Date of Admission: 02/01/23 Primary Care Physician: Dr. Oliver Mims MD Consultations 02/02/23 07:00 Consult: Orthopedics Routine Consulting Provider: Yimi Macias Reason for Consult: Intractable lumbar back pain EMERGENT Consult: No MD Notified: Yes Date Notified: 02/02/23 Time Notified: 06:21 Method of Notification: Text Reason For Visit: INTRACTABLE BACK PAIN Diagnosis Discharge Diagnosis (1) Intractable back pain: Status: Acute Code(s): M54.9 - Dorsalgia, unspecified Plan: Acute Intractable Lumbar Back Pain w/ RLE Radiculopathy w/ L2 Compression Fx: acute v chronic Pain control: IV toradol, initiate low dose gabapentin, lidocaine patches, continue tizanidine, continue recently increased prednisone therapy, po/IV narcotic pain regimen, ESR 21, CRP <2.9. Patient underwent kyphoplasty today. Still having pain. He was under the ex pectation that he would be pain-free because he knew someone that had kyphoplasty and they had complete resolution of his pain. I told him that the pain will get better with time but regards to him being discharged depends on what he is able to tolerate. I told him that he may have to really set his expectations regards to being pain-free. (2) Vitamin D deficiency: Status: Acute Code(s): E55.9 - Vitamin D deficiency, unspecified Plan: Check 25-OH 33. Goal is 50. Started ergocalciferol Plan Chronic conditions: * Myasthenia gravis: continue pyridostigmine, Valium for muscle spasms, maintain on fall precautions, therapies consulted as noted as well as case management for discharge planning. Patient normally on chronic 10 mg prednisone daily however this was recently bumped up to 40 mg with his acute presentation. Patient not in crisis and we will start to taper his prednisone down. * Hypertension: Continue home regimen including metoprolol, isosorbide, amlodipine, PRN hydralazine. * Hyperlipidemia: We will continue patient on statin therapy. * Overweight: Weight loss and lifestyle changes encouraged. * GERD: Chart reported history of previous gastritis/esophagitis, will continue patient home omeprazole regimen. * Former tobacco use: Encourage continued tobacco cessation. * BPH: We will continue patient home doxazosin, finasteride home regimen. DVT prophylaxis: Lovenox. CODE status: Full Code 02/03: Explained to the patient and his that he is currently observation status and told him that that may potentially result in a higher co-pay for him upon discharge. I told him that I have discussed this with case management and they will address this with quality (Dr. Hooker) and to see if that could be changed over to admission status. Disposition: To be determined. Dr. Macias states the patient is good from orthopedic standpoint for discharge. Patient medically is ready for discharge. Patient has been in the hospital with as needed fentanyl and oxycodone which she really is not taking very often. I will place discharge orders. Patient has done well with therapy there is no medical necessity for the patient stay in the hospital unless he has new complaints. Patient does not do well with pain, however he has pain medication ordered which he is not taking. Medications at Discharge Home Medications doxazosin 4 mg tablet,extended release 24 hr 8 mg PO DAILY prostate 01/16/15 dorzolamide 22.3 mg-timolol 6.8 mg/mL eye drops (Cosopt) 1 drp ophthalmic (eye) BID left eye 03/04/19 finasteride 5 mg tablet (Proscar) 5 mg PO DAILY cholesterol 03/04/19 psyllium husk (aspartame) 3.4 gram oral powder packet 1 packet PO DAILY fiber 07/30/20 aspirin 81 mg tablet 81 mg PO DAILY heart health 02/15/21 melatonin 10 mg tablet 10 mg PO QHS sleep 02/15/21 nitroglycerin 0.4 mg sublingual tablet 0.4 mg sublingual Q5-15M PRN chest pain #25 tabs 03/26/21 calcium citrate 200 mg calcium-vitamin D3 6.25 mcg (250 unit) tablet ([place] Calcium-Vitamin D3) 1 tab PO BID 03/28/22 omeprazole 40 mg capsule,delayed release 40 mg PO DAILY 03/28/22 pyridostigmine bromide 60 mg tablet (Mestinon) 60 mg PO TID 03/28/22 atorvastatin 80 mg tablet See Rx Instructions .Route .COMPLEX #90 tabs 08/15/22 amlodipine 2.5 mg tablet 2.5 mg PO DAILY blood pressure #90 tabs 08/17/22 isosorbide mononitrate 30 mg tablet,extended release 24 hr 30 mg PO DAILY 01/22/23 metoprolol succinate 25 mg tablet,extended release 24 hr 25 mg PO DAILY 01/22/23 acetaminophen 500 mg tablet 1,000 mg PO Q8 #30 tabs 02/07/23 ergocalciferol (vitamin D2) 1,250 mcg (50,000 unit) capsule (Vitamin D2) 1,250 mcg PO Q7D #7 caps 02/07/23 gabapentin 100 mg capsule 100 mg PO TIDCM #30 caps 02/07/23 ibuprofen 200 mg capsule 600 mg PO Q6H PRN pain #30 caps 02/07/23 lidocaine 4 % topical patch 1 patch topical DAILY #30 ea 02/07/23 oxycodone 5 mg tablet 5 mg PO Q6H PRN pain 3 days #12 tabs 02/07/23 prednisone 10 mg tablet 10 mg PO DAILY #30 tabs 02/07/23 tizanidine 2 mg tablet 2 mg PO Q8H PRN PRN muscle spasms, strain #10 tabs 02/07/23 Hospital Course Operations - (kyphoplasty of L2) Summary of Care Provided Minutes Spent on Discharge: 40 Hospital Course: 82-year-old male dealing with several week history of back pain. Patient underwent a work-up and was found to have an acute fracture of L2. Patient was seen by orthopedics and plan was for a L2 kyphoplasty which she had today. Patient stated that he cannot go home because he was having too much pain, so he had fentanyl as well as oxycodone here which he barely took either of those. Patient was seen by therapy and did well. Patient denied any home care needs or any assist device. After his kyphoplasty, patient was surprised that he still having pain. Patient was under the fall Sumption that he would be pain-free as he related this to a case where someone he knew had kyphoplasty and was completely pain-free afterwards. Discussed the patient that he would need to reset his expectations as it was never told to him that he would be completely pain-free though that would certainly be the hope. Patient is encouraged to take pain medications as needed including narcotics. Patient informed that the likelihood of addiction with a short-term prescription is very low. Weight / BMI Weight Weight: 92.1 kg Body Mass Index (BMI) 28.4 ABG / Lab / Microbiology Data Result Diagrams: 02/07/23 05:55 02/07/23 05:55 Laboratory: Laboratory Results - last 24 hr 02/07/23 05:55: WBC 9.9, RBC 3.66 L, Hgb 12.5 L, Hct 37.3 L, MCV 101.9 H, MCH 34.2 H, MCHC 33.5, RDW Std Deviation 50.9 H, RDW Coeff of Chele 13.4, Plt Count 210, MPV 8.9, Immature Gran % (Auto) 0.600, Neut % (Auto) 55.0, Lymph % (Auto) 34.2, Toole % (Auto) 9.7, Eos % (Auto) 0.2, Baso % (Auto) 0.3, Absolute Neuts (auto) 5.4, Absolute Lymphs (auto) 3.38, Nucleated RBC % 0 02/07/23 05:55: Sodium 138, Potassium 3.9, Chloride 107, Carbon Dioxide 27.0, Anion Gap 4 L, BUN 16, Creatinine 0.73, Estim Creat Clear Calc 61.70, Est GFR (MDRD) Af Amer 132, Est GFR (MDRD) Non-Af 109, BUN/Creatinine Ratio 21.8 H, Glucose 87, Calcium 8.1 L Radiography Diagnostic Testing: Radiology Impression Lumbar Spine X-Ray 02/07/23 14:30 IMPRESSION: Intraoperative fluoroscopy demonstrates kyphoplasty cement within the L2 vertebral body. Please see operative report for detailed findings. Electronically Signed: Shreyas Samaniego MD at 15:58 EDT , D/C Instructions Discharge Diet: No restrictions Meaningful Use Info Meaningful Use Diagnoses (Choose all that apply): None applicable Discharge Plan Admission Admit Date/Time: 02/01/23 22:44 Primary Reason for Your Visit: L2 compression fracture Attending Provider: Mason Gonsalez Primary Care Provider: Oliver Mims Consulting Providers: Yimi Macias ; Daiana Caro Instructions Additional Instructions / Restrictions: You had a second lumbar compression fracture. You underwent kyphoplasty with Dr. Macias today. You have pain medications ordered which she had ordered in the hospital which she did not take that often. He will have that upon discharge. It will be a short course so the risk of opiate addiction will be very low. Please follow-up with Dr. Macias for further follow-up. Given your fracture I did check a vitamin D level which was low and I have ordered you to take weekly vitamin D tablets for 7 more weeks. Discharge Orders/Prescriptions Prescriptions: New acetaminophen 500 mg Tablet 1,000 mg PO Q8 Qty: 30 0RF Rx Instructions: [id number], no prescription required. ergocalciferol (vitamin D2) [Vitamin D2] 1,250 mcg (50,000 unit) Capsule 1,250 mcg PO Q7D Qty: 7 0RF gabapentin 100 mg Capsule 100 mg PO TIDCM Qty: 30 0RF oxycodone 5 mg Tablet 5 mg PO Q6H PRN (Reason: pain) 3 Days Qty: 12 0RF tizanidine 2 mg Tablet 2 mg PO Q8H PRN PRN (Reason: muscle spasms, strain) Qty: 10 0RF lidocaine 4 % adhesive patch,medicated 1 patch topical DAILY Qty: 30 0RF Rx Instructions: may leave on for up to 12 hrs. apply to low-back [id number], no prescription required. ibuprofen 200 mg capsule 600 mg PO Q6H PRN (Reason: pain) Qty: 30 0RF Continued finasteride [Proscar] 5 mg tablet 5 mg PO DAILY dorzolamide-timolol [Cosopt] 22.3-6.8 mg/mL drops 1 drp OPHTHALMIC BID nitroglycerin 0.4 mg tablet, sublingual 0.4 mg SUBLINGUAL Q5-15M PRN (Reason: chest pain) Qty: 25 4RF Rx Instructions: do not exceed 3 doses per episode omeprazole 40 mg capsule,delayed release(DR/EC) 40 mg PO DAILY calcium citrate-vitamin D3 [[place] Calcium-Vitamin D3] 200 mg-6.25 mcg (250 unit) tablet 1 tab PO BID Label Comments: TAKE 1 TABLET BY MOUTH TWICE DAILY WITH FOOD doxazosin 4 MG tablet extended release 24hr 8 mg PO DAILY psyllium husk (aspartame) 1 PACKET packet 1 packet PO DAILY aspirin 81 mg Tablet 81 mg PO DAILY melatonin 10 mg Tablet 10 mg PO QHS isosorbide mononitrate 30 mg tablet extended release 24 hr 30 mg PO DAILY metoprolol succinate 25 mg tablet extended release 24 hr 25 mg PO DAILY prednisone 10 mg tablet 10 mg PO DAILY Qty: 30 0RF Rx Instructions: take 2 tablets daily on 02/08 and 02/09, then resume 1 tablet daily. pyridostigmine bromide [Mestinon] 60 mg tablet 60 mg PO TID atorvastatin 80 mg tablet See Rx Instructions .ROUTE .COMPLEX Qty: 90 3RF Dose Instruction: TAKE 1 TABLET AT BEDTIME FOR CHOLESTEROL Rx Instructions: TAKE 1 TABLET AT BEDTIME FOR CHOLESTEROL amlodipine 2.5 mg tablet 2.5 mg PO DAILY Qty: 90 3RF Discontinued hydrocodone-acetaminophen [hydrocodone-acetaminophen] 5-325 mg tablet 1 tab PO Q6H PRN PRN (Reason: Pain) 3 Days Qty: 10 0RF Referrals / Follow Up: Yimi Macias DO [Med Staff - Active Staff] - Within 2 Weeks Oliver Mims MD [Primary Care Provider] - Within 2 Weeks Disposition Disposition (needs filled in before D/C Order can be placed): Home, Self Care Charges/Coding Visit Charges Inpatient E&M: 78945 Disch Hosp >30min
[2023-02-07] MEDS: Gabapentin 100 MG Capsule PO (16:34)
--- NOTE | 2023-02-07 16:41 | CASEMGMT ---
Social Work SW met with pt and his and discussed advance directives. Pt confirms he has competed a living will and Health Care POA naming his . Pt made aware documents are not on file at [facility] and requested they be brought in for scanning into the EMR. MIKAELA Reyes
--- NOTE | 2023-02-07 23:04 | NURSING ---
pt assisted up to BR to void, x1 walker, denies pain at this time. pt voided and assisted with getting dressed. pt ready for discharge. all education and paperwork reviewed with pt and . denies further needs. Negin with wheelchair and pt discharged at 2020.
== END 2023-02-07 20:20 | disposition home or self-care (01) ==
LOC: ED 22:44 → MS3 22:55
PROVIDERS: Anesthesiology; Orthopaedic Surgery; Admitting Provider Family Medicine; Emergency Provider Emergency Medicine; PCP Family Medicine
PROC: (CPT 22514; principal; 2023-02-07 13:45)
DX: M48.56XA Collapsed vertebra, not elsewhere classified, lumbar region, initial encounter for fracture (principal); G70.00 Myasthenia gravis without (acute) exacerbation; Z79.82 Long term (current) use of aspirin; I10 Essential (primary) hypertension; N40.0 Benign prostatic hyperplasia without lower urinary tract symptoms; Z87.891 Personal history of nicotine dependence; E78.5 Hyperlipidemia, unspecified; M47.26 Other spondylosis with radiculopathy, lumbar region; E55.9 Vitamin D deficiency, unspecified; K21.9 Gastro-esophageal reflux disease without esophagitis; Z79.899 Other long term (current) drug therapy; Z79.52 Long term (current) use of systemic steroids
CPT/HCPCS: 22514; 01942; 36415; 72100; 72148; 76000; 80048; 80053; 81001; 82306; 85025; 85652; 86140; 88307; 88311; 93005; 94668; 96361; 96372; 96374; 96375; 96376; 97116; 97162; 97166; 97530; 99221; 99252; 99284; J7030; J7120; A4216; G0378; G0463; J2405

== ENCOUNTER 2023-02-23 17:35 | Emergency (ER) | payer MEDICARE, OTHER, SELFPAY ==
[2023-02-23 17:36] VITALS: BP 117/71; PULSE 58; RESP 18; TEMP 36.2; O2SAT 96; BMI 27.8
--- NOTE | 2023-02-23 18:00 | EKG12_ITS ---
Test Reason : ABD PAIN Blood Pressure : / mmHG Vent. Rate : 050 BPM Atrial Rate : 050 BPM P-R Int : 154 ms QRS Dur : 128 ms QT Int : 464 ms P-R-T Axes : 059 080 063 degrees QTc Int : 423 ms Sinus bradycardia Right bundle branch block Abnormal ECG Confirmed by MILLA FRIEND, CHING ([id number]), editor trade journal PATT WILKINS ([id number]) on 02/27/2023 1:32:32 PM Referred By: Confirmed By:CHING LOYOLA MD
--- NOTE | 2023-02-23 18:02 | ED.VIS.GI ---
HPI HPI - GI History of Present Illness Chief Complaint: Abd Pain Detail of Chief Complaint: Epigastric abdominal pain for 2 weeks. Informant: patient Abdominal Pain/Flank Pain Onset: Weeks Context: Gradual Onset Timing: Continuous Quality: Aching Location: Epigastric Current Severity: Mild Maximum Severity: Mild Worsened by: Nothing Relieved by: Nothing Nausea/Vomiting/Emesis GI Symptom: Negative for Nausea or Vomiting Diarrhea/Melena/Hematochezia GI Symptom: Negative for Diarrhea, Melena or Hematochezia Associated Symptoms Associated Symptoms: Negative for Dysuria, Frequency or Hematuria Narrative Narrative: 82-year-old male history of hypertension and myasthenia gravis. About 2 weeks ago was admitted to the hospital for intractable back pain and had an L2 compression fracture of the did a kyphoplasty on. For last 2 weeks he had epigastric abdominal pain. Nothing particular makes it better or worse. No fever. No nausea or vomiting. No diarrhea or melena. This does not change with eating or drinking. He has had similar pain before but it typically went away on its own. He is never had a diagnosis. He also has some mild right groin pain. He saw his primary care physician for that and they did not think it was a hernia. He denies any change in his bowel or bladder. No melena or fever. No drastic weight change. He has had a prior appendectomy but no other abdominal surgeries other than a prior hernia repair. Prior similar symptoms: Yes Recent Illness/Hospitalization: [facility] Medical History BPH (benign prostatic hyperplasia) Esophagitis Essential (primary) hypertension Gastritis Glaucoma Hemorrhoids Hyperlipidemia Myasthenia gravis (06/11/21) Obesity Vitamin D deficiency Home Medications doxazosin 4 mg tablet,extended release 24 hr 8 mg PO DAILY prostate 01/16/15 [History Last Taken 02/01/23] dorzolamide 22.3 mg-timolol 6.8 mg/mL eye drops (Cosopt) 1 drp ophthalmic (eye) BID left eye 03/04/19 [History Last Taken 02/01/23] finasteride 5 mg tablet (Proscar) 5 mg PO DAILY cholesterol 03/04/19 [History Last Taken 02/01/23] psyllium husk (aspartame) 3.4 gram oral powder packet 1 packet PO DAILY fiber 07/30/20 [History Last Taken 02/01/23] aspirin 81 mg tablet 81 mg PO DAILY heart health 02/15/21 [History Last Taken 02/01/23] melatonin 10 mg tablet 10 mg PO QHS sleep 02/15/21 [History Last Taken 01/31/23] nitroglycerin 0.4 mg sublingual tablet 0.4 mg sublingual Q5-15M PRN chest pain #25 tabs 03/26/21 [Rx Last Taken Unknown] calcium citrate 200 mg calcium-vitamin D3 6.25 mcg (250 unit) tablet (Firestone Calcium-Vitamin D3) 1 tab PO BID 03/28/22 [History Last Taken 02/01/23] omeprazole 40 mg capsule,delayed release 40 mg PO DAILY 03/28/22 [History Last Taken 02/01/23] pyridostigmine bromide 60 mg tablet (Mestinon) 60 mg PO TID 03/28/22 [History Last Taken 02/01/23] atorvastatin 80 mg tablet See Rx Instructions .Route .COMPLEX #90 tabs 08/15/22 [Rx Last Taken 02/01/23] amlodipine 2.5 mg tablet 2.5 mg PO DAILY blood pressure #90 tabs 08/17/22 [Rx Last Taken 02/01/23] isosorbide mononitrate 30 mg tablet,extended release 24 hr 30 mg PO DAILY 01/22/23 [History Last Taken 02/01/23] metoprolol succinate 25 mg tablet,extended release 24 hr 25 mg PO DAILY 01/22/23 [History Last Taken 02/01/23] acetaminophen 500 mg tablet 1,000 mg PO Q8 #30 tabs 02/07/23 [Rx Last Taken Unknown] ergocalciferol (vitamin D2) 1,250 mcg (50,000 unit) capsule (Vitamin D2) 1,250 mcg PO Q7D #7 caps 02/07/23 [Rx Last Taken Unknown] gabapentin 100 mg capsule 100 mg PO TIDCM #30 caps 02/07/23 [Rx Last Taken Unknown] ibuprofen 200 mg capsule 600 mg PO Q6H PRN pain #30 caps 02/07/23 [Rx Last Taken Unknown] lidocaine 4 % topical patch 1 patch topical DAILY #30 ea 02/07/23 [Rx Last Taken Unknown] oxycodone 5 mg tablet 5 mg PO Q6H PRN pain 3 days #12 tabs 02/07/23 [Rx Last Taken Unknown] prednisone 10 mg tablet 10 mg PO DAILY #30 tabs 02/07/23 [Rx Last Taken 02/01/23] tizanidine 2 mg tablet 2 mg PO Q8H PRN PRN muscle spasms, strain #10 tabs 02/07/23 [Rx Last Taken Unknown] Allergy/AdvReac Type Severity Reaction Status Date / Time morphine AdvReac hallucinati Verified 02/01/23 17:54 ons Family History Father Pancreatitis Cancer Mother Dementia Surgical History History of appendectomy History of cataract surgery History of eye surgery History of herniorrhaphy Hx of total shoulder replacement Social History household members: spouse Smoking Status: Former smoker how long ago did patient quit smokin years ago alcohol intake: current alcohol intake frequency: holidays/special occasions only substance use type: does not use caffeine: No ROS ROS ED ROS Narrative Abdominal pain. Review of Systems ROS Unobtainable: Denies due to encephalopathy Constitutional Constitutional ED: Denies chills or fever(s) ENT ENT ED: Denies ear pain Cardiovascular Cardiovascular: Denies chest pain Respiratory/Chest Respiratory/Chest: Denies cough Gastrointestinal Gastrointestinal: Reports abdominal pain; Denies constipation, diarrhea, melena, nausea or vomiting Genitourinary Genitourinary ED: Denies dysuria or hematuria Musculoskeletal Musculoskeletal: Denies arthralgias Integumentary Denies abscess Neurologic Neurologic: Denies headache(s) Psychiatric Psychiatric: Denies anxiety Endocrine Endocrinology: Denies polydipsia Hematologic/Lymphatic Hematologic/Lymphatic: Denies easy bleeding Allergic/Immunologic Allergic/Immunologic ED: Denies mouth swelling or tongue swelling EXAM Physical Exam Narrative Exam Narrative: Well-appearing 82-year-old male. Vital signs stable afebrile. He does not look septic or toxic. No distress. H EENT exam unremarkable. Lungs clear. Heart regular rate and rhythm no murmur. Abdomen soft nondistended normal bowel sounds no peritoneal signs. No pulsatile mass. Both the right upper right lower quadrant unremarkable. He has reproducible epigastric tenderness. There is no rebound guarding or rigidity. He also has tenderness in his right inguinal area but I do not palpate any obvious hernia. There is no incarcerated or strangulated hernia. With bearing down I do not feel any significant hernia. There is no signs of obstruction. Moving all 4 extremities. 1+ pitting edema bilaterally. Neurologically he is awake and alert with no focal motor deficits. Answering questions and following commands. Const Vital Signs: 02/23/23 17:36 Temperature 97.2 F L Temperature Source Temporal Pulse Rate 58 L Respiratory Rate 18 Blood Pressure 117/71 Blood Pressure Mean 86 Pulse Ox 96 Oxygen Delivery Method Room Air Positive well nourished and well developed; Negative for cachectic, contractures or unkempt General Appearance ED: well developed and NAD; Negative for unkempt, cachectic, contractures or pallor Nutritional Appearance: Negative for cachectic HEENT Reports moist mucous membranes normocephalic and atraumatic; Negative for trauma or tenderness Eyes PERRL and EOMs intact bilaterally General Eye ED: Negative for pale conjunctiva or scleral icterus Neck no lymphadenopathy, supple and no JVD General: Negative for tenderness Carotids: Negative for other Resp normal respiratory effort and clear to auscultation bilaterally Effort and Inspection: Negative for respiratory distress Auscultation: Negative for rales, rhonchi or wheezes Cardio regular rate, regular rhythm, S1 normal heart sound, S2 normal heart sound and no murmurs Rate: Negative for bradycardia or tachycardic Rhythm: Negative for abnormal rhythm GI non-distended and no masses; Negative for non-tender GI Narrative: Mild epigastric tenderness. Mild right inguinal tenderness that may or may not be hernia. But I do not feel any obvious hernia and there is no strangulation or incarceration. No peritoneal signs. Inspection: Negative for abdominal distention Auscultation: normoactive bowel sounds Palpation: soft and tender; Negative for guarding, rigid, hepatomegaly, splenomegaly, hernia, mass, pulsatile mass or rebound tenderness present Back/Spine no CVA tenderness General Back: Negative for CVA tenderness Cervical Spine: Negative for cervical spine tenderness Thoracic Spine / Upper Back: Negative for thoracic spinal tenderness Lumbar Spine / Lower Back: Negative for lumbar spinal tenderness Coccyx: Negative for other Extremity full ROM General Extremety ED: Negative for edema or tenderness General Extremity: Negative for edema Neuro CN's II-XII intact bilaterally and moves all extremities Sensorium / Orientation: alert, oriented to person, oriented to place and oriented to time; Negative for orientation impaired, confused, lethargic or stuporous Motor Exam: strength 5/5 throughout Psych mental status grossly normal and thought process normal Appearance: Negative for unkempt Attitude: No agitated Mood & Affect: Negative for depressed, anxious or tearful Skin no wounds General Skin Exam: Negative for jaundice or pallor Lesions: no lesions Rashes: no rashes Trauma: Negative for abrasion Nails: Negative for discolored MDM MDM MDM Narrative Medical decision making narrative: 82-year-old male with epigastric pain for 2 weeks. He has a benign exam. He also has right inguinal pain but no obvious hernia. CAT scan and labs being obtained. Currently he did not want anything for pain. Do not think this is pancreatitis. It could be gastritis or reflux. I do not think is a AAA but that is a possibility. He still has his gallbladder biliary disease and the possibility but he really did not have any right upper quadrant tenderness. Clinically his appendix has been removed. At this is not a bowel obstruction by exam. Repeat exam patient is doing well at 10:40 PM. Abdomen is benign. He was treated with IV fentanyl which significant helped his discomfort. We went over his test results which are basically his baseline. He does have a mild hyponatremia which will need to be rechecked in the next several weeks. He can add some salt to his food. We do not have a specific cause for his pain. This may be gastritis. He is already on omeprazole and recently was started on Carafate in the last several days. I will continue the medications. Follow-up with a local surgeon to discuss the possibility of upper endoscopy if needed. History & Record Review Discussion w/independent historian: Patient Additional record(s) reviewed:: Prior inpatient record, Prior outpatient record, Prior ED visit, Prior labs and No prior records Lab Data Attestation: I reviewed the patient's lab results. Lab results narrative: CBC shows a white count of 5.7. H&H 11.6 and 33 which is his baseline anemia. Platelets 218. Electrolytes show a low sodium of 127. Gap of 4. Normal BUN and creatinine of 10 and 0.6. Liver enzymes unremarkable. Glucose 117. Lipase normal at 44. UA negative. CAT scan shows chronic changes but no acute process or reason for his pain. Labs: Laboratory Results - last 24 hr 02/23/23 02/23/23 02/23/23 18:20 18:20 18:20 WBC 5.7 RBC 3.37 L Hgb 11.6 L Hct 33.6 L MCV 99.7 H MCH 34.4 H MCHC 34.5 RDW Std Deviation 47.1 H RDW Coeff of Chele 12.9 Plt Count 218 MPV 9.3 Immature Gran % (Auto) 0.400 Neut % (Auto) 67.7 Lymph % (Auto) 20.3 [place] % (Auto) 11.2 H Eos % (Auto) 0.2 Baso % (Auto) 0.2 Absolute Neuts (auto) 3.9 Absolute Lymphs (auto) 1.16 Nucleated RBC % 0 Sodium 127 L Potassium 3.6 Chloride 96 L Carbon Dioxide 27.0 Anion Gap 4 L BUN 10 Creatinine 0.62 L Estim Creat Clear Calc 63.59 Est GFR (MDRD) Af Amer 159 Est GFR (MDRD) Non-Af 131 BUN/Creatinine Ratio 16.0 Glucose 117 H Calcium 8.4 L Total Bilirubin 0.80 AST 14 L ALT 21 Alkaline Phosphatase 80 Troponin I High Sens 9 Total Protein 5.8 L Albumin 2.8 L Globulin 3.0 Albumin/Globulin Ratio 0.9 Amylase 69 Lipase 44 Urine Color Yellow Urine Clarity Clear Urine pH 7.0 Ur Specific Eckert 1.010 Urine Protein Negative Urine Glucose (UA) Normal Urine Ketones Negative Urine Occult Blood 10 H Urine Nitrite Negative Urine Bilirubin Negative Urine Urobilinogen Normal Ur Leukocyte Esterase Negative Urine RBC 0-5 SEEN Urine WBC 0 SEEN Ur Squamous Epith Cells 0 SEEN Urine Bacteria 0 SEEN Urine Mucus 0 SEEN Radiography Diagnostic Testing: Clinical Impression(s) from Imaging Studies Abdomen/Pelvis CT 02/23/23 19:06 IMPRESSION: No acute abnormalities in the abdomen or pelvis. Electronically Signed: Lupillo Salinas MD at 19:28 EDT , Rhythm Strip Rhythm Strip: Sinus bradycardia Rate: 55 Ectopy: None EKG Initial EKG: Attestation: I personally reviewed and interpreted this EKG as follows: Interpretation: Sinus Rhythm, No Acute Injury Pattern and Sinus Bradycardia Comments: Sinus bradycardia rate of 50. No acute signs of UT or ischemia. Right bundle branch block. Discharge Plan Triage Chief Complaint: Abd Pain ED Provider: Babatunde Robins Dx/Rx/DC Orders Clinical Impression: Abdominal pain, Acute hyponatremia Instructions: Abdominal Pain, ED Hyponatremia Prescriptions: No Action finasteride [Proscar] 5 mg tablet 5 mg PO DAILY dorzolamide-timolol [Cosopt] 22.3-6.8 mg/mL drops 1 drp OPHTHALMIC BID nitroglycerin 0.4 mg tablet, sublingual 0.4 mg SUBLINGUAL Q5-15M PRN (Reason: chest pain) Qty: 25 4RF Rx Instructions: do not exceed 3 doses per episode omeprazole 40 mg capsule,delayed release(DR/EC) 40 mg PO DAILY calcium citrate-vitamin D3 [Firestone Calcium-Vitamin D3] 200 mg-6.25 mcg (250 unit) tablet 1 tab PO BID Label Comments: TAKE 1 TABLET BY MOUTH TWICE DAILY WITH FOOD doxazosin 4 MG tablet extended release 24hr 8 mg PO DAILY psyllium husk (aspartame) 1 PACKET packet 1 packet PO DAILY aspirin 81 mg Tablet 81 mg PO DAILY melatonin 10 mg Tablet 10 mg PO QHS isosorbide mononitrate 30 mg tablet extended release 24 hr 30 mg PO DAILY metoprolol succinate 25 mg tablet extended release 24 hr 25 mg PO DAILY acetaminophen 500 mg Tablet 1,000 mg PO Q8 Qty: 30 0RF Rx Instructions: [id number], no prescription required. ergocalciferol (vitamin D2) [Vitamin D2] 1,250 mcg (50,000 unit) Capsule 1,250 mcg PO Q7D Qty: 7 0RF gabapentin 100 mg Capsule 100 mg PO TIDCM Qty: 30 0RF oxycodone 5 mg Tablet 5 mg PO Q6H PRN (Reason: pain) 3 Days Qty: 12 0RF tizanidine 2 mg Tablet 2 mg PO Q8H PRN PRN (Reason: muscle spasms, strain) Qty: 10 0RF lidocaine 4 % adhesive patch,medicated 1 patch topical DAILY Qty: 30 0RF Rx Instructions: may leave on for up to 12 hrs. apply to low-back [id number], no prescription required. ibuprofen 200 mg capsule 600 mg PO Q6H PRN (Reason: pain) Qty: 30 0RF prednisone 10 mg tablet 10 mg PO DAILY Qty: 30 0RF Rx Instructions: take 2 tablets daily on 02/08 and 02/09, then resume 1 tablet daily. pyridostigmine bromide [Mestinon] 60 mg tablet 60 mg PO TID atorvastatin 80 mg tablet See Rx Instructions .ROUTE .COMPLEX Qty: 90 3RF Dose Instruction: TAKE 1 TABLET AT BEDTIME FOR CHOLESTEROL Rx Instructions: TAKE 1 TABLET AT BEDTIME FOR CHOLESTEROL amlodipine 2.5 mg tablet 2.5 mg PO DAILY Qty: 90 3RF Primary Care Provider: Oliver Mims Referrals: Oliver Mims MD [Primary Care Provider] - 1-2 Weeks Brian Cordero MD [Med Staff - Active Staff] - As soon as possible Activity Restrictions/Additional Instructions: We do not have a specific cause for your abdominal pain. It may be from gastritis which is inflammation of your stomach or an ulcer. The CAT scan and labs are basically unremarkable. Continue your Carafate and the omeprazole which should help your stomach if that is the cause of the pain. Call and follow-up with Dr. Brian Cordero if this continues. You can discuss the possibility having upper endoscopy to evaluate the inside of your stomach. Today on your labs your sodium was low at 127. Add some salt to your food over the next week. Follow-up with your primary care physician they should recheck your sodium level in 2 weeks or so. Disposition Disposition: Home, Self Care
[2023-02-23 18:34] LABS: Bacteria 0 SEEN /hpf (None Seen); Mucous, Urine 0 SEEN /hpf (<or=2+); Squamous Epithelial Cells - UA 0 SEEN /hpf (0-5); White Blood Cells 0 SEEN /hpf (0-5)
[2023-02-23 18:39] LABS: Color, Urine Yellow (Yellow); Glucose, Dipstick Normal (Normal); Ketone-Dipstick Negative (Negative); Leukocyte Esterase-Dipstick Negative /ul (Negative); Nitrite-Dipstick Negative (Negative); Occult Blood-Urine 10 /ul (Negative); Protein-Dipstick Negative (Negative); Urine Bilirubin Dipstick Negative (Negative); Urine Clarity Clear (Clear); Urine Urobilinogen Normal (Normal)
[2023-02-23 18:49] LABS: Red Blood Cells-Urine 0-5 SEEN /hpf (0-5)
[2023-02-23 18:50] LABS: Absolute Lymphocyte Count 1.16 X10^3/uL (0.83-4.51); Absolute Neutrophil Count 3.9 X10^3/uL (2.0-7.7); Basophil# 0.01 X10^3/uL; Basophil% 0.2 % (0-1); Eosinophil# 0.01 X10^3/uL; Eosinophils% 0.2 % (0-5); Hematocrit 33.6 % (40-54); Hemoglobin 11.6 g/dL (13.0-16.5); Lymphocyte # 1.16 X10^3/ul (0.83-4.51); Lymphocyte % 20.3 % (19-41); Mean Corp Hgb Conc 34.5 g/dL (32-36); Mean Corpuscular Hgb 34.4 pg (27.0-32.0); Mean Corpuscular Volume 99.7 fL (80-94); Mean Platelet Vol. 9.3 fl (6.2-12.0); Monocyte# 0.64 X10^3/uL; Monocyte% 11.2 % (0-10); NRBC Flagged by Analyzer 0 % (0-5); Neutrophil # 3.87 X10^3/uL (2.7-7.7); Neutrophil % 67.7 % (47-70); Platelet Count 218 K/mm3 (150-450); RBC Distribution Width CV 12.9 % (11.6-14.6); RBC Distribution Width SD 47.1 fl (35.1-43.9); Red Blood Count 3.37 M/mm3 (4.6-6.2); White Blood Count 5.7 K/mm3 (4.4-11.0)
[2023-02-23 18:57] LABS: ALB/GLOB Ratio 0.9 RATIO (0.9-2.4); AST(SGOT) 14 U/L (15-37); Alanine Aminotransfer ALT/SGPT 21 U/L (16-61); Albumin, Serum 2.8 g/dL (3.2-5.0); Alkaline Phosphatase 80 U/L (45-117); Amylase 69 U/L (25-115); Anion Gap 4 (5-15); BUN 10 mg/dL (7-18); Calcium,Total 8.4 mg/dL (8.5-10.1); Chloride 96 mmol/L (98-107); Creatinine, Serum 0.62 mg/dL (0.70-1.30); EST Glomerular Filtration Rate 131 mL/min (>60); Est Glom Filt Rate - Afr Amer 159 mL/min (>60); Estimated Creatinine Clearance 63.59 ml/min; Glucose 117 mg/dL (74-106); Lipase 44 U/L (13-75); Potassium 3.6 mmol/L (3.5-5.1); Protein, Total 5.8 g/dL (6.4-8.2); Sodium Level 127 mmol/L (136-145); Troponin-I HS 9 pg/mL (3.0-78.0)
--- NOTE | 2023-02-23 19:06 | CT_ITS ---
EXAM: CT ABDOMEN AND PELVIS WITH INTRAVENOUS CONTRAST CLINICAL INDICATION: epigastric abd pain TECHNIQUE: Helically acquired images were obtained of the abdomen and pelvis with intravenous contrast. This CT exam was performed using one or more of the following dose reduction techniques: automated exposure control, adjustment of the mA and/or kV according to patient size, and/or use of iterative reconstruction technique. CONTRAST: IV 100mL [id number] COMPARISON: No relevant prior studies available. FINDINGS: LOWER THORAX: There are coronary artery calcifications. Lung bases are clear. No cardiomegaly. No significant pericardial effusion. ABDOMEN: LIVER: There is a low-density lesion in the liver compatible with a cyst. GALLBLADDER AND BILE DUCTS: Unremarkable. No calcified gallstones. No gallbladder distention or wall edema. No intra- or extrahepatic biliary ductal dilation. PANCREAS: Unremarkable. No focal cystic or solid mass. SPLEEN: Unremarkable. Normal size without focal cystic or solid mass. ADRENALS: Unremarkable. No nodules. KIDNEYS AND URETERS: Unremarkable. Normal renal size and position. No hydronephrosis. STOMACH AND BOWEL: There is sigmoid diverticulosis with no evidence of diverticulitis. No stomach or bowel distention. PELVIS: APPENDIX: No evidence of acute appendicitis. BLADDER: Unremarkable. REPRODUCTIVE: Unremarkable as visualized. No mass. ABDOMEN and PELVIS: INTRAPERITONEAL SPACE: Unremarkable. No ascites or other fluid collection. No free air. BONES/JOINTS: There is an old compression deformity of L2. There is orthopedic cement seen from a kyphoplasty. No suspicious lytic or blastic abnormality. SOFT TISSUES: Unremarkable. No discrete abdominal or pelvic wall hernia. VASCULATURE: See above. LYMPH NODES: Unremarkable. No enlarged lymph nodes. CT/Abdomen/Pelvis W IV Cont ONLY IMPRESSION: No acute abnormalities in the abdomen or pelvis. Electronically Signed: Lupillo Salinas MD at 19:28 EDT ,
[2023-02-23] MEDS: fentaNYL 100 MCG/2 ML Ampul 25 MCG IV (19:31)
[2023-02-23] MEDS: Ondansetron 4 MG/2 ML Vial IV (19:32)
[2023-02-23 22:55] VITALS: RESP 18
== END 2023-02-23 22:56 | disposition home or self-care (01) ==
PROVIDERS: Emergency Provider Emergency Medicine; PCP Family Medicine; Visit Provider Emergency Medicine
DX: R10.9 Unspecified abdominal pain (principal); G70.00 Myasthenia gravis without (acute) exacerbation; E87.1 Hypo-osmolality and hyponatremia; I10 Essential (primary) hypertension; K82.9 Disease of gallbladder, unspecified; E78.5 Hyperlipidemia, unspecified; Z87.891 Personal history of nicotine dependence; E66.9 Obesity, unspecified
CPT/HCPCS: 74177; 80053; 81001; 82150; 83690; 84484; 85025; 93005; 96374; 96375; 99282; Q9967; A4216; J2405

== ENCOUNTER 2023-02-26 10:18 | Observation (INO) | payer MEDICARE, OTHER, SELFPAY ==
[2023-02-26] VITALS (7 sets, daily range): BP systolic 91–168; BP diastolic 57–80; PULSE 57–76; RESP 14–18; TEMP 36.2–36.7; O2SAT 95–98; BMI 27.3; BMI 26.9
--- NOTE | 2023-02-26 10:31 | EKG12_ITS ---
Test Reason : AM EKG Blood Pressure : / mmHG Vent. Rate : 052 BPM Atrial Rate : 052 BPM P-R Int : 156 ms QRS Dur : 098 ms QT Int : 452 ms P-R-T Axes : 048 054 063 degrees QTc Int : 420 ms Sinus bradycardia Otherwise normal ECG When compared with ECG of 26-FEB-2023 10:40, MANUAL COMPARISON REQUIRED, DATA IS UNCONFIRMED Confirmed by MILLA FRIEND, CHING ([id number]), acquisitions editor PATT WILKINS ([id number]) on 03/01/2023 2:00:13 PM Referred By: DALIA Confirmed By:CHING LOYOLA MD
--- NOTE | 2023-02-26 10:32 | EDS_ITS ---
HPI HPI - GI History of Present Illness Chief Complaint: Abd Pain Detail of Chief Complaint: Abdominal pain Informant: patient and spouse/S.O. Abdominal Pain/Flank Pain Current Severity: 10/10 Narrative Narrative: Patient presents to the emergency department with complaint of abdominal pain that started about 3-1/2 weeks ago. Patient states that he has had similar pains in the past but then it typically resolved. Patient was seen in the emergency department 3 days ago for the same complaint and had significant work- up including lab work and CT scan with IV contrast of the abdomen pelvis that was unremarkable. Patient has an appointment to see general surgeon in 4 days to evaluate for EGD. Patient states he could not sleep last night and having severe pain that he rates a 10 out of 10. He had nausea but no vomiting. He denies fever. Food really does not seem to affect the pain. Patient denies urinary symptoms. He had no fever. He denies blood in his stool or black tarry stools. Prior similar symptoms: Yes PFSH PFSH Medical History BPH (benign prostatic hyperplasia) Esophagitis Essential (primary) hypertension Gastritis Glaucoma Hemorrhoids Hyperlipidemia Myasthenia gravis (06/11/21) Obesity Vitamin D deficiency Home Medications doxazosin 4 mg tablet,extended release 24 hr 8 mg PO DAILY prostate 01/16/15 [History Last Taken 02/01/23] dorzolamide 22.3 mg-timolol 6.8 mg/mL eye drops (Cosopt) 1 drp ophthalmic (eye) BID left eye 03/04/19 [History Last Taken 02/01/23] finasteride 5 mg tablet (Proscar) 5 mg PO DAILY cholesterol 03/04/19 [History Last Taken 02/01/23] psyllium husk (aspartame) 3.4 gram oral powder packet 1 packet PO DAILY fiber 07/30/20 [History Last Taken 02/01/23] aspirin 81 mg tablet 81 mg PO DAILY heart health 02/15/21 [History Last Taken 02/01/23] melatonin 10 mg tablet 10 mg PO QHS sleep 02/15/21 [History Last Taken 01/31/23] nitroglycerin 0.4 mg sublingual tablet 0.4 mg sublingual Q5-15M PRN chest pain #25 tabs 03/26/21 [Rx Last Taken Unknown] calcium citrate 200 mg calcium-vitamin D3 6.25 mcg (250 unit) tablet ([place] Calcium-Vitamin D3) 1 tab PO BID 03/28/22 [History Last Taken 02/01/23] omeprazole 40 mg capsule,delayed release 40 mg PO DAILY 03/28/22 [History Last Taken 02/01/23] pyridostigmine bromide 60 mg tablet (Mestinon) 60 mg PO TID 03/28/22 [History Last Taken 02/01/23] atorvastatin 80 mg tablet See Rx Instructions .Route .COMPLEX #90 tabs 08/15/22 [Rx Last Taken 02/01/23] amlodipine 2.5 mg tablet 2.5 mg PO DAILY blood pressure #90 tabs 08/17/22 [Rx Last Taken 02/01/23] isosorbide mononitrate 30 mg tablet,extended release 24 hr 30 mg PO DAILY 01/22/23 [History Last Taken 02/01/23] metoprolol succinate 25 mg tablet,extended release 24 hr 25 mg PO DAILY 01/22/23 [History Last Taken 02/01/23] acetaminophen 500 mg tablet 1,000 mg PO Q8 #30 tabs 02/07/23 [Rx Last Taken Unknown] ergocalciferol (vitamin D2) 1,250 mcg (50,000 unit) capsule (Vitamin D2) 1,250 mcg PO Q7D #7 caps 02/07/23 [Rx Last Taken Unknown] gabapentin 100 mg capsule 100 mg PO TIDCM #30 caps 02/07/23 [Rx Last Taken Unknown] ibuprofen 200 mg capsule 600 mg PO Q6H PRN pain #30 caps 02/07/23 [Rx Last Taken Unknown] lidocaine 4 % topical patch 1 patch topical DAILY #30 ea 02/07/23 [Rx Last Taken Unknown] oxycodone 5 mg tablet 5 mg PO Q6H PRN pain 3 days #12 tabs 02/07/23 [Rx Last Taken Unknown] prednisone 10 mg tablet 10 mg PO DAILY #30 tabs 02/07/23 [Rx Last Taken 02/01/23] tizanidine 2 mg tablet 2 mg PO Q8H PRN PRN muscle spasms, strain #10 tabs 02/07/23 [Rx Last Taken Unknown] Allergy/AdvReac Type Severity Reaction Status Date / Time morphine AdvReac hallucinati Verified 02/26/23 10:19 ons Family History Father Pancreatitis Cancer Mother Dementia Surgical History History of appendectomy History of cataract surgery History of eye surgery History of herniorrhaphy Hx of total shoulder replacement Social History household members: spouse Smoking Status: Former smoker how long ago did patient quit smokin years ago alcohol intake: current alcohol intake frequency: holidays/special occasions only substance use type: does not use caffeine: No ROS ROS ED Review of Systems ROS Unobtainable: other Constitutional Constitutional ED: Reports lethargy; Denies chills, fever(s), sweats or weight loss Eyes Eyes: Denies blurry vision, change in vision or diplopia ENT ENT ED: Denies rhinorrhea or sore throat Cardiovascular Cardiovascular: Denies chest pain, orthopnea or racing heartbeat Respiratory/Chest Respiratory/Chest: Denies cough, dyspnea, dyspnea on exertion, orthopnea or sputum Gastrointestinal Gastrointestinal: Reports abdominal pain and nausea; Denies diarrhea or vomiting Genitourinary Genitourinary ED: Denies dysuria, hematuria or urinary frequency Musculoskeletal Musculoskeletal: Denies arthralgias, back pain, myalgias or neck pain Integumentary Denies abscess, Abrasions or rash Neurologic Neurologic: Denies headache(s) or weakness Psychiatric Psychiatric: Denies anxiety, depression or suicidal thoughts Endocrine Endocrinology: Denies polydipsia, polyphagia or polyuria Hematologic/Lymphatic Hematologic/Lymphatic: Denies easy bleeding, easy bruising or lymphadenopathy Allergic/Immunologic Allergic/Immunologic ED: Denies mouth swelling, tongue swelling or urticaria EXAM Physical Exam Const Vital Signs: 02/26/23 10:19 02/26/23 12:18 Temperature 97.2 F L Temperature Source Temporal Pulse Rate 72 57 L Respiratory Rate 18 16 Blood Pressure 91/64 168/80 H Blood Pressure Mean 73 109 Pulse Ox 96 97 Oxygen Delivery Method Room Air Room Air Positive well nourished and well developed General Appearance ED: well developed and NAD HEENT Reports TM's clear and moist mucous membranes normocephalic and atraumatic; Negative for trauma or tenderness Tympanic Membrane ED: Yes TM's clear Eyes PERRL and EOMs intact bilaterally General Eye ED: Negative for pale conjunctiva or scleral icterus Neck no lymphadenopathy, supple and no JVD General: Negative for tenderness Chest Wall inspection of chest normal and palpation of chest normal Chest: Negative for tenderness Resp normal respiratory effort and clear to auscultation bilaterally Effort and Inspection: Negative for respiratory distress or pain with movement Auscultation: Negative for rhonchi, wheezes or diminished lung sounds Cardio regular rate, regular rhythm, S1 normal heart sound, S2 normal heart sound and no murmurs Peripheral Pulses: pulses 2+ throughout GI normal to inspection, nondistended, normoactive bowel sounds, soft to palpation, non-distended and no masses GI Narrative: Tenderness to palpation over the epigastric region with some mild guarding. There is no rebound, rigidity, or peritoneal signs. No masses palpated. Back/Spine no CVA tenderness and no thoracic nor lumbar tenderness Extremity normal to inspection General Extremety ED: Negative for edema General Extremity: Negative for edema Neuro oriented x3, CN's II-XII intact bilaterally, no sensory deficits noted and gait normal Sensorium / Orientation: awake, alert, oriented to person, oriented to place and oriented to time Motor Exam: strength 5/5 throughout and strength abnormal Psych mental status grossly normal Skin no rashes or lesions noted and no wounds MDM MDM MDM Narrative Medical decision making narrative: Patient presents with abdominal pain x3-1/2 weeks. During his last visit he had a mild hyponatremia with a sodium of 127. Patient had a CT scan with IV contrast that was unremarkable. An IV line will be established. Patient will be given fentanyl and Zofran. We will repeat some of the blood work as etiology of his pain unclear although initially during his last visit it was thought it might be gastritis or peptic ulcer disease. Patient will be given Protonix IV. We will repeat scan with IV and p.o. contrast. Patient CBC with differential showed normal white count of 7.2 with hemoglobin of 11.9 and hematocrit of 34.6 with platelet count of 220. Chemistries and well. Lactate 1.4. Lipase normal and LFTs normal. CT scan of the abdomen pelvis with IV and p.o. contrast essentially did not show any significant abnormalities that would explain his pain. Patient was medicated with fentanyl and Zofran. He continues to have pain. I will give him a second dose of fentanyl. Case will be discussed with hospitalist to evaluate patient for admission for intractable abdominal pain. Lab Data Attestation: I reviewed the patient's lab results. Labs: Laboratory Results - last 24 hr 02/26/23 02/26/23 02/26/23 11:15 11:15 11:15 WBC 7.2 RBC 3.49 L Hgb 11.9 L Hct 34.6 L MCV 99.1 H MCH 34.1 H MCHC 34.4 RDW Std Deviation 45.9 H RDW Coeff of [place] 12.7 Plt Count 220 MPV 9.4 Immature Gran % (Auto) 0.600 Neut % (Auto) 48.5 Lymph % (Auto) 35.8 [place] % (Auto) 13.7 H Eos % (Auto) 0.8 Baso % (Auto) 0.6 Absolute Neuts (auto) 3.5 Absolute Lymphs (auto) 2.56 Nucleated RBC % 0 Sodium 129 L Potassium 3.5 Chloride 94 L Carbon Dioxide 28.0 Anion Gap 7 BUN 8 Creatinine 0.71 Estim Creat Clear Calc 63.59 Est GFR (MDRD) Af Amer 138 Est GFR (MDRD) Non-Af 114 BUN/Creatinine Ratio 11.3 Glucose 99 Lactic Acid 1.4 Calcium 8.1 L Total Bilirubin 0.70 AST 12 L ALT 20 Alkaline Phosphatase 86 Troponin I High Sens 12 Total Protein 5.9 L Albumin 2.8 L Globulin 3.1 Albumin/Globulin Ratio 0.9 Lipase 44 Radiography Diagnostic Testing: Clinical Impression(s) from Imaging Studies Abdomen/Pelvis CT 02/26/23 10:36 IMPRESSION: (NOT LISTED IN ORDER OF SIGNIFICANCE) Fatty liver. There are multiple colonic diverticula consistent with diverticulosis. Other findings as above. Electronically Signed: Josh Potter MD at 14:51 EDT , EKG Initial EKG: Attestation: I personally reviewed and interpreted this EKG as follows: Comments: Sinus bradycardia with a rate of 50 bpm with no acute ST segment changes Discharge Plan Dx/Rx/DC Orders Clinical Impression: Intractable abdominal pain, History of hypertension, Hx of myasthenia gravis Disposition Disposition: Acute Care Hospital [facility]
--- NOTE | 2023-02-26 10:36 | CT_ITS ---
STUDY: CT Abdomen And Pelvis W/ Contrast Injection 02/26/2023 2:28 PM REASON FOR EXAM: Male, 82 years old. Abdominal pain intractable abdominal pain Individualized dose optimization techniques were used for this CT. COMPARISON: 02.23.23. TECHNIQUE: CT Abdomen And Pelvis W/ Contrast Injection Oral and amp;amp; IV Gastrografin and amp;amp; 100mL [id number] FINDINGS: There are atherosclerotic calcifications of visualized coronary arteries. The visualized portions of the heart are within normal limits. Stable cyst in the right lobe of the liver. Normal gallbladder and extrahepatic biliary system. Normal spleen. Normal pancreas.There is decreased attenuation of the liver consistent with steatosis. Normal bilateral adrenal glands. No acute findings of the right kidney. No acute findings of the left kidney. Normal visualized stomach. Normal small intestine. There are multiple colonic diverticula consistent with diverticulosis. There is non-visualization of the appendix. There are calcifications of the abdominal aorta. This is consistent for atherosclerotic disease. There is NO abdominal aortic aneurysm. Vascular workup can be obtained based on clinical correlation. Normal inferior vena cava. Subcentimeter mesenteric lymph nodes. Normal urinary bladder. Normal abdominal wall. There are diffuse degenerative changes of the visualized lumbar spine. There is bilateral neural foraminal stenosis at L4-5 and L5-S1. L2 compression deformity with bone glue. CT/Abdomen/Pelvis WITH Contrast IMPRESSION: (NOT LISTED IN ORDER OF SIGNIFICANCE) Fatty liver. There are multiple colonic diverticula consistent with diverticulosis. Other findings as above. Electronically Signed: Josh Potter MD at 14:51 EDT ,
[2023-02-26] MEDS: 0.9% Normal Saline 1,000 ML 1000 ML IV (11:16)
[2023-02-26] MEDS: Ondansetron 4 MG/2 ML Vial IV (11:20)
[2023-02-26] MEDS: fentaNYL 100 MCG/2 ML Ampul 25 MCG IV ×2 (11:21→15:54)
[2023-02-26 11:37] LABS: Absolute Lymphocyte Count 2.56 X10^3/uL (0.83-4.51); Absolute Neutrophil Count 3.5 X10^3/uL (2.0-7.7); Basophil# 0.04 X10^3/uL; Basophil% 0.6 % (0-1); Eosinophil# 0.06 X10^3/uL; Eosinophils% 0.8 % (0-5); Hematocrit 34.6 % (40-54); Hemoglobin 11.9 g/dL (13.0-16.5); Lymphocyte # 2.56 X10^3/ul (0.83-4.51); Lymphocyte % 35.8 % (19-41); Mean Corp Hgb Conc 34.4 g/dL (32-36); Mean Corpuscular Hgb 34.1 pg (27.0-32.0); Mean Corpuscular Volume 99.1 fL (80-94); Mean Platelet Vol. 9.4 fl (6.2-12.0); Monocyte# 0.98 X10^3/uL; Monocyte% 13.7 % (0-10); NRBC Flagged by Analyzer 0 % (0-5); Neutrophil # 3.48 X10^3/uL (2.7-7.7); Neutrophil % 48.5 % (47-70); Platelet Count 220 K/mm3 (150-450); RBC Distribution Width CV 12.7 % (11.6-14.6); RBC Distribution Width SD 45.9 fl (35.1-43.9); Red Blood Count 3.49 M/mm3 (4.6-6.2); White Blood Count 7.2 K/mm3 (4.4-11.0)
[2023-02-26 11:58] LABS: ALB/GLOB Ratio 0.9 RATIO (0.9-2.4); AST(SGOT) 12 U/L (15-37); Alanine Aminotransfer ALT/SGPT 20 U/L (16-61); Albumin, Serum 2.8 g/dL (3.2-5.0); Alkaline Phosphatase 86 U/L (45-117); Anion Gap 7 (5-15); BUN 8 mg/dL (7-18); BUN/Creat Ratio 11.3 RATIO (10-20); Calcium,Total 8.1 mg/dL (8.5-10.1); Chloride 94 mmol/L (98-107); Creatinine, Serum 0.71 mg/dL (0.70-1.30); EST Glomerular Filtration Rate 114 mL/min (>60); Est Glom Filt Rate - Afr Amer 138 mL/min (>60); Estimated Creatinine Clearance 63.59 ml/min; Globulin 3.1 g/dL (2.2-4.2); Glucose 99 mg/dL (74-106); Lipase 44 U/L (13-75); Potassium 3.5 mmol/L (3.5-5.1); Protein, Total 5.9 g/dL (6.4-8.2); Sodium Level 129 mmol/L (136-145); Troponin-I HS 12 pg/mL (3.0-78.0)
[2023-02-26 12:06] LABS: Lactic Acid 1.4 mmol/L (0.4-1.9)
--- NOTE | 2023-02-26 16:05 | CON.PCM.SX_ITS ---
Assessment & Plan Assessment/Plan (1) Intractable abdominal pain: PLAN: Patient reports that he is having epigastric pain that does not go away and has been constant for 3 weeks. Patient has a history of chronic steroid use and NSAID use. He says he is not on a PPI but it is listed in his medications I am unsure if he is actually taking a PPI or not. He was started on Carafate about 5 days ago. Patient reports that eating does not make it worse or better. He reports the pain is in the epigastric region only. He does not report any pain in the right upper quadrant. I recommend getting ultrasound of the gallbladder to see if there are any gallstones. I will also likely perform an EGD in the next day or 2 to check for peptic ulcer disease. Recommend starting a PPI and starting clear liquids for today. N.p.o. after midnight in case I am able to get an EGD done tomorrow. It may be done Monday instead if I am unable to get it scheduled. Ion Cortés MD Pager: [facility] [address] [place] [address], [address] [place] [address] Office: HPI Consult Data Date of Consult: 02/26/23 HPI Narrative HPI Narrative: ZINA SALDIVAR, is a 82 M who presents with abdominal pain. The patient's pain is in the epigastric region. Patient reports has been going on for over 3 weeks. Patient denies vomiting but says he is nauseous. He denies fevers or chills. Says the pain does not radiate. He said he had pain similar to this a few years ago but had a work-up which was negative and it went away. Patient is also on chronic steroids for myasthenia gravis and had a K2 kyphoplasty 2 months ago. He was taking NSAIDs at that time. Patient is not on a PPI as far as he knows. [facility] Medical History BPH (benign prostatic hyperplasia) Esophagitis Essential (primary) hypertension Gastritis Glaucoma Hemorrhoids Hyperlipidemia Myasthenia gravis (06/11/21) Obesity Vitamin D deficiency Home Medications doxazosin 4 mg tablet,extended release 24 hr 8 mg PO DAILY prostate 01/16/15 [History Last Taken 02/01/23] dorzolamide 22.3 mg-timolol 6.8 mg/mL eye drops (Cosopt) 1 drp ophthalmic (eye) BID left eye 03/04/19 [History Last Taken 02/01/23] finasteride 5 mg tablet (Proscar) 5 mg PO DAILY cholesterol 03/04/19 [History Last Taken 02/01/23] psyllium husk (aspartame) 3.4 gram oral powder packet 1 packet PO DAILY fiber 07/30/20 [History Last Taken 02/01/23] aspirin 81 mg tablet 81 mg PO DAILY heart health 02/15/21 [History Last Taken 02/01/23] melatonin 10 mg tablet 10 mg PO QHS sleep 02/15/21 [History Last Taken 01/31/23] nitroglycerin 0.4 mg sublingual tablet 0.4 mg sublingual Q5-15M PRN chest pain #25 tabs 03/26/21 [Rx Last Taken Unknown] calcium citrate 200 mg calcium-vitamin D3 6.25 mcg (250 unit) tablet ([place] Calcium-Vitamin D3) 1 tab PO BID 03/28/22 [History Last Taken 02/01/23] omeprazole 40 mg capsule,delayed release 40 mg PO DAILY 03/28/22 [History Last Taken 02/01/23] pyridostigmine bromide 60 mg tablet (Mestinon) 60 mg PO TID 03/28/22 [History Last Taken 02/01/23] atorvastatin 80 mg tablet See Rx Instructions .Route .COMPLEX #90 tabs 08/15/22 [Rx Last Taken 02/01/23] amlodipine 2.5 mg tablet 2.5 mg PO DAILY blood pressure #90 tabs 08/17/22 [Rx Last Taken 02/01/23] isosorbide mononitrate 30 mg tablet,extended release 24 hr 30 mg PO DAILY 01/22/23 [History Last Taken 02/01/23] metoprolol succinate 25 mg tablet,extended release 24 hr 25 mg PO DAILY 01/22/23 [History Last Taken 02/01/23] acetaminophen 500 mg tablet 1,000 mg PO Q8 #30 tabs 02/07/23 [Rx Last Taken Unknown] ergocalciferol (vitamin D2) 1,250 mcg (50,000 unit) capsule (Vitamin D2) 1,250 mcg PO Q7D #7 caps 02/07/23 [Rx Last Taken Unknown] gabapentin 100 mg capsule 100 mg PO TIDCM #30 caps 02/07/23 [Rx Last Taken Unknown] ibuprofen 200 mg capsule 600 mg PO Q6H PRN pain #30 caps 02/07/23 [Rx Last Taken Unknown] lidocaine 4 % topical patch 1 patch topical DAILY #30 ea 02/07/23 [Rx Last Taken Unknown] oxycodone 5 mg tablet 5 mg PO Q6H PRN pain 3 days #12 tabs 02/07/23 [Rx Last Taken Unknown] prednisone 10 mg tablet 10 mg PO DAILY #30 tabs 02/07/23 [Rx Last Taken 02/01/23] tizanidine 2 mg tablet 2 mg PO Q8H PRN PRN muscle spasms, strain #10 tabs 02/07/23 [Rx Last Taken Unknown] Allergy/AdvReac Type Severity Reaction Status Date / Time morphine AdvReac hallucinati Verified 02/26/23 10:19 ons Family History Father Pancreatitis Cancer Mother Dementia Surgical History History of appendectomy History of cataract surgery History of eye surgery History of herniorrhaphy Hx of total shoulder replacement Social History household members: spouse Smoking Status: Former smoker how long ago did patient quit smokin years ago alcohol intake: current alcohol intake frequency: holidays/special occasions only substance use type: does not use caffeine: No ROS Constitutional Constitutional: Denies anorexia, chills, fatigue or fever(s) Eyes Eyes: Denies blurry vision ENT HEENT: Denies abnormal hearing Cardiovascular Cardiovascular: Denies chest pain Respiratory/Chest Respiratory/Chest: Denies cough or dyspnea Gastrointestinal Gastrointestinal: Reports abdominal pain and nausea; Denies change in bowel habits, coffee ground emesis, rectal bleeding or vomiting Genitourinary Genitourinary: Denies change in urinary stream Musculoskeletal Musculoskeletal: Denies abnormal gait Integumentary Integumentary: Denies jaundice or new lesions Neurologic Neurologic: Denies abnormal gait Psychiatric Psychiatric: Denies anxiety Endocrine Endocrinology: Denies flushing Hematologic/Lymphatic Hematologic/Lymphatic: Denies easy bleeding Physical Exam Const alert and oriented x3 HEENT normocephalic Eyes PERRL Resp normal respiratory effort Cardio Rate: regular rate Rhythm: regular rhythm GI soft to palpation Palpation: tender epigastric Extremity normal to inspection Lab / Micro Data Result Diagrams: 02/26/23 11:15 02/26/23 11:15 Labs: Laboratory Results - last 24 hr 02/26/23 11:15: WBC 7.2, RBC 3.49 L, Hgb 11.9 L, Hct 34.6 L, MCV 99.1 H, MCH 34.1 H, MCHC 34.4, RDW Std Deviation 45.9 H, RDW Coeff of [place] 12.7, Plt Count 220, MPV 9.4, Immature Gran % (Auto) 0.600, Neut % (Auto) 48.5, Lymph % (Auto) 35.8, [place] % (Auto) 13.7 H, Eos % (Auto) 0.8, Baso % (Auto) 0.6, Absolute Neuts (auto) 3.5, Absolute Lymphs (auto) 2.56, Nucleated RBC % 0 02/26/23 11:15: Sodium 129 L, Potassium 3.5, Chloride 94 L, Carbon Dioxide 28.0, Anion Gap 7, BUN 8, Creatinine 0.71, Estim Creat Clear Calc 63.59, Est GFR (MDRD) Af Amer 138, Est GFR (MDRD) Non-Af 114, BUN/Creatinine Ratio 11.3, Glucose 99, Calcium 8.1 L, Total Bilirubin 0.70, AST 12 L, ALT 20, Alkaline Phosphatase 86, Troponin I High Sens 12, Total Protein 5.9 L, Albumin 2.8 L, Globulin 3.1, Albumin/Globulin Ratio 0.9, Lipase 44 02/26/23 11:15: Lactic Acid 1.4 Radiology Impression Abdomen/Pelvis CT 02/26/23 10:36 IMPRESSION: (NOT LISTED IN ORDER OF SIGNIFICANCE) Fatty liver. There are multiple colonic diverticula consistent with diverticulosis. Other findings as above. Electronically Signed: Josh Potter MD at 14:51 EDT ,
--- NOTE | 2023-02-26 16:56 | PCM.HP.STD ---
[facility] - General General Date of Admission: 02/26/23 HPI Narrative ZINA SALDIVAR, is a 82 M who presents to the hospital with abdominal pain for the last 3-1/2 weeks. He says it is in the middle of his abdomen and is not associated with p.o. intake. He says it is fairly constant and he continues to take his Carafate which has not made a difference and he also tried taking Pepto-Bismol tablets which did not help. There is some confusion as to whether or not he is on a PPI, it is on his medical list but he says that he does not take it. In the ER no significant findings, CT of his abdomen pelvis is unremarkable, general surgery was consulted and felt that he might have gallstones and would benefit from an ultrasound. He remains afebrile without a leukocytosis. He did have a CT scan a few days ago which was also negative. [facility] Medical History BPH (benign prostatic hyperplasia) Esophagitis Essential (primary) hypertension Gastritis Glaucoma Hemorrhoids Hyperlipidemia Myasthenia gravis (06/11/21) Obesity Vitamin D deficiency Home Medications doxazosin 4 mg tablet,extended release 24 hr 8 mg PO DAILY prostate 01/16/15 [History Last Taken 02/01/23] dorzolamide 22.3 mg-timolol 6.8 mg/mL eye drops (Cosopt) 1 drp ophthalmic (eye) BID left eye 03/04/19 [History Last Taken 02/01/23] finasteride 5 mg tablet (Proscar) 5 mg PO DAILY cholesterol 03/04/19 [History Last Taken 02/01/23] psyllium husk (aspartame) 3.4 gram oral powder packet 1 packet PO DAILY fiber 07/30/20 [History Last Taken 02/01/23] aspirin 81 mg tablet 81 mg PO DAILY heart health 02/15/21 [History Last Taken 02/01/23] melatonin 10 mg tablet 10 mg PO QHS sleep 02/15/21 [History Last Taken 01/31/23] nitroglycerin 0.4 mg sublingual tablet 0.4 mg sublingual Q5-15M PRN chest pain #25 tabs 03/26/21 [Rx Last Taken Unknown] calcium citrate 200 mg calcium-vitamin D3 6.25 mcg (250 unit) tablet (Pender Calcium-Vitamin D3) 1 tab PO BID 03/28/22 [History Last Taken 02/01/23] omeprazole 40 mg capsule,delayed release 40 mg PO DAILY 03/28/22 [History Last Taken 02/01/23] pyridostigmine bromide 60 mg tablet (Mestinon) 60 mg PO TID 03/28/22 [History Last Taken 02/01/23] atorvastatin 80 mg tablet See Rx Instructions .Route .COMPLEX #90 tabs 08/15/22 [Rx Last Taken 02/01/23] amlodipine 2.5 mg tablet 2.5 mg PO DAILY blood pressure #90 tabs 08/17/22 [Rx Last Taken 02/01/23] isosorbide mononitrate 30 mg tablet,extended release 24 hr 30 mg PO DAILY 01/22/23 [History Last Taken 02/01/23] metoprolol succinate 25 mg tablet,extended release 24 hr 25 mg PO DAILY 01/22/23 [History Last Taken 02/01/23] acetaminophen 500 mg tablet 1,000 mg PO Q8 #30 tabs 02/07/23 [Rx Last Taken Unknown] ergocalciferol (vitamin D2) 1,250 mcg (50,000 unit) capsule (Vitamin D2) 1,250 mcg PO Q7D #7 caps 02/07/23 [Rx Last Taken Unknown] gabapentin 100 mg capsule 100 mg PO TIDCM #30 caps 02/07/23 [Rx Last Taken Unknown] ibuprofen 200 mg capsule 600 mg PO Q6H PRN pain #30 caps 02/07/23 [Rx Last Taken Unknown] lidocaine 4 % topical patch 1 patch topical DAILY #30 ea 02/07/23 [Rx Last Taken Unknown] oxycodone 5 mg tablet 5 mg PO Q6H PRN pain 3 days #12 tabs 02/07/23 [Rx Last Taken Unknown] prednisone 10 mg tablet 10 mg PO DAILY #30 tabs 02/07/23 [Rx Last Taken 02/01/23] tizanidine 2 mg tablet 2 mg PO Q8H PRN PRN muscle spasms, strain #10 tabs 02/07/23 [Rx Last Taken Unknown] Allergy/AdvReac Type Severity Reaction Status Date / Time morphine AdvReac hallucinati Verified 02/26/23 10:19 ons Family History Father Pancreatitis Cancer Mother Dementia Surgical History History of appendectomy History of cataract surgery History of eye surgery History of herniorrhaphy Hx of total shoulder replacement Social History household members: spouse Smoking Status: Former smoker how long ago did patient quit smokin years ago alcohol intake: current alcohol intake frequency: holidays/special occasions only substance use type: does not use caffeine: No ROS Constitutional Constitutional: Denies chills, fatigue, fever(s) or malaise Eyes Eyes: Denies blurry vision ENT HEENT: Denies headache(s) or nasal discharge Cardiovascular Cardiovascular: Denies chest pain, dyspnea on exertion or syncope Respiratory/Chest Respiratory/Chest: Denies cough, shortness of breath at rest or shortness of breath with exertion Gastrointestinal Gastrointestinal: Reports abdominal pain and nausea; Denies constipation, diarrhea or vomiting Genitourinary Genitourinary: Denies dysuria Neurologic Neurologic: Denies focal weakness, numbness or tremor(s) Psychiatric Psychiatric: Denies anxiety or depression Vital Signs Vital Signs Vital Signs: 02/26/23 10:19 02/26/23 12:18 Temperature 97.2 F L Temperature Source Temporal Pulse Rate 72 57 L Respiratory Rate 18 16 Blood Pressure 91/64 168/80 H Blood Pressure Mean 73 109 Pulse Ox 96 97 Oxygen Delivery Method Room Air Room Air Weight Weight: 202 lb Body Mass Index (BMI) 27.3 Physical Exam Narrative General: Alert, Oriented x3, Cooperative, No apparent distress HEENT: Atraumatic, PERRLA, EOMI, Normocephalic Oral: Moist Mucosa Neck: Supple, No JVD Lungs: Clear to auscultation, Normal air movement, No rhonchi, No wheeze, No rales Cardiovascular: Regular rate, Regular Rhythm, Normal S1, Normal S2, No murmurs Abdomen: Soft, mild epigastric tender, Non-Distended, No Hepato-splenomegaly Extremities: No edema, Capillary Refill Less than 3 Seconds Skin: No rashes, No breakdown Musculoskeletal: No Tenderness to Palpation of Joints or Extremities Neurological: Cranial nerves II-XII grossly intact, Motor Exam 5/5 strength throughout, Sensory exam intact to light touch and pain Psych/Mental Status: Flat affect Results Lab / Micro Data Result Diagrams: 02/26/23 11:15 02/26/23 11:15 Labs: Laboratory Results - last 24 hr 02/26/23 11:15: WBC 7.2, RBC 3.49 L, Hgb 11.9 L, Hct 34.6 L, MCV 99.1 H, MCH 34.1 H, MCHC 34.4, RDW Std Deviation 45.9 H, RDW Coeff of Chele 12.7, Plt Count 220, MPV 9.4, Immature Gran % (Auto) 0.600, Neut % (Auto) 48.5, Lymph % (Auto) 35.8, [place] % (Auto) 13.7 H, Eos % (Auto) 0.8, Baso % (Auto) 0.6, Absolute Neuts (auto) 3.5, Absolute Lymphs (auto) 2.56, Nucleated RBC % 0 02/26/23 11:15: Sodium 129 L, Potassium 3.5, Chloride 94 L, Carbon Dioxide 28.0, Anion Gap 7, BUN 8, Creatinine 0.71, Estim Creat Clear Calc 63.59, Est GFR (MDRD) Af Amer 138, Est GFR (MDRD) Non-Af 114, BUN/Creatinine Ratio 11.3, Glucose 99, Calcium 8.1 L, Total Bilirubin 0.70, AST 12 L, ALT 20, Alkaline Phosphatase 86, Troponin I High Sens 12, Total Protein 5.9 L, Albumin 2.8 L, Globulin 3.1, Albumin/Globulin Ratio 0.9, Lipase 44 02/26/23 11:15: Lactic Acid 1.4 Radiology Impression Abdomen/Pelvis CT 02/26/23 10:36 IMPRESSION: (NOT LISTED IN ORDER OF SIGNIFICANCE) Fatty liver. There are multiple colonic diverticula consistent with diverticulosis. Other findings as above. Electronically Signed: Josh Potter MD at 14:51 EDT , Assessment & Plan Assessment/Plan (1) Abdominal pain: PLAN: Plan 1. Abdominal pain in epigastric region/history of gastritis and esophagitis ? Could be an ulcer versus early cholecystitis ? We will obtain a ultrasound of his gallbladder ? Continue with his home Carafate and will place him on IV PPI which she received a dose of in the ER ? Appreciate general surgery's assistance ? He was taking NSAIDs for his recent L2 compression fracture as well as chronic prednisone for his myasthenia gravis 2. HTN/HLD ? Blood pressures are stable, can resume his home blood pressure medications when verified ? Can resume his lipid medications when verified 3. Myasthenia gravis ? Currently stable ? Can continue his home medications for this when verified ? He is on chronic prednisone which could cause ulcerations in his abdominal pain 4. BPH ? Stable ? Continue with his home medications DVT: SCDs 76 minutes was spent on direct patient care as well as chart review and collaboration with colleagues Charges/Coding Visit Charges Inpatient E&M: 35838 Init Hosp L3
[2023-02-26] MEDS: Doxazosin 4 MG Tablet 8 MG PO (22:19)
[2023-02-26] MEDS: Sucralfate 1 GM Tablet PO (22:19)
[2023-02-26] MEDS: Acetaminophen 325 MG Tablet 650 MG PO (22:20)
[2023-02-26] MEDS: MELATONIN 10 MG TABLET PO (22:20)
[2023-02-26] MEDS: Atorvastatin Calcium 40 MG Tablet PO (22:20)
[2023-02-26] MEDS: Dorzolamide HCL/Timolol 10 ml Bottle 1 DRP OPHTHALMIC (22:21)
[2023-02-26] MEDS: 0.9% Saline Lock 10 ML Syringe IV (22:22)
[2023-02-27] VITALS (9 sets, daily range): BP systolic 93–147; BP diastolic 59–82; PULSE 55–68; RESP 16–18; TEMP 36.5–36.8; O2SAT 94–98; BMI 26.9
[2023-02-27] MEDS: tiZANidine HCl 2 MG Tablet PO ×2 (00:02→20:07)
[2023-02-27] MEDS: Acetaminophen 325 MG Tablet 650 MG PO (04:56)
[2023-02-27] MEDS: Sucralfate 1 GM Tablet PO ×3 (04:56→20:05)
--- NOTE | 2023-02-27 05:00 | RAD_ITS ---
EXAM: XR CHEST, 1 VIEW CLINICAL INDICATION: preop TECHNIQUE: Frontal view of the chest. COMPARISON: February 15, 2021. Exams back to August 06, 2020. FINDINGS: LUNGS AND PLEURAL SPACES: Slightly prominent linear markings in the lung bases, no definite infiltrate or effusion. No pneumothorax. HEART: Unremarkable. Cardiac silhouette not enlarged. MEDIASTINUM: Central airways and mediastinal contour are unremarkable. BONES/JOINTS: There are postoperative changes of the left shoulder with prosthesis, components appear stable. SOFT TISSUES: Unremarkable. RAD/Chest 1 View (Portable) IMPRESSION: Stable chest. Left shoulder prosthesis. No acute intrathoracic abnormality. Electronically Signed: May Gonzalez MD at 6:19 EDT ,
[2023-02-27 06:03] LABS: Absolute Lymphocyte Count 1.84 X10^3/uL (0.83-4.51); Absolute Neutrophil Count 2.5 X10^3/uL (2.0-7.7); Basophil# 0.04 X10^3/uL; Basophil% 0.8 % (0-1); Eosinophils% 1.9 % (0-5); Hematocrit 34.8 % (40-54); Hemoglobin 11.8 g/dL (13.0-16.5); Lymphocyte # 1.84 X10^3/ul (0.83-4.51); Lymphocyte % 34.5 % (19-41); Mean Corp Hgb Conc 33.9 g/dL (32-36); Mean Corpuscular Hgb 33.9 pg (27.0-32.0); Mean Platelet Vol. 8.7 fl (6.2-12.0); Monocyte# 0.78 X10^3/uL; Monocyte% 14.6 % (0-10); NRBC Flagged by Analyzer 0 % (0-5); Neutrophil # 2.53 X10^3/uL (2.7-7.7); Neutrophil % 47.4 % (47-70); Platelet Count 205 K/mm3 (150-450); RBC Distribution Width CV 12.9 % (11.6-14.6); RBC Distribution Width SD 47.1 fl (35.1-43.9); Red Blood Count 3.48 M/mm3 (4.6-6.2); White Blood Count 5.3 K/mm3 (4.4-11.0)
[2023-02-27 06:26] LABS: International Normalized Ratio 1.1; Prothrombin Time (Protime)PT. 14.6 SECONDS (11.7-14.9)
[2023-02-27 06:27] LABS: Partial Thromboplast Time 30.9 Seconds (24.1-36.2)
[2023-02-27 06:40] LABS: Anion Gap 5 (5-15); BUN 8 mg/dL (7-18); BUN/Creat Ratio 14.7 RATIO (10-20); Calcium,Total 7.9 mg/dL (8.5-10.1); Chloride 99 mmol/L (98-107); Creatinine, Serum 0.55 mg/dL (0.70-1.30); EST Glomerular Filtration Rate 153 mL/min (>60); Est Glom Filt Rate - Afr Amer 185 mL/min (>60); Estimated Creatinine Clearance 63.59 ml/min; Glucose 95 mg/dL (74-106); Potassium 3.6 mmol/L (3.5-5.1); Sodium Level 131 mmol/L (136-145)
--- NOTE | 2023-02-27 07:00 | US_ITS ---
STUDY: ABDOMINAL ULTRASOUND - RIGHT UPPER QUADRANT REASON FOR VISIT: Male, 82 years old Upper abdominal pain TECHNIQUE: Ultrasound evaluation of the right upper quadrant was performed with real-time and static garcia-scale imaging. TECHNICAL QUALITY: Adequate. COMPARISON: Comparison is made with prior CT scan of abdomen and pelvis dated February 26, 2023. FINDINGS: Liver: The liver measures 14.7 cm. There is increased echogenicity consistent with fatty infiltration. The bile ducts are within normal limits. There is hepatic color flow. The direction of portal flow is hepatopetal. There is a 3.3 cm x 3.7 cm x 3.5 cm cyst in the right lobe of the liver. Gallbladder: Normal distended gallbladder. The gallbladder wall measures 2.0 mm. There is a negative sonographic Clarke''s sign. There is no pericholecystic fluid. There are no gallstones. Common Bile Duct (C.B.D.): The common bile duct measures 4 mm. Pancreas: Normal size of the head, body and tail of the pancreas. There is normal echogenicity of the pancreas. There is no demonstrated pancreatic mass or cyst. Right Kidney: Normal size of the right kidney. The right kidney measures 11 cm x 6 cm x 5.4 cm. Normal renal cortex. The right cortex measures 1.5 cm. 1.7 cm x 1.8 cm x 2 cm right renal cyst. There is no right hydronephrosis. US/Gallbladder IMPRESSION: Fatty infiltration of the liver. 3.3 cm x 3.7 cm x 3.5 cm cyst in the right lobe of the liver. Electronically Signed: Dimitri Anaya MD at 10:02 EDT ,
--- NOTE | 2023-02-27 07:26 | PCM.PN.SRG ---
Subjective Subjective Patient reports he is still having epigastric pain. Objective Data Objective Data Vital Signs: Vital Signs Temp Pulse Resp BP Pulse Ox O2 Del Method 98.1 F 56 L 18 138/66 H 96 Room Air 02/27/23 03:23 02/27/23 03:23 02/27/23 03:23 02/27/23 03:23 02/27/23 03:23 02/27/23 03:23 Oxygen Delivery Method Room Air Weight: 198 lb 10.184 oz Body Mass Index (BMI) 26.9 Intake & Output: Intake and Output for Last 24 Hours 02/25/23 02/26/23 02/27/23 23:59 23:59 23:59 Intake Total 1110 / 1310 200 / 200 Balance 1110 / 1310 200 / 200 Lab / Micro Data Result Diagrams: 02/27/23 05:50 02/27/23 05:50 Labs: Laboratory Results - last 24 hr 02/26/23 11:15: WBC 7.2, RBC 3.49 L, Hgb 11.9 L, Hct 34.6 L, MCV 99.1 H, MCH 34.1 H, MCHC 34.4, RDW Std Deviation 45.9 H, RDW Coeff of Chele 12.7, Plt Count 220, MPV 9.4, Immature Gran % (Auto) 0.600, Neut % (Auto) 48.5, Lymph % (Auto) 35.8, [place] % (Auto) 13.7 H, Eos % (Auto) 0.8, Baso % (Auto) 0.6, Absolute Neuts (auto) 3.5, Absolute Lymphs (auto) 2.56, Nucleated RBC % 0 02/26/23 11:15: Sodium 129 L, Potassium 3.5, Chloride 94 L, Carbon Dioxide 28.0, Anion Gap 7, BUN 8, Creatinine 0.71, Estim Creat Clear Calc 63.59, Est GFR (MDRD) Af Amer 138, Est GFR (MDRD) Non-Af 114, BUN/Creatinine Ratio 11.3, Glucose 99, Calcium 8.1 L, Total Bilirubin 0.70, AST 12 L, ALT 20, Alkaline Phosphatase 86, Troponin I High Sens 12, Total Protein 5.9 L, Albumin 2.8 L, Globulin 3.1, Albumin/Globulin Ratio 0.9, Lipase 44 02/26/23 11:15: Lactic Acid 1.4 02/27/23 05:50: Sodium 131 L, Potassium 3.6, Chloride 99, Carbon Dioxide 27.0, Anion Gap 5, BUN 8, Creatinine 0.55 L, Estim Creat Clear Calc 63.59, Est GFR (MDRD) Af Amer 185, Est GFR (MDRD) Non-Af 153, BUN/Creatinine Ratio 14.7, Glucose 95, Calcium 7.9 L 02/27/23 05:50: WBC 5.3, RBC 3.48 L, Hgb 11.8 L, Hct 34.8 L, MCV 100.0 H, MCH 33.9 H, MCHC 33.9, RDW Std Deviation 47.1 H, RDW Coeff of Chele 12.9, Plt Count 205, MPV 8.7, Immature Gran % (Auto) 0.800, Neut % (Auto) 47.4, Lymph % (Auto) 34.5, [place] % (Auto) 14.6 H, Eos % (Auto) 1.9, Baso % (Auto) 0.8, Absolute Neuts (auto) 2.5, Absolute Lymphs (auto) 1.84, Nucleated RBC % 0 02/27/23 05:50: PT 14.6, INR 1.1, APTT 30.9 Radiography Diagnostic Testing: Radiology Impression Abdomen/Pelvis CT 02/26/23 10:36 IMPRESSION: (NOT LISTED IN ORDER OF SIGNIFICANCE) Fatty liver. There are multiple colonic diverticula consistent with diverticulosis. Other findings as above. Electronically Signed: Josh Potter MD at 14:51 EDT , Chest X-Ray 02/27/23 05:00 IMPRESSION: Stable chest. Left shoulder prosthesis. No acute intrathoracic abnormality. Electronically Signed: May Gonzalez MD at 6:19 EDT , Physical Exam Const oriented x3 Resp normal respiratory effort GI soft to palpation and non-tender Inspection: Negative for abdominal distention Assessment & Plan Assessment/Plan (1) Abdominal pain: PLAN: Patient is on a PPI. He is having ultrasound the gallbladder today, checking for cholelithiasis. I will also perform an EGD this afternoon to check for gastric ulcers. I explained endoscopy in detail to the patient. I explained the risks including but not limited to stroke or heart attack with anesthesia, perforation of the GI tract, bleeding, infection. I explained that any of these could necessitate further emergency surgery. The patient understands and all questions were answered sufficiently. The patient wishes to proceed with procedure. Ion Cortés MD Pager: [facility] [address] [place] [address], [address] [place] [address] Office:
--- NOTE | 2023-02-27 07:35 | PN.HOSP_ITS ---
Reason for Visit Reason for Visit: Diagnoses Unspecified abdominal pain (02/26/23) Subjective Subjective Patient is an 82-year-old gentleman admitted with abdominal pain. Admitted to regular nursing floor where he is currently undergoing evaluation Objective Data Objective Data Vital Signs: Vital Signs Temp Pulse Resp BP Pulse Ox O2 Del Method 98.1 F 56 L 18 138/66 H 96 Room Air 02/27/23 03:23 02/27/23 03:23 02/27/23 03:23 02/27/23 03:23 02/27/23 03:23 02/27/23 03:23 Oxygen Delivery Method Room Air Weight: 90.1 kg Body Mass Index (BMI) 26.9 Intake & Output: Intake and Output for Last 24 Hours 02/25/23 02/26/23 02/27/23 23:59 23:59 23:59 Intake Total 1110 / 1310 200 / 200 Balance 1110 / 1310 200 / 200 Lab / Micro Data Result Diagrams: 02/27/23 05:50 02/27/23 05:50 Labs: Laboratory Results - last 24 hr 02/26/23 11:15: WBC 7.2, RBC 3.49 L, Hgb 11.9 L, Hct 34.6 L, MCV 99.1 H, MCH 34.1 H, MCHC 34.4, RDW Std Deviation 45.9 H, RDW Coeff of Chele 12.7, Plt Count 220, MPV 9.4, Immature Gran % (Auto) 0.600, Neut % (Auto) 48.5, Lymph % (Auto) 35.8, [place] % (Auto) 13.7 H, Eos % (Auto) 0.8, Baso % (Auto) 0.6, Absolute Neuts (auto) 3.5, Absolute Lymphs (auto) 2.56, Nucleated RBC % 0 02/26/23 11:15: Sodium 129 L, Potassium 3.5, Chloride 94 L, Carbon Dioxide 28.0, Anion Gap 7, BUN 8, Creatinine 0.71, Estim Creat Clear Calc 63.59, Est GFR (MDRD) Af Amer 138, Est GFR (MDRD) Non-Af 114, BUN/Creatinine Ratio 11.3, Glucose 99, Calcium 8.1 L, Total Bilirubin 0.70, AST 12 L, ALT 20, Alkaline Phosphatase 86, Troponin I High Sens 12, Total Protein 5.9 L, Albumin 2.8 L, Globulin 3.1, Albumin/Globulin Ratio 0.9, Lipase 44 02/26/23 11:15: Lactic Acid 1.4 02/27/23 05:50: Sodium 131 L, Potassium 3.6, Chloride 99, Carbon Dioxide 27.0, Anion Gap 5, BUN 8, Creatinine 0.55 L, Estim Creat Clear Calc 63.59, Est GFR (MDRD) Af Amer 185, Est GFR (MDRD) Non-Af 153, BUN/Creatinine Ratio 14.7, Glucose 95, Calcium 7.9 L 02/27/23 05:50: WBC 5.3, RBC 3.48 L, Hgb 11.8 L, Hct 34.8 L, MCV 100.0 H, MCH 33.9 H, MCHC 33.9, RDW Std Deviation 47.1 H, RDW Coeff of Chele 12.9, Plt Count 205, MPV 8.7, Immature Gran % (Auto) 0.800, Neut % (Auto) 47.4, Lymph % (Auto) 34.5, [place] % (Auto) 14.6 H, Eos % (Auto) 1.9, Baso % (Auto) 0.8, Absolute Neuts (auto) 2.5, Absolute Lymphs (auto) 1.84, Nucleated RBC % 0 02/27/23 05:50: PT 14.6, INR 1.1, APTT 30.9 Radiography Diagnostic Testing: Radiology Impression Abdomen/Pelvis CT 02/26/23 10:36 IMPRESSION: (NOT LISTED IN ORDER OF SIGNIFICANCE) Fatty liver. There are multiple colonic diverticula consistent with diverticulosis. Other findings as above. Electronically Signed: Josh Potter MD at 14:51 EDT , Chest X-Ray 02/27/23 05:00 IMPRESSION: Stable chest. Left shoulder prosthesis. No acute intrathoracic abnormality. Electronically Signed: May Gonzalez MD at 6:19 EDT , Physical Exam Narrative GENERAL: cooperative HEENT: Atraumatic; normocephalic EYES; Anicteric, Normal Conjunctiva NECK; supple, normal thyroid, RESPIRATORY: Diminished to auscultation CARDIOVASCULAR: Regular S1 S2, GI: soft, normoactive bowel sounds, : No Renal angle tenderness; EXTREMITIES: No edema, no clubbing, MUSCULOSKELETAL: no muscle wasting NEURO: Awake; no lateralizing signs. SKIN: No Rash PSYCH; Flat affect Assessment & Plan Assessment/Plan (1) Abdominal pain: PLAN: Plan Patient is an 82-year-old gentleman admitted with abdominal pain. Admitted to regular nursing floor where he is currently undergoing evaluation Abdominal pain ? Ultrasound of the gallbladder ordered for evaluation. Seen in consultation by general surgery plan is for patient to undergo EGD given his history of gastritis and esophagitis. 2. Hypertension - Blood pressure controlled, home medications continued with dose adjustment as needed 3. Dyslipidemia -Patient is on statin therapy, continued at home dose 4. Myasthenia gravis ? Patient is on pyridostigmine did continue 5. BPH ? Patient is on doxazosin as well as finasteride continued 6. GERD ? Patient is on PPI 7. History of L2 compression fracture ? Patient was taking NSAIDs as well as narcotics patient NSAIDs placed on hold 8. DVT prophylaxis ? SC Lovenox Time spent in the patient's overall evaluation,decision-making process, review of diagnostic data, adjustment of management, discussion with other providers, nursing nursing and ancillary staff involved in patient's care documentation, 35 Minutes Charges/Coding Visit Charges Inpatient E&M: 91595 Subs Hosp L2
[2023-02-27] MEDS: Dorzolamide HCL/Timolol 10 ml Bottle 1 DRP OPHTHALMIC ×2 (10:35→20:06)
--- NOTE | 2023-02-27 10:40 | CASEMGMT ---
ETHAN REY: Face to face visit with pt and his spouse at bedside. Pt states he has been ambulating without difficulty at home without need for assistive devices or outpt tx since previous admission for back pain/kyphoplasty. Pt states he has followed-up with Dr. Macias and has plans for a steroid injection in the near future to assist with ongoing pain. Pt denies any needs or concerns with discharging home from this admission. Man Millard RN CM
--- NOTE | 2023-02-27 12:06 | NURSING ---
pt off floor for egd
[2023-02-27] MEDS: Lactated Ringers 1,000 ML 15 ML IV (12:15)
--- NOTE | 2023-02-27 13:00 | IMM_PTH ---
PATIENT: ZINA SALDIVAR LOC: MS3 U#:[id number] AGE/SX: 82/M ROOM: [facility] RE02/26/[address]: Dr. Josiah Johnson MD : 1940 BED: 1 DIS: 02/28/2023 SPEC #: [id number] RECD: 02/28/23 12:40 STATUS: BEATRIZ REQ #: [id number] ROBIN: 02/27/23 13:[address]: Ion Cortés DEPT: IMMUNOHISTOCHEMISTRY RECD BY: Lesli Sarabia ENTERED: 02/28/23 12:41 SP TYPE: IMMUNO OTHR DR: MD Dr. Oliver Green MD Dr. Nicholas F Kotsonis, MD Tissues: Stomach, NOS Procedures: H Pylori (initial) PHYSICIAN & INSTITUTION [place] [address] SPECIMEN INFORMATION: Tissue Source: Antrum biopsy Clinical Info: Abdominal pain Specimen Number: [id number] CPT code: 51243 METHODOLOGY: Deparaffinized sections of prefer/formalin-fixed tissue or PAP/DQ stained slides are incubated with monoclonal/polyclonal antibodies/oligonucleotide probes. Localization is made via biotin free immunoperoxidase method. Appropriate controls are performed and reacted as expected. Results on target cell population are indicated in the following table: RESULTS: ANTIBODY / CLONE RESULT H Pylori (polyclonal) negative These tests were developed and their performance characteristics determined by [facility]. They may not have been cleared or approved by the U.S. Food and Drug Administration. The FDA has determined that such clearance or approval is not necessary. The above immunohistochemical/dualISH markers are ordered and reviewed by the Pathologist. INTERPRETATION: Antrum, biopsy: Negative for Helicobacter pylori organisms. MARICARMEN:juan luis 03/01/2023
--- NOTE | 2023-02-27 13:00 | EGD_PTH ---
PATIENT: ZINA SALDIVAR LOC: MS3 U#:[id number] AGE/SX: 82/M ROOM: [facility] RE02/26/[address]: Dr. Josiah Johnson MD : 1940 BED: 1 DIS: 02/28/2023 SPEC #: [id number] RECD: 02/27/23 14:19 STATUS: BEATRIZ RECas #: [id number] ROBIN: 02/27/23 13:[address]: Ion Cortés DEPT: SURGICAL PATHOLOGY RECD BY: Deandre Le ENTERED: 02/28/23 07:54 SP TYPE: EGD BIOPSY OT DR: MD Dr. Oliver Green MD Dr. Nicholas F Kotsonis, MD Tissues: Gastric mucous membrane Procedures: Surgery Specimen Level IV HEADER OPERATION: EGD ([facility] [place]) with biopsy PRE-OP DIAGNOSIS: Abdominal pain TISSUE SUBMITTED: Antrum biopsy ulcer for H. pylori and path MICROSCOPIC DIAGNOSIS Antrum ulcer, biopsy: Mild gastritis. See microscopic description and comment. MARICARMEN:juan luis 03/01/2023 COMMENT The results of immunohistochemistry for Helicobacter pylori will be reported separately ([id number]). MICROSCOPIC DESCRIPTION Slides are reviewed. The specimen shows fragments of gastric mucosa with chronic inflammatory cell infiltrates in the lamina propria consisting of lymphocytes and plasma cells, consistent with mild chronic gastritis. GROSS DESCRIPTION Received in fixative is one container labeled with the patient's name and designated antrum ulcer biopsy. The specimen consists of multiple irregular fragments of light mayes soft tissue that in aggregate measure 0.9 x 0.4 x 0.1 cm. The specimen is totally submitted in one cassette. / MARICARMEN:juan luis 02/28/2023 TC:3 CPT: 75884
--- NOTE | 2023-02-27 13:13 | OP.EGD_ITS ---
Patient Name: Scott Chatman Procedure Date: 02/27/2023 12:47 PM Date of : 1940 Age: 82 Procedure: Upper GI endoscopy Indications: Epigastric abdominal pain Providers: Ion Cortés MD Medicines: Monitored Anesthesia Care Patient Profile: This is an 82 year old male. Refer to note in patient chart for documentation of history and physical. Complications: No immediate complications. Procedure: Pre-Anesthesia Assessment: - Prior to the procedure, a History and Physical was performed, and patient medications and allergies were reviewed. The patient's tolerance of previous anesthesia was also reviewed. The risks and benefits of the procedure and the sedation options and risks were discussed with the patient. All questions were answered, and informed consent was obtained. Prior Anticoagulants: The patient has taken no previous anticoagulant or antiplatelet agents. After reviewing the risks and benefits, the patient was deemed in satisfactory condition to undergo the procedure. After obtaining informed consent, the endoscope was passed under direct vision. Throughout the procedure, the patient's blood pressure, pulse, and oxygen saturations were monitored continuously. The gastroscope was introduced through the mouth, and advanced to the fourth part of duodenum. The upper GI endoscopy was accomplished without difficulty. The patient tolerated the procedure well. Scope In: 1:07:39 PM Scope Out: 1:10:05 PM Total Procedure Duration Time 0 hours 2 minutes 26 seconds Findings: Localized moderate inflammation characterized by erosions was found in the gastric antrum. Biopsies were taken with a cold forceps for Helicobacter pylori testing. The esophagus was normal. The examined duodenum was normal. Impression: - Gastritis. Biopsied. - Normal esophagus. - Normal examined duodenum. Recommendation: - Return patient to [facility] for [facility] care. - Resume previous diet. - Continue present medications. Procedure Code(s): --- Professional --- 13031, Esophagogastroduodenoscopy, flexible, transoral; with biopsy, single or multiple Diagnosis Code(s): --- Professional --- K29.70, Gastritis, unspecified, without bleeding R10.13, Epigastric pain CPT copyright 2017 [employer]. All rights reserved. The codes documented in this report are preliminary and upon stock feeder review may be revised to meet current compliance requirements. Ion Cortés MD 02/27/2023 1:13:03 PM This report has been signed electronically. Number of Addenda: 0 Note Initiated On: 02/27/2023 12:47 PM
--- NOTE | 2023-02-27 13:14 | OP.CCLET_ITS ---
02/27/2023 Oliver Mims [address] [place] [address] Re : Upper GI endoscopy procedure for Scott Chatman Dear Dr. Mims This procedure was performed on Monday, February 27, 2023. My impressions and recommendations are as follows: Impressions : - Gastritis. Biopsied. - Normal esophagus. - Normal examined duodenum. Recommendations : - Return patient to [facility] for ongoing care. - Resume previous diet. - Continue present medications. My findings are described in the full procedure note, which is enclosed. If I can be of further assistance, please feel free to contact me at Doctor phone number(s): , Work: . Sincerely, Ion Cortés MD 02/27/2023 1:13:03 PM This report has been signed electronically.
--- NOTE | 2023-02-27 14:28 | CHAPLAIN ---
Type of Pastoral Visit _x__ Initial Visit ___ Follow-up Visit ___ On-call Visit ___ General Patient Visit ___ Spiritual Assessment ___ Family Conference ___ Bereavement ___ Rapid Response ___ Code Blue ___ Other (describe below) Pastoral Care Referral From _x__ Patient ___ Family ___ Nurse ___ Physician ___ Animal Trapper ___ Professor Of Economics ___ Other (describe below) Sacrament/Intervention _x__ Active listening ___ Anointing ___ Confucianism ___ Bereavement ___ Communion ___ Jordana exploration ___ ___ Life review ___ Prayer ___ Reconciliation ___ Sacrament of Sick ___ Supportive presence ___ Wedding ___ Other (describe below) Pastoral Comments patient is in procedure now; spouse is waiting in the room; spouse reviews situation; conversation on situation given
--- NOTE | 2023-02-27 15:07 | CASEMGMT ---
ETHAN CM: ETHAN REY in to complete LANDERS form at this time.? RN KRISSY explained LANDERS for to patient, patient voiced understanding.? Patient signed LANDERS Form and filed in chart.? Patient provided with copy of signed LANDERS form.? Patient had no further questions or concerns.?? ETHAN Parr CM
[2023-02-27] MEDS: Pyridostigmine Bromide 60 MG Tablet PO ×2 (15:10→20:07)
[2023-02-27] MEDS: Doxazosin 4 MG Tablet 8 MG PO (20:05)
[2023-02-27] MEDS: Atorvastatin Calcium 40 MG Tablet PO (20:06)
[2023-02-27] MEDS: MELATONIN 10 MG TABLET PO (20:07)
[2023-02-28 04:00] VITALS: BP 151/65; PULSE 58; RESP 16; TEMP 36.6; O2SAT 97
--- NOTE | 2023-02-28 05:00 | EKG12_ITS ---
Test Reason : Blood Pressure : / mmHG Vent. Rate : 050 BPM Atrial Rate : 050 BPM P-R Int : 146 ms QRS Dur : 096 ms QT Int : 446 ms P-R-T Axes : 075 046 053 degrees QTc Int : 406 ms Sinus bradycardia Otherwise normal ECG Confirmed by ANTHONY FRIEND, SEAN ([id number]), editor & co founder PATT WILKINS ([id number]) on 02/28/2023 7:49:33 AM Referred By: Confirmed By:TERESITA CRUZ MD
[2023-02-28] MEDS: Sucralfate 1 GM Tablet PO (06:19)
[2023-02-28] MEDS: Pyridostigmine Bromide 60 MG Tablet PO (06:19)
--- NOTE | 2023-02-28 07:18 | PCM.PN.HOSP ---
Reason for Visit Reason for Visit: Diagnoses Unspecified abdominal pain (02/26/23) Subjective Subjective Impressions : - Gastritis.? Biopsied. - Normal esophagus. - Normal examined duodenum. Recommendations : - Return patient to [facility] for ongoing care. - Resume previous diet. - Continue present medications. Objective Data Objective Data Vital Signs: Vital Signs Temp Pulse Resp BP Pulse Ox O2 Del Method 97.8 F 58 L 16 151/65 H 97 Room Air 02/28/23 04:00 02/28/23 04:00 02/28/23 04:00 02/28/23 04:00 02/28/23 04:00 02/28/23 04:00 Oxygen Delivery Method Room Air Weight: 90.1 kg Body Mass Index (BMI) 26.9 Intake & Output: Intake and Output for Last 24 Hours 02/26/23 02/27/23 02/28/23 23:59 23:59 23:59 Intake Total 1110 / 1310 638 / 788 150 / 150 Balance 1110 / 1310 638 / 788 150 / 150 Lab / Micro Data Result Diagrams: 02/27/23 05:50 02/27/23 05:50 Radiography Diagnostic Testing: Radiology Impression Gallbladder Ultrasound 02/27/23 07:00 IMPRESSION: Fatty infiltration of the liver. 3.3 cm x 3.7 cm x 3.5 cm cyst in the right lobe of the liver. Electronically Signed: Dimitri Anaya MD at 10:02 EDT Reading Location ID and State: [facility] / [place] , Service support , Physical Exam Narrative GENERAL: cooperative HEENT: Atraumatic; normocephalic EYES; Anicteric, Normal Conjunctiva NECK; supple, normal thyroid, RESPIRATORY: Diminished to auscultation CARDIOVASCULAR: Regular S1 S2, GI: soft, normoactive bowel sounds, : No Renal angle tenderness; EXTREMITIES: No edema, no clubbing, MUSCULOSKELETAL: no muscle wasting NEURO: Awake; no lateralizing signs. SKIN: No Rash PSYCH; Flat affect Assessment & Plan Assessment/Plan (1) Abdominal pain: PLAN: Plan Patient is an 82-year-old gentleman admitted with abdominal pain. Admitted to regular nursing floor where he is currently undergoing evaluation Abdominal pain ? Ultrasound of the gallbladder ordered for evaluation. Seen in consultation by general surgery plan is for patient to undergo EGD given his history of gastritis and esophagitis. 2. Hypertension - Blood pressure controlled, home medications continued with dose adjustment as needed 3. Dyslipidemia -Patient is on statin therapy, continued at home dose 4. Myasthenia gravis ? Patient is on pyridostigmine did continue 5. BPH ? Patient is on doxazosin as well as finasteride continued 6. GERD ? Patient is on PPI 7. History of L2 compression fracture ? Patient was taking NSAIDs as well as narcotics patient NSAIDs placed on hold 8. DVT prophylaxis ? [place] Lovenox Time spent in the patient's overall evaluation,decision-making process, review of diagnostic data, adjustment of management, discussion with other providers, nursing nursing and ancillary staff involved in patient's care documentation, 35 Minutes
[2023-02-28 08:25] VITALS: BP 114/62; PULSE 67; RESP 15; TEMP 36.6; O2SAT 99
[2023-02-28 08:40] VITALS: PULSE 67
[2023-02-28] MEDS: DULoxetine Hcl 30 MG Capsule PO (08:40)
[2023-02-28] MEDS: predniSONE 10 MG Tablet PO (08:40)
[2023-02-28] MEDS: Finasteride 5 MG Tablet PO (08:40)
[2023-02-28] MEDS: Metoprolol(XL)Succ 25 MG Tablet PO (08:40)
[2023-02-28] MEDS: amLODIPine 2.5 MG Tablet PO (08:40)
[2023-02-28] MEDS: Dorzolamide HCL/Timolol 10 ml Bottle 1 DRP OPHTHALMIC (08:40)
[2023-02-28] MEDS: Isosorbide Mononitrate 30 MG Tablet PO (08:41)
--- NOTE | 2023-02-28 09:35 | PCM.DC.SUM ---
Providers Date of Admission: 02/26/23 Date of Discharge: 02/28/23 Primary Care Physician: Dr. Oliver Mims MD Consultations 02/26/23 17:32 Consult: General Surgery Routine Consulting Provider: Ion Cortés Reason for Consult: Gastric ulcer vs gallbladder EMERGENT Consult: No MD Notified: Yes Date Notified: 02/26/23 Time Notified: 16:26 Method of Notification: ED Physician Initiated Reason For Visit: GASTRIC ULCER VS BILIARY COLIC Diagnosis Discharge Diagnosis (1) Abdominal pain: Status: Acute Code(s): R10.9 - Unspecified abdominal pain Medications at Discharge Home Medications doxazosin 4 mg tablet,extended release 24 hr 8 mg PO DAILY prostate 01/16/15 dorzolamide 22.3 mg-timolol 6.8 mg/mL eye drops (Cosopt) 1 drp ophthalmic (eye) BID left eye 03/04/19 finasteride 5 mg tablet (Proscar) 5 mg PO DAILY cholesterol 03/04/19 psyllium husk (aspartame) 3.4 gram oral powder packet 1 packet PO DAILY fiber 07/30/20 aspirin 81 mg tablet 81 mg PO DAILY heart health 02/15/21 melatonin 10 mg tablet 10 mg PO QHS sleep 02/15/21 nitroglycerin 0.4 mg sublingual tablet 0.4 mg sublingual Q5-15M PRN chest pain #25 tabs 03/26/21 calcium citrate 200 mg calcium-vitamin D3 6.25 mcg (250 unit) tablet ([place]ellow [place] Calcium-Vitamin D3) 1 tab PO BID 03/28/22 omeprazole 40 mg capsule,delayed release 40 mg PO DAILY 03/28/22 pyridostigmine bromide 60 mg tablet (Mestinon) 60 mg PO TID 03/28/22 atorvastatin 80 mg tablet See Rx Instructions .Route .COMPLEX #90 tabs 08/15/22 amlodipine 2.5 mg tablet 2.5 mg PO DAILY blood pressure #90 tabs 08/17/22 isosorbide mononitrate 30 mg tablet,extended release 24 hr 30 mg PO DAILY 01/22/23 metoprolol succinate 25 mg tablet,extended release 24 hr 25 mg PO DAILY 01/22/23 ergocalciferol (vitamin D2) 1,250 mcg (50,000 unit) capsule (Vitamin D2) 1,250 mcg PO Q7D #7 caps 02/07/23 oxycodone 5 mg tablet 5 mg PO Q6H PRN pain 3 days #12 tabs 02/07/23 prednisone 10 mg tablet 10 mg PO DAILY #30 tabs 02/07/23 tizanidine 2 mg tablet 2 mg PO Q8H PRN PRN muscle spasms, strain #10 tabs 02/07/23 acetaminophen 500 mg tablet 1,000 mg PO Q8 PRN Pain 02/26/23 duloxetine 30 mg capsule,delayed release 30 mg PO DAILY General anxiety 02/26/23 hydroxyzine pamoate 25 mg capsule 25 mg PO general anxiety 02/26/23 sucralfate 1 gram tablet 1 g PO 4X/DAY Gastritis 02/26/23 Hospital Course Procedures EGD Summary of Care Provided Minutes Spent on Discharge: 35 Hospital Course: Patient is an 82-year-old gentleman admitted with abdominal pain.? Admitted to regular nursing floor where he is currently undergoing evaluation 1. Abdominal pain ? Ultrasound of the gallbladder ordered for evaluation.? Seen in consultation by general surgery plan is for patient to undergo EGD given his history of gastritis and esophagitis. ? Patient underwent EGD by Dr. Cortés we did demonstrate gastritis patient is on PPI continued 2.? Hypertension - Blood pressure controlled, home medications continued with dose adjustment as needed 3.? Dyslipidemia -Patient is on statin therapy, continued at home dose 4.? Myasthenia gravis ? Patient is on pyridostigmine did continue 5.? BPH ? Patient is on doxazosin as well as finasteride continued 6.? GERD ? Patient is on PPI 7.? History of L2 compression fracture ? Patient was taking NSAIDs as well as narcotics patient NSAIDs placed on hold 8.? DVT prophylaxis ? [place] Lovenox Time spent in the patient's overall evaluation,decision-making process, review of diagnostic data, adjustment of management, discussion with other providers, nursing nursing and ancillary staff involved in patient's care documentation,? 35? Minutes Physical Exam Narrative GENERAL: cooperative HEENT: Atraumatic; normocephalic EYES; Anicteric, Normal Conjunctiva NECK; supple, normal thyroid, RESPIRATORY: Diminished to auscultation CARDIOVASCULAR: Regular S1 S2, GI: soft, normoactive bowel sounds, : No Renal angle tenderness; EXTREMITIES: No edema, no clubbing, MUSCULOSKELETAL: no muscle wasting NEURO: Awake; no lateralizing signs. SKIN: No Rash PSYCH; Flat affect Weight / BMI Weight Weight: 90.1 kg Body Mass Index (BMI) 26.9 ABG / Lab / Microbiology Data Result Diagrams: 02/27/23 05:50 02/27/23 05:50 Radiography Diagnostic Testing: Radiology Impression Gallbladder Ultrasound 02/27/23 07:00 IMPRESSION: Fatty infiltration of the liver. 3.3 cm x 3.7 cm x 3.5 cm cyst in the right lobe of the liver. Electronically Signed: Dimitri Anaya MD at 10:02 EDT , D/C Instructions Discharge Diet: No restrictions Discharge Activity: Return to Normal Activity Call your doctor if you observe: Fever of 101 or Higher, Shortness of breath, Fainting spells and Chest pain Meaningful Use Info Meaningful Use Diagnoses (Choose all that apply): None applicable Discharge Plan Admission Admit Date/Time: 02/26/23 16:23 Attending Provider: Josiah Johnson Primary Care Provider: Oliver Mims Consulting Providers: Ion Cortés ; Jamar Alba Discharge Orders/Prescriptions Prescriptions: Continued finasteride [Proscar] 5 mg tablet 5 mg PO DAILY dorzolamide-timolol [Cosopt] 22.3-6.8 mg/mL drops 1 drp OPHTHALMIC BID nitroglycerin 0.4 mg tablet, sublingual 0.4 mg SUBLINGUAL Q5-15M PRN (Reason: chest pain) Qty: 25 4RF Rx Instructions: do not exceed 3 doses per episode omeprazole 40 mg capsule,delayed release(DR/EC) 40 mg PO DAILY calcium citrate-vitamin D3 [Yellow Medicine Calcium-Vitamin D3] 200 mg-6.25 mcg (250 unit) tablet 1 tab PO BID Label Comments: TAKE 1 TABLET BY MOUTH TWICE DAILY WITH FOOD doxazosin 4 MG tablet extended release 24hr 8 mg PO DAILY psyllium husk (aspartame) 1 PACKET packet 1 packet PO DAILY aspirin 81 mg Tablet 81 mg PO DAILY Rx Instructions: Hold melatonin 10 mg Tablet 10 mg PO QHS isosorbide mononitrate 30 mg tablet extended release 24 hr 30 mg PO DAILY metoprolol succinate 25 mg tablet extended release 24 hr 25 mg PO DAILY ergocalciferol (vitamin D2) [Vitamin D2] 1,250 mcg (50,000 unit) Capsule 1,250 mcg PO Q7D Qty: 7 0RF oxycodone 5 mg Tablet 5 mg PO Q6H PRN (Reason: pain) 3 Days Qty: 12 0RF Label Comments: I don't take it anymore. tizanidine 2 mg Tablet 2 mg PO Q8H PRN PRN (Reason: muscle spasms, strain) Qty: 10 0RF prednisone 10 mg tablet 10 mg PO DAILY Qty: 30 0RF Rx Instructions: take 2 tablets daily on 02/08 and 02/09, then resume 1 tablet daily. duloxetine 30 mg capsule,delayed release(DR/EC) 30 mg PO DAILY Label Comments: TAKE 1 CAPSULE BY MOUTH EVERY DAY acetaminophen 500 mg tablet 1,000 mg PO Q8 PRN (Reason: Pain) Rx Instructions: [id number], no prescription required. sucralfate 1 gram tablet 1 g PO 4X/DAY Label Comments: TAKE 1 TABLET BY MOUTH before meals and AT BEDTIME hydroxyzine pamoate 25 mg capsule 25 mg PO Label Comments: TAKE 1 CAPSULE BY MOUTH FOUR TIMES DAILY NEEDED FOR ANXIETY pyridostigmine bromide [Mestinon] 60 mg tablet 60 mg PO TID atorvastatin 80 mg tablet See Rx Instructions .ROUTE .COMPLEX Qty: 90 3RF Dose Instruction: TAKE 1 TABLET AT BEDTIME FOR CHOLESTEROL Rx Instructions: TAKE 1 TABLET AT BEDTIME FOR CHOLESTEROL amlodipine 2.5 mg tablet 2.5 mg PO DAILY Qty: 90 3RF Discontinued ibuprofen 200 mg capsule 600 mg PO Q6H PRN (Reason: pain) Qty: 30 0RF Referrals / Follow Up: Oliver Mims MD [Primary Care Provider] - Disposition Disposition (needs filled in before D/C Order can be placed): Home, Self Care Charges/Coding Visit Charges Inpatient E&M: 10406 Disch Hosp >30min
--- NOTE | 2023-02-28 09:45 | CASEMGMT ---
RN CM NOTE: Pt being discharged. RN CM to room. Introduced self and role. Pt denies having any discharge planning needs or concerns. Thais CISSEN RN CM
--- NOTE | 2023-02-28 10:10 | PHA.DC.MR ---
Pharmacy Service has performed discharge medication reconciliation for this patient. The patient's discharge medication list was reviewed for discrepancies and discrepancies were resolved. Home Medications doxazosin 4 mg tablet,extended release 24 hr 8 mg PO DAILY prostate 01/16/15 dorzolamide 22.3 mg-timolol 6.8 mg/mL eye drops (Cosopt) 1 drp ophthalmic (eye) BID left eye 03/04/19 finasteride 5 mg tablet (Proscar) 5 mg PO DAILY cholesterol 03/04/19 psyllium husk (aspartame) 3.4 gram oral powder packet 1 packet PO DAILY fiber 07/30/20 aspirin 81 mg tablet 81 mg PO DAILY heart health 02/15/21 melatonin 10 mg tablet 10 mg PO QHS sleep 02/15/21 nitroglycerin 0.4 mg sublingual tablet 0.4 mg sublingual Q5-15M PRN chest pain #25 tabs 03/26/21 calcium citrate 200 mg calcium-vitamin D3 6.25 mcg (250 unit) tablet ([place] Calcium-Vitamin D3) 1 tab PO BID 03/28/22 omeprazole 40 mg capsule,delayed release 40 mg PO DAILY 03/28/22 pyridostigmine bromide 60 mg tablet (Mestinon) 60 mg PO TID 03/28/22 atorvastatin 80 mg tablet See Rx Instructions .Route .COMPLEX #90 tabs 08/15/22 amlodipine 2.5 mg tablet 2.5 mg PO DAILY blood pressure #90 tabs 08/17/22 isosorbide mononitrate 30 mg tablet,extended release 24 hr 30 mg PO DAILY 01/22/23 metoprolol succinate 25 mg tablet,extended release 24 hr 25 mg PO DAILY 01/22/23 ergocalciferol (vitamin D2) 1,250 mcg (50,000 unit) capsule (Vitamin D2) 1,250 mcg PO Q7D #7 caps 02/07/23 oxycodone 5 mg tablet 5 mg PO Q6H PRN pain 3 days #12 tabs 02/07/23 prednisone 10 mg tablet 10 mg PO DAILY #30 tabs 02/07/23 tizanidine 2 mg tablet 2 mg PO Q8H PRN PRN muscle spasms, strain #10 tabs 02/07/23 acetaminophen 500 mg tablet 1,000 mg PO Q8 PRN Pain 02/26/23 duloxetine 30 mg capsule,delayed release 30 mg PO DAILY General anxiety 02/26/23 hydroxyzine pamoate 25 mg capsule 25 mg PO general anxiety 02/26/23 sucralfate 1 gram tablet 1 g PO 4X/DAY Gastritis 02/26/23
== END 2023-02-28 10:55 | disposition home or self-care (01) ==
LOC: ED 15:45 → MS3 16:38
PROVIDERS: Anesthesiology; Surgery; Admitting Provider Family Medicine; Emergency Provider Emergency Medicine; PCP Family Medicine; Visit Provider Internal Medicine
PROC: 0DJ08ZZ Inspection of Upper Intestinal Tract, Via Natural or Artificial Opening Endoscopic (ICD-10-PCS; CPT 43235; principal; 2023-02-27 12:55)
DX: K29.70 Gastritis, unspecified, without bleeding (principal); G70.00 Myasthenia gravis without (acute) exacerbation; Z87.891 Personal history of nicotine dependence; I10 Essential (primary) hypertension; Z79.82 Long term (current) use of aspirin; N40.0 Benign prostatic hyperplasia without lower urinary tract symptoms; E78.5 Hyperlipidemia, unspecified; Z79.899 Other long term (current) drug therapy; E55.9 Vitamin D deficiency, unspecified; K21.9 Gastro-esophageal reflux disease without esophagitis
CPT/HCPCS: 43239; 36415; 71045; 74177; 76705; 80048; 80053; 83605; 83690; 84484; 85025; 85610; 85730; 88305; 88342; 93005; 96365; 96366; 96375; 96376; 99221; 99284; J7030; J7120; Q9967; A4216; G0378; J2405

== ENCOUNTER 2023-03-02 13:25 | Day surgery (SDC) | payer MEDICARE, OTHER, SELFPAY ==
[2023-03-02 13:46] VITALS: BP 142/67; PULSE 54; RESP 16; TEMP 36.1; O2SAT 97; BMI 26.9
--- NOTE | 2023-03-02 14:31 | RAD_ITS ---
PROCEDURE: Caudal epidural steroid injection. DATE OF EXAMINATION: March 02, 2023. INDICATION: Male, 82 years old. Chronic low back pain. FLUOROSCOPY TIME (if supplied): (11.95 seconds) minutes/seconds. 5.95 mGy RAD/Fluor Guidance for Spine Inj IMPRESSION: Intraoperative imaging provided for caudal epidural steroid injection. Electronically Signed: Dimitri Anaya MD at 14:42 EDT ,
--- NOTE | 2023-03-02 14:33 | PCM.OPRPT ---
Report of Operation Date of Procedure: 03/02/23 Pre-Operative Diagnosis: Lumbar stenosis with radiculopathy Post-Operative Diagnosis: Lumbar stenosis with radiculopathy Surgery/Procedure Performed:: Date of procedure: Surgeon: Yimi Macias DO Diagnosis: Lumbar stenosis without neurogenic claudication Complications: None Blood loss: None Anesthesia: Local Time out: A timeout was completed verifying correct patient, procedure, site, positioning, implant, and/or special equipment. Fluoroscopy time: Indications for the procedure: Failed physical therapy and oral medications Procedure: The patient was seen in the preop holding area. Risks and benefits of the procedure were explained to the patient and informed consent was obtained. The patient was transported to the procedure room and positioned prone on the fluoroscopy table. The back was prepped and draped in the usual sterile fashion. Sterile technique was used throughout. Corresponding skin and subcutaneous tissue needle entry sites were anesthetized via a 27-gauge 1.5 inch needle using 1% lidocaine x10 mL. Under fluoroscopic guidance a 22-gauge 5 inch spinal needle was advanced to enter the caudal space. Position was confirmed in AP, oblique, and lateral views. Subsequently contrast was injected. Positive epidural spread was noted in both AP and lateral views. No intramuscular or intrathecal uptake was noted. After negative aspiration: Bupivacaine 0.25% 3 mL, 1 mL of Kenalog 40 mg/mL, and preservative-free normal saline 3 mL for a total volume of 7 mL was injected. The needle was removed. No complications were noted. The patient was transported to the recovery room and monitored until discharge criteria were met. Signature Date Time Type of Anesthesia: Local Complications None
[2023-03-02] MEDS: Triamcinolone Acetonide 40 MG/ML Vial (14:39)
[2023-03-02] MEDS: 0.9% Normal Saline (Pres. free 10 ML Vial (14:39)
[2023-03-02] MEDS: Lidocaine 1% (30 ml sdv) 30 ML Vial (14:39)
[2023-03-02 14:56] VITALS: BP 142/67; BP 143/69; PULSE 54; RESP 16; TEMP 37.1; O2SAT 99
== END 2023-03-02 15:17 | disposition home or self-care (01) ==
PROVIDERS: PCP Family Medicine; Referring Provider Orthopaedic Surgery; Visit Provider Orthopaedic Surgery
PROC: 3E0S3BZ Introduction of Anesthetic Agent into Epidural Space, Percutaneous Approach (ICD-10-PCS; CPT 62282; principal; 2023-03-02 15:00)
DX: M48.061 Spinal stenosis, lumbar region without neurogenic claudication (principal); G70.00 Myasthenia gravis without (acute) exacerbation; M51.16 Intervertebral disc disorders with radiculopathy, lumbar region; M48.07 Spinal stenosis, lumbosacral region; I10 Essential (primary) hypertension; E78.00 Pure hypercholesterolemia, unspecified; Z79.82 Long term (current) use of aspirin; Z79.899 Other long term (current) drug therapy
CPT/HCPCS: 62323; 64483; 77003; J3490

== ENCOUNTER 2024-10-24 13:59 | Outpatient (RCR) | payer MEDICARE, OTHER, SELFPAY | END 2024-10-24 19:00 | disposition home or self-care (01) | LOC: PT 13:59 | PROVIDERS: PCP Family Medicine; Referring Provider Nurse Practitioner Family; Visit Provider Nurse Practitioner Family | DX: Z00.00 Encounter for general adult medical examination without abnormal findings (principal) ==

== ENCOUNTER 2024-11-17 02:19 | Inpatient (IN) | payer MEDICARE, SELFPAY ==
[2024-11-17] VITALS (8 sets, daily range): BP systolic 107–156; BP diastolic 63–93; PULSE 67–82; RESP 16–19; TEMP 36.6–37.1; O2SAT 92–100; BMI 26.4
--- NOTE | 2024-11-17 02:43 | CT_ITS ---
PROCEDURE: ABDOMEN/PELVIS W IV CONT ONLY REASON FOR EXAM: Upper abdominal pain, nausea vomiting TECHNIQUE: Abdomen and pelvis CT with intravenous contrast. Coronal and sagittal reformatted images IV CONTRAST: 98 cc Isovue 370 COMPARISON: 02/26/2023 FINDINGS: Lung bases: Minimal dependent basilar atelectasis Liver: Incidental note of hepatic cyst again seen currently 5.2 cm. Gallbladder: Unremarkable. Spleen: Unremarkable. Pancreas: Unremarkable. Adrenals: Unremarkable. Kidneys: Unremarkable. Bladder: Unremarkable. Reproductive Organs: Unremarkable. Bowel: Moderate air-fluid level within the stomach with dilated proximal small bowel leading to a gradual transition into collapsed small bowel within the lower abdomen is consistent with degree of small-bowel obstructive change. Overall the proximal small bowel loops wall appears prominent and may be associated with enteritis. No mesenteric stranding, evidence of volvulus or internal hernia identified. No free air or free fluid. No pneumatosis. Diverticulosis without diverticulitis.. Status post bilateral herniorrhaphy again noted Appendix: Not identified. Lymph nodes: No suspicious lymph node enlargement. Vasculature: Aortoiliac atherosclerotic calcifications again noted. The celiac, SMA and MICA appear to contain contrast as expected.. Peritoneum / Retroperitoneum: No ascites. No free air. Bones: L2 vertebroplasty, compression deformity, retropulsion of bone not significantly changed in appearance now with intraspinal stimulator device noted. CT/Abdomen/Pelvis W IV Cont ONLY IMPRESSION: Dilation of proximal small-bowel loops with a gradual transition into nondilate d collapsed small bowel in the central low abdomen consistent with degree of/developing small bowel obstruction. The wall of the proximal small bowel diffusely appears prominent and may be due to enteritis One or more dose reduction techniques were used (e.g., Automated exposure contr ol, adjustment of the mA and/or kV according to patient size, use of iterative reconstruction technique). Reading Location: [id number]
--- NOTE | 2024-11-17 02:44 | EDS_ITS ---
HPI HPI - GI History of Present Illness Chief Complaint: Nausea/Vomiting/Diarrhea Informant: patient and spouse/S.O. Narrative Narrative: 84-year-old male presenting at 2:30 AM for vomiting and diarrhea that started about 3 hours ago, followed by a mid abdominal pain. No known sick contacts. He has chills but no known fevers, his temperature is 98.3 here in context of him having active chills. He has some chronic low back pain from arthritis but no new radiation of this pain into his back. He had a prior herniorrhaphy no other abdominal surgeries. No cough or respiratory symptoms. No hematochezia, melena, or hematemesis. He is vomited maybe 4 times, the diarrhea has been less significant. [facility] Medical History Vitamin D deficiency Myasthenia gravis (06/11/21) Hemorrhoids Esophagitis Gastritis Glaucoma Essential (primary) hypertension Hyperlipidemia Obesity BPH (benign prostatic hyperplasia) Home Medications ?Medication ?Instructions ?Recorded ?Last Taken ?Type doxazosin 4 mg tablet,extended 8 mg PO DAILY prostate 01/16/15 02/25/23 History release 24 hr dorzolamide 22.3 mg-timolol 6.8 1 drp ophthalmic (eye) BID left eye 03/04/19 02/25/23 History mg/mL eye drops (Cosopt) finasteride 5 mg tablet (Proscar) 5 mg PO DAILY choles terol 03/04/19 02/25/23 History psyllium husk (aspartame) 3.4 gram 1 packet PO DAILY f iber 07/30/20 02/25/23 History oral powder packet nitroglycerin 0.4 mg sublingual 0.4 mg sublingual Q5-1 5M PRN chest 03/26/21 Unknown Rx tablet pain #25 tabs calcium 200 mg (as 1 tab PO BID 03/28/22 History citrate)-vitamin D3 6.25 mcg (250 unit) tablet (Raymer Calcium) omeprazole 40 mg capsule,delayed 40 mg PO DAILY 02/25/23 History release pyridostigmine bromide 60 mg 60 mg PO TID 03/28/2207/10 History tablet (Mestinon) ergocalciferol (vitamin D2) 1,250 1,250 mcg PO Q7D #7 caps 02/07/23 02/25/23 Rx mcg (50,000 unit) capsule (Vitamin D2) prednisone 10 mg tablet 10 mg PO DAILY #30 tabs 01/1702/25/23 Rx acetaminophen 500 mg tablet 1,000 mg PO Q8 PRN Pain Unknown History sucralfate 1 gram tablet 1 g PO 4X/DAY Gastritis 02/1602/25/23 History gabapentin 300 mg capsule 300 mg PO Q12H 06/08/23 Unkn own History hydrocodone-acetaminophen 5-325mg 1 tab PO QHS PRN elizabeth n 06/08/23 Unknown History 5mg-325mg isosorbide mononitrate 30 mg 30 mg PO DAILY #90 tabs 0 01/17/24 Unknown Rx tablet,extended release 24 hr atorvastatin 80 mg tablet See Rx Instructions .Route 1 Unknown Rx .COMPLEX #90 tabs metoprolol succinate 25 mg 25 mg PO DAILY #90 tabs Unknown Rx tablet,extended release 24 hr amlodipine 2.5 mg tablet 2.5 mg PO DAILY blood pressu re #90 08/05/24 Unknown Rx tabs Allergy/AdvReac Type Severity Reaction Status Date / Time morphine AdvReac hallucinati Verified 11/17/24 02:21 ons Family History Father Pancreatitis Cancer Mother Dementia Surgical History History of esophagogastroduodenoscopy (EGD) Hx of total shoulder replacement History of cataract surgery History of eye surgery History of herniorrhaphy History of appendectomy Social History household members: spouse Smoking Status: Former smoker how long ago did patient quit smokin years ago alcohol intake: current alcohol intake frequency: holidays/special occasions only substance use type: does not use caffeine: No ROS ROS ED Constitutional Constitutional ED: Reports chills; Denies fever(s) Eyes Eyes: Denies change in vision or diplopia ENT ENT ED: Denies rhinorrhea or sore throat Cardiovascular Cardiovascular: Denies chest pain or palpitations Respiratory/Chest Respiratory/Chest: Denies cough or dyspnea Gastrointestinal Gastrointestinal: Reports abdominal pain, diarrhea, nausea and vomiting; Denies hematemesis, hematochezia or melena Genitourinary Genitourinary ED: Denies dysuria or hematuria Musculoskeletal Musculoskeletal: Denies back pain or neck pain Integumentary Denies abscess or rash Neurologic Neurologic: Denies headache(s), paresthesias or weakness Psychiatric Psychiatric: Denies suicidal thoughts EXAM Physical Exam Const Vital Signs: 11/17/24 02:19 11/17/24 04:19 Temperature 98.3 F Temperature Source Oral Pulse Rate 72 67 Respiratory Rate 19 H 17 Blood Pressure 156/93 H 144/79 H Blood Pressure Mean 114 100 Pulse Ox 100 97 Oxygen Delivery Method Room Air Room Air Positive well nourished and well developed General Appearance ED: well developed and NAD HEENT Reports moist mucous membranes normocephalic and atraumatic Eyes PERRL and EOMs intact bilaterally Neck full ROM and supple Resp normal respiratory effort and clear to auscultation bilaterally Cardio regular rate, regular rhythm and no murmurs GI non-distended GI Narrative: Tender across upper abdomen no guarding or rebound no pulsatile mass Auscultation: normoactive bowel sounds Palpation: soft Back/Spine no CVA tenderness General Back: other FROM Extremity normal to inspection General Extremety ED: Negative for edema, pulses abnormal or tenderness General Extremity: Negative for edema or pulses abnormal Neuro oriented x3, CN's II-XII intact bilaterally and no sensory deficits noted Sensorium / Orientation: awake and alert Motor Exam: strength 5/5 throughout Skin no rashes or lesions noted and no wounds MDM MDM MDM Narrative Medical decision making narrative: Patient presenting just a couple of hours after the onset of symptoms, but having a lot of abdominal pain and very tender across his upper abdomen. Given his age and prior surgeries, considering other etiologies such as biliary colic, cholecystitis, bowel obstruction, perforated viscus in addition to gastroenteritis/infectious etiologies were diverticulitis. He was given multiple doses of pain medication and multiple doses of nausea medication to try to help control his symptoms while obtaining labs and a CT with IV contrast. I reviewed the images as well as the report which I agree with, it is consistent with a small bowel obstruction. I discussed with Dr. Cortés surgery who agrees with NG, admission, he will consult on the patient. Discussed with hospitalist. 1 view KUB shows good NGT placement on my interpretation. Lab Data Attestation: I reviewed the patient's lab results. Labs: Laboratory Results - last 24 hr 11/17/24 02:30 WBC 8.8 RBC 4.06 L Hgb 13.5 Hct 41.7 MCV 102.7 H MCH 33.3 H MCHC 32.4 RDW Std Deviation 53.1 H RDW Coeff of Chele 13.9 Plt Count 182 MPV 10.1 Immature Gran % (Auto) 0.300 Neut % (Auto) 83.6 H Lymph % (Auto) 12.3 L Granite % (Auto) 3.4 Eos % (Auto) 0.2 Baso % (Auto) 0.2 Absolute Neuts (auto) 7.3 Absolute Lymphs (auto) 1.08 Nucleated RBC % 0 Sodium 141 Potassium 4.1 Chloride Direct 104 Carbon Dioxide 25.8 Anion Gap 12 BUN 17 Creatinine 0.82 Estim Creat Clear Calc 74.92 Est GFR (MDRD) Non-Af 87 BUN/Creatinine Ratio 20.9 H Glucose 92 Calcium 8.5 Total Bilirubin 0.68 AST 29 ALT 21 Alkaline Phosphatase 51 Total Protein 6.3 Albumin 3.7 Globulin 2.6 Albumin/Globulin Ratio 1.4 Lipase 29 Radiography Diagnostic Testing: Clinical Impression(s) from Imaging Studies Abdomen/Pelvis CT 11/17/24 02:43 IMPRESSION: Dilation of proximal small-bowel loops with a gradual transition into nondilated collapsed small bowel in the central low abdomen consistent with degree of/developing small bowel obstruction. The wall of the proximal small bowel diffusely appears prominent and may be due to enteritis One or more dose reduction techniques were used (e.g., Automated exposure con trol, adjustment of the mA and/or kV according to patient size, use of iterative reconstruction technique). Reading Location: [id number] Management Discussion w/another healthcare provider: Hospitalist and Assistant Infant Teacher Discharge Plan Triage Chief Complaint: Nausea/Vomiting/Diarrhea ED Provider: Sanjeev Lemus Dx/Rx/DC Orders Clinical Impression: Small bowel obstruction Prescriptions: No Action finasteride [Proscar] 5 mg tablet 5 mg PO DAILY dorzolamide-timolol [Cosopt] 22.3-6.8 mg/mL drops 1 drp OPHTHALMIC BID nitroglycerin 0.4 mg tablet, sublingual 0.4 mg SUBLINGUAL Q5-15M PRN (Reason: chest pain) Qty: 25 4RF Rx Instructions: do not exceed 3 doses per episode omeprazole 40 mg capsule,delayed release(DR/EC) 40 mg PO DAILY calcium citrate-vitamin D3 [Raymer Calcium-Vitamin D3] 200 mg-6.25 mcg (250 unit) tablet 1 tab PO BID Patient Comments: TAKE 1 TABLET BY MOUTH TWICE DAILY WITH FOOD hydrocodone-acetaminophen 5-325 mg tablet 1 tab PO QHS PRN (Reason: pain) gabapentin 300 mg capsule 300 mg PO Q12H doxazosin 4 MG tablet extended release 24hr 8 mg PO DAILY psyllium husk (aspartame) 1 PACKET packet 1 packet PO DAILY ergocalciferol (vitamin D2) [Vitamin D2] 1,250 mcg (50,000 unit) Capsule 1,250 mcg PO Q7D Qty: 7 0RF prednisone 10 mg tablet 10 mg PO DAILY Qty: 30 0RF Rx Instructions: take 2 tablets daily on 02/08 and 02/09, then resume 1 tablet daily. acetaminophen 500 mg tablet 1,000 mg PO Q8 PRN (Reason: Pain) Rx Instructions: [id number], no prescription required. sucralfate 1 gram tablet 1 g PO 4X/DAY Patient Comments: TAKE 1 TABLET BY MOUTH before meals and AT BEDTIME pyridostigmine bromide [Mestinon] 60 mg tablet 60 mg PO TID isosorbide mononitrate 30 mg tablet extended release 24 hr 30 mg PO DAILY Qty: 90 3RF atorvastatin 80 mg tablet See Rx Instructions .ROUTE .COMPLEX Qty: 90 3RF Dose Instruction: TAKE 1 TABLET AT BEDTIME FOR CHOLESTEROL Rx Instructions: TAKE 1 TABLET AT BEDTIME FOR CHOLESTEROL metoprolol succinate 25 mg tablet extended release 24 hr 25 mg PO DAILY Qty: 90 3RF amlodipine 2.5 mg tablet 2.5 mg PO DAILY Qty: 90 3RF Primary Care Provider: Oliver Mims Referrals: Oliver Mims MD [Primary Care Provider] - Print Language: Upper Sorbian Disposition Disposition: Acute Care Hospital [facility]
--- NOTE | 2024-11-17 02:44 | ED.VIS.GI ---
HPI HPI - GI History of Present Illness Chief Complaint: Nausea/Vomiting/Diarrhea Informant: patient and spouse/S.O. Narrative Narrative: 84-year-old male presenting at 2:30 AM for vomiting and diarrhea that started about 3 hours ago, followed by a mid abdominal pain. No known sick contacts. He has chills but no known fevers, his temperature is 98.3 here in context of him having active chills. He has some chronic low back pain from arthritis but no new radiation of this pain into his back. He had a prior herniorrhaphy no other abdominal surgeries. No cough or respiratory symptoms. No hematochezia, melena, or hematemesis. He is vomited maybe 4 times, the diarrhea has been less significant. [facility] Medical History Vitamin D deficiency Myasthenia gravis (06/11/21) Hemorrhoids Esophagitis Gastritis Glaucoma Essential (primary) hypertension Hyperlipidemia Obesity BPH (benign prostatic hyperplasia) Home Medications ?Medication ?Instructions ?Recorded ?Last Taken ?Type doxazosin 4 mg tablet,extended 8 mg PO DAILY prostate 01/16/15 02/25/23 History release 24 hr dorzolamide 22.3 mg-timolol 6.8 1 drp ophthalmic (eye) BID left eye 03/04/19 02/25/23 History mg/mL eye drops (Cosopt) finasteride 5 mg tablet (Proscar) 5 mg PO DAILY cholesterol 03/04/19 02/25/23 History psyllium husk (aspartame) 3.4 gram 1 packet PO DAILY fiber 07/30/20 02/25/23 History oral powder packet nitroglycerin 0.4 mg sublingual 0.4 mg sublingual Q5-15M PRN chest 03/26/21 Unknown Rx tablet pain #25 tabs calcium 200 mg (as 1 tab PO BID 03/28/22 02/25/23 History citrate)-vitamin D3 6.25 mcg (250 unit) tablet (Killen Calcium) omeprazole 40 mg capsule,delayed 40 mg PO DAILY 03/28/22 02/25/23 History release pyridostigmine bromide 60 mg 60 mg PO TID 03/28/22 02/25/23 History tablet (Mestinon) ergocalciferol (vitamin D2) 1,250 1,250 mcg PO Q7D #7 caps 02/07/23 02/25/23 Rx mcg (50,000 unit) capsule (Vitamin D2) prednisone 10 mg tablet 10 mg PO DAILY #30 tabs 02/07/23 02/25/23 Rx acetaminophen 500 mg tablet 1,000 mg PO Q8 PRN Pain 02/26/23 Unknown History sucralfate 1 gram tablet 1 g PO 4X/DAY Gastritis 02/26/23 02/25/23 History gabapentin 300 mg capsule 300 mg PO Q12H 06/08/23 Unknown History hydrocodone-acetaminophen 5-325mg 1 tab PO QHS PRN pain 06/08/23 Unknown History 5mg-325mg isosorbide mononitrate 30 mg 30 mg PO DAILY #90 tabs 01/17/24 Unknown Rx tablet,extended release 24 hr atorvastatin 80 mg tablet See Rx Instructions .Route 06/25/24 Unknown Rx .COMPLEX #90 tabs metoprolol succinate 25 mg 25 mg PO DAILY #90 tabs 07/03/24 Unknown Rx tablet,extended release 24 hr amlodipine 2.5 mg tablet 2.5 mg PO DAILY blood pressure #90 08/05/24 Unknown Rx tabs Allergy/AdvReac Type Severity Reaction Status Date / Time morphine AdvReac hallucinati Verified 11/17/24 02:21 ons Family History Father Pancreatitis Cancer Mother Dementia Surgical History History of esophagogastroduodenoscopy (EGD) Hx of total shoulder replacement History of cataract surgery History of eye surgery History of herniorrhaphy History of appendectomy Social History household members: spouse Smoking Status: Former smoker how long ago did patient quit smokin years ago alcohol intake: current alcohol intake frequency: holidays/special occasions only substance use type: does not use caffeine: No ROS ROS ED Constitutional Constitutional ED: Reports chills; Denies fever(s) Eyes Eyes: Denies change in vision or diplopia ENT ENT ED: Denies rhinorrhea or sore throat Cardiovascular Cardiovascular: Denies chest pain or palpitations Respiratory/Chest Respiratory/Chest: Denies cough or dyspnea Gastrointestinal Gastrointestinal: Reports abdominal pain, diarrhea, nausea and vomiting; Denies hematemesis, hematochezia or melena Genitourinary Genitourinary ED: Denies dysuria or hematuria Musculoskeletal Musculoskeletal: Denies back pain or neck pain Integumentary Denies abscess or rash Neurologic Neurologic: Denies headache(s), paresthesias or weakness Psychiatric Psychiatric: Denies suicidal thoughts EXAM Physical Exam Const Vital Signs: 11/17/24 02:19 11/17/24 04:19 11/17/24 05:42 Temperature 98.3 F 97.8 F Temperature Source Oral Pulse Rate 72 67 78 Respiratory Rate 19 H 17 19 H Blood Pressure 156/93 H 144/79 H 141/75 H Blood Pressure Mean 114 100 97 Pulse Ox 100 97 92 Oxygen Delivery Method Room Air Room Air 11/17/24 06:00 Temperature Temperature Source Pulse Rate 74 Respiratory Rate 19 H Blood Pressure 107/63 Blood Pressure Mean 77 Pulse Ox 92 Oxygen Delivery Method Room Air Positive well nourished and well developed General Appearance ED: well developed and NAD HEENT Reports moist mucous membranes normocephalic and atraumatic Eyes PERRL and EOMs intact bilaterally Neck full ROM and supple Resp normal respiratory effort and clear to auscultation bilaterally Cardio regular rate, regular rhythm and no murmurs GI non-distended GI Narrative: Tender across upper abdomen no guarding or rebound no pulsatile mass Auscultation: normoactive bowel sounds Palpation: soft Back/Spine no CVA tenderness General Back: other FROM Extremity normal to inspection General Extremety ED: Negative for edema, pulses abnormal or tenderness General Extremity: Negative for edema or pulses abnormal Neuro oriented x3, CN's II-XII intact bilaterally and no sensory deficits noted Sensorium / Orientation: awake and alert Motor Exam: strength 5/5 throughout Skin no rashes or lesions noted and no wounds MDM MDM MDM Narrative Medical decision making narrative: Patient presenting just a couple of hours after the onset of symptoms, but having a lot of abdominal pain and very tender across his upper abdomen. Given his age and prior surgeries, considering other etiologies such as biliary colic, cholecystitis, bowel obstruction, perforated viscus in addition to gastroenteritis/infectious etiologies were diverticulitis. He was given multiple doses of pain medication and multiple doses of nausea medication to try to help control his symptoms while obtaining labs and a CT with IV contrast. I reviewed the images as well as the report which I agree with, it is consistent with a small bowel obstruction. I discussed with Dr. Milana buck who agrees with NG, admission, he will consult on the patient. Discussed with hospitalist. 1 view KUB shows NGT placement in the distal esophagus/upper stomach on my interpretation. I reviewed the radiology interpretation but not before the patient left for the floor. Discussed with hospitalist service. Lab Data Attestation: I reviewed the patient's lab results. Labs: Laboratory Results - last 24 hr 11/17/24 02:30 WBC 8.8 RBC 4.06 L Hgb 13.5 Hct 41.7 MCV 102.7 H MCH 33.3 H MCHC 32.4 RDW Std Deviation 53.1 H RDW Coeff of Chele 13.9 Plt Count 182 MPV 10.1 Immature Gran % (Auto) 0.300 Neut % (Auto) 83.6 H Lymph % (Auto) 12.3 L Bailey % (Auto) 3.4 Eos % (Auto) 0.2 Baso % (Auto) 0.2 Absolute Neuts (auto) 7.3 Absolute Lymphs (auto) 1.08 Nucleated RBC % 0 Sodium 141 Potassium 4.1 Chloride Direct 104 Carbon Dioxide 25.8 Anion Gap 12 BUN 17 Creatinine 0.82 Estim Creat Clear Calc 74.92 Est GFR (MDRD) Non-Af 87 BUN/Creatinine Ratio 20.9 H Glucose 92 Calcium 8.5 Magnesium 1.9 Total Bilirubin 0.68 AST 29 ALT 21 Alkaline Phosphatase 51 Total Protein 6.3 Albumin 3.7 Globulin 2.6 Albumin/Globulin Ratio 1.4 Lipase 29 Radiography Diagnostic Testing: Clinical Impression(s) from Imaging Studies Abdomen/Pelvis CT 11/17/24 02:43 IMPRESSION: Dilation of proximal small-bowel loops with a gradual transition into nondilated collapsed small bowel in the central low abdomen consistent with degree of/developing small bowel obstruction. The wall of the proximal small bowel diffusely appears prominent and may be due to enteritis One or more dose reduction techniques were used (e.g., Automated exposure control, adjustment of the mA and/or kV according to patient size, use of iterative reconstruction technique). Reading Location: [id number] 11/17/24 05:50 IMPRESSION: Nasogastric tube is kinked back upon itself approximately 8.5 cm in the distal esophagus in the region of the GE junction with the tip directed retrograde cephalad up the esophagus and requires repositioning.. Reading Location: [id number] Management Discussion w/another healthcare provider: Hospitalist and Welder/Installer Discharge Plan Dx/Rx/DC Orders Clinical Impression: Small bowel obstruction Disposition Disposition: Acute Care Hospital [facility] Discharge Date/Time: 11/17/24 07:16
[2024-11-17] MEDS: Ondansetron 4 MG/2 ML Vial IV (02:50)
[2024-11-17 02:51] LABS: Absolute Lymphocyte Count 1.08 X10^3/uL (0.83-4.51); Absolute Neutrophil Count 7.3 X10^3/uL (2.0-7.7); Basophil# 0.02 X10^3/uL; Basophil% 0.2 % (0-1); Eosinophil# 0.02 X10^3/uL; Eosinophils% 0.2 % (0-5); Hematocrit 41.7 % (40-54); Hemoglobin 13.5 g/dL (13.0-16.5); Lymphocyte # 1.08 X10^3/ul (0.83-4.51); Lymphocyte % 12.3 % (19-41); Mean Corp Hgb Conc 32.4 g/dL (32-36); Mean Corpuscular Hgb 33.3 pg (27.0-32.0); Mean Corpuscular Volume 102.7 fL (80-94); Mean Platelet Vol. 10.1 fl (6.2-12.0); Monocyte% 3.4 % (0-10); NRBC Flagged by Analyzer 0 % (0-5); Neutrophil % 83.6 % (47-70); Platelet Count 182 K/mm3 (150-450); RBC Distribution Width CV 13.9 % (11.6-14.6); RBC Distribution Width SD 53.1 fl (35.1-43.9); Red Blood Count 4.06 M/mm3 (4.6-6.2); White Blood Count 8.8 K/mm3 (4.4-11.0)
[2024-11-17] MEDS: fentaNYL 100 MCG/2 ML Ampul 50 MCG IV (02:51)
[2024-11-17] MEDS: 0.9% Normal Saline (500mL Bag) 500 ML 999 ML IV (02:54)
[2024-11-17 03:21] LABS: AST(SGOT) 29 U/L (<=37); Alanine Aminotransfer ALT/SGPT 21 U/L (<=46); Albumin, Serum 3.7 g/dL (3.4-4.8); Alkaline Phosphatase 51 U/L (40-129); BUN 17 mg/dL (4-19); Calcium 8.5 mg/dL (7.6-11.0); Carbon Dioxide 25.8 mmol/L (22.0-29.0)
[2024-11-17 03:22] LABS: ALB/GLOB Ratio 1.4 RATIO (0.9-2.4); Anion Gap 12 (5-15); BUN/Creat Ratio 20.9 RATIO (10-20); Chloride 104 mmol/L (96-108); Creatinine, Serum 0.82 mg/dL (0.70-1.20); EST Glomerular Filtration Rate 87 (>60); Estimated Creatinine Clearance 74.92 ml/min (50-250); Globulin 2.6 g/dL (2.2-4.2); Glucose 92 mg/dL (70-99); Potassium 4.1 mmol/L (3.3-5.1); Protein, Total 6.3 g/dL (5.9-8.4); Sodium Level 141 mmol/L (133-145); Total Bilirubin 0.68 mg/dL (0.00-1.30)
[2024-11-17 03:37] LABS: Lipase 29 U/L (13-75)
[2024-11-17] MEDS: fentaNYL 100 MCG/2 ML Ampul 25 MCG IV ×2 (04:17→05:38)
[2024-11-17] MEDS: Metoclopramide 10 MG/2 ML Vial 2.5 MG IV (04:17)
[2024-11-17] MEDS: Mag Hydrox/Al Hydrox/Simeth 30 ML UDC PO (04:18)
[2024-11-17] MEDS: Oxymetazoline 0.05% 1 SPRAY SPRAY.BTL 2 SPRAY NASAL (05:35)
--- NOTE | 2024-11-17 05:50 | RAD_ITS ---
PROCEDURE: ABDOMEN SINGLE VIEW (PORTABLE) REASON FOR EXAM: NG insertion TECHNIQUE: Single view abdomen. Centered at the level of diaphragms COMPARISON: None FINDINGS: Nasogastric tube is kinked back upon itself approximately 8.5 cm in the distal esophagus in the region of the GE junction with the tip directed retrograde cephalad up the esophagus and requires repositioning. RAD/Abdomen Single View (Portable) IMPRESSION: Nasogastric tube is kinked back upon itself approximately 8.5 cm in the distal esophagus in the region of the GE junction with the tip directed retrograde cephalad up the esophagus and requires repositionpeggy pérez. Reading Location: [id number]
--- NOTE | 2024-11-17 05:53 | PCM.HP.STD ---
[facility] - General General Date of Admission: 11/17/24 Date of Service: 11/17/24 Chief Complaint: Abdominal Pain, Nausea, Vomiting and Diarrhea. [facility] Narrative ZINA SALDIVAR, is a 84 M with a past medical history of essential hypertension; on amlodipine and metoprolol, hyperlipidemia; on atorvastatin, overweight; with BMI of 26.4 this admission, former tobacco abuse (quit ~40 years ago), history of myasthenia gravis (2020); on pyridostigmine 3 times daily, CAD; on ISMO and SL NTG as needed, history of GERD; with gastritis and esophagitis on omeprazole and sucralfate 4 times daily, history of hemorrhoids, BPH; on doxazosin and finasteride, history of glaucoma; on dorzolamide-timolol drops twice daily, history of vitamin D deficiency; on vitamin D supplementation, history of appendectomy, history of hernia; s/p repair, history of EGD, history of L2 compression fracture; s/p kyphoplasty and OA; s/p total shoulder replacement with chronic low back pain on as needed hydrocodone at bedtime who presents to [facility] ER complaining of abdominal pain, nausea, vomiting and diarrhea. Mr. Saldivar reports his symptoms began approximately 2:30 AM with the abrupt-onset of nausea and vomiting with bilious emesis and nonbloody diarrhea followed by mid abdominal pain. He admits to chills but he denies fevers but he denies recent known sick contacts, hematochezia, melena, hematemesis, chest pain, shortness of breath, headache or rash. In the ER he was noted to have CT evidence of moderate air-fluid level within the stomach with dilated proximal small bowel leading to a gradual transition into collapse small bowel within the lower abdomen consistent with degree of small bowel obstructive change with overall proximal small bowel loops wall appears prominent and may be associated with Enteritis with no mesenteric stranding evidence of volvulus or internal hernia identified. No free fluid or free air. No pneumatosis. Evidence of diverticulosis without diverticulitis and status post bilateral herniorrhaphy with additional evidence of L2 vertebroplasty in addition to appearance of intraspinal stimulator device noted. He was then diagnosed with suspected Small Bowel Obstruction complicated by additional CT evidence of Enteritis (with NGT placed in ER for IWS with KUB to confirm placement pending at this time) complicated by clinical evidence of Severe Abdominal Pain with Intractable Nausea and Vomiting with Diarrhea. General surgeon on-call requested ER physician contact hospitalist for admission with formal consultation pending this a.m. which was done. The patient was then admitted to the general medical floor for ongoing care for stay that is expected to extend beyond 2 midnights. [facility] Medical History Vitamin D deficiency Myasthenia gravis (06/11/21) Hemorrhoids Esophagitis Gastritis Glaucoma Essential (primary) hypertension Hyperlipidemia Obesity BPH (benign prostatic hyperplasia) Home Medications ?Medication ?Instructions ?Recorded ?Last Taken ?Type doxazosin 4 mg tablet,extended 8 mg PO DAILY prostate 01/16/15 02/25/23 History release 24 hr dorzolamide 22.3 mg-timolol 6.8 1 drp ophthalmic (eye) BID left eye 03/04/19 02/25/23 History mg/mL eye drops (Cosopt) finasteride 5 mg tablet (Proscar) 5 mg PO DAILY cholesterol 03/04/19 02/25/23 History psyllium husk (aspartame) 3.4 gram 1 packet PO DAILY fiber 07/30/20 02/25/23 History oral powder packet nitroglycerin 0.4 mg sublingual 0.4 mg sublingual Q5-15M PRN chest 03/26/21 Unknown Rx tablet pain #25 tabs calcium 200 mg (as 1 tab PO BID 03/28/22 02/25/23 History citrate)-vitamin D3 6.25 mcg (250 unit) tablet ([place] Calcium) omeprazole 40 mg capsule,delayed 40 mg PO DAILY 03/28/22 02/25/23 History release pyridostigmine bromide 60 mg 60 mg PO TID 03/28/22 02/25/23 History tablet (Mestinon) ergocalciferol (vitamin D2) 1,250 1,250 mcg PO Q7D #7 caps 02/07/23 02/25/23 Rx mcg (50,000 unit) capsule (Vitamin D2) prednisone 10 mg tablet 10 mg PO DAILY #30 tabs 02/07/23 02/25/23 Rx acetaminophen 500 mg tablet 1,000 mg PO Q8 PRN Pain 02/26/23 Unknown History sucralfate 1 gram tablet 1 g PO 4X/DAY Gastritis 02/26/23 02/25/23 History gabapentin 300 mg capsule 300 mg PO Q12H 06/08/23 Unknown History hydrocodone-acetaminophen 5-325mg 1 tab PO QHS PRN pain 06/08/23 Unknown History 5mg-325mg isosorbide mononitrate 30 mg 30 mg PO DAILY #90 tabs 01/17/24 Unknown Rx tablet,extended release 24 hr atorvastatin 80 mg tablet See Rx Instructions .Route 06/25/24 Unknown Rx .COMPLEX #90 tabs metoprolol succinate 25 mg 25 mg PO DAILY #90 tabs 07/03/24 Unknown Rx tablet,extended release 24 hr amlodipine 2.5 mg tablet 2.5 mg PO DAILY blood pressure #90 08/05/24 Unknown Rx tabs Allergy/AdvReac Type Severity Reaction Status Date / Time morphine AdvReac hallucinati Verified 11/17/24 02:21 ons Family History Father Pancreatitis Cancer Mother Dementia Surgical History History of esophagogastroduodenoscopy (EGD) Hx of total shoulder replacement History of cataract surgery History of eye surgery History of herniorrhaphy History of appendectomy Social History household members: spouse Smoking Status: Former smoker how long ago did patient quit smokin years ago alcohol intake: current alcohol intake frequency: holidays/special occasions only substance use type: does not use caffeine: No ROS ROS Narrative Review of Systems: Constitutional: Patient admits to chills but denies fever. Eyes: Patient denies changes in vision or discharge from eyes. ENT: Patient denies runny nose, sore throat or ear pain. Resp: Patient denies shortness of breath or cough. CV: Patient denies chest pain, palpitations, heart racing or lower extremity edema. GI: Patient admits to severe abdominal pain that is diffuse and nonradiating with nausea, vomiting with bilious emesis and nonbloody diarrhea as per HPI. : Patient denies dysuria or hematuria. MSK: Patient denies neck pain or back pain. Skin: Patient denies rash, abscess, wounds or jaundice. Psych: Patient denies symptoms of uncontrolled depression or anxiety. Neuro: Patient denies headache, paresthesias or focal neurologic deficits. Allergy: Patient denies lip swelling, tongue swelling or urticaria. Hematology: Patient denies easy bleeding or easy bruisability. Endocrinology: Patient denies polyuria, polydipsia or polyphagia. 14 point review of systems otherwise negative except for positives noted above in HPI. Vital Signs Vital Signs Vital Signs: 11/17/24 02:19 11/17/24 04:19 11/17/24 05:42 Temperature 98.3 F 97.8 F Temperature Source Oral Pulse Rate 72 67 78 Respiratory Rate 19 H 17 19 H Blood Pressure 156/93 H 144/79 H 141/75 H Blood Pressure Mean 114 100 97 Pulse Ox 100 97 92 Oxygen Delivery Method Room Air Room Air Weight Weight: 194 lb 14.218 oz Body Mass Index (BMI) 26.4 Physical Exam Const alert, oriented x3 and average body habitus Constitutional Narrative: Patient appears uncomfortable. General Appearance: cooperative HEENT normocephalic, head/scalp atraumatic, hearing grossly normal bilaterally and moist oral mucous membranes Eyes PERRL, EOMs intact bilaterally and conjunctivae normal Neck no lymphadenopathy, supple and no JVD Resp normal respiratory effort, no retractions, no use of accessory muscles and clear to auscultation bilaterally Cardio regular rate and regular rhythm GI GI Narrative: Abdomen soft and notably tender across entire upper abdomen with normal active bowel sounds no guarding or rebound. Extremity normal to inspection, full ROM and no clubbing, cyanosis or edema Skin Skin Narrative: Patient has no evidence of rash, abscess, wounds or jaundice. Neuro oriented x3, CN's II-XII intact bilaterally, moves all extremities and no focal motor deficits Sensorium / Orientation: awake, alert, oriented to person, oriented to place and oriented to time Speech: speech normal Psych affect normal Results Medical Records Data Attestation: I reviewed the patient's medical records Lab / Micro Data Attestation: I reviewed the patient's lab results. 11/17/24 02:30 11/17/24 02:30 Labs: Laboratory Results - last 24 hr 11/17/24 02:30: WBC 8.8, RBC 4.06 L, Hgb 13.5, Hct 41.7, MCV 102.7 H, MCH 33.3 H, MCHC 32.4, RDW Std Deviation 53.1 H, RDW Coeff of [place]le 13.9, Plt Count 182, MPV 10.1, Immature Gran % (Auto) 0.300, Neut % (Auto) 83.6 H, Lymph % (Auto) 12.3 L, [place] % (Auto) 3.4, Eos % (Auto) 0.2, Baso % (Auto) 0.2, Absolute Neuts (auto) 7.3, Absolute Lymphs (auto) 1.08, Nucleated RBC % 0, Sodium 141, Potassium 4.1, Chloride Direct 104, Carbon Dioxide 25.8, Anion Gap 12, BUN 17, Creatinine 0.82, Estim Creat Clear Calc 74.92, Est GFR (MDRD) Non-Af 87, BUN/Creatinine Ratio 20.9 H, Glucose 92, Calcium 8.5, Total Bilirubin 0.68, AST 29, ALT 21, Alkaline Phosphatase 51, Total Protein 6.3, Albumin 3.7, Globulin 2.6, Albumin/Globulin Ratio 1.4, Lipase 29 Imaging Radiology Impression Abdomen/Pelvis CT 11/17/24 02:43 IMPRESSION: Dilation of proximal small-bowel loops with a gradual transition into nondilated collapsed small bowel in the central low abdomen consistent with degree of/developing small bowel obstruction. The wall of the proximal small bowel diffusely appears prominent and may be due to enteritis One or more dose reduction techniques were used (e.g., Automated exposure control, adjustment of the mA and/or kV according to patient size, use of iterative reconstruction technique). Reading Location: [id number] Assessment & Plan Assessment/Plan (1) Small bowel obstruction: (2) Enteritis: (3) Diarrhea: QUALIFIERS: Diarrhea type: presumed infectious Qualified Code(s): R19.7 - Diarrhea, unspecified (4) Abdominal pain: QUALIFIERS: Abdominal location: upper abdomen, unspecified Qualified Code(s): R10.10 - Upper abdominal pain, unspecified (5) Intractable nausea and vomiting: (6) GERD (gastroesophageal reflux disease): QUALIFIERS: Esophagitis presence: esophagitis presence not specified Qualified Code(s): K21.9 - Gastro-esophageal reflux disease without esophagitis (7) Myasthenia gravis: (8) Essential (primary) hypertension: (9) Overweight (BMI 25.0-29.9): PLAN: Plan 1. CT evidence of moderate air-fluid level within the stomach with dilated proximal small bowel leading to a gradual transition into collapse small bowel within the lower abdomen consistent with degree of Small Bowel Obstructive change with overall proximal small bowel loops wall appears prominent and may be associated with Enteritis consistent with suspected SBO in the setting of numerous previous abdominal surgeries including appendectomy and multiple hernia repairs - Admit to general medical floor under aspiration precautions. Keep strict n.p.o. and start Protonix 40 mg IV daily for GI prophylaxis. Check stool studies in case of infectious cause of diarrhea. Hemoccult stools. Give IV ondansetron as needed for nausea and vomiting. Give IM promethazine as needed for breakthrough nausea and vomiting. Give ketorolac IV every 8 hours as needed for [id number] (level 1-5/10) pain or fever. Give hydromorphone IV every 4 hours as needed for severe (level 6-10/10) pain. Start empiric metronidazole in case of infectious cause of diarrhea. Finally, we will consult general surgeon on-call to see this patient on rounds in the a.m. with help appreciated in advance. 2. Severe Abdominal Pain with Intractable Nausea and Vomiting with Diarrhea attributable to #1 - Follow pain and nausea regimen as outlined in #1. 3. History of GERD; with EGD revealing gastritis and esophagitis on omeprazole and sucralfate 4 times daily with Macrocytosis of 102.7 fL present on admission adding to the medical complexity of #1 - #2 - Patient on pantoprazole IV for #1. Check B12 level to evaluate for possible underlying deficiency. 4. History of myasthenia gravis (2020); on pyridostigmine 3 times daily adding to the burden of disease outlined form #1 - #3 - Restart this agent when patient can tolerate oral intake. 5. Essential Hypertension; on amlodipine and metoprolol - Hold scheduled oral antihypertensives as patient is strict NPO. Give hydralazine IV as needed for systolic blood pressure greater than 160 mmHg. 6. Overweight; with BMI of 26.4 this admission - Weight loss will be recommended. 7. Hyperlipidemia; on atorvastatin - Hold statin. 8. Former tobacco abuse (quit ~40 years ago) - Noted. 9. CAD; on ISMO and SL NTG as needed - Hold ISMO but continue prn SL NTG. 10. History of hemorrhoids - Stable. 11. BPH; on doxazosin and finasteride - Resume these agents when patient can tolerate oral intake. 12. History of glaucoma; on dorzolamide-timolol drops twice daily - Maintain current regimen. 13. History of vitamin D deficiency - Check vitamin D level this admission. 14. History of L2 compression fracture; s/p kyphoplasty with spinal stimulator noted on CT - Stable. 15. OA; s/p total shoulder replacement with chronic low back pain on as needed hydrocodone at bedtime - Follow pain scale outlined in #1. 16. DVT/GI prophylaxis - SCD's only with possible impending surgery. Pantoprazole 40 mg IV daily. Total time: Approximately (but not less than) 75 minutes. Charges/Coding Visit Charges Inpatient E&M: 48972 Init Hosp L3
[2024-11-17 07:09] LABS: Magnesium 1.9 mg/dL (1.5-2.2)
--- NOTE | 2024-11-17 07:26 | PCM.HOSP.N ---
Hospitalist Note 84-year-old white male with a history of open appendectomy remotely who presents emergency department at [facility] early this morning on 11/17/2024 with chief complaint of abdominal pain, nausea, vomiting and loose stool. He does have a history of myasthenia gravis and on physostigmine 3 times daily. Symptoms began about 2:30 AM on the day of presentation with abrupt onset of symptoms. CT of the abdomen pelvis the emergency department showed moderate air-fluid levels within the stomach with dilated proximal small bowel leading to gradual transition into collapse of the small bowel within the lower abdomen consistent with a degree of small bowel obstructive changes. Patient does have history of open appendectomy remotely. He was admitted to medical floor and placed on IV fluids, antiemetics and an NG tube was placed. General surgery was consulted and evaluated the patient today. It is highly suspected that he has gastroenteritis as the etiology. Supportive care with repeat KUB in the a.m. was recommended. Stool studies have been ordered but uncollected as patient has no further stools since admission.
--- NOTE | 2024-11-17 07:42 | EX.PCM.CON.S ---
Assessment & Plan Assessment/Plan (1) Intractable nausea and vomiting: PLAN: Patient presented with nausea and vomiting after dinner. I reviewed the patient's CT scan it appears that he has a gradual change from dilated to nondilated small bowel and this is not consistent with a mechanical obstruction. It is likely the patient has gastroenteritis as he is also having diarrhea. I recommend supportive care and repeat KUB in the morning. The patient has an NG tube in place which needs to be replaced as it is folded inside of his distal esophagus. At this time there are no surgical plans. Ion Cortés MD Pager: [facility] [address] [place] [address], [address] [place] [address] Office: HPI Consult Data Date of Consult: 11/17/24 HPI Narrative HPI Narrative: ZINA SALDIVAR, is a 84 M who presents with epigastric pain. The patient notes that he has had epigastric pain since after dinner last night. He denies fevers or chills. He has not had a bowel obstruction in the past. He says he is passing a little bit of flatus and he did have some diarrhea. [facility] Medical History Vitamin D deficiency Myasthenia gravis (06/11/21) Hemorrhoids Esophagitis Gastritis Glaucoma Essential (primary) hypertension Hyperlipidemia Obesity BPH (benign prostatic hyperplasia) Home Medications ?Medication ?Instructions ?Recorded ?Last Taken ?Type doxazosin 4 mg tablet,extended 8 mg PO DAILY prostate 01/16/15 02/25/23 History release 24 hr dorzolamide 22.3 mg-timolol 6.8 1 drp ophthalmic (eye) BID left eye 03/04/19 02/25/23 History mg/mL eye drops (Cosopt) finasteride 5 mg tablet (Proscar) 5 mg PO DAILY cholesterol 03/04/19 02/25/23 History psyllium husk (aspartame) 3.4 gram 1 packet PO DAILY fiber 07/30/20 02/25/23 History oral powder packet nitroglycerin 0.4 mg sublingual 0.4 mg sublingual Q5-15M PRN chest 03/26/21 Unknown Rx tablet pain #25 tabs calcium 200 mg (as 1 tab PO BID 03/28/22 02/25/23 History citrate)-vitamin D3 6.25 mcg (250 unit) tablet ([place] Calcium) omeprazole 40 mg capsule,delayed 40 mg PO DAILY 03/28/22 02/25/23 History release pyridostigmine bromide 60 mg 60 mg PO TID 03/28/22 02/25/23 History tablet (Mestinon) ergocalciferol (vitamin D2) 1,250 1,250 mcg PO Q7D #7 caps 02/07/23 02/25/23 Rx mcg (50,000 unit) capsule (Vitamin D2) prednisone 10 mg tablet 10 mg PO DAILY #30 tabs 02/07/23 02/25/23 Rx acetaminophen 500 mg tablet 1,000 mg PO Q8 PRN Pain 02/26/23 Unknown History sucralfate 1 gram tablet 1 g PO 4X/DAY Gastritis 02/26/23 02/25/23 History gabapentin 300 mg capsule 300 mg PO Q12H 06/08/23 Unknown History hydrocodone-acetaminophen 5-325mg 1 tab PO QHS PRN pain 06/08/23 Unknown History 5mg-325mg isosorbide mononitrate 30 mg 30 mg PO DAILY #90 tabs 01/17/24 Unknown Rx tablet,extended release 24 hr atorvastatin 80 mg tablet See Rx Instructions .Route 06/25/24 Unknown Rx .COMPLEX #90 tabs metoprolol succinate 25 mg 25 mg PO DAILY #90 tabs 07/03/24 Unknown Rx tablet,extended release 24 hr amlodipine 2.5 mg tablet 2.5 mg PO DAILY blood pressure #90 08/05/24 Unknown Rx tabs Allergy/AdvReac Type Severity Reaction Status Date / Time morphine AdvReac hallucinati Verified 11/17/24 02:21 ons Family History Father Pancreatitis Cancer Mother Dementia Surgical History History of esophagogastroduodenoscopy (EGD) Hx of total shoulder replacement History of cataract surgery History of eye surgery History of herniorrhaphy History of appendectomy Social History household members: spouse Smoking Status: Former smoker how long ago did patient quit smokin years ago alcohol intake: current alcohol intake frequency: holidays/special occasions only substance use type: does not use caffeine: No ROS Constitutional Constitutional: Reports anorexia; Denies chills, fatigue or fever(s) Eyes Eyes: Denies blurry vision ENT HEENT: Denies abnormal hearing Cardiovascular Cardiovascular: Denies chest pain Respiratory/Chest Respiratory/Chest: Denies cough Gastrointestinal Gastrointestinal: Reports abdominal pain, nausea and vomiting; Denies bloating or hematemesis Genitourinary Genitourinary: Denies change in urinary stream Musculoskeletal Musculoskeletal: Denies abnormal gait Integumentary Integumentary: Denies jaundice Neurologic Neurologic: Denies abnormal gait Lab / Micro Data 11/17/24 02:30 11/17/24 02:30 Labs: Laboratory Results - last 24 hr 11/17/24 02:30: WBC 8.8, RBC 4.06 L, Hgb 13.5, Hct 41.7, MCV 102.7 H, MCH 33.3 H, MCHC 32.4, RDW Std Deviation 53.1 H, RDW Coeff of [place]le 13.9, Plt Count 182, MPV 10.1, Immature Gran % (Auto) 0.300, Neut % (Auto) 83.6 H, Lymph % (Auto) 12.3 L, [place] % (Auto) 3.4, Eos % (Auto) 0.2, Baso % (Auto) 0.2, Absolute Neuts (auto) 7.3, Absolute Lymphs (auto) 1.08, Nucleated RBC % 0, Sodium 141, Potassium 4.1, Chloride Direct 104, Carbon Dioxide 25.8, Anion Gap 12, BUN 17, Creatinine 0.82, Estim Creat Clear Calc 74.92, Est GFR (MDRD) Non-Af 87, BUN/Creatinine Ratio 20.9 H, Glucose 92, Calcium 8.5, Magnesium 1.9, Total Bilirubin 0.68, AST 29, ALT 21, Alkaline Phosphatase 51, Total Protein 6.3, Albumin 3.7, Globulin 2.6, Albumin/Globulin Ratio 1.4, Lipase 29 Imaging Radiology Impression Abdomen/Pelvis CT 11/17/24 02:43 IMPRESSION: Dilation of proximal small-bowel loops with a gradual transition into nondilated collapsed small bowel in the central low abdomen consistent with degree of/developing small bowel obstruction. The wall of the proximal small bowel diffusely appears prominent and may be due to enteritis One or more dose reduction techniques were used (e.g., Automated exposure control, adjustment of the mA and/or kV according to patient size, use of iterative reconstruction technique). Reading Location: [id number] KUB X-Ray 11/17/24 05:50 IMPRESSION: Nasogastric tube is kinked back upon itself approximately 8.5 cm in the distal esophagus in the region of the GE junction with the tip directed retrograde cephalad up the esophagus and requires repositioning.. Reading Location: [id number]
--- NOTE | 2024-11-17 08:22 | RAD_ITS ---
PROCEDURE: ABDOMEN SINGLE VIEW (PORTABLE) REASON FOR EXAM: NG tube placement TECHNIQUE: Single view abdomen. COMPARISON: None FINDINGS: Gastric tube side port overlies the stomach. Bowel gas pattern is normal. No evidence of bowel obstruction. No suspicious calcifications. The bones are unremarkable. RAD/Abdomen Single View (Portable) IMPRESSION: Gastric tube side port overlies stomach. Reading Location: [facility]
[2024-11-17] MEDS: 0.9% Normal Saline (1000mL) 1,000 ML 100 ML IV ×2 (09:00→18:48)
[2024-11-17] MEDS: Pantoprazole Sodium 40 MG in 0.9% Normal Saline (100mL MB+) 100 ML 330 MG IV (09:37)
[2024-11-17] MEDS: 0.9% Normal Saline (100mL Bag) 100 ML 15 ML IV (09:38)
[2024-11-17 09:40] LABS: Vitamin B12 267 pg/mL (180-914)
[2024-11-17] MEDS: metroNIDAZOLE 500 MG/100 ML BAG 100 MG IV ×3 (10:27→22:05)
[2024-11-17] MEDS: HYDROmorphone 0.5 MG/0.5 ML SYRINGE IV (17:12)
[2024-11-17] MEDS: Dorzolamide HCL/Timolol 10 ml Bottle 1 DRP OPHTHALMIC (23:04)
[2024-11-18 05:00] VITALS: BP 118/74; PULSE 84; RESP 16; TEMP 37; O2SAT 97
[2024-11-18 06:00] VITALS: BMI 26.2
[2024-11-18] MEDS: 0.9% Normal Saline (1000mL) 1,000 ML 100 ML IV (06:17)
[2024-11-18] MEDS: metroNIDAZOLE 500 MG/100 ML BAG 100 MG IV ×3 (06:20→22:30)
[2024-11-18 07:54] LABS: Absolute Neutrophil Count 2.8 X10^3/uL (2.0-7.7); Basophil# 0.01 X10^3/uL; Basophil% 0.2 % (0-1); Hematocrit 36.2 % (40-54); Hemoglobin 11.8 g/dL (13.0-16.5); Lymphocyte % 22.9 % (19-41); Mean Corp Hgb Conc 32.6 g/dL (32-36); Mean Corpuscular Hgb 33.3 pg (27.0-32.0); Mean Corpuscular Volume 102.3 fL (80-94); Mean Platelet Vol. 10.1 fl (6.2-12.0); Monocyte# 0.58 X10^3/uL; Monocyte% 13.3 % (0-10); NRBC Flagged by Analyzer 0 % (0-5); Neutrophil # 2.78 X10^3/uL (2.7-7.7); Neutrophil % 63.6 % (47-70); Platelet Count 134 K/mm3 (150-450); RBC Distribution Width CV 14.3 % (11.6-14.6); RBC Distribution Width SD 54.4 fl (35.1-43.9); Red Blood Count 3.54 M/mm3 (4.6-6.2); White Blood Count 4.4 K/mm3 (4.4-11.0)
--- NOTE | 2024-11-18 08:02 | PCM.PN.SRG ---
Subjective Subjective Patient notes that he is not passing much gas but he is not having any nausea. Denies abdominal pain. Objective Data Objective Data Vital Signs: Vital Signs Temp Pulse Resp BP Pulse Ox O2 Del Method 98.6 F 84 16 118/74 97 Room Air 11/18/24 05:00 11/18/24 05:00 11/18/24 05:00 11/18/24 05:00 11/18/24 05:00 11/18/24 05:00 Oxygen Delivery Method Room Air Weight: 193 lb 5.526 oz Body Mass Index (BMI) 26.2 Intake & Output: Intake and Output for Last 24 Hours 11/16/24 11/17/24 11/18/24 23:59 23:59 23:59 Intake Total 1130 / 1130 Output Total 200 / 200 50 / 50 Balance 178. / 1080 / 1080 Lab / Micro Data 11/18/24 07:21 11/17/24 02:30 Labs: Laboratory Results - last 24 hr 11/17/24 08:25: Vitamin B12 267 11/18/24 07:21: WBC 4.4, RBC 3.54 L, Hgb 11.8 L, Hct 36.2 L, MCV 102.3 H, MCH 33.3 H, MCHC 32.6, RDW Std Deviation 54.4 H, RDW Coeff of [place]le 14.3, Plt Count 134 L, MPV 10.1, Immature Gran % (Auto) 0.000, Neut % (Auto) 63.6, Lymph % (Auto) 22.9, [place] % (Auto) 13.3 H, Eos % (Auto) 0.0, Baso % (Auto) 0.2, Absolute Neuts (auto) 2.8, Absolute Lymphs (auto) 1.00, Nucleated RBC % 0 Radiography Diagnostic Testing: Radiology Impression KUB X-Ray 11/17/24 08:22 IMPRESSION: Gastric tube side port overlies stomach. Reading Location: [facility] Physical Exam Const oriented x3 and no apparent distress Resp normal respiratory effort GI soft to palpation and non-tender Assessment & Plan Assessment/Plan (1) Intractable nausea and vomiting: (2) Diarrhea: QUALIFIERS: Diarrhea type: presumed infectious Qualified Code(s): R19.7 - Diarrhea, unspecified PLAN: Plan Patient is still having mild discomfort but he reports it is improved. He denies nausea or vomiting. His NG only put out 50 cc overnight. I would like to remove the NG tube but continue just sips and chips for now. Once he starts having more substantial bowel function I will advance his diet. Likely gastroenteritis. Ion Cortés MD Pager: [facility] [address] [place] [address], [address] [place] [address] Office:
--- NOTE | 2024-11-18 08:13 | CPS ---
with pt at this time, rx held
--- NOTE | 2024-11-18 08:18 | NURSING ---
Ng taken out by Nora Student Nurse with the help of this RN assistance.
--- NOTE | 2024-11-18 08:30 | RAD_ITS ---
EXAM: XR Abdomen, 1 View CLINICAL INDICATION: TECHNIQUE: Frontal supine view of the abdomen/pelvis. COMPARISON: No relevant prior studies available. FINDINGS: GASTROINTESTINAL TRACT: Constipation with suggestion of fecal impaction of the rectum. No dilation. BONES/JOINTS: Unremarkable. No acute fracture. TUBES, LINES AND DEVICES: Neurostimulator in the right lower abdominal quadrant. RAD/Abdomen Single View IMPRESSION: Constipation with suggestion of fecal impaction of the rectum. Reading Location: [facility]
--- NOTE | 2024-11-18 08:32 | NURSING ---
Pt had a small formed but soft Bowel movement before going down for a KUB.
[2024-11-18 09:43] LABS: ALB/GLOB Ratio 1.4 RATIO (0.9-2.4); AST(SGOT) 31 U/L (<=37); Alanine Aminotransfer ALT/SGPT 16 U/L (<=46); Albumin, Serum 2.7 g/dL (3.4-4.8); Alkaline Phosphatase 33 U/L (40-129); Anion Gap 9 (5-15); BUN 19 mg/dL (4-19); BUN/Creat Ratio 28.9 RATIO (10-20); Chloride 109 mmol/L (96-108); Creatinine, Serum 0.66 mg/dL (0.70-1.20); EST Glomerular Filtration Rate 93 (>60); Estimated Creatinine Clearance 76.79 ml/min (50-250); Globulin 1.9 g/dL (2.2-4.2); Glucose 59 mg/dL (70-99); Potassium 3.6 mmol/L (3.3-5.1); Protein, Total 4.6 g/dL (5.9-8.4); Sodium Level 139 mmol/L (133-145); Thyroid Stim Hormone (TSH) 0.694 uIU/mL (0.300-4.200); Total Bilirubin 0.59 mg/dL (0.00-1.30)
[2024-11-18] MEDS: 0.9% Saline Lock 10 ML Syringe IV (09:51)
[2024-11-18] MEDS: Pantoprazole Sodium 40 MG in 0.9% Normal Saline (100mL MB+) 100 ML 330 MG IV (09:51)
[2024-11-18] MEDS: Dorzolamide HCL/Timolol 10 ml Bottle 1 DRP OPHTHALMIC ×2 (09:52→22:32)
--- NOTE | 2024-11-18 10:27 | CASEMGMT ---
ETHAN REY Assessment: Face to Face with pt for initial transition planning/care coordination assessment. ETHAN REY introduced self and role at [facility], pt voices understanding and consents to assessment. Pt is A&O x4 and answers all questions appropriately at this time. Pt lying in bed in no distress, sitting at bedside. Pt agreeable to assessment with in the room. Care providers, pharmacy, and demographics verified/updated. Strata: 1 Admitting Dx: SBO; pain with N/V/D PCP: Felicita Specialists: USMAN; Diann, Neurologist; Nhung Preferred Pharmacy: [facility] Insurance: [facility] Prescription Benefit: yes LNOK: , Delicia Living Arrangements: Pt lives wtih in a 1 level condo with 2 steps to enter. ADLs: Pt is I at baseline with ADLs and IADLs. Transportation: Pt drives self and denies concerns with transportation. DME: Walker, cane, shower bench, grab bars HHC/SNF: Denies Hx of Pt states no concerns with going home at time of dc. Pt states no further concerns/needs. CM to follow. Advised pt to ask CM if any further question/concerns/needs arise, voices understanding. Pt Goal: Home Plan: Home, with family support. Follow for safe DC. Cj LONG CM
[2024-11-18 10:42] VITALS: BP 122/74; PULSE 74; RESP 14; TEMP 37.2; O2SAT 92
--- NOTE | 2024-11-18 11:22 | CPS ---
SMI and Pep held, pt sleeping
--- NOTE | 2024-11-18 11:39 | PN_ITS ---
Subjective Subjective Patient seen and examined. He says he is feeling better. His abdomen has improved. He had a bowel movement this morning. He denied any lightheadedness, dizziness, nausea, vomiting or any other symptoms. Review of systems is otherwise negative. Objective Data Objective Data Vital Signs: Vital Signs Temp Pulse Resp BP Pulse Ox O2 Del Method 99.0 F 74 14 122/74 H 92 Room Air 11/18/24 10:42 11/18/24 10:42 11/18/24 10:42 11/18/24 10:42 11/18/24 10:42 11/18/24 10:42 Oxygen Delivery Method Room Air Weight: 193 lb 5.526 oz Body Mass Index (BMI) 26.2 Intake & Output: Intake and Output for Last 24 Hours 11/16/24 11/17/24 11/18/24 23:59 23:59 23:59 Intake Total 1979. / 1240 / 1240 Output Total 200 / 200 50 / 50 Balance 1780. / 178.25 1190 / 1190 Lab / Micro Data 11/18/24 07:21 11/18/24 07:21 Labs: Laboratory Results - last 24 hr 11/18/24 07:21: WBC 4.4, RBC 3.54 L, Hgb 11.8 L, Hct 36.2 L, MCV 102.3 H, MCH 33.3 H, MCHC 32.6, RDW Std Deviation 54.4 H, RDW Coeff of Chele 14.3, Plt Count 134 L, MPV 10.1, Immature Gran % (Auto) 0.000, Neut % (Auto) 63.6, Lymph % (Auto) 22.9, Reeves % (Auto) 13.3 H, Eos % (Auto) 0.0, Baso % (Auto) 0.2, Absolute Neuts (auto) 2.8, Absolute Lymphs (auto) 1.00, Nucleated RBC % 0, Sodium 139, Potassium 3.6, Chloride Direct 109 H, Carbon Dioxide 21.0 L, Anion Gap 9, BUN 19, Creatinine 0.66 L, Estim Creat Clear Calc 76.79, Est GFR (MDRD) Non-Af 93, B UN/Creatinine Ratio 28.9 H, Glucose 59 L, Calcium 7.0 L, Phosphorus 2.0 L, Total Bilirubin 0.59, AST 31, ALT 16, Alkaline Phosphatase 33 L, Total Protein 4.6 L, Albumin 2.7 L, Globulin 1.9 L, Albumin/Globulin Ratio 1.4, TSH 0.694 Micro: Microbiology 11/18/24 08:30 Stool Stool Lactoferrin - Final 11/18/24 08:30 Stool Clostridioides difficile (PCR) - Final 11/18/24 08:30 Stool Stool Occult Blood (SRAVAN) - Final Occult Blood Positive Physical Exam Const alert, oriented x3 and no apparent distress General Appearance: cooperative and well developed HEENT normocephalic, head/scalp atraumatic, moist oral mucous membranes and oropharynx normal Eyes PERRL and EOMs intact bilaterally Lymph Lymphatic: no lymphadenopathy noted and no lymphedema noted Resp normal respiratory effort, normal air movement and clear to auscultation bilaterally Cardio regular rate, regular rhythm, S1 normal heart sound, S2 normal heart sound and no murmurs GI normal to inspection, nondistended, normoactive bowel sounds, soft to palpation, non-tender and non-distended Extremity General Extremity: no tenderness to palpation of joints or extremities Skin General Skin Exam: no breakdown Neuro CN's II-XII intact bilaterally, no focal motor deficits and no sensory deficits noted Motor Exam: strength 5/5 throughout and general weakness Psych thought process normal and cooperative Appearance: appropriate Assessment & Plan Assessment/Plan (1) Intractable nausea and vomiting: (2) Diarrhea: QUALIFIERS: Diarrhea type: presumed infectious Qualified Code(s): R19.7 - Diarrhea, unspecified (3) Overweight (BMI 25.0-29.9): (4) Small bowel obstruction: PLAN: Plan #Intractable nausea nad vomiting due to ileus v SBO * geneal surgery on board * was admitted with a compliant of abdominal pain, nausea and vomiting. CT abdomen and pelvis showed moderate air-fluid level within the stomach with dilated proximal small bowel leading to a gradual transitioninto collapse small bowel within the lower abdomen consistnet with SBO. * general surgery reviewed him and recommended that this was likely ileus due to the gastroenteritis and not SBO. * NG tube removed by general surgery * start on clear liquid diet and advance as tolerated * on IM promethazine and IV zofran prn. * on IV metronidazole * #GERD: EGD in the past showed gastritis and esophagitis. on omeprazole and sucralfate. #Hypophosphatemia and hypocalcemia: calcium and phosphorous are both low. Will replace and trend. #History of myasthenia gravis * on pyridostigmine tid. * PT/OT On board * #Benign essential hypertension * on amlodipine and metoprolol. Will resume * #Hyperlipidemia: on statin. #CAD: on imdur, metoprolol and atorvastatin #BPH: on flomax and tamsulosin #History of glaucoma: on dorzolamide-timolol #History o fL2 compression fracture s/p kypoplasty with spinal stimulator * stable * DVT prophylaxis; SCDs. * * Charges/Coding Visit Charges Inpatient E&M: 79303 Subs Hosp L2
[2024-11-18 17:24] VITALS: BP 121/53; PULSE 86; RESP 17; TEMP 37.1; O2SAT 94
[2024-11-18 22:34] VITALS: BP 123/66; PULSE 68; RESP 14; TEMP 37.2; O2SAT 96
[2024-11-19 04:30] VITALS: BP 117/66; PULSE 65; RESP 16; TEMP 36.7; O2SAT 95
[2024-11-19 06:00] VITALS: BMI 26.2
[2024-11-19] MEDS: metroNIDAZOLE 500 MG/100 ML BAG 100 MG IV ×3 (06:16→21:45)
--- NOTE | 2024-11-19 06:59 | PCM.PN.SRG ---
Subjective Subjective Patient reports some mild nausea but other than that he is doing well. Mild epigastric pain. He reports he is having flatus and he passed a bowel movement yesterday and today. Objective Data Objective Data Vital Signs: Vital Signs Temp Pulse Resp BP Pulse Ox O2 Del Method 98.1 F 65 16 117/66 95 Room Air 11/19/24 04:30 11/19/24 04:30 11/19/24 04:30 11/19/24 04:30 11/19/24 04:30 11/19/24 04:30 Oxygen Delivery Method Room Air Weight: 193 lb 5.526 oz Body Mass Index (BMI) 26.2 Intake & Output: Intake and Output for Last 24 Hours 11/17/24 11/18/24 11/19/24 23:59 23:59 23:59 Intake Total 1979. / 2721.67 / 2721.67 Output Total 200 / 200 50 / 50 Balance 1780.25 / 1780.25 2671.67 / 2671.67 Lab / Micro Data 11/18/24 07:21 11/18/24 07:21 Labs: Laboratory Results - last 24 hr 11/18/24 07:21: WBC 4.4, RBC 3.54 L, Hgb 11.8 L, Hct 36.2 L, MCV 102.3 H, MCH 33.3 H, MCHC 32.6, RDW Std Deviation 54.4 H, RDW Coeff of Chele 14.3, Plt Count 134 L, MPV 10.1, Immature Gran % (Auto) 0.000, Neut % (Auto) 63.6, Lymph % (Auto) 22.9, [place] % (Auto) 13.3 H, Eos % (Auto) 0.0, Baso % (Auto) 0.2, Absolute Neuts (auto) 2.8, Absolute Lymphs (auto) 1.00, Nucleated RBC % 0, Sodium 139, Potassium 3.6, Chloride Direct 109 H, Carbon Dioxide 21.0 L, Anion Gap 9, BUN 19, Creatinine 0.66 L, Estim Creat Clear Calc 76.79, Est GFR (MDRD) Non-Af 93, BUN/Creatinine Ratio 28.9 H, Glucose 59 L, Calcium 7.0 L, Phosphorus 2.0 L, Total Bilirubin 0.59, AST 31, ALT 16, Alkaline Phosphatase 33 L, Total Protein 4.6 L, Albumin 2.7 L, Globulin 1.9 L, Albumin/Globulin Ratio 1.4, TSH 0.694 Micro: Microbiology 11/18/24 08:30 Stool Stool Lactoferrin - Final 11/18/24 08:30 Stool Clostridioides difficile (PCR) - Final 11/18/24 08:30 Stool Stool Occult Blood (SRAVAN) - Final Occult Blood Positive Radiography Diagnostic Testing: Radiology Impression KUB X-Ray 11/18/24 08:30 IMPRESSION: Constipation with suggestion of fecal impaction of the rectum. Reading Location: [facility] Physical Exam Const oriented x3 and no apparent distress Resp normal respiratory effort Cardio regular rate and regular rhythm GI soft to palpation and non-tender Assessment & Plan Assessment/Plan (1) Intractable nausea and vomiting: PLAN: The patient reports that he had a bowel movement this morning and he had a bowel movement yesterday morning. He tolerated clear liquids yesterday with mild nausea but other than that he is doing well. I will advance him to a full liquid diet. Patient likely had gastroenteritis. Ion Cortés MD Pager: [facility] [address] [place] [address], [address] [place] [address] Office:
[2024-11-19 07:43] LABS: Absolute Lymphocyte Count 1.23 X10^3/uL (0.83-4.51); Absolute Neutrophil Count 2.5 X10^3/uL (2.0-7.7); Basophil# 0.02 X10^3/uL; Basophil% 0.4 % (0-1); Eosinophil# 0.05 X10^3/uL; Eosinophils% 1.1 % (0-5); Hematocrit 34.9 % (40-54); Hemoglobin 11.6 g/dL (13.0-16.5); Lymphocyte # 1.23 X10^3/ul (0.83-4.51); Lymphocyte % 27.5 % (19-41); Mean Corp Hgb Conc 33.2 g/dL (32-36); Mean Corpuscular Hgb 33.5 pg (27.0-32.0); Mean Corpuscular Volume 100.9 fL (80-94); Mean Platelet Vol. 10.1 fl (6.2-12.0); Monocyte# 0.63 X10^3/uL; Monocyte% 14.1 % (0-10); NRBC Flagged by Analyzer 0 % (0-5); Neutrophil # 2.52 X10^3/uL (2.7-7.7); Neutrophil % 56.5 % (47-70); Platelet Count 115 K/mm3 (150-450); RBC Distribution Width SD 51.8 fl (35.1-43.9); Red Blood Count 3.46 M/mm3 (4.6-6.2); White Blood Count 4.5 K/mm3 (4.4-11.0)
[2024-11-19 08:23] LABS: Phosphorus 1.9 mg/dL (2.7-4.5)
[2024-11-19 08:54] LABS: Anion Gap 8 (5-15); BUN 13 mg/dL (4-19); BUN/Creat Ratio 20.3 RATIO (10-20); Calcium 7.2 mg/dL (7.6-11.0); Chloride 108 mmol/L (96-108); Creatinine, Serum 0.64 mg/dL (0.70-1.20); EST Glomerular Filtration Rate 94 (>60); Estimated Creatinine Clearance 76.79 ml/min (50-250); Glucose 89 mg/dL (70-99); Potassium 3.5 mmol/L (3.3-5.1); Sodium Level 138 mmol/L (133-145)
[2024-11-19] MEDS: Pantoprazole Sodium 40 MG in 0.9% Normal Saline (100mL MB+) 100 ML 330 MG IV (09:24)
[2024-11-19] MEDS: Dorzolamide HCL/Timolol 10 ml Bottle 1 DRP OPHTHALMIC ×2 (09:24→21:44)
[2024-11-19 09:34] VITALS: PULSE 64; RESP 18; O2SAT 94
[2024-11-19 09:39] VITALS: BP 122/64; PULSE 64; RESP 18; TEMP 36.9; O2SAT 94
--- NOTE | 2024-11-19 11:42 | PN_ITS ---
Subjective Subjective Patient seen and examined. He said he felt better today. Diarrhea had resolved. Review of systems otherwise negative. He is tolerating a diet and has been advanced to full liquid diet today by general surgery. Objective Data Objective Data Vital Signs: Vital Signs Temp Pulse Resp BP Pulse Ox O2 Del Method 98.4 F 64 18 122/64 H 94 Room Air 11/19/24 09:39 11/19/24 09:39 11/19/24 09:39 11/19/24 09:39 11/19/24 09:39 11/19/24 09:39 Oxygen Delivery Method Room Air Weight: 193 lb 9.054 oz Body Mass Index (BMI) 26.2 Intake & Output: Intake and Output for Last 24 Hours 11/17/24 11/18/24 11/19/24 23:59 23:59 23:59 Intake Total 1979. / 2721.67 / 2721.67 210 / 210 Output Total 200 / 200 50 / 50 Balance 1780.25 / 178.25 2671.67 / 2671.67 210 / 210 Lab / Micro Data 11/19/24 07:23 11/19/24 07:23 Labs: Laboratory Results - last 24 hr 11/19/24 07:23: WBC 4.5, RBC 3.46 L, Hgb 11.6 L, Hct 34.9 L, MCV 100.9 H, MCH 33.5 H, MCHC 33.2, RDW Std Deviation 51.8 H, RDW Coeff of Chele 14.0, Plt Count 115 L, MPV 10.1, Immature Gran % (Auto) 0.400, Neut % (Auto) 56.5, Lymph % (Auto) 27.5, [place] % (Auto) 14.1 H, Eos % (Auto) 1.1, Baso % (Auto) 0.4, Absolute Neuts (auto) 2.5, Absolute Lymphs (auto) 1.23, Nucleated RBC % 0, Sodium 138, Potassium 3.5, Chloride Direct 108, Carbon Dioxide 22.0, Anion Gap 8, BUN 13, C reatinine 0.64 L, Estim Creat Clear Calc 76.79, Est GFR (MDRD) Non-Af 94, B UN/Creatinine Ratio 20.3 H, Glucose 89, Calcium 7.2 L, Phosphorus 1.9 L Micro: Microbiology 11/18/24 08:30 Stool Stool Lactoferrin - Final 11/18/24 08:30 Stool Clostridioides difficile (PCR) - Final 11/18/24 08:30 Stool Stool Occult Blood (SRAVAN) - Final Occult Blood Positive Radiography Diagnostic Testing: Radiology Impression KUB X-Ray 11/18/24 08:30 IMPRESSION: Constipation with suggestion of fecal impaction of the rectum. Reading Location: [facility] Physical Exam Const alert, oriented x3, no apparent distress and average body habitus General Appearance: cooperative and well developed HEENT normocephalic, head/scalp atraumatic, hearing grossly normal bilaterally, moist oral mucous membranes and oropharynx normal Eyes PERRL, EOMs intact bilaterally and conjunctivae normal Neck no lymphadenopathy, supple and no JVD Lymph Lymphatic: no lymphadenopathy noted and no lymphedema noted Resp normal respiratory effort, normal air movement, no retractions, no use of accessory muscles and clear to auscultation bilaterally Cardio regular rate, regular rhythm, S1 normal heart sound, S2 normal heart sound and no murmurs GI normal to inspection, nondistended, normoactive bowel sounds, soft to palpation, non-tender and non-distended Extremity normal to inspection, full ROM, normal capillary refill and no clubbing, cyanosis or edema General Extremity: no tenderness to palpation of joints or extremities Skin General Skin Exam: no breakdown Neuro oriented x3, CN's II-XII intact bilaterally, moves all extremities, no focal motor deficits and no sensory deficits noted Sensorium / Orientation: awake, alert, oriented to person, oriented to place and oriented to time Speech: speech normal Motor Exam: strength 5/5 throughout and general weakness Psych thought process normal, cooperative and affect normal Appearance: appropriate Assessment & Plan Assessment/Plan (1) Intractable nausea and vomiting: (2) Diarrhea: QUALIFIERS: Diarrhea type: presumed infectious Qualified Code(s): R19.7 - Diarrhea, unspecified (3) Overweight (BMI 25.0-29.9): (4) Small bowel obstruction: PLAN: Plan #Intractable nausea nad vomiting due to ileus v SBO * geneal surgery on board * was admitted with a compliant of abdominal pain, nausea and vomiting. CT abdomen and pelvis showed moderate air-fluid level within the stomach with dilated proximal small bowel leading to a gradual transitioninto collapse small bowel within the lower abdomen consistnet with SBO. * general surgery reviewed him and recommended that this was likely ileus due to the gastroenteritis and not SBO. * NG tube removed by general surgery * Tolerated a clear liquid diet. Has not had any nausea or vomiting overnight. Diet advanced to full liquid diet per general surgery. * on IM promethazine and IV zofran prn. * on IV metronidazole * #GERD: EGD in the past showed gastritis and esophagitis. on omeprazole and sucralfate. #Hypophosphatemia and hypocalcemia: calcium and phosphorous are both low. Will replace and trend. #History of myasthenia gravis * on pyridostigmine tid. * PT/OT On board * #Benign essential hypertension * on amlodipine and metoprolol. Will resume * #Hyperlipidemia: on statin. #CAD: on imdur, metoprolol and atorvastatin #BPH: on flomax and tamsulosin #History of glaucoma: on dorzolamide-timolol #History of L2 compression fracture s/p kypoplasty with spinal stimulator * stable * DVT prophylaxis; SCDs. * * Charges/Coding Visit Charges Inpatient E&M: 00312 Subs Hosp L2
[2024-11-19 15:00] VITALS: BP 141/80; PULSE 60; RESP 18; TEMP 36.6; O2SAT 96
[2024-11-19 21:23] VITALS: BP 130/71; PULSE 60; RESP 16; TEMP 37.3; O2SAT 97
[2024-11-19 21:27] VITALS: PULSE 60
[2024-11-19] MEDS: Na Biphos/Potassium Phosphate PACKET 1 PACKET PO (21:44)
[2024-11-19] MEDS: Calcium Carbonate 500 MG Tablet PO (21:44)
[2024-11-20 02:45] VITALS: BP 126/72; PULSE 62; RESP 16; TEMP 37.1; O2SAT 96
[2024-11-20] MEDS: metroNIDAZOLE 500 MG/100 ML BAG 100 MG IV (06:05)
[2024-11-20] MEDS: Na Biphos/Potassium Phosphate PACKET 1 PACKET PO (06:42)
[2024-11-20 07:01] LABS: Absolute Lymphocyte Count 1.92 X10^3/uL (0.83-4.51); Absolute Neutrophil Count 2.2 X10^3/uL (2.0-7.7); Basophil# 0.02 X10^3/uL; Basophil% 0.4 % (0-1); Eosinophil# 0.09 X10^3/uL; Eosinophils% 1.8 % (0-5); Hematocrit 36.6 % (40-54); Hemoglobin 12.4 g/dL (13.0-16.5); Lymphocyte # 1.92 X10^3/ul (0.83-4.51); Lymphocyte % 38.6 % (19-41); Mean Corp Hgb Conc 33.9 g/dL (32-36); Mean Corpuscular Hgb 33.7 pg (27.0-32.0); Mean Corpuscular Volume 99.5 fL (80-94); Monocyte# 0.71 X10^3/uL; Monocyte% 14.3 % (0-10); NRBC Flagged by Analyzer 0 % (0-5); Neutrophil # 2.22 X10^3/uL (2.7-7.7); Neutrophil % 44.5 % (47-70); Platelet Count 142 K/mm3 (150-450); RBC Distribution Width CV 13.6 % (11.6-14.6); Red Blood Count 3.68 M/mm3 (4.6-6.2)
[2024-11-20 08:01] VITALS: BP 127/72; PULSE 57; RESP 16; TEMP 36.6; O2SAT 97
[2024-11-20 08:04] VITALS: PULSE 57
[2024-11-20] MEDS: Calcium Carbonate 500 MG Tablet PO ×2 (08:09→12:52)
[2024-11-20 08:23] LABS: Anion Gap 10 (5-15); BUN 7 mg/dL (4-19); BUN/Creat Ratio 10.1 RATIO (10-20); Calcium,Total 6.9 mg/dL (7.6-11.0); Carbon Dioxide 21.7 mmol/L (21.0-32.0); Chloride 105 mmol/L (98-108); Creatinine, Serum 0.66 mg/dL (0.70-1.20); EST Glomerular Filtration Rate 93 (>60); Estimated Creatinine Clearance 76.79 ml/min (50-250); Glucose 92 mg/dL (70-99); Potassium 3.4 mmol/L (3.3-5.1); Sodium Level 137 mmol/L (133-145)
--- NOTE | 2024-11-20 08:39 | PN.SURG_ITS ---
Subjective Subjective Patient evaluated resting comfortably in bed. He notes epigastric discomfort intermittently and intermittently nausea. He continues to pass flatus and have bowel movements. He tolerated full liquids without any concerns. He voices readiness to go home hopefully today. Objective Data Objective Data Vital Signs: Vital Signs Temp Pulse Resp BP Pulse Ox O2 Del Method 97.8 F 57 L 16 127/72 H 97 Room Air 11/20/24 08:01 11/20/24 08:04 11/20/24 08:01 11/20/24 08:01 11/20/24 08:01 11/20/24 08:01 Oxygen Delivery Method Room Air Weight: 193 lb 9.054 oz Body Mass Index (BMI) 26.2 Intake & Output: Intake and Output for Last 24 Hours 11/18/24 11/19/24 11/20/24 23:59 23:59 23:59 Intake Total 2721.67 / 2721.67 1984 200 / 200 Output Total 50 / 50 Balance 2671.67 / 2671.67 1984 200 / 200 Lab / Micro Data 11/20/24 06:20 11/20/24 06:20 Labs: Laboratory Results - last 24 hr 11/19/24 07:23: Sodium 138, Potassium 3.5, Chloride Direct 108, Carbon Dioxide 22.0, Anion Gap 8, BUN 13, Creatinine 0.64 L, Estim Creat Clear Calc 76.79, Est GFR (MDRD) Non-Af 94, BUN/Creatinine Ratio 20.3 H, Glucose 89, Calcium 7.2 L 11/20/24 06:20: WBC 5.0, RBC 3.68 L, Hgb 12.4 L, Hct 36.6 L, MCV 99.5 H, MCH 33.7 H, MCHC 33.9, RDW Std Deviation 50.0 H, RDW Coeff of Chele 13.6, Plt Count 142 L, MPV 10.0, Immature Gran % (Auto) 0.400, Neut % (Auto) 44.5 L, Lymph % (Auto) 38.6, [place] % (Auto) 14.3 H, Eos % (Auto) 1.8, Baso % (Auto) 0.4, Absolute Neuts (auto) 2.2, Absolute Lymphs (auto) 1.92, Nucleated RBC % 0, Sodium 137, Potassium 3.4, Chloride 105, Carbon Dioxide 21.7, Anion Gap 10, BUN 7, C reatinine 0.66 L, Estim Creat Clear Calc 76.79, Est GFR (MDRD) Non-Af 93, BUN/Creatinine Ratio 10.1, Glucose 92, Calcium 6.9 L Micro: Microbiology 11/18/24 08:30 Stool Stool Lactoferrin - Final 11/18/24 08:30 Stool Clostridioides difficile (PCR) - Final 11/18/24 08:30 Stool Stool Occult Blood (SRAVAN) - Final Occult Blood Positive Physical Exam GI GI Narrative: Abdomen- soft, slight tenderness in the epigastric region to palpation. Assessment & Plan Assessment/Plan (1) Intractable nausea and vomiting: (2) Enteritis: PLAN: Plan I am following this patient in conjunction with Dr. Núñez in Dr. Cortés's absence. She will independently evaluate this patient. Labs reviewed and are stable Increase diet to regular If tolerate diet, patient may be discharged from surgical standpoint Recommend to the patient to continue his omeprazole and Carafate at home Okay for discharge to home Charges/Coding Visit Charges Inpatient E&M: 24150 Subs Hosp L1
[2024-11-20] MEDS: Pantoprazole Sodium 40 MG in 0.9% Normal Saline (100mL MB+) 100 ML 330 MG IV (10:31)
[2024-11-20] MEDS: Dorzolamide HCL/Timolol 10 ml Bottle 1 DRP OPHTHALMIC (10:32)
--- NOTE | 2024-11-20 11:28 | DS.PCM_ITS ---
Providers Date of Admission: 11/17/24 Date of Discharge: 11/20/24 Primary Care Physician: Dr. Oliver Mims MD Consultations 11/17/24 07:37 Consult: General Surgery Routine Consulting Provider: Ion Cortés Reason for Consult: SBO EMERGENT Consult: No MD Notified: Yes Date Notified: 11/17/24 Time Notified: 06:32 Method of Notification: ED Physician Initiated Reason For Visit: SBOcausing abdomina; pain with N/V/D Diagnosis Discharge Diagnosis (1) Intractable nausea and vomiting: Status: Acute Code(s): R11.2 - Nausea with vomiting, unspecified (2) Enteritis: Status: Acute Code(s): K52.9 - Noninfective gastroenteritis and colitis, unspecified Plan #Intractable nausea nad vomiting due to ileus v SBO * geneal surgery on board * was admitted with a compliant of abdominal pain, nausea and vomiting. CT abdomen and pelvis showed moderate air-fluid level within the stomach with dilated proximal small bowel leading to a gradual transitioninto collapse small bowel within the lower abdomen consistnet with SBO. * general surgery reviewed him and recommended that this was likely ileus due to the gastroenteritis and not SBO. * NG tube removed by general surgery * Tolerated a clear liquid diet. Has not had any nausea or vomiting overnight. Diet advanced to full liquid diet per general surgery. * on IM promethazine and IV zofran prn. * on IV metronidazole * #GERD: EGD in the past showed gastritis and esophagitis. on omeprazole and sucralfate. #Hypophosphatemia and hypocalcemia: calcium and phosphorous are both low. Will replace and trend. #History of myasthenia gravis * on pyridostigmine tid. * PT/OT On board * #Benign essential hypertension * on amlodipine and metoprolol. Will resume * #Hyperlipidemia: on statin. #CAD: on imdur, metoprolol and atorvastatin #BPH: on flomax and tamsulosin #History of glaucoma: on dorzolamide-timolol #History of L2 compression fracture s/p kypoplasty with spinal stimulator * stable * DVT prophylaxis; SCDs. * * Medications at Discharge Home Medications doxazosin 4 mg tablet,extended release 24 hr 8 mg PO DAILY prostate 01/16/15 dorzolamide 22.3 mg-timolol 6.8 mg/mL eye drops (Cosopt) 1 drp ophthalmic (eye) BID left eye 03/04/19 finasteride 5 mg tablet (Proscar) 5 mg PO DAILY cholesterol 03/04/19 psyllium husk (aspartame) 3.4 gram oral powder packet 1 packet PO DAILY fiber 07/30/20 nitroglycerin 0.4 mg sublingual tablet 0.4 mg sublingual Q5-15M PRN chest pain #25 tabs 03/26/21 calcium 200 mg (as citrate)-vitamin D3 6.25 mcg (250 unit) tablet ([place] Calcium) 1 tab PO BID 03/28/22 omeprazole 40 mg capsule,delayed release 40 mg PO DAILY 03/28/22 pyridostigmine bromide 60 mg tablet (Mestinon) 60 mg PO TID 03/28/22 ergocalciferol (vitamin D2) 1,250 mcg (50,000 unit) capsule (Vitamin D2) 1,250 mcg PO Q7D #7 caps 02/07/23 prednisone 10 mg tablet 10 mg PO DAILY #30 tabs 02/07/23 acetaminophen 500 mg tablet 1,000 mg PO Q8 PRN Pain 02/26/23 sucralfate 1 gram tablet 1 g PO 4X/DAY Gastritis 02/26/23 gabapentin 300 mg capsule 300 mg PO Q12H 06/08/23 hydrocodone-acetaminophen 5-325mg 5mg-325mg 1 tab PO QHS PRN pain 06/08/23 isosorbide mononitrate 30 mg tablet,extended release 24 hr 30 mg PO DAILY #90 tabs 01/17/24 atorvastatin 80 mg tablet See Rx Instructions .Route .COMPLEX #90 tabs 06/25/24 metoprolol succinate 25 mg tablet,extended release 24 hr 25 mg PO DAILY #90 tabs 07/03/24 amlodipine 2.5 mg tablet 2.5 mg PO DAILY blood pressure #90 tabs 08/05/24 Hospital Course Operations None Procedures None Summary of Care Provided Minutes Spent on Discharge: 45 Hospital Course: Patient is an 84 y/o male with a PMH as outlined who was admitted via the ED on 11/20/2024 with a complaint of nausea, vomiting and nonbloody diarrhea with mild abdominal pain. He admitted to chills also and denied any fever. CT of the abdomen and pelvis done showed evidence of moderate air-fluid level within the stomach with dilated proximal bowel leading to a gradual transition into collapse of the small bowel within the lower abdomen consistent with degree of small bowel obstructive change in overall proximal small bowel loop wall appeared prominent may be associated with enteritis with no mesenteric stranding no evidence of volvulus or internal hernia identified. Patient was admitted and managed for probable small bowel obstruction versus ileus. He had NG tube placed in the ED he was kept n.p.o. and hydrated with IV fluids. Patient was however still having diarrhea during this period. General surgery reviewed him and thought her symptoms were likely due to paralytic ileus for acute gastroenteritis rather than small bowel obstruction. Patient's symptoms improved and the diarrhea stopped. He was therefore started on a clear liquid diet after the NG tube was pulled out. He tolerated a clear liquid diet and slowly advance to full liquid and then regular diet. He was discharged home on 11/20/2024. His abdominal pain had largely improved though he did have some minimal epigastric tenderness. General surgery reviewed them and will okay with patient going home. He was therefore discharged home and is to follow-up with his primary care doctor and general surgery within 1 to 2 weeks. Patient seen and examined prior to discharge. He felt much better and had no complaints. Diarrhea had not recurred. He had had 2 bowel movements today which were normal caliber. Review of systems otherwise negative. Labs and vitals reviewed. Home medication was reviewed and reconciled. Physical Exam Const alert, oriented x3, no apparent distress and average body habitus General Appearance: cooperative, comfortable, well kempt and well developed Orientation / Consciousness: awake Exam Limitations: no limitations HEENT normocephalic, head/scalp atraumatic, hearing grossly normal bilaterally, moist oral mucous membranes and oropharynx normal Mouth: oral and palatal mucosa normal Eyes PERRL, EOMs intact bilaterally and conjunctivae normal Neck no lymphadenopathy, supple and no JVD Lymph Lymphatic: no lymphadenopathy noted and no lymphedema noted Resp normal respiratory effort, normal air movement, no retractions, no use of accessory muscles and clear to auscultation bilaterally Cardio regular rate, regular rhythm, S1 normal heart sound, S2 normal heart sound and no murmurs GI normal to inspection, nondistended, normoactive bowel sounds, soft to palpation, non-tender and non-distended Extremity normal to inspection, full ROM, normal capillary refill and no clubbing, cyanosis or edema General Extremity: no tenderness to palpation of joints or extremities Skin no rashes or lesions noted General Skin Exam: no breakdown Neuro oriented x3, CN's II-XII intact bilaterally, moves all extremities, no focal motor deficits and no sensory deficits noted Sensorium / Orientation: awake, alert, oriented to person, oriented to place and oriented to time Speech: speech normal Motor Exam: strength 5/5 throughout and general weakness Psych thought process normal, cooperative and affect normal Appearance: appropriate Weight / BMI Weight Weight: 193 lb 9.054 oz Body Mass Index (BMI) 26.2 ABG / Lab / Microbiology Data 11/20/24 06:20 11/20/24 06:20 Laboratory: Laboratory Results - last 24 hr 11/17/24 02:48: Vit D 1,25-Dihydroxy 14.6 L 11/20/24 06:20: WBC 5.0, RBC 3.68 L, Hgb 12.4 L, Hct 36.6 L, MCV 99.5 H, MCH 33.7 H, MCHC 33.9, RDW Std Deviation 50.0 H, RDW Coeff of Chele 13.6, Plt Count 142 L, MPV 10.0, Immature Gran % (Auto) 0.400, Neut % (Auto) 44.5 L, Lymph % (Auto) 38.6, [place] % (Auto) 14.3 H, Eos % (Auto) 1.8, Baso % (Auto) 0.4, Absolute Neuts (auto) 2.2, Absolute Lymphs (auto) 1.92, Nucleated RBC % 0, Sodium 137, Potassium 3.4, Chloride 105, Carbon Dioxide 21.7, Anion Gap 10, BUN 7, C reatinine 0.66 L, Estim Creat Clear Calc 76.79, Est GFR (MDRD) Non-Af 93, BUN/Creatinine Ratio 10.1, Glucose 92, Calcium 6.9 L Microbiology: Microbiology 11/18/24 08:30 Stool Stool Lactoferrin - Final 11/18/24 08:30 Stool Clostridioides difficile (PCR) - Final 11/18/24 08:30 Stool Stool Occult Blood (SRAVAN) - Final Occult Blood Positive D/C Instructions Discharge Diet: Low fat / Low cholesterol Discharge Activity: Return to Normal Activity Weight Bearing Status: Weight bearing as tolerated Call your doctor if you observe: Fever of 101 or Higher, Shortness of breath, Dizziness, Swelling in the ankles and Chest pain DC O2, CPAP, BIPAP Needs Home O2 Discharge instructions: No Meaningful Use Info Meaningful Use Meaningful Use Diagnoses (Choose all that apply): None applicable Ischemic Stroke Statin Dosing Therapy Reference: STATIN DOSE THERAPY REFERENCE: * Patients > 75 years receive moderate or high dose statin therapy. * Patients 75 years or YOUNGER should receive HIGH intensity statin dose unless contraindicated. You will be required to document reason for non-treatment if statin daily dose does not meet guidelines. HIGH DOSE STATIN THERAPY DAILY Atorvastatin > than or = to 40 mg Rosuvastatin > than or = to 20 mg Amlodipine + Atorvastatin > than or = to 2.5/40 mg Ezetimibe + Simvastatin 10/80 mg Simvastatin 80mg Discharge Plan Admission Admit Date/Time: 11/17/24 06:27 Primary Reason for Your Visit: ileus due to intractable nausea and vomiting Attending Provider: Renata Francis Primary Care Provider: Oliver Mims Consulting Providers: Josiah Hicks; Ion Cortés; Sheyla Moss Instructions Patient Instructions: Ileus Discharge Orders/Prescriptions Prescriptions: Continued finasteride [Proscar] 5 mg tablet 5 mg PO DAILY dorzolamide-timolol [Cosopt] 22.3-6.8 mg/mL drops 1 drp OPHTHALMIC BID nitroglycerin 0.4 mg tablet, sublingual 0.4 mg SUBLINGUAL Q5-15M PRN (Reason: chest pain) Qty: 25 4RF Rx Instructions: do not exceed 3 doses per episode omeprazole 40 mg capsule,delayed release(DR/EC) 40 mg PO DAILY calcium citrate-vitamin D3 [[place] Calcium-Vitamin D3] 200 mg-6.25 mcg (250 unit) tablet 1 tab PO BID Patient Comments: TAKE 1 TABLET BY MOUTH TWICE DAILY WITH FOOD hydrocodone-acetaminophen 5-325 mg tablet 1 tab PO QHS PRN (Reason: pain) gabapentin 300 mg capsule 300 mg PO Q12H doxazosin 4 MG tablet extended release 24hr 8 mg PO DAILY psyllium husk (aspartame) 1 PACKET packet 1 packet PO DAILY ergocalciferol (vitamin D2) [Vitamin D2] 1,250 mcg (50,000 unit) Capsule 1,250 mcg PO Q7D Qty: 7 0RF prednisone 10 mg tablet 10 mg PO DAILY Qty: 30 0RF Rx Instructions: take 2 tablets daily on 02/08 and 02/09, then resume 1 tablet daily. acetaminophen 500 mg tablet 1,000 mg PO Q8 PRN (Reason: Pain) Rx Instructions: [id number], no prescription required. sucralfate 1 gram tablet 1 g PO 4X/DAY Patient Comments: TAKE 1 TABLET BY MOUTH before meals and AT BEDTIME pyridostigmine bromide [Mestinon] 60 mg tablet 60 mg PO TID isosorbide mononitrate 30 mg tablet extended release 24 hr 30 mg PO DAILY Qty: 90 3RF atorvastatin 80 mg tablet See Rx Instructions .ROUTE .COMPLEX Qty: 90 3RF Dose Instruction: TAKE 1 TABLET AT BEDTIME FOR CHOLESTEROL Rx Instructions: TAKE 1 TABLET AT BEDTIME FOR CHOLESTEROL metoprolol succinate 25 mg tablet extended release 24 hr 25 mg PO DAILY Qty: 90 3RF amlodipine 2.5 mg tablet 2.5 mg PO DAILY Qty: 90 3RF Referrals / Follow Up: Oliver Mims MD [Primary Care Provider] - Within 1 Week Phillip Lau DO [Med Staff - Active Staff] - Within 2 Weeks (see to establish care o/a of positive stool for occult blood.) Disposition Disposition (needs filled in before D/C Order can be placed): Home, Self Care Charges/Coding Visit Charges Inpatient E&M: 68858 Disch Hosp >30min
--- NOTE | 2024-11-20 12:00 | CASEMGMT ---
ETHAN REY NOTE: Discharge order is in. RN CM to room. Introduced self and role. Pt states feels safe discharging home today and denies having any needs/concerns. His will be taking him home. Thais CISSEN ETHAN CM
[2024-11-20 12:08] LABS: Vitamin D 1,25-Dihydroxy 14.6 pg/mL (24.8-81.5)
== END 2024-11-20 14:01 | disposition home or self-care (01) | DRG 372 ==
LOC: ED 05:22 → MS3 06:42
PROVIDERS: Admitting Provider Internal Medicine; Emergency Provider Emergency Medicine; PCP Family Medicine; Visit Provider Student in an Organized Health Care Education/Training Program
DX: A04.9 Bacterial intestinal infection, unspecified (principal); K56.0 Paralytic ileus; E83.39 Other disorders of phosphorus metabolism; I10 Essential (primary) hypertension; G70.00 Myasthenia gravis without (acute) exacerbation; K52.9 Noninfective gastroenteritis and colitis, unspecified; E78.5 Hyperlipidemia, unspecified; I25.10 Atherosclerotic heart disease of native coronary artery without angina pectoris; K21.9 Gastro-esophageal reflux disease without esophagitis; M54.50 Low back pain, unspecified; M19.90 Unspecified osteoarthritis, unspecified site; K57.30 Diverticulosis of large intestine without perforation or abscess without bleeding; D75.89 Other specified diseases of blood and blood-forming organs; E83.51 Hypocalcemia; G89.29 Other chronic pain; E66.3 Overweight; H40.9 Unspecified glaucoma; Z87.19 Personal history of other diseases of the digestive system; Z90.49 Acquired absence of other specified parts of digestive tract; Z79.899 Other long term (current) drug therapy; Z87.891 Personal history of nicotine dependence; Z68.26 Body mass index [BMI] 26.0-26.9, adult; Z87.81 Personal history of (healed) traumatic fracture; Z96.82 Presence of neurostimulator; Z98.890 Other specified postprocedural states; Z96.619 Presence of unspecified artificial shoulder joint
CPT/HCPCS: 36415; 74018; 74177; 80048; 80053; 82274; 82607; 82652; 83630; 83690; 83735; 84100; 84443; 85025; 87177; 87209; 87493; 87506; 94668; 99285; Q9967; A4216; J2405

== ENCOUNTER → 2024-12-19 | Outpatient (CLI) | payer MEDICARE, SELFPAY | END | disposition home or self-care (01) | LOC: MTLAB 09:54 | PROVIDERS: PCP Family Medicine; Referring Provider Internal Medicine Gastroenterology; Visit Provider Internal Medicine Gastroenterology | DX: Z00.00 Encounter for general adult medical examination without abnormal findings (principal) ==

== ENCOUNTER → 2025-07-14 | Outpatient (CLI) | payer MEDICARE, SELFPAY ==
--- NOTE | 2025-07-14 15:20 | MRI_ITS ---
PROCEDURE: SPINE LUMBAR (ROUTINE) 07/14/2025 REASON FOR EXAM: RADICULOPATHY IN THE LUMBOSACRAL REGION TECHNIQUE: Procedure Code: MRISPL Modality: MR Procedure: SPINE LUMBAR (ROUTINE) COMPARISON: Lumbar spine MRI 02/02/2023 FINDINGS: Vertebrae: Further height loss of chronic L2 fracture. No acute fractures. Alignment: Unremarkable. Conus Medullaris: Unremarkable. T12-L1: Disc desiccation. Facet joint arthropathy. No significant foraminal or canal stenosis. L1-L2: Disc desiccation. Facet joints arthropathy with fluid effusion. L2-L3: Retropulsion measures 7 mm. Facet joints arthropathy. Ligamentum flavum hypertrophy. Moderate bilateral foramina stenosis. Severe canal stenosis. L3-L4: Disc desiccation. Disc bulge. Facet joint arthropathy. Mild inferior bilateral foramina stenosis. No significant canal stenosis. L4-L5: Disc desiccation. Disc bulge. Facet joint arthropathy. Mild bilateral foramina stenosis. No significant canal stenosis. L5-S1: Disc desiccation. Disc bulge. Left paracentral disc protrusion measures 6 mm displaces the descending left S1 nerve. Facet joints arthropathy. Mild bilateral foramina stenosis. No canal stenosis. Sacrum: Unremarkable. 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 No evidence of acute fracture. 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 L5-S1, left paracentral disc protrusion measures 6 mm displaces the descending left S1 nerve. Reading Location: [id number]
== END | disposition home or self-care (01) ==
PROVIDERS: PCP Family Medicine; Referring Provider Anesthesiology Pain Medicine; Visit Provider Anesthesiology Pain Medicine
DX: M54.17 Radiculopathy, lumbosacral region (principal)
CPT/HCPCS: 72148